=== PATIENT | male | born 1970 | race Caucasian/White ===

== ENCOUNTER 2018-02-25 10:43 | Inpatient (IN) | payer SELFPAY ==
[2018-02-25] MEDS ORDERED: Acetaminophen TAB* 325 MG PO ONE (11:45)
[2018-02-25] MEDS ORDERED: NS 0.9% 1000 ML* 1,000 ML IV ONE ×3 (11:45→16:16)
--- NOTE | 2018-02-25 11:45 | ED ---
HPI Febrile Illness - HPI Summary HPI Summary: Pt is 48 y/o M who presents to ED c/o fever and general illness for 2 days. He states that he has been working in extreme heat, and feels aching pain and both hot and cold. Last night he had a fever of 100 degrees. Pt also notes nonproductive cough and normal urination and bowel movement. In addition, his right great toe was bright purple a few days ago, and now the skin is peeling off. He notes difficulty walking due to the pain in the right foot. Rates his pain intensity 7/10 in severity at triage. Denies congestion, diarrhea, or abdominal pain. - History of Current Complaint Chief Complaint: EDFluSymptoms Time Seen by Provider: 02/25/18 11:17 Hx Obtained From: Patient Onset/Duration: Started Days Ago, Still Present Temperature: 101.6 F Current Severity: Moderate Pain Intensity: 7 Pain Scale Used: 0-10 Numeric Associated Signs and Symptoms: Chills, Cough - Nonproductive, Diarrhea - NEGATIVE, Dysuria - NEGATIVE - Allergy/Home Medications Allergies/Adverse Reactions: Allergies Allergy/AdvReac Type Severity Reaction Status Date / Time No Known Allergies Allergy Verified 02/25/18 10:44 PMH/Surg Hx/FS Hx/Imm Hx Endocrine/Hematology History: Denies: Hx Diabetes, Hx Thyroid Disease Cardiovascular History: Denies: Hx Hypertension Respiratory History: Denies: Hx Asthma, Hx Chronic Obstructive Pulmonary Disease (COPD) GI History: Denies: Hx Ulcer Infectious Disease History: No Infectious Disease History: Denies: Hx Hepatitis, Hx Human Immunodeficiency Virus (HIV), Traveled Outside the [place] in Last 30 Days - Family History Known Family History: Positive: Hypertension, Diabetes - Social History Alcohol Use: Daily Alcohol Amount: 12 pack daily Substance Use Type: Reports: None Smoking Status (MU): Heavy Every Day Tobacco Smoker Review of Systems Positive: Fever, Chills Positive: Cough Negative: Abdominal Pain, Diarrhea Genitourinary: Negative Positive: Other - right great toe was purple and now has skin peeling off All Other Systems Reviewed And Are Negative: Yes Physical Exam - Summary Physical Exam Summary: Appearance: The patient is well-nourished in no acute distress and in no acute pain. Skin: Skin is peeling off of right great toe. The skin is warm and dry and skin color reflects adequate perfusion. HEENT: The head is normocephalic and atraumatic. The pupils are equal and reactive. The conjunctivae are clear and without drainage. Nares are patent and without drainage. Mouth reveals moist mucous membranes and the throat is without erythema and exudate. The external ears are intact. The ear canals are patent and without drainage. The tympanic membranes are intact. Neck: The neck is supple with full range of motion and non-tender. There are no carotid bruits. There is no neck vein distension. Respiratory: Chest is non-tender. Breath sounds decreased on left. Cardiovascular: Tachycardic. There is no murmur or rub auscultated. There is no peripheral edema and pulses are symmetrical and equal. Abdomen: The abdomen is soft and non-tender. There are normal bowel sounds heard in all four quadrants and there is no organomegaly palpated. Musculoskeletal: There is no back tenderness noted. Extremities are non-tender with full range of motion. There is good capillary refill. There is no peripheral edema or calf tenderness elicited. Neurological: Patient is alert and oriented to person, place and time. The patient has symmetrical motor strength in all four extremities. Cranial nerves are grossly intact. Deep tendon reflexes are symmetrical and equal in all four extremities. Psychiatric: The patient has an appropriate affect and does not exhibit any anxiety or depression. Triage Information Reviewed: Yes Vital Signs On Initial Exam: Initial Vitals Temp Pulse Resp BP Pulse Ox 101.6 F 108 24 128/83 97 02/25/18 10:45 02/25/18 10:45 02/25/18 10:45 02/25/18 10:45 02/25/18 10:45 Vital Signs Reviewed: Yes Diagnostics - Vital Signs Vital Signs Temp Pulse Resp BP Pulse Ox 02/25/18 11:29 100.1 F 02/25/18 11:25 110 96 02/25/18 11:24 108 119/76 96 02/25/18 10:45 101.6 F 108 24 128/83 97 - Laboratory Lab Results: Lab Results 02/25/18 Range/Units 11:04 Influenza A (Rapid) Negative (Negative) Influenza B (Rapid) Negative (Negative) Result Diagrams: 02/25/18 12:14 02/25/18 12:14 Lab Statement: Any lab studies that have been ordered have been reviewed, and results considered in the medical decision making process. - Radiology CXR Radiology Interpretation Completed By: Radiologist - IMPRESSION:No active cardiopulmonary disease is noted. ED Physician reviewed this report. Right Great Toe X-Ray Radiology Interpretation Completed By: Radiologist - IMPRESSION: NO FRACTURE OF THE RIGHT GREAT TOE IS NOTED. ED Physician reviewed this report. - CT Chest CT CT Interpretation Completed By: Radiologist - IMPRESSION: 1. There is dense consolidation and possible underlying mass in the right upper lobe, masslike area measuring 4.5 x 3.4 x 5.2 cm. There is immediately surrounding the additional consolidation. Malignancy has not been excluded here. 2. Limited mediastinal lymphadenopathy. Precarinal nodes measure up to 14 mm short axis. These may be reactive or malignant. 3. No other acute disease seen. As above. ED Physician reviewed this report. - EKG 16:26 Cardiac Rate: Tachycardia - 107 bp, EKG Rhythm: Sinus Tachycardia EKG Interpretation: ST elevation and QS complexes septal. 17:35 Cardiac Rate: Tachycardia - 106 bp EKG Rhythm: Sinus Tachycardia EKG Comparison: Other - Improved from first EKG taken earlier today at 16:26. Re-Evaluation - Re-Evaluation First Eval Re-Evaluation Time: 16:31 Comment: Discussed results of EKG with pt and informed him we are consulting with physical therapy resident. Pt is agreeable with this plan. Course/Dx - Course Course Of Treatment: Mr. Lema presented to the emergency department complaining of aching all over, chills and sweats, nonproductive cough and a sore right great toe for about 2 days. He was febrile on arrival with a borderline tachycardia. He did not meet septic criteria. Nevertheless an IV was initiated and labs drawn. He was given Tylenol for his fever and this resolved his tachycardia. His labs revealed a mild leukocytosis of 14.5 but as he was no longer tachycardic he still didn't meet septic criteria. Nevertheless fluids were ordered for him. His chest x-ray initial reading was negative and the only thing pending at that point was urine and Levaquin was ordered for him. He began to get tachycardic again and fluids were continued. His troponin returned at 0.06 in the low indeterminate range and an EKG was obtained at that point. He had ST elevations with QS complexes in the septal leads which were concerning but did not meet STEMI criteria. Dr. Crowe was contacted and came to the emergency department to perform an echocardiogram. Dr. Moon was contacted for admission. While speaking on the phone with Dr. Crowe I looked at the chest x-ray and it looked to me like there was a right upper lobe mass and Dr. Moon ordered a CT scan. Once the patient was both tachycardic and had a leukocytosis he was treated as sepsis however he had already been given fluids and antibiotics at that point. His pressure was always good. He never had chest pain. - Diagnoses Provider Diagnoses: Sepsis, Pneumonia - Provider Notifications Discussed Care Of Patient With: Elin Crowe Time Discussed With Above Provider: 16:25 Instructed by Provider To: Other - Dr. Crowe agreed to come see pt in ED to do an electrocardiogram. At 16:[address] Moon who agreed to admit pt to [facility]. - Critical Care Time Critical Care Time: 30-74 min Discharge - Sign-Out/Discharge Documenting (check all that apply): Patient Departure - Admit - Discharge Plan Condition: Stable Disposition: ADMITTED TO [facility] - Billing Disposition and Condition Condition: STABLE Disposition: Admitted to [facility] - Attestation Statements Document Initiated by Scribe: Yes Documenting Scribe: Kala Shea Provider For Whom Scribe is Documenting (Include Credential): Dr. Kishore Baugh MD Scribe Attestation: IKala, scribed for Dr. Kishore Baugh MD on 02/25/18 at 1841. Scribe Documentation Reviewed: Yes Provider Attestation: The documentation as recorded by the scribe, Kala Shea accurately reflects the service I personally performed and the decisions made by me, Dr. Kishore Baugh MD
[2018-02-25 12:26] LABS: Hematocrit 42 % (42-52); Hemoglobin 14.3 g/dl (14.0-18.0); Mean Corpuscular HGB Conc 34 g/dl (31-36); Mean Corpuscular Hemoglobin 32 pg (27-31); Mean Corpuscular Volume 95 fL (80-94); Mean Platelet Volume 8.1 um3 (7.4-10.4); Platelet Count 287 10^3/ul (150-450); Red Cell Distribution Width 14 % (10.5-15); White Blood Count 14.5 10^3/ul (3.5-10.8)
[2018-02-25 12:30] LABS: ABS Basophils 0.1 10^3/ul (0-0.2); ABS Eosinophils 0 10^3/ul (0-0.6); ABS Lymphocytes 1.5 10^3/ul (1.0-4.8); ABS Monocytes 1.4 10^3/ul (0-0.8); ABS Neutrophils 11.5 10^3/ul (1.5-7.7)
[2018-02-25 12:35] LABS: INR 1.17 (0.77-1.02)
[2018-02-25 12:48] LABS: EGFR Non-African American 61.3 (>60)
[2018-02-25 12:50] LABS: ABS Basophils 0 10^3/ul (0-0.2); Monocytes % 5 % (0-7)
--- NOTE | 2018-02-25 13:14 | RAD ---
Indication: Sepsis. 2 views of the chest including dual energy PA views demonstrate no mediastinal shift. Heart is of normal size and configuration. Lung dougherty demonstrate no definite pleural fluid, pneumonia or pneumothorax. IMPRESSION: No active cardiopulmonary disease is noted.
--- NOTE | 2018-02-25 13:20 | RAD ---
Indication: Right great toe injury. 3 views of the right great toe demonstrates no definite fracture. No other bone or joint abnormality is identified. IMPRESSION: NO FRACTURE OF THE RIGHT GREAT TOE IS NOTED.
[2018-02-25] MEDS ORDERED: Levofloxacin 750 MG IVPREMIX(* 750 MG/150 ML BAG IVPB ONE (14:08)
[2018-02-25 14:20] LABS: Urine Appearance Clear; Urine Blood 1+ (Negative); Urine Color Straw; Urine Ketones Negative (Negative); Urine Protein Negative (Negative); Urine Red Blood Cell Trace(0-2/hpf) (Absent); Urine Specific Gravity 1.006 (1.010-1.030); Urine Urobilinogen Negative (Negative); Urine White Blood Cell Absent (Absent)
[2018-02-25] MEDS ORDERED: Iohexol 300* (CONTRAST) 10 ML SDV IV ONE (17:31)
[2018-02-25] MEDS ORDERED: Vancomycin(*) 1,000 MG in NS 0.9% 250 ML* 250 ML IVPB ONE (17:38)
[2018-02-25] MEDS ORDERED: Temazepam CAP* 15 MG PO PRN (17:41)
[2018-02-25] MEDS ORDERED: Mouth Piece, Nicotine* 1 EACH CARTRIDGE INH PRN (18:01)
--- NOTE | 2018-02-25 18:34 | RAD ---
EXAM: CT Chest With Intravenous Contrast CLINICAL HISTORY: 48 years old, male; Pain; Chest pain; On breathing; Patient HX: Pt reports fever, chills, shortness of breath. Denies cp, n/v/d. Pt C/O headache and aches and pains. Pt states he has been working in the sun past few days. Feels dehydrated. Pt took advil last night 1000mg. ; Additional info: Re: Rul mass seen on cxr TECHNIQUE: Axial computed tomography images of the chest with intravenous contrast. All CT scans at this facility use at least one of these dose optimization techniques: automated exposure control; mA and/or kV adjustment per patient size (includes targeted exams where dose is matched to clinical indication); or iterative reconstruction. Coronal and sagittal reformatted images were created and reviewed. CONTRAST: 80 mL of [id number] administered intravenously. COMPARISON: Chest x-ray 02/25/2018 report. FINDINGS: Lungs: There is dense consolidation and possible underlying mass in the right upper lobe, masslike area measuring 4.5 x 3.4 x 5.2 cm. There is immediately surrounding the additional consolidation. Pleural space: Unremarkable. No pneumothorax. No significant effusion. Heart: Unremarkable. No cardiomegaly. No significant pericardial effusion. Bones/joints: Unremarkable. No acute fracture. No dislocation. Soft tissues: Unremarkable. Vasculature: Unremarkable. No thoracic aortic aneurysm. Lymph nodes: Limited mediastinal lymphadenopathy. Precarinal nodes measure up to 14 mm short axis. These may be reactive or malignant. Liver: Fatty liver. Other findings: No other acute disease seen. As above. IMPRESSION: 1. There is dense consolidation and possible underlying mass in the right upper lobe, masslike area measuring 4.5 x 3.4 x 5.2 cm. There is immediately surrounding the additional consolidation. Malignancy has not been excluded here. 2. Limited mediastinal lymphadenopathy. Precarinal nodes measure up to 14 mm short axis. These may be reactive or malignant. 3. No other acute disease seen. As above.
[2018-02-25] MEDS ORDERED: cefTRIAXone(*) 2 GM in NS 0.9% 50 ML* 50 ML IVPB SCH (19:00)
[2018-02-25] MEDS ORDERED: Vancomycin(*) 1,000 MG BAG/ADDV IVPB ONE (19:33)
[2018-02-25] MEDS: Acetaminophen TAB* 325 MG PO PRN (19:36)
--- NOTE | 2018-02-25 19:44 | CONS ---
CC: Hospitalist Service CARDIOLOGY CONSULT: DATE OF CONSULT: 02/25/18 REASON FOR CONSULT: Abnormal ECG and elevated troponin. HISTORY OF PRESENT ILLNESS: Mr. Lema is a 48-year-old gentleman with no past cardiac history. He presented due to acute onset of fevers that occurred yesterday. He said he was very hot, felt like he was dehydrated and burning up and he has had some coughing. He denies any chest pain, pressure, heaviness, orthopnea, or PND. The patient's labs included a troponin, which came back mildly elevated at 0.06 and followup EKG, which showed precordial Qs and abnormally elevated ST segments that were suggestive of a recent large anterior wall AL. The patient denies infectious symptoms before yesterday. He denies any viral illness recently. Significantly, the patient was on antibiotics 3 weeks ago for a dental infection and subsequently had a filling, plans in place for a root canal. He denies dental pain. Approximately a month ago his right great toe was very painful and blue, he did not seek medical attention. The patient has no primary care physician currently. Additional history was obtained from his girlfriend and sister after my initial exam and is significant for : -February 04, 2018 the patient returned from a green party (no food ingested) and he was very short of breath, he had to sleep in a chair. -6 month history of shortness of breath and coughing. His girlfriend also reported intermittent chest pain, the patient stated this occurred later in the day and had a pleuritic component. He cannot show me where the pain was. PAST MEDICAL HISTORY: Trauma to the left toe in 2004 with secondary debridement. Dental abscess on molar #32 in 2005, which required incision and drainage for Hardik's angina with Dr. Sepulveda. MEDICATIONS: The patient is on no medications. ALLERGIES: Has no known drug allergies. FAMILY HISTORY: Significant for early coronary artery disease. His father has a history of heart disease, hypertension, and diabetes. His mother had a history of hypertension and diabetes. Maternal grandmother has a history of heart problems. 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 He is an active smoker, over 1 PPD. He has used cocaine on and off for many years, most recently used last week (snorts). No CP or symptoms with cocaine use. He denies ever using IV recreational drugs. He drinks over a 12 pack of beer daily. REVIEW OF SYSTEMS: See history of present illness, but positive for acute onset of fevers and coughing, the cough was unproductive. Additionally, positive for chronic low back pain. He says when he walks his left lower extremity will get numb and feels like it is going to give out and it is also painful. His girlfriend added that the pain would be so bad he had to sit down on the ground. He also says this can occur, but to a lesser extent if he is just standing. No change in bowel or bladder habits. No dysuria or hematuria. PHYSICAL EXAM: The patient is 6 feet 1 inch, weighs 225 pounds with a BMI of 28. Vital Signs: On arrival in the emergency room, blood pressure 128/83, sinus tachycardia at a rate of 108 beats per minute, oxygen saturation was 97%, and temperature 101.6. General Appearance: Centripetally obese, stocky, fit- appearing 48-year-old gentleman, lying, appears a little anxious and worried, but in no acute medical distress, able to lie at approximately 25 degrees. HEENT: Pupils are equal and round. Mucous membranes appear moist and oral mucosa was unremarkable. Neck: Without increased JVP. Skin: Whitaker, but also Mediterranean complexion, but I did not appreciate rashes or cyanosis. Respiratory: No wheezing or rales in the bases. He did have some bronchial breath sounds in the right upper lobe, no E to A changes. Coronary: S1, S2, regular, tachycardic with no appreciable murmurs or rubs. + remy. Abdomen: Overweight. Active bowel sounds. Soft. No appreciable hepatomegaly, masses, or bruits. He has palpable 1 to 2+ femoral pulses that are free of bruits bilaterally. The lower extremities are both warm, free of edema. He has a strong 2+ posterior tibial pulse in the right lower extremity, but really difficult to palpate pulses in the left lower extremity. I did not get a strong femoral pulse on the left. Radial pulses are 2+ and symmetrical. DIAGNOSTIC STUDIES/LAB DATA: White count 14.5, hemoglobin 14.3, hematocrit 42, mean cell volume 95, platelets 287 with increase in monos and neutrophils. INR 1.17, PTT 31. Sodium 134, potassium 4.0, chloride 104, bicarb 22, BUN 12, creatinine 1.26, glucose 113. AST of 39, ALT 103. Troponin #1 of 0.06. C- reactive protein 148. Total cholesterol 212, triglycerides 110, LDL cholesterol 152, HDL cholesterol 38. Urinalysis: Specific gravity 1.006, 1+ positive blood, negative esterase, negative nitrites, negative bacteria, glucose negative. Influenza A and B are negative. Chest x-ray had a right upper lobe infiltrate. EKG on arrival showed sinus tachycardia at 107 beats per minute, QRS axis +90, normal AV and IV conduction times. He has got anterior Qs V1 through V4 and ST elevation V2 through V4, and no old EKG is available to compare. Repeat EKG, ECG #2 with leads lower continued to show precordial Qs V1 through V3, but the ST elevation was improved with only seen significantly in lead V2. A [employer] bedside echo was done. He had normal to hyperdynamic right ventricular systolic function. The left ventricular endocardium was harder to see, but no focal wall motion abnormalities noted on parasternal or apical views. Gross estimated ejection fraction moderately decreased. There appeared to be some mitral insufficiency. This is a suboptimal study with the ER machine , but aortic, tricuspid, and mitral leaflets did not show gross evidence of endocarditis. IMPRESSION AND PLAN: In conclusion, Mr. Lema is a 48-year-old gentleman, who presented with fevers and coughing with some elevated temperature, elevated white count, and abnormal chest x-ray all concerning for possible acute pneumonia, but additionally he has a very abnormal EKG concerning for recent anterior septal myocardial infarction. The echo is less suspicious for that and also no significant pericardial effusion was seen. I do not feel the patient is having acute ST-elevation myocardial infarction. His ECG is consistent with a distant silent myocardial infarction. He may be dependent on collateral flow and with his acute infection getting some demand ischemia. The anterior Qs could be contributed to by his extensive smoking history, although on chest x- ray the heart border in relation to the lungs did not appear to be that low. Alcohol also can depress his ejection fraction. I recommended supportive care for the underlying infection. Smoking cessation was discussed with the patient, which he is understanding the importance of. I have asked that he get serial troponins and EKGs and a full echo once our service tech/welder is available tomorrow for better imaging. I do not see an indication to go to the sleep lab technician acutely, but I would treat him as if he has underlying coronary disease with initiation of a statin. As vitals tolerate, consider beta-blockade low dose to start as he meets criteria for SIRS and I do not want his blood pressure to drop precipitously. Additional recommendations will be made pending his clinical course and response to the above measures and a full echo with a better machine in the morning. buttermaker continuous churn, we will need to consider whether we do a stress test with imaging to look for evidence of an old myocardial infarction, occlusion versus cardiac catheterization, not urgently. I think the patient has claudication in the left leg with differential of pseudoclaudication and a work up for this should be started. Improvements in smoking, cocaine and alcohol intake were discussed. [id number]/[facility] #: [id number]
--- NOTE | 2018-02-25 20:50 | HP ---
CC: Dr. Crowe * HISTORY AND PHYSICAL: DATE OF ADMISSION: 02/25/18 PRIMARY CARE PROVIDER: None. CHIEF COMPLAINT: Fever. 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 He noted that in the past 24 hours that he had fevers and he was short of breath. He stated that he had been having troubles with cough, but he did not consider it out of ordinary due to the amount of cigarettes he smokes. The patient is septic upon the evaluation in the emergency department, appears to be related to pneumonia. He is going to be admitted to Medicine. PAST MEDICAL HISTORY: 1. History of traumatic left great toe amputation in a lawn mowing accident. 2. History of Hardik angina due to tooth abscess in 2005. MEDICATIONS: Include naproxen on a p.r.n. basis. ALLERGIES: No known drug allergies. FAMILY HISTORY: Positive for heart disease in father who had an [place] in his 50s. SOCIAL HISTORY: The patient smokes 1 pack per day and he has been doing so ever since 2016. He lives with and takes care of his both of his parents. His surrogate name is his girlfriend, Farrah. Farrah's phone number is [phone]. The patient stated that he drinks 6 to 12 beers every other day or so. He denies any drug use. REVIEW OF SYSTEMS: Positive for chronic lower back pain that has not been worse recently. Positive for left leg going numb whenever he is up and working. He stated that the left leg numbness improves when he lays down and "stretches his back." The patient denies any sore throat. Denies any productive cough, but he has been coughing "due to smoking" for quite sometime. He feels that he had "heatstroke," he feels very hot. He denies any change in bowel habits and denies any problems with nausea, vomiting or diarrhea. He has a recent left mandibulary tooth dental infection that was treated with antibiotics by his dentist approximately 3 weeks ago. The patient also stated that he noted that his right great toe would be getting red and swollen and he had been using Epsom salts to soak it with and then he noted that the skin would be peeling off recently. All the remaining 12 systems were reviewed with the patient and were otherwise negative. PHYSICAL EXAMINATION GENERAL: The patient is a very pleasant 48-year-old male, who is in no acute distress, appears mildly anxious. The patient is alert and awake, oriented x3, rather a poor historian. VITAL SIGNS: Blood pressure of 107/71, heart rate of 110 and regular, respiratory rate 34, oxygen saturation 98% on 2 liters of oxygen via nasal cannula, temperature of 101.6. HEENT: Head atraumatic, normocephalic. Eyes: Pupils are equal, reactive to light and accommodation. Oropharynx is with pharyngeal injection and erythema with no evidence of exudates. Mucosa moist. NECK: Supple. No JVD. No adenopathy bilaterally. RESPIRATORY: Decreased breath sounds in right upper lobe with faint crackles in the same area. ABDOMEN: Protuberant, soft, nontender. Bowel sounds present in all 4 quadrants. EXTREMITIES: There is no edema. The patient has good bilateral posterior tibialis pulses, but poor dorsalis pedis pulses bilaterally. The patient's left foot is status post left great toe amputation. The right toe with mild erythema. It appears to be healing paronychia, on the right side of his toenail. There was some peeling skin, but no open areas. It is mildly tender to palpation on the right side of the toenails. There is no evidence of discharge or abscess. BACK: On evaluation of the patient's back, no tenderness to palpation of the back. NEUROLOGIC: Cranial nerves II through XII are grossly intact. Motor strength is 5/5 bilaterally. PSYCHIATRIC: Oriented x3. Mildly anxious, no evidence of depression. DIAGNOSTIC STUDIES/LAB DATA: Showed white blood cell count of 14.5, hemoglobin of 14.3, hematocrit of 42, MCV of 95, and platelets of 287,000. INR of 1.17. Sodium of 134, potassium 4.0, chloride 104, carbon dioxide 32, BUN 12 , creatinine 1.26. Liver function tests showed AST of 39, ALT of 103, alkaline phosphatase of 89. The patient's troponin was 0.07. C-reactive protein was 137. His LDL was 152. The patient's lactic acid was 1.2 and 2 respectively. The patient's urinalysis was grossly unremarkable apart from trace of blood. Influenza testing was negative. The patient's portable chest x-ray showed "there is a suggestion of right upper lobe density, which may represent pneumonia or underlying mass. CT of the chest suggestive for further evaluation." The patient's EKG initially showed ST elevations in V1 to V4, did after lead positioning adjustment show ST elevation in V1 to V2. The patient continued to be in sinus tachycardia. There was no EKG available for comparison from previous visits. ASSESSMENT AND PLAN: 1. The patient is septic, likely due to right upper lobe pneumonia. As discussed with radiologist, a CT with IV contrast is going to be obtained to rule out mass, evaluate further for possibility of pneumonia and rule out septic emboli. At this time, the patient is going to be treated with broad- spectrum antibiotics including ceftriaxone, vancomycin, as well as azithromycin. Urine antigen Legionella and Strep pneumoniae are going to be obtained. The patient is going to be treated with intravenous hydration. 2. In regards to mild elevation of troponin and EKG changes, at this point the patient complains of no chest pain whatsoever. Dr. Crowe is involved in the patient's care and as per bedside echo performed, there was no evidence of gross wall motion abnormality. The patient is going to have a full echo performed tomorrow. For the time being, the patient is going to be observed from telemetry monitoring bed with followup troponins. The patient's second EKG showed improvement on the patient's ST elevations and some of the ST elevations and other abnormalities were likely related to lead positioning. 3. The patient has poor peripheral pulses and ABIs are going to be obtained to rule out peripheral vascular disease. At this point, though his intermittent left leg numbness is likely related to neurogenic claudication from chronic back problems, which will have to be addressed as outpatient. 4. The patient has a history of recent tooth infection and endocarditis has to be considered. Due to that, he is going to placed on vancomycin and ceftriaxone , and blood cultures were already obtained. 5. The patient has a history of smoking and he is going to placed on nicotine inhaler. He was recommended to stop smoking. 6. The patient has a history of alcohol use rather significant of 6 to 12 beers every other day. We will place him on thiamine and folate. We will watch and monitor for possibility of withdrawal. 7. For DVT prophylaxis, the patient is going to be placed on heparin subcutaneously. 8. The patient's code status is full and his surrogate is his girlfriend, Farrah, as mentioned above. 9. The patient has mild elevation of creatinine. It does not meet criteria of acute kidney injury. It is likely related to sepsis. TIME SPENT: Please note that approximately 72 minutes were spent on admission of this patient, more than half that time was spent [id number] with the patient during the interview and physical exam. [id number]/[facility] #: [id number] MTDD
[2018-02-25] MEDS: Thiamine TAB* 100 MG TAB PO SCH (21:35)
[2018-02-25] MEDS: Heparin VIAL(*) 5000 UNITS/ML VIAL (FIVE THOUSAND) SUBCUT SCH (21:35)
[2018-02-25] MEDS: Atorvastatin* 40 MG TAB PO SCH (21:35)
[2018-02-25] MEDS: NS 0.9% 1000 ML* 1,000 ML IV SCH (21:36)
[2018-02-25] MEDS: Azithromycin IV(*) 500 MG in NS 0.9% 250 ML* 250 ML IVPB SCH (23:32)
[2018-02-26] MEDS: Acetaminophen TAB* 325 MG PO PRN ×4 (02:58→19:27)
[2018-02-26 05:19] LABS: ABS Basophils 0.1 10^3/ul (0-0.2); ABS Eosinophils 0 10^3/ul (0-0.6); ABS Lymphocytes 1.9 10^3/ul (1.0-4.8); ABS Neutrophils 12.5 10^3/ul (1.5-7.7); ABS Nucleated RBC 0 10^3/ul; Eosinophil % 0.1 % (0-6); Hematocrit 39 % (42-52); Hemoglobin 13.4 g/dl (14.0-18.0); Lymphocyte % 12.4 % (25-47); Mean Corpuscular HGB Conc 34 g/dl (31-36); Mean Corpuscular Hemoglobin 32 pg (27-31); Mean Corpuscular Volume 93 fL (80-94); Mean Platelet Volume 8.1 um3 (7.4-10.4); Nucleated Red Blood Cells % 0; Platelet Count 242 10^3/ul (150-450); Red Blood Count 4.22 10^6/ul (4.00-5.40); Red Cell Distribution Width 14 % (10.5-15); White Blood Count 15.6 10^3/ul (3.5-10.8)
[2018-02-26] MEDS: Heparin VIAL(*) 5000 UNITS/ML VIAL (FIVE THOUSAND) SUBCUT SCH ×3 (06:01→21:19)
[2018-02-26] MEDS: NS 0.9% 1000 ML* 1,000 ML IV SCH (07:20)
[2018-02-26] MEDS ORDERED: Potassium Chlor TAB* 20 MEQ TAB.ER PO ONE (07:42)
[2018-02-26] MEDS ORDERED: Vancomycin(*) 1,500 MG in NS 0.9% 250 ML* 250 ML IVPB ONE (08:30)
[2018-02-26] MEDS ORDERED: Perflutren Lipid Microsphere* 3 ML VIAL ONE (08:45)
[2018-02-26] MEDS ORDERED: Vancomycin per Pharmacy* NOTE FOLLOW UP PRN (08:53)
[2018-02-26] MEDS: Cefepime 2 GM in Dextrose(*) 2 GM/50 ML BAG IV SCH ×3 (09:13→23:38)
[2018-02-26] MEDS: Aspirin TAB* 325 MG PO SCH (09:13)
[2018-02-26] MEDS: Folic Acid TAB* 1 MG PO SCH (09:13)
[2018-02-26] MEDS: Thiamine TAB* 100 MG TAB PO SCH (09:13)
--- NOTE | 2018-02-26 09:39 | PN ---
Subjective Date of Service: 02/26/18 Interval History: Although still febrile this AM, feels "much better" Had diarrhea yesterday, no abd pain Objective Active Medications: Acetaminophen (Tylenol Tab*) 650 mg PO Q4H PRN PRN Reason: FEVER/PAIN Last Admin: 02/26/18 07:20 Dose: 650 mg Aspirin (Aspirin Tab*) 325 mg PO DAILY [facility] Last Admin: 02/26/18 09:13 Dose: 325 mg Atorvastatin Calcium (Lipitor*) 40 mg PO 2100 [facility] Last Admin: 02/25/18 21:35 Dose: 40 mg Device (Nicotine Mouth Piece*) 1 each INH .USE WITH NICOTROL PRN PRN Reason: CRAVING Folic Acid (Folvite Tab*) 1 mg PO DAILY [facility] Last Admin: 02/26/18 09:13 Dose: 1 mg Heparin Sodium (Porcine) (Heparin Vial(*)) 5,000 units SUBCUT Q8HR [facility] Last Admin: 02/26/18 06:01 Dose: 5,000 units Azithromycin 500 mg/ Sodium (Chloride) 250 mls @ 250 mls/hr IVPB Q24H [facility] Last Admin: 02/25/18 23:32 Dose: 250 mls/hr Vancomycin HCl 1,500 mg/ (Sodium Chloride) 250 mls @ 166.667 mls/hr IVPB ONCE ONE; Protocol Stop: 02/26/18 09:59 Last Admin: 02/26/18 09:22 Dose: 166.667 mls/hr Potassium Chloride 20 meq/ (Lactated Ringer's) 1,010 mls @ 100 mls/hr IVPB Q10H [facility] Cefepime HCl (Maxipime 2 Gm In Dextrose Duplex (*)) 2 gm in 50 mls @ 100 mls/ hr IV Q8H [facility] Last Admin: 02/26/18 09:13 Dose: 100 mls/hr Vancomycin HCl 1,000 mg/ (Sodium Chloride) 250 mls @ 166.667 mls/hr IVPB Q8H [facility] Nicotine (Nicotine Inhaler*) 10 mg INH Q2H PRN PRN Reason: CRAVING Pharmacy Consult (Vancomycin Per Pharmacy*) 1 note FOLLOW UP . PRN PRN Reason: PER PROTOCOL Pharmacy Profile Note (Vancomycin Trough Check) 1 note FOLLOW UP ONCE ONE Stop: 02/27/18 08:01 Temazepam (Restoril Cap*) 15 mg PO BEDTIME PRN PRN Reason: INSOMNIA Thiamine HCl (Vitamin B-1 Tab*) 100 mg PO DAILY [facility] Last Admin: 02/26/18 09:13 Dose: 100 mg Vital Signs - 8 hr 02/26/18 02/26/18 02/26/18 02:18 04:28 06:24 Temperature 101.0 F 100.3 F 101.3 F Pulse Rate 106 104 104 Respiratory 28 28 26 Rate Blood Pressure 101/66 109/70 120/69 (mmHg) O2 Sat by Pulse 94 94 98 Oximetry 02/26/18 07:59 Temperature 99.3 F Pulse Rate 109 Respiratory 24 Rate Blood Pressure 113/79 (mmHg) O2 Sat by Pulse 98 Oximetry Oxygen Devices in Use Now: None Appearance: 48 yo M in nAD, AAOx3 Eyes: No Scleral Icterus, PERRLA Ears/Nose/Mouth/Throat: NL Teeth, Lips, Gums, Mucous Membranes Moist Neck: NL Appearance and Movements; NL JVP, Trachea Midline Respiratory: Symmetrical Chest Expansion and Respiratory Effort, - - R UL decreased breath sounds and faint rhonchi anteriorly Cardiovascular: NL Sounds; No Murmurs; No JVD, RRR Abdominal: NL Sounds; No Tenderness; No Distention, No Hepatosplenomegaly Lymphatic: No Cervical Adenopathy Extremities: No Edema, No Clubbing, Cyanosis, - - s/p left 1st toe amputation Skin: No Rash or Ulcers, No Nodules or Sclerosis Neurological: Alert and Oriented x 3, NL Muscle Strength and Tone Result Diagrams: 02/26/18 05:10 02/26/18 05:10 Additional Lab and Data: Lab Results 02/25/18 Range/Units 11:04 Influenza A (Rapid) Negative (Negative) Influenza B (Rapid) Negative (Negative) Microbiology and Other Data: Microbiology 02/25/18 20:21 Legionella Urinary Antigen - Final Urine Negative Legionella Antigen Streptococcus pneumoniae Ag Screen - Final Negative S. pneumo Antigen 02/25/18 10:55 Influenza Types A,B Antigen - Final Nasal Specimen received for Influenza A/B Molecular testing Assess/Plan/Problems-Billing Assessment: 48 yo M with h/o smoking, traumatic left toe amputation presents with fever/PNA - Patient Problems (1) Sepsis due to pneumonia Comment: cT shows RUL PNA, shape worrisome for malignancy, but symptoms clearly infectious. Due to continuation of fever will broaden coverage from Ceftriaxone to Cefepime , cont Vanc /Azithro Legionella/Strep pneumo antigen neg Blood cx pending (2) EKG abnormalities Comment: EKD shows ST elevation, but pt never c/o CP and low elev in trop likely related to demand ischemia Echo pending appreciate cardiology consult (3) Decreased pedal pulses Comment: NEMESIO's ordered. symptoms of intermittent left leg numbness in the past likley related to nerve root compression (4) Smoking Comment: counseled x 4 min today nicotine replacement ordered (5) ETOH abuse Comment: cont Thiamine/Folate No signs of withdrawal (6) DVT prophylaxis Comment: HSQ Status and Disposition: inpatient
--- NOTE | 2018-02-26 10:24 | ECHO ---
Patient: KAYLEE RUANO [facility] Rec#: [id number] : 1970 Date: 02/26/2018 Age: 48y Height: 185 cm / 72.8 in Weight: 102 kg / 224.8 lbs Sex: M BSA: 2.26 Room#: 434 Admit Date#: 02/25/2018 Type: Inpatient Referring: Yodit Moon MD Reading: Elin Crowe MD Profiling Machine Set Up Operator Tool: Ngoc Lopez RN RDCS Transthoracic Echocardiogram Indication: Abnormal EKG BP: 109/70 HR: 108 Rhythm: Tachycardia Findings History: Smoker, ETOH use, recent dental infection Technical Comments: The study quality is fair. The study is technically limited due to the patient's smoking history. Left Ventricle: The left ventricular chamber size is moderately dilated. 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 There is severely decreased left ventricular systolic function. The estimated ejection fraction is 25-30%. There is septal flattening of the interventricular septum consistent with right ventricular volume or pressure overload. The left ventricular diastolic filling pattern is restrictive. The left ventricular diastolic filling pattern is consistent with elevated left ventricular end-diastolic pressure. Left Atrium: The left atrium is slightly dilated. Right Ventricle: The right ventricle is slightly dilated. The right ventricular global systolic function is mildly reduced. Right Atrium: The right atrial cavity size is normal. Aortic Valve: The aortic valve is trileaflet. The aortic valve leaflets are mildly thickened. There is aortic annular calcification. There is no evidence of aortic regurgitation. There is no evidence of aortic stenosis. Mitral Valve: The mitral valve leaflets are mildly thickened. There is moderate mitral regurgitation. The mitral regurgitant jet is posteriorly directed. The mitral regurgitant jet is laterally directed. There is no evidence of mitral stenosis. Tricuspid Valve: The tricuspid valve leaflets are normal. There is mild tricuspid regurgitation. Unable to estimate the right ventricular systolic pressure. There is no tricuspid stenosis. Pulmonic Valve: The pulmonic valve appears normal. There is a trace pulmonic regurgitation. There is no pulmonic stenosis. Pericardium: There is no significant pericardial effusion. Aorta: There is no dilatation of the ascending aorta. There is no dilatation of the aortic arch. There is no dilation of the aortic root. Pulmonary Artery: The main pulmonary artery is not well visualized. Venous: The inferior vena cava appears normal in size. There is a greater than 50% respiratory change in the inferior vena cava dimension. Contrast: Definity was used to optimize study. A total of 3 ml of diluted Definity was given IV. Conclusions The study is technically limited due to the patient's smoking history. There is severely decreased left ventricular systolic function. The apex is akinetic with global diffuse hypokinesis, the base of the heart moves best. The estimated ejection fraction is 25-30%. The left ventricular diastolic filling pattern is restrictive with elevated LVEDP. The right ventricular global systolic function is mildly reduced. The aortic valve leaflets are mildly thickened with normal function. There is moderate mitral regurgitation. There is mild tricuspid regurgitation. No prior echo to compare. Measurements Name Value Normal Range RVIDd (AP) 2D 3 cm (0.9 - 2.6) RVDdMajor (2D) 3.2 cm (2.2 - 4.4) RAd ISD 4CH 4.4 cm (3.4 - 4.9) RA (A4C)W 3.4 cm (2.9 - 4.6) IVSd (2D) 0.8 cm (0.6 - 1) LVPWd (2D) 1 cm (0.6 - 1) LVIDd (2D) 6.3 cm (3.6 - 5.4) LVIDs (2D) 5.6 cm - LV FS (2D) 11 % (25 - 45) Aortic Annulus 2 cm (1.4 - 2.6) Ao root diameter (2D) 3.5 cm (2.1 - 3.5) Ascending Ao 3.2 cm (2.1 - 3.4) Aortic arch 2.8 cm (1.8 - 3.4) LA dimension (AP) 2D 3.8 cm (2.3 - 3.8) LAd ISD 4CH 6.1 cm (2.9 - 5.3) LA ISD 4CH W 3.9 cm (2.5 - 4.5) Name Value Normal Range LA ESV BP (A/L) index 28.1 ml/m2 - LV mass (2D) 234.72 g - Name Value Normal Range MV E-wave Vmax 1.2 m/sec - MV deceleration time 120 msec - MV A-wave Vmax 0.57 m/sec - MV E:A ratio 2.11 ratio - LV septal e' Vmax 0.05 m/sec - LV lateral e' Vmax 0.05 m/sec - LV E:e' septal ratio 24 ratio - LV E:e' lateral ratio 24 ratio - Name Value Normal Range AV Vmax 1.5 m/sec - AV VTI 23.5 cm - AV peak gradient 9 mmHg - AV mean gradient 6 mmHg - LVOT Vmax 0.86 m/sec - LVOT VTI 11.4 cm - LVOT peak gradient 3 mmHg - LVOT mean gradient 2 mmHg - [place] Vmax 0.58 m/sec - Name Value Normal Range MR Vmax 4 m/sec - MR VTI 99 cm - MR volume (PISA) 16.8 ml - MR flow (PISA) 69.6 ml/sec - MR ERO 0.17 cm2 - MR PISA radius 0.6 cm - MR alias Vmax 30.8 cm/sec - Name Value Normal Range IVC diameter 1.7 cm - Name Value Normal Range PV Vmax 0.92 m/sec -
[2018-02-26] MEDS: Lactobacillus Acidophilus* 1 TAB PO SCH ×2 (10:42→21:17)
[2018-02-26] MEDS: Metoprolol Succinate XL TAB* 25 MG PO SCH (11:24)
--- NOTE | 2018-02-26 11:45 | PN ---
Subjective Date of Service: 02/26/18 - CC: diarrhea, coughing, fevers Interval History: The patient feels much better today c/w yesterday. Breathing has improved significantly, coughing is a bit better. He slept, denies orthopnea or PND. New diarrhea he attributes to the antibiotics. No chest pain. Medications Active Medications: Acetaminophen (Tylenol Tab*) 650 mg PO Q4H PRN PRN Reason: FEVER/PAIN Last Admin: 02/26/18 07:20 Dose: 650 mg Aspirin (Aspirin Tab*) 325 mg PO DAILY [facility] Last Admin: 02/26/18 09:13 Dose: 325 mg Atorvastatin Calcium (Lipitor*) 40 mg PO 2100 [facility] Last Admin: 02/25/18 21:35 Dose: 40 mg Device (Nicotine Mouth Piece*) 1 each INH .USE WITH NICOTROL PRN PRN Reason: CRAVING Folic Acid (Folvite Tab*) 1 mg PO DAILY [facility] Last Admin: 02/26/18 09:13 Dose: 1 mg Heparin Sodium (Porcine) (Heparin Vial(*)) 5,000 units SUBCUT Q8HR [facility] Last Admin: 02/26/18 06:01 Dose: 5,000 units Azithromycin 500 mg/ Sodium (Chloride) 250 mls @ 250 mls/hr IVPB Q24H [facility] Last Admin: 02/25/18 23:32 Dose: 250 mls/hr Potassium Chloride 20 meq/ (Lactated Ringer's) 1,010 mls @ 100 mls/hr IVPB Q10H [facility] Last Admin: 02/26/18 10:42 Dose: 100 mls/hr Cefepime HCl (Maxipime 2 Gm In Dextrose Duplex (*)) 2 gm in 50 mls @ 100 mls/ hr IV Q8H [facility] Last Admin: 02/26/18 09:13 Dose: 100 mls/hr Vancomycin HCl 1,000 mg/ (Sodium Chloride) 250 mls @ 166.667 mls/hr IVPB Q8H [facility] Lactobacillus Rhamnosus (Lactobacillus Acidophilus*) 1 tab PO BID [facility] Last Admin: 02/26/18 10:42 Dose: 1 tab Metoprolol Succinate (Toprol Xl Tab*) 25 mg PO DAILY [facility] Last Admin: 02/26/18 11:24 Dose: 25 mg Nicotine (Nicotine Inhaler*) 10 mg INH Q2H PRN PRN Reason: CRAVING Pharmacy Consult (Vancomycin Per Pharmacy*) 1 note FOLLOW UP . PRN PRN Reason: PER PROTOCOL Pharmacy Profile Note (Vancomycin Trough Check) 1 note FOLLOW UP ONCE ONE Stop: 02/27/18 08:01 Ramipril (Altace Cap*) 1.25 mg PO ONCE ONE Stop: 02/26/18 21:01 Temazepam (Restoril Cap*) 15 mg PO BEDTIME PRN PRN Reason: INSOMNIA Thiamine HCl (Vitamin B-1 Tab*) 100 mg PO DAILY [facility] Last Admin: 02/26/18 09:13 Dose: 100 mg Objective Vital Signs: Temp Pulse Resp BP Pulse Ox 99.9 F 96 24 122/76 97 02/26/18 10:03 02/26/18 10:03 02/26/18 10:03 02/26/18 10:03 02/26/18 10:03 Oxygen Devices in Use Now: None Appearance: Stocky and overweight muscular middle aged male with a wet wash cloth on forhead, lying at 20 degrees, comfortable. Girlfriend and sister at the bedside. Eyes: No Scleral Icterus, PERRLA Ears/Nose/Mouth/Throat: Clear Oropharnyx, Mucous Membranes Moist Neck: No Thyroid Enlargement, Masses - thick neck, no increased JVP appreciated. Respiratory: Symmetrical Chest Expansion and Respiratory Effort, Clear to Auscultation Cardiovascular: NL Sounds; No Murmurs; No JVD, RRR Abdominal: No Hepatosplenomegaly Extremities: No Edema, No Clubbing, Cyanosis - diminished/can't find L PTP or L DPP, right LE has strong PTP. Skin: No Rash or Ulcers Neurological: Alert and Oriented x 3 Lines/Tubes/Other Access: Clean, Dry and Intact Peripheral IV Laboratory Results: 02/26/18 05:10 02/26/18 05:10 INR (Anticoag Therapy) 1.17 (0.77-1.02) H 02/25/18 12:14 APTT 31.3 seconds (26.0-36.3) 02/25/18 12:14 Total Bilirubin 0.60 mg/dL (0.2-1.0) 02/25/18 12:14 AST 39 U/L (13-39) 02/25/18 12:14 ALT 103 U/L (7-52) H 02/25/18 12:14 Alkaline Phosphatase 89 U/L (34-104) 02/25/18 12:14 Total Protein 7.2 g/dL (6.4-8.9) 02/25/18 12:14 Albumin 4.3 g/dL (3.2-5.2) 02/25/18 12:14 Globulin 2.9 g/dL (2-4) 02/25/18 12:14 Albumin/Globulin Ratio 1.5 (1-3) 02/25/18 12:14 Triglycerides 110 mg/dL 02/25/18 12:14 Cholesterol 212 mg/dL 02/25/18 12:14 LDL Cholesterol 152 mg/dL 02/25/18 12:14 HDL Cholesterol 37.8 mg/dL 02/25/18 12:14 02/25/18 02/25/18 02/26/18 12:14 19:45 02:10 Troponin I 0.06 H* 0.08 H* 0.08 H* 02/26/18 05:10 Troponin I 0.08 H* Diagnostic Imaging: Echo 02/26/18: [place] akinetic, EF 25-30%, moderate MR, restrictive diastolic function, elevated LVEDP. L atrium not significantly enlarged (as would be expected in an old injury with longstanding moderate MR). CT scan 02/25/18: RUL mass, possible malignancy with differential of pneumonia. Nodes noted as well. EKG Data: NSR 106 bpm, anterior Q's, 1-2 mmSTelevation V2-V4, metal slitter: NSR, occasional V. bigeminy, PVC's. Assessment/Plan 48 yo who presented to ED for fevers, SOB and cough. Found to have a RUL mass. ECG c/w old, possibly recent anterior FL with precordial Q's and elevated ST segments. Echo c/w apical FL. Severe CM. ROS and exam suggest PVD LLE. Cardiac: Severe CM, probably ischemic with probable recent AWMI (differential of Takasubo, but echo and ECG more c/w FL). Continue Statin. I added low dose metoprolol and ramapril, can titrate as BP allows. No evidence of CHF now, but may benefit in the future from Aldactone ( once fevers, infectious/inflammatory issues stabilized). At risk for CHF if too aggressively hydrated, follow I/O's carefully, consider daily weights. Low salt diet recommended. I recommended cardiac catheterization to definitively determine ischemic vs non ischemic, pt wants to put off if possible, he is hoping with lifestyle changes EF will improve. Alternative to cath would be severo myoview study (claudication will limit exercise). Defibrillator discussed, external and ICD, timing for each, indications and brief details. Smoking cessation discussed, pt's sister asking for nicotine patch or similar. ` Cocaine impact on CAD discussed and pt advised to avoid in the future. Alcohol impact on EF discussed, advised pt to stop. I recommend dietary education for salt, pt eats a lot of canned soup. PVC's Getting KCl replacement and metoprolol added. Vascular: I suspect PVD LLE, will order NEMESIO, multilevel to start work up. Lung mass: Work up in progress. ID: On antibiotics, negative Influenza, strep and legionella noted. Hospitalists working up.
[2018-02-26] MEDS: Nicotine Inhaler* 10 MG AMP INH PRN (11:52)
--- NOTE | 2018-02-26 16:27 | RAD ---
Indication: Decreased pedal pulses. Ankle-brachial index on the right is 1.13. Ankle-brachial index on the left is 0.60. This is in the moderate claudication range. Triphasic waveforms are noted in the right posterior tibial and dorsalis pedis artery. There appears to be biphasic waveforms in the left posterior tibial and dorsalis pedis artery. Plethysmography in the left lower extremity demonstrates decreased amplitudes. IMPRESSION: Abnormal left ankle-brachial index of 0.60 with biphasic waveforms and decreased amplitudes on pulse volume recording suggestive of moderate claudication.
[2018-02-26] MEDS: Vancomycin(*) 1,000 MG in NS 0.9% 250 ML* 250 ML IVPB SCH (17:32)
[2018-02-26] MEDS: Azithromycin IV(*) 500 MG in NS 0.9% 250 ML* 250 ML IVPB SCH (19:31)
[2018-02-26] MEDS ORDERED: Ramipril CAP* 1.25 MG PO ONE (21:00)
[2018-02-26] MEDS: Atorvastatin* 40 MG TAB PO SCH (21:17)
[2018-02-27] MEDS: Vancomycin(*) 1,000 MG in NS 0.9% 250 ML* 250 ML IVPB SCH ×2 (00:18→09:15)
[2018-02-27] MEDS: Heparin VIAL(*) 5000 UNITS/ML VIAL (FIVE THOUSAND) SUBCUT SCH ×3 (05:11→22:17)
[2018-02-27 05:36] LABS: Hematocrit 38 % (42-52); Hemoglobin 12.8 g/dl (14.0-18.0); Mean Corpuscular HGB Conc 34 g/dl (31-36); Mean Corpuscular Hemoglobin 32 pg (27-31); Mean Corpuscular Volume 93 fL (80-94); Mean Platelet Volume 8.2 um3 (7.4-10.4); Platelet Count 246 10^3/ul (150-450); Red Blood Count 4.04 10^6/ul (4.00-5.40); Red Cell Distribution Width 14 % (10.5-15)
[2018-02-27 05:49] LABS: Vancomycin Trough 12.5 mcg/mL
[2018-02-27 05:51] LABS: EGFR Non-African American 71.8 (>60)
[2018-02-27] MEDS: Nicotine Inhaler* 10 MG AMP INH PRN (07:57)
[2018-02-27] MEDS: Cefepime 2 GM in Dextrose(*) 2 GM/50 ML BAG IV SCH ×2 (07:57→17:08)
[2018-02-27] MEDS ORDERED: Vancomycin Trough Check NOTE FOLLOW UP ONE (08:00)
[2018-02-27] MEDS ORDERED: Diazepam TAB(*) 5 MG PO ONE (08:58)
[2018-02-27] MEDS ORDERED: diPHENhydraMINE PO* 25 MG PO ONE (08:58)
[2018-02-27] MEDS ORDERED: Vancomycin(*) 1,250 MG in NS 0.9% 250 ML* 250 ML IVPB SCH (09:00)
[2018-02-27] MEDS ORDERED: NS 0.9% 1000 ML* 1,000 ML IV SCH ×2 (09:00→15:20)
[2018-02-27] MEDS: Thiamine TAB* 100 MG TAB PO SCH (09:24)
[2018-02-27] MEDS: Metoprolol Succinate XL TAB* 25 MG PO SCH ×2 (09:24→22:15)
[2018-02-27] MEDS: Aspirin TAB* 325 MG PO SCH (09:24)
[2018-02-27] MEDS: Folic Acid TAB* 1 MG PO SCH (09:24)
[2018-02-27] MEDS: Lactobacillus Acidophilus* 1 TAB PO SCH ×2 (09:24→22:22)
[2018-02-27] MEDS: Nicotine PATCH 21 MG/24 HR* PATCH TRANSDERM SCH (11:44)
[2018-02-27] MEDS: metroNIDAZOLE TAB* 250 MG PO SCH ×2 (13:34→22:16)
--- NOTE | 2018-02-27 13:46 | PN ---
Subjective Date of Service: 02/27/18 Interval History: Pt feels much better, but anxious about today's cath C/o diarrhea(up to 12 BM's today), no abd pain Objective Active Medications: Acetaminophen (Tylenol Tab*) 650 mg PO Q4H PRN PRN Reason: FEVER/PAIN Last Admin: 02/26/18 19:27 Dose: 650 mg Aspirin (Aspirin Tab*) 325 mg PO DAILY [facility] Last Admin: 02/27/18 09:24 Dose: 325 mg Atorvastatin Calcium (Lipitor*) 40 mg PO 2100 [facility] Last Admin: 02/26/18 21:17 Dose: 40 mg Device (Nicotine Mouth Piece*) 1 each INH .USE WITH NICOTROL PRN PRN Reason: CRAVING Last Admin: 02/26/18 11:52 Dose: 1 each Folic Acid (Folvite Tab*) 1 mg PO DAILY [facility] Last Admin: 02/27/18 09:24 Dose: 1 mg Heparin Sodium (Porcine) (Heparin Vial(*)) 5,000 units SUBCUT Q8HR [facility] Last Admin: 02/27/18 13:34 Dose: 5,000 units Azithromycin 500 mg/ Sodium (Chloride) 250 mls @ 250 mls/hr IVPB Q24H [facility] Last Admin: 02/26/18 19:31 Dose: 250 mls/hr Cefepime HCl (Maxipime 2 Gm In Dextrose Duplex (*)) 2 gm in 50 mls @ 100 mls/ hr IV Q8H [facility] Last Admin: 02/27/18 07:57 Dose: 100 mls/hr Sodium Chloride (Ns 0.9% 1000 Ml*) 1,000 mls @ 75 mls/hr IV .per rate [facility] Last Admin: 02/27/18 09:24 Dose: 75 mls/hr Lactobacillus Rhamnosus (Lactobacillus Acidophilus*) 1 tab PO BID [facility] Last Admin: 02/27/18 09:24 Dose: 1 tab Metoprolol Succinate (Toprol Xl Tab*) 25 mg PO DAILY [facility] Last Admin: 02/27/18 09:24 Dose: 25 mg Metronidazole (Flagyl Tab*) 500 mg PO TID [facility] Last Admin: 02/27/18 13:34 Dose: 500 mg Nicotine (Nicotine Inhaler*) 10 mg INH Q2H PRN PRN Reason: CRAVING Last Admin: 02/27/18 07:57 Dose: 10 mg Nicotine (Nicotine Patch 21 Mg/24 Hr*) 1 patch TRANSDERM DAILY [facility] Last Admin: 02/27/18 11:44 Dose: 1 patch Pharmacy Profile Note (Nicotine Patch Removal Note*) 1 note PATCH OFF 2100 [facility] Temazepam (Restoril Cap*) 15 mg PO BEDTIME PRN PRN Reason: INSOMNIA Thiamine HCl (Vitamin B-1 Tab*) 100 mg PO DAILY [facility] Last Admin: 02/27/18 09:24 Dose: 100 mg Vital Signs - 8 hr 02/27/18 02/27/18 02/27/18 07:38 08:00 09:03 Temperature 98.8 F 98.7 F Pulse Rate 101 95 Respiratory 20 16 20 Rate Blood Pressure 112/79 114/73 (mmHg) O2 Sat by Pulse 96 98 Oximetry 02/27/18 11:06 Temperature 98.9 F Pulse Rate 94 Respiratory 20 Rate Blood Pressure 100/69 (mmHg) O2 Sat by Pulse 99 Oximetry Oxygen Devices in Use Now: None Appearance: 48 yo M in nAD, aAOx3 Eyes: No Scleral Icterus, PERRLA Ears/Nose/Mouth/Throat: NL Teeth, Lips, Gums, Mucous Membranes Moist Neck: NL Appearance and Movements; NL JVP Respiratory: Symmetrical Chest Expansion and Respiratory Effort, - - rhonchi in RUL anteriorly Cardiovascular: NL Sounds; No Murmurs; No JVD, RRR Abdominal: NL Sounds; No Tenderness; No Distention, No Hepatosplenomegaly Lymphatic: No Cervical Adenopathy Extremities: No Edema, No Clubbing, Cyanosis, - - poor pedal pulses b/l, no cyanosis, good capillary refill, s/p left 1st toe remote amputation Skin: No Nodules or Sclerosis Neurological: Alert and Oriented x 3, NL Muscle Strength and Tone Result Diagrams: 02/27/18 05:22 02/27/18 05:22 Additional Lab and Data: Lab Results 02/25/18 Range/Units 11:04 Influenza A (Rapid) Negative (Negative) Influenza B (Rapid) Negative (Negative) Microbiology and Other Data: Microbiology 02/25/18 20:21 Legionella Urinary Antigen - Final Urine Negative Legionella Antigen Streptococcus pneumoniae Ag Screen - Final Negative S. pneumo Antigen 02/25/18 10:55 Influenza Types A,B Antigen - Final Nasal Specimen received for Influenza A/B Molecular testing Assess/Plan/Problems-Billing Assessment: 48 yo M with h/o smoking, traumatic left toe amputation presents with fever/PNA - Patient Problems (1) Sepsis due to pneumonia Comment: CT shows RUL PNA, shape worrisome for malignancy, but symptoms clearly infectious. Cont Cefepime/Azithro, blood cx neg-will stop Vanc Legionella/Strep pneumo antigen neg Blood cx NTD (2) EKG abnormalities Comment: EKD shows ST elevation, but pt never c/o CP and low elev in trop likely related to demand ischemia. Cont ASA, BB. Echo shows mod MR, EF 25% appreciate cardiology consult, cath today, no intervention planned, since pt may need lung biopsy (3) Decreased pedal pulses Comment: NEMESIO's shows PAD on left. Dr. Cabrera consulted (4) Smoking Comment: counseled nicotine replacement ordered (5) ETOH abuse Comment: cont Thiamine/Folate No signs of withdrawal (6) Diarrhea Comment: C. diff pending. started Flagyl PO for antibiotic associated diarrhea Cont probiotic (7) DVT prophylaxis Comment: HSQ Status and Disposition: inpatient
[2018-02-27] MEDS ORDERED: Heparin(*) 1000 UNIT/ML 10 ML VIAL CATH LAB IV ONE (13:47)
[2018-02-27] MEDS ORDERED: Midazolam* 1 MG/ML 10 ML VIAL (10 MG) ONE (13:47)
[2018-02-27] MEDS ORDERED: fentaNYL* 50 MCG/ML 2 ML VIAL (100 MCG VIAL) ONE (13:47)
[2018-02-27] MEDS ORDERED: nitroGLYCERIN DRIP* 25,000 MCG/250 ML BTL ONE (13:48)
[2018-02-27] MEDS ORDERED: Heparin 2 UNITS/ML IVPREMIX* 2,000 ML IV ONE (13:48)
[2018-02-27] MEDS ORDERED: VERAPAMIL 2.5 MG/ML 2 ML VIAL ** 5 mg/2 ml ONE (13:48)
[2018-02-27] MEDS ORDERED: Iohexol 350 (CONTRAST) 200 ML MDV IV ONE (13:49)
[2018-02-27] MEDS ORDERED: Lidocaine 1% INJ* 10 MG/ML 30 ML SDV ONE (13:49)
[2018-02-27] MEDS: Acetaminophen TAB* 325 MG PO PRN (18:29)
[2018-02-27] MEDS: Azithromycin IV(*) 500 MG in NS 0.9% 250 ML* 250 ML IVPB SCH (20:09)
[2018-02-27] MEDS: Nicotine Patch Removal NOTE PATCH OFF SCH (22:22)
[2018-02-27] MEDS: Atorvastatin* 40 MG TAB PO SCH (22:22)
[2018-02-28] MEDS: Cefepime 2 GM in Dextrose(*) 2 GM/50 ML BAG IV SCH ×3 (00:19→16:55)
[2018-02-28] MEDS: Heparin VIAL(*) 5000 UNITS/ML VIAL (FIVE THOUSAND) SUBCUT SCH ×3 (05:16→22:30)
[2018-02-28 05:57] LABS: ABS Basophils 0 10^3/ul (0-0.2); ABS Eosinophils 0.2 10^3/ul (0-0.6); ABS Lymphocytes 2.4 10^3/ul (1.0-4.8); ABS Monocytes 1.1 10^3/ul (0-0.8); ABS Neutrophils 7.2 10^3/ul (1.5-7.7); ABS Nucleated RBC 0 10^3/ul; Eosinophil % 1.6 % (0-6); Hematocrit 38 % (42-52); Hemoglobin 12.9 g/dl (14.0-18.0); Lymphocyte % 21.7 % (25-47); Mean Corpuscular HGB Conc 34 g/dl (31-36); Mean Corpuscular Hemoglobin 32 pg (27-31); Mean Corpuscular Volume 94 fL (80-94); Mean Platelet Volume 8.4 um3 (7.4-10.4); Nucleated Red Blood Cells % 0.1; Platelet Count 291 10^3/ul (150-450); Red Blood Count 4.02 10^6/ul (4.00-5.40); Red Cell Distribution Width 14 % (10.5-15); White Blood Count 10.9 10^3/ul (3.5-10.8)
[2018-02-28 06:21] LABS: EGFR Non-African American 68.9 (>60)
[2018-02-28] MEDS: Nicotine PATCH 21 MG/24 HR* PATCH TRANSDERM SCH (08:34)
[2018-02-28] MEDS: Lactobacillus Acidophilus* 1 TAB PO SCH ×2 (08:34→22:29)
[2018-02-28] MEDS: metroNIDAZOLE TAB* 250 MG PO SCH ×3 (08:34→22:30)
[2018-02-28] MEDS: Folic Acid TAB* 1 MG PO SCH (08:34)
[2018-02-28] MEDS: Thiamine TAB* 100 MG TAB PO SCH (08:34)
[2018-02-28] MEDS: Aspirin TAB* 325 MG PO SCH (08:34)
[2018-02-28] MEDS ORDERED: Lisinopril TAB* 5 MG PO SCH ×2 (09:00→09:48)
--- NOTE | 2018-02-28 09:46 | PN ---
<Jono Rivas - Last Filed: 02/28/18 10:44> Subjective Date of Service: 02/28/18 Interval History: Pt is sitting upright in bed, stated he feels much better this morning. He stated he slept well without any complications throughout the night. Objective Active Medications: Acetaminophen (Tylenol Tab*) 650 mg PO Q4H PRN PRN Reason: FEVER/PAIN Last Admin: 02/27/18 18:29 Dose: 650 mg Aspirin (Aspirin Tab*) 325 mg PO DAILY [facility] Last Admin: 02/28/18 08:34 Dose: 325 mg Atorvastatin Calcium (Lipitor*) 40 mg PO 2100 [facility] Last Admin: 02/27/18 22:22 Dose: 40 mg Device (Nicotine Mouth Piece*) 1 each INH .USE WITH NICOTROL PRN PRN Reason: CRAVING Last Admin: 02/26/18 11:52 Dose: 1 each Folic Acid (Folvite Tab*) 1 mg PO DAILY [facility] Last Admin: 02/28/18 08:34 Dose: 1 mg Heparin Sodium (Porcine) (Heparin Vial(*)) 5,000 units SUBCUT Q8HR [facility] Last Admin: 02/28/18 05:16 Dose: 5,000 units Azithromycin 500 mg/ Sodium (Chloride) 250 mls @ 250 mls/hr IVPB Q24H [facility] Last Admin: 02/27/18 20:09 Dose: 250 mls/hr Cefepime HCl (Maxipime 2 Gm In Dextrose Duplex (*)) 2 gm in 50 mls @ 100 mls/ hr IV Q8H [facility] Last Admin: 02/28/18 08:34 Dose: 100 mls/hr Lactobacillus Rhamnosus (Lactobacillus Acidophilus*) 1 tab PO BID [facility] Last Admin: 02/28/18 08:34 Dose: 1 tab Lisinopril (Prinivil Tab*) 2.5 mg PO DAILY [facility] Metoprolol Succinate (Toprol Xl Tab*) 50 mg PO BID [facility] Last Admin: 02/27/18 22:15 Dose: 50 mg Metronidazole (Flagyl Tab*) 500 mg PO TID [facility] Last Admin: 02/28/18 08:34 Dose: 500 mg Nicotine (Nicotine Inhaler*) 10 mg INH Q2H PRN PRN Reason: CRAVING Last Admin: 02/27/18 07:57 Dose: 10 mg Nicotine (Nicotine Patch 21 Mg/24 Hr*) 1 patch TRANSDERM DAILY [facility] Last Admin: 02/28/18 08:34 Dose: 1 patch Pharmacy Profile Note (Nicotine Patch Removal Note*) 1 note PATCH OFF 2100 [facility] Last Admin: 02/27/18 22:22 Dose: 1 note Temazepam (Restoril Cap*) 15 mg PO BEDTIME PRN PRN Reason: INSOMNIA Thiamine HCl (Vitamin B-1 Tab*) 100 mg PO DAILY [facility] Last Admin: 02/28/18 08:34 Dose: 100 mg Vital Signs - 8 hr 02/28/18 02/28/18 02/28/18 03:13 05:19 07:22 Temperature 98.1 F 98.7 F 98.7 F Pulse Rate 86 87 86 Respiratory 20 22 24 Rate Blood Pressure 92/66 95/71 97/63 (mmHg) O2 Sat by Pulse 95 99 96 Oximetry Oxygen Devices in Use Now: None Appearance: Well-nourished 48 y/o male sitting upright in bed in no acute distress Eyes: No Scleral Icterus Ears/Nose/Mouth/Throat: NL Teeth, Lips, Gums, Clear Oropharnyx Neck: NL Appearance and Movements; NL JVP Respiratory: Symmetrical Chest Expansion and Respiratory Effort, - - Pt has rhonchi noted on anterior auscultation; LS clear posteriorly Cardiovascular: NL Sounds; No Murmurs; No JVD Abdominal: NL Sounds; No Tenderness; No Distention, No Hepatosplenomegaly Lymphatic: No Cervical Adenopathy Extremities: No Edema, - - Poor dorsalis pedis pulses bilat. Pt has palpable posterior tibialis pulse right side. Pt denied L-leg pain or paresthesia Skin: No Rash or Ulcers Neurological: Alert and Oriented x 3, NL Sensation, NL Muscle Strength and Tone Result Diagrams: 02/28/18 05:24 02/28/18 05:25 Additional Lab and Data: Lab Results 02/25/18 Range/Units 11:04 Influenza A (Rapid) Negative (Negative) Influenza B (Rapid) Negative (Negative) Microbiology and Other Data: Microbiology 02/25/18 20:21 Legionella Urinary Antigen - Final Urine Negative Legionella Antigen Streptococcus pneumoniae Ag Screen - Final Negative S. pneumo Antigen 02/25/18 10:55 Influenza Types A,B Antigen - Final Nasal Specimen received for Influenza A/B Molecular testing Assess/Plan/Problems-Billing Assessment: 48 yo M with h/o smoking, traumatic left toe amputation presents with fever/PNA - Patient Problems (1) Sepsis due to pneumonia Comment: Discussed with Oncology; pt to receive repeat CT in 4-6 weeks to monitor progress Cont Cefepime/Azithro Legionella/Strep pneumo antigen neg Blood cx NTD (2) Decreased pedal pulses Comment: NEMESIO on left side is 0.60; 1.[address] Cabrera contacted & will see him today (3) Diarrhea Comment: - Stool cx neg for C. diff - pt stated his stools feel more formed and he doesn't have to move his bowels as often after receiving Flagyl tx - continue probiotics & Flagyl for antibiotic-associated diarrhea (4) EKG abnormalities Comment: EKD shows ST elevation, pt denied CP & low elev in trop likely related to demand ischemia. Cont ASA & lower Metoprolol dosage to 25mg bid due to continued hypotension. (5) Coronary artery disease Comment: cath performed with significant CAD; pt will benefit from CABG - to follow-up with cardiology as outpatient (6) Cardiomyopathy Comment: Echo shows mod MR, EF 25% pt will require life-vest; pending insurance approval (7) Elevated liver function tests Comment: Likely due to vascular congestion not amenable to diuretics due to hypotension; will continue to monitor (8) Smoking Comment: - counseled - continue nicotine replacement therapy (9) ETOH abuse Comment: - Continue Thiamine/Folate - No signs of withdrawal (10) DVT prophylaxis Comment: HSQ Status and Disposition: inpatient <Yodit Moon - Last Filed: 02/28/18 13:02> Objective Active Medications: Acetaminophen (Tylenol Tab*) 650 mg PO Q4H PRN PRN Reason: FEVER/PAIN Last Admin: 02/27/18 18:29 Dose: 650 mg Aspirin (Aspirin Tab*) 325 mg PO DAILY [facility] Last Admin: 02/28/18 08:34 Dose: 325 mg Atorvastatin Calcium (Lipitor*) 40 mg PO 2100 [facility] Last Admin: 02/27/18 22:22 Dose: 40 mg Device (Nicotine Mouth Piece*) 1 each INH .USE WITH NICOTROL PRN PRN Reason: CRAVING Last Admin: 02/26/18 11:52 Dose: 1 each Folic Acid (Folvite Tab*) 1 mg PO DAILY [facility] Last Admin: 02/28/18 08:34 Dose: 1 mg Heparin Sodium (Porcine) (Heparin Vial(*)) 5,000 units SUBCUT Q8HR [facility] Last Admin: 02/28/18 05:16 Dose: 5,000 units Azithromycin 500 mg/ Sodium (Chloride) 250 mls @ 250 mls/hr IVPB Q24H [facility] Last Admin: 02/27/18 20:09 Dose: 250 mls/hr Cefepime HCl (Maxipime 2 Gm In Dextrose Duplex (*)) 2 gm in 50 mls @ 100 mls/ hr IV Q8H [facility] Last Admin: 02/28/18 08:34 Dose: 100 mls/hr Lactobacillus Rhamnosus (Lactobacillus Acidophilus*) 1 tab PO BID [facility] Last Admin: 02/28/18 08:34 Dose: 1 tab Lisinopril (Prinivil Tab*) 2.5 mg PO DAILY [facility] Metoprolol Succinate (Toprol Xl Tab*) 50 mg PO BID [facility] Metronidazole (Flagyl Tab*) 500 mg PO TID [facility] Last Admin: 02/28/18 08:34 Dose: 500 mg Nicotine (Nicotine Inhaler*) 10 mg INH Q2H PRN PRN Reason: CRAVING Last Admin: 02/27/18 07:57 Dose: 10 mg Nicotine (Nicotine Patch 21 Mg/24 Hr*) 1 patch TRANSDERM DAILY [facility] Last Admin: 02/28/18 08:34 Dose: 1 patch Pharmacy Profile Note (Nicotine Patch Removal Note*) 1 note PATCH OFF 2100 [facility] Last Admin: 02/27/18 22:22 Dose: 1 note Temazepam (Restoril Cap*) 15 mg PO BEDTIME PRN PRN Reason: INSOMNIA Thiamine HCl (Vitamin B-1 Tab*) 100 mg PO DAILY [facility] Last Admin: 02/28/18 08:34 Dose: 100 mg Vital Signs - 8 hr 02/28/18 02/28/18 02/28/18 05:19 07:22 08:59 Temperature 98.7 F 98.7 F Pulse Rate 87 86 Respiratory 22 24 18 Rate Blood Pressure 95/71 97/63 (mmHg) O2 Sat by Pulse 99 96 Oximetry 02/28/18 02/28/18 09:07 11:04 Temperature 98.1 F 98.0 F Pulse Rate 87 78 Respiratory 20 24 Rate Blood Pressure 101/74 100/74 (mmHg) O2 Sat by Pulse 99 100 Oximetry Result Diagrams: 02/28/18 05:24 02/28/18 05:25 Microbiology and Other Data: Microbiology 02/25/18 12:14 Aerobic Blood Culture - Preliminary Blood Venous No Growth Day 3 Anaerobic Blood Culture - Preliminary No Growth Day 3 02/25/18 12:02 Aerobic Blood Culture - Preliminary Blood Venous No Growth Day 3 Anaerobic Blood Culture - Preliminary No Growth Day 3 02/27/18 12:57 Stool Gross Appearance - Final Stool C. difficile DNA Amplification - Final 027 Presumptive NEGATIVE Toxigenic C.diff NEGATIVE 02/25/18 20:21 Legionella Urinary Antigen - Final Urine Negative Legionella Antigen Streptococcus pneumoniae Ag Screen - Final Negative S. pneumo Antigen 02/25/18 10:55 Influenza Types A,B Antigen - Final Nasal Specimen received for Influenza A/B Molecular testing Assess/Plan/Problems-Billing Assessment: - Patient Problems (1) Sepsis due to pneumonia Comment: Discussed with Oncology; pt to receive repeat CT in 4-6 weeks to monitor progress Cont Cefepime/Azithro Legionella/Strep pneumo antigen neg Blood cx NTD (2) EKG abnormalities Comment: EKD shows ST elevation, pt denied CP & low elev in trop likely related to demand ischemia. Cont ASA & lower Metoprolol dosage to 25mg bid due to continued hypotension. (3) Decreased pedal pulses Comment: NEMESIO on left side is 0.60; 1.[address] Cabrera contacted & will see him today (4) Smoking Comment: - counseled - continue nicotine replacement therapy (5) ETOH abuse Comment: - Continue Thiamine/Folate - No signs of withdrawal (6) Diarrhea Comment: - Stool cx neg for C. diff - pt stated his stools feel more formed and he doesn't have to move his bowels as often after receiving Flagyl tx - continue probiotics & Flagyl for antibiotic-associated diarrhea (7) DVT prophylaxis Comment: HSQ Status and Disposition: Pt's seen and examine with PA student Jono Rivas. Agree with exam, A/p as above
[2018-02-28] MEDS ORDERED: Metoprolol Succinate XL TAB* 50 MG PO SCH (09:48)
[2018-02-28] MEDS: Metoprolol Succinate XL TAB* 25 MG PO SCH ×2 (10:12→22:30)
--- NOTE | 2018-02-28 13:08 | PN ---
Subjective Date of Service: 02/28/18 Interval History: pt feels well. Denies cough. Discussed the need of life vest and the ongoing work to set up pt's insurance. Pt wants to to home tomorrow. Objective Active Medications: Acetaminophen (Tylenol Tab*) 650 mg PO Q4H PRN PRN Reason: FEVER/PAIN Last Admin: 02/27/18 18:29 Dose: 650 mg Aspirin (Aspirin Tab*) 325 mg PO DAILY [facility] Last Admin: 02/28/18 08:34 Dose: 325 mg Atorvastatin Calcium (Lipitor*) 40 mg PO 2100 [facility] Last Admin: 02/27/18 22:22 Dose: 40 mg Device (Nicotine Mouth Piece*) 1 each INH .USE WITH NICOTROL PRN PRN Reason: CRAVING Last Admin: 02/26/18 11:52 Dose: 1 each Folic Acid (Folvite Tab*) 1 mg PO DAILY [facility] Last Admin: 02/28/18 08:34 Dose: 1 mg Heparin Sodium (Porcine) (Heparin Vial(*)) 5,000 units SUBCUT Q8HR [facility] Last Admin: 02/28/18 05:16 Dose: 5,000 units Azithromycin 500 mg/ Sodium (Chloride) 250 mls @ 250 mls/hr IVPB Q24H [facility] Last Admin: 02/27/18 20:09 Dose: 250 mls/hr Cefepime HCl (Maxipime 2 Gm In Dextrose Duplex (*)) 2 gm in 50 mls @ 100 mls/ hr IV Q8H [facility] Last Admin: 02/28/18 08:34 Dose: 100 mls/hr Lactobacillus Rhamnosus (Lactobacillus Acidophilus*) 1 tab PO BID [facility] Last Admin: 02/28/18 08:34 Dose: 1 tab Lisinopril (Prinivil Tab*) 2.5 mg PO DAILY [facility] Metoprolol Succinate (Toprol Xl Tab*) 50 mg PO BID [facility] Metronidazole (Flagyl Tab*) 500 mg PO TID [facility] Last Admin: 02/28/18 08:34 Dose: 500 mg Nicotine (Nicotine Inhaler*) 10 mg INH Q2H PRN PRN Reason: CRAVING Last Admin: 02/27/18 07:57 Dose: 10 mg Nicotine (Nicotine Patch 21 Mg/24 Hr*) 1 patch TRANSDERM DAILY [facility] Last Admin: 02/28/18 08:34 Dose: 1 patch Pharmacy Profile Note (Nicotine Patch Removal Note*) 1 note PATCH OFF 2100 [facility] Last Admin: 02/27/18 22:22 Dose: 1 note Temazepam (Restoril Cap*) 15 mg PO BEDTIME PRN PRN Reason: INSOMNIA Thiamine HCl (Vitamin B-1 Tab*) 100 mg PO DAILY [facility] Last Admin: 02/28/18 08:34 Dose: 100 mg Vital Signs - 8 hr 02/28/18 02/28/18 02/28/18 05:19 07:22 08:59 Temperature 98.7 F 98.7 F Pulse Rate 87 86 Respiratory 22 24 18 Rate Blood Pressure 95/71 97/63 (mmHg) O2 Sat by Pulse 99 96 Oximetry 02/28/18 02/28/18 09:07 11:04 Temperature 98.1 F 98.0 F Pulse Rate 87 78 Respiratory 20 24 Rate Blood Pressure 101/74 100/74 (mmHg) O2 Sat by Pulse 99 100 Oximetry Oxygen Devices in Use Now: None Appearance: 75 yo M in nAD, aAOx3 Eyes: No Scleral Icterus, PERRLA Ears/Nose/Mouth/Throat: NL Teeth, Lips, Gums, Mucous Membranes Moist Neck: NL Appearance and Movements; NL JVP, Trachea Midline Respiratory: Symmetrical Chest Expansion and Respiratory Effort, - - mild rhonchi in RUL Cardiovascular: NL Sounds; No Murmurs; No JVD, RRR Abdominal: NL Sounds; No Tenderness; No Distention Lymphatic: No Cervical Adenopathy Extremities: No Edema, No Clubbing, Cyanosis, - - poor pedal pulses, no clubbing , cynaosis. good cap refill b/l feet Skin: No Rash or Ulcers, No Nodules or Sclerosis Neurological: Alert and Oriented x 3, NL Muscle Strength and Tone Result Diagrams: 02/28/18 05:24 02/28/18 05:25 Additional Lab and Data: Lab Results 02/25/18 Range/Units 11:04 Influenza A (Rapid) Negative (Negative) Influenza B (Rapid) Negative (Negative) Microbiology and Other Data: Microbiology 02/25/18 12:14 Aerobic Blood Culture - Preliminary Blood Venous No Growth Day 3 Anaerobic Blood Culture - Preliminary No Growth Day 3 02/25/18 12:02 Aerobic Blood Culture - Preliminary Blood Venous No Growth Day 3 Anaerobic Blood Culture - Preliminary No Growth Day 3 02/27/18 12:57 Stool Gross Appearance - Final Stool C. difficile DNA Amplification - Final 027 Presumptive NEGATIVE Toxigenic C.diff NEGATIVE 02/25/18 20:21 Legionella Urinary Antigen - Final Urine Negative Legionella Antigen Streptococcus pneumoniae Ag Screen - Final Negative S. pneumo Antigen 02/25/18 10:55 Influenza Types A,B Antigen - Final Nasal Specimen received for Influenza A/B Molecular testing Assess/Plan/Problems-Billing Assessment: - Patient Problems (1) Sepsis due to pneumonia Comment: Discussed with Oncology; pt to receive repeat CT in 4-6 weeks to monitor progress. no need for lung bx now. Cont Cefepime/Azithro Legionella/Strep pneumo antigen neg Blood cx NTD (2) EKG abnormalities Comment: EKD showed ST elevation, pt denied CP & low elev in trop likely related to demand ischemia. (3) Decreased pedal pulses Comment: NEMESIO on left side is 0.60; 1.[address] Cabrera contacted & will see him today (4) Smoking Comment: - counseled - continue nicotine replacement therapy (5) ETOH abuse Comment: - Continue Thiamine/Folate - No signs of withdrawal (6) Diarrhea Comment: - Stool cx neg for C. diff - pt stated his stools feel more formed and he doesn't have to move his bowels as often after receiving Flagyl tx - continue probiotics & Flagyl for antibiotic-associated diarrhea (7) Cardiomyopathy Comment: Echo shows mod MR, EF 25% pt will require life-vest; pending insurance approval (8) Coronary artery disease Comment: cath performed with significant CAD; pt will benefit from CABG - to follow-up with cardiology as outpatient (9) Elevated liver function tests Comment: Likely due to vascular congestion not amenable to diuretics due to hypotension; will continue to monitor (10) DVT prophylaxis Comment: HSQ Status and Disposition: inpatient
--- NOTE | 2018-02-28 15:38 | CONSULT ---
Consult Consult: Date of Service: 02/28/18 Admission Date: 02/25/18 Requesting Provider: Yodit Moon MD Reason for Consultation: PVD with abnormal NEMESIO PRIMARY CARE PROVIDER: None. (Focused) HISTORY OF PRESENT ILLNESS: Kaylee Ruano is a 48-year-old male who presented to the hospital complaining of "flu symptoms" on 02/25/18. 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 He noted that in the past 24 hours that he had fevers and he was short of breath. He stated that he had been having troubles with cough, but he did not consider it out of ordinary due to the amount of cigarettes he smokes. CT chest shows likely RLE pneumonia. The patient reports at least a 6 month history of his left leg becoming painful , stiff and "". The symptoms usually start at the posterior left thigh and will affect the entire leg if he does not rest and "stretch his leg out". At times he require 20-30 minutes of stretching (i.e. rest) before he can begin walking again. He denies hip and buttock claudication. He denies night time rest pain. He also reports an episode of his left great toe becoming painful and purple spontaneously. Over the following 1-2 days the skin sloughed off. Now his great toe is white and cool to touch. He soaked it in Epsom salt thinking he had an ingrown toenail. His cardiac enzymes were elevated and multiple blockages/stenoses were identified on coronary angriography. He reports to me that he has been instructed to follow up with CT surgery regarding coronary artery bypass surgery. PAST MEDICAL HISTORY: 1. History of traumatic left great toe amputation in a lawn mowing accident. 2. History of Hardik angina due to tooth abscess in 2005. MEDICATIONS: Include naproxen on a p.r.n. basis. ALLERGIES: No known drug allergies. FAMILY HISTORY: Positive for heart disease in father who had an IL in his 50s. SOCIAL HISTORY: The patient smokes 1 pack per day and he has been doing so ever since age 17. He lives with and takes care of his both of his parents. The patient stated that he drinks 6 to 12 beers every other day or so. He denies any illicit drug use REVIEW OF SYSTEMS: Negative other than listed below and in the HPI Positive for chronic lower back pain that has not been worse recently. Positive for left leg going numb whenever he is up and working. He stated that the left leg numbness improves when he lays down and "stretches his back." He denies any change in bowel habits and denies any problems with nausea, vomiting or diarrhea. He has a recent left tooth dental infection that was treated with antibiotics by his dentist approximately 3 weeks ago. The patient also stated that he noted that his right great toe would be getting red and swollen and he had been using Epsom salts to soak it with and then he noted that the skin would be peeling off recently. All the remaining 12 systems were reviewed with the patient and were otherwise negative. 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14 Est GFR ( Amer) 83.3 Est GFR (Non-Af Amer) 68.9 Vancomycin Trough RELEVANT IMAGING: Patient Name: KAYLEE RUANO Medical Record#: [id number] Ordering Physician: Yodit Moon MD Acct.#: [id number] : 1970 Age: 48 Sex: M Location: [address] [place] [address]/TELEMETRY Exam Date: 09/09/18 1736 ADM Status: ADM IN Order Information: VL ANK/BRACHIAL INDICES Accession Number: [id number] CPT: 28150 Indication: Decreased pedal pulses. Ankle-brachial index on the right is 1.13. Ankle-brachial index on the left is 0.60. This is in the moderate claudication range. Triphasic waveforms are noted in the right posterior tibial and dorsalis pedis artery. There appears to be biphasic waveforms in the left posterior tibial and dorsalis pedis artery. Plethysmography in the left lower extremity demonstrates decreased amplitudes. IMPRESSION: Abnormal left ankle-brachial index of 0.60 with biphasic waveforms and decreased amplitudes on pulse volume recording suggestive of moderate claudication. <Electronically signed by Karie Vences MD in [place]> 02/26/18 1623 Dictated By: Karie Vences MD Dictated Date/Time: 02/26/18 1623 Transcribed Date/Time: 02/26/18 1622 Copy to: SUMMARY & IMPRESSION: 1. 48 YOM with h/o tobacco abuse presents to ER with (likely) RUL pneumonia and NSTEMI as well as more chronic history of RLE arterial insufficiency. 2. Physical examination indicates left iliac arterial occlusion. It is not readily apparent how far down the left leg the arterial occlusion extends. 3. His left great toe symptoms and PE findings are likely due to Buerger's Disease (thromboangiitis obliterans) secondary to smoking. PLAN/RECOMMENDATIONS: 1. I spent several minutes emphasizing the direct relationship between Kaylee's recently diagnosed health problems and cigarrette smoking. I made it clear to him that he will likely if he continues smoking. 2. He has at least high grade stenosis if not outright occlusion of his left iliac arteries extending into his LLE. LLE arterial duplex will help elucidate the length of occlusion and feasibility of endovascular repair. LLE art duplex will ordered for 03/01/18 a.m. so he can be NPO to better image the iliac arteries. 3. As I discussed with the patient, peripheral angiography will done as an outpatient and will appropriately be prioritized second to his cardiac issue. 4. Likely RUL pneumonia will resolve with appropriate antibiotic therapy. Recommend follow up imaging to confirm resolution.
--- NOTE | 2018-02-28 20:53 | PN ---
Progress Note - Progress Note Date of Service: 02/28/18 Note: Called for concern for drop in BP to the 80's last evening after 50 mg of metoprolol. Will decrease it to 25 mg PO BID.
[2018-02-28] MEDS: Azithromycin IV(*) 500 MG in NS 0.9% 250 ML* 250 ML IVPB SCH (21:04)
--- NOTE | 2018-02-28 22:18 | CATH ---
CC: Elin Crowe MD * CARDIAC CATHETERIZATION REPORT: DATE OF PROCEDURE: 02/27/2018 INDICATION FOR PROCEDURE: Asked by Dr. Carter to perform diagnostic coronary arteriography in a patient with severe left ventricular systolic dysfunction on echocardiogram and an EKG raising question of prior anterior wall myocardial infarction. PROCEDURE: Left heart catheterization, coronary arteriography. The patient was interviewed and examined on the floor of the hospital where the risks and benefits were explained. His right radial artery was assessed by ultrasound on the floor and found to be acceptable for an approach and as such that was the approach for the procedure. PRE-CARDIAC CATHETERIZATION LABORATORY RESULTS: Hemoglobin and hematocrit of 12.8 and 38 with a platelet count of 246,000. BUN and creatinine of 12 and 1.1. Sodium 130, potassium 3.6, chloride 105, bicarb 16. MEDICATIONS: Given during the cardiac catheterization included Versed 0.5 mg IV , a radial artery cocktail including 3000 units of heparin, 300 mcg of nitroglycerin, and 3 mg of verapamil. EQUIPMENT UTILIZED: 1. Right radial artery sheath: A 6-Chadian Glidesheath. 2. Diagnostic coronary catheter: A 5-Chadian TIG4 curved diagnostic catheter. 3. Diagnostic guidewire: Exchange length Crews-curved guidewire. DESCRIPTION OF PROCEDURE: The patient was brought to the cardiovascular laboratory where a formal time-out was performed. He was prepped and draped in a sterile fashion and under ultrasound guidance the right radial artery was cannulated and sheath was placed. Coronary arteriography was performed utilizing the 5-Chadian TIG4 curved catheter. Of note, the catheter initially was found to be in the left ventricle, left ventricular pressure was performed. Following this, the sheath was removed and hemostasis was obtained with a Vasc Band. The total contrast utilized was 90 cc of Omnipaque dye. The radiation exposure included 6.2 minutes of fluoro time. The air kerma radiation was 2009 mGy. The DAP radiation was 11,541 microgray per meter squared. RESULTS: HEMODYNAMIC DATA: Central aortic pressure recorded at 93/67 with a mean of 78, left ventricular pressure 96/left ventricular end-diastolic pressure of 33 to 39 mmHg. CORONARY ARTERIOGRAPHY: A. Right coronary artery - a dominant vessel supplying the PDA and 3 posterior left ventricular branches. There was diffuse disease seen throughout this vessel with a proximal narrowing of 50% to 55%. Past this point was a long segment of 65% to 70% stenosis followed by another area of caliber change of approximately 45% to 50% leading to the posterior descending artery. Past the posterior descending artery was an area of 75% to 80% narrowing noted. The proximal portion of the last posterior left ventricular branch was noted to have a narrowing of as much as 70% to 75%. B. Left coronary artery: 1. Left main - distal tapering of the left main of approximately 45% to 50% was noted in an eccentric lesion. 2. Left anterior descending artery - the left anterior descending artery had a haze noted in his proximal portion just prior to the first septal home health rn. The degree of narrowing appeared to be as much as 55%. The mid portion of the LAD became small in caliber and had an 80% to 85% narrowing followed by another 80% narrowing. The vessel continued toward the apical region becoming thinner and thinner in nature. 3. Circumflex artery - a nondominant vessel supplying a moderate size bifurcating mid obtuse marginal branch. There was a thin first obtuse marginal branch and a somewhat small caliber trifurcation marginal branch. The continuation of circumflex supplied a very small posterior left ventricular branch. The trifurcation marginal branch appeared to have a 75% proximal followed by 70% mid lesion. After this, there was a long segment of the circumflex in its proximal to mid portion with a maximal area of stenosis appearing to be 65% to 70% leading to the moderate size bifurcating obtuse marginal branch. OVERALL ASSESSMENT: Significant multivessel coronary artery disease involving all of the coronary arteries as described above. Given his less significant left ventricular systolic dysfunction and the diffuse nature of the disease and what appears to be reasonable targets with the mid obtuse marginal branch, the last posterior left ventricular branch of the right coronary artery, the posterior descending artery of the right coronary artery and the distal LAD and possibly the trifurcation marginal branch, bypass surgery is probably in his best interest. This information was shared with Dr. Miles Carter who is the primary hand spring repairer managing him with the hospitalist. [id number]/[facility] #: [id number] MTDGale
[2018-02-28] MEDS: Atorvastatin* 40 MG TAB PO SCH (22:29)
[2018-02-28] MEDS: Nicotine Patch Removal NOTE PATCH OFF SCH (22:38)
[2018-03-01] MEDS: Cefepime 2 GM in Dextrose(*) 2 GM/50 ML BAG IV SCH ×2 (00:17→08:07)
[2018-03-01] MEDS: Heparin VIAL(*) 5000 UNITS/ML VIAL (FIVE THOUSAND) SUBCUT SCH ×2 (05:09→14:48)
[2018-03-01 06:51] LABS: ABS Basophils 0 10^3/ul (0-0.2); ABS Eosinophils 0.3 10^3/ul (0-0.6); ABS Lymphocytes 2.4 10^3/ul (1.0-4.8); ABS Monocytes 1.1 10^3/ul (0-0.8); ABS Neutrophils 7.1 10^3/ul (1.5-7.7); ABS Nucleated RBC 0 10^3/ul; Eosinophil % 2.8 % (0-6); Hematocrit 36 % (42-52); Hemoglobin 12.5 g/dl (14.0-18.0); Lymphocyte % 21.6 % (25-47); Mean Corpuscular HGB Conc 35 g/dl (31-36); Mean Corpuscular Hemoglobin 32 pg (27-31); Mean Corpuscular Volume 93 fL (80-94); Mean Platelet Volume 8.7 um3 (7.4-10.4); Nucleated Red Blood Cells % 0; Platelet Count 297 10^3/ul (150-450); Red Cell Distribution Width 14 % (10.5-15)
[2018-03-01 07:08] LABS: EGFR Non-African American 76.5 (>60)
[2018-03-01] MEDS: Metoprolol Succinate XL TAB* 25 MG PO SCH (08:06)
[2018-03-01] MEDS: Aspirin TAB* 325 MG PO SCH (08:07)
[2018-03-01] MEDS: Nicotine PATCH 21 MG/24 HR* PATCH TRANSDERM SCH (08:19)
[2018-03-01] MEDS: Lactobacillus Acidophilus* 1 TAB PO SCH (10:44)
[2018-03-01] MEDS: metroNIDAZOLE TAB* 250 MG PO SCH ×2 (10:44→14:45)
[2018-03-01] MEDS: Folic Acid TAB* 1 MG PO SCH (10:44)
[2018-03-01] MEDS: Thiamine TAB* 100 MG TAB PO SCH (10:44)
--- NOTE | 2018-03-01 10:49 | RAD ---
INDICATION: Left lower extremity claudication. COMPARISON: NEMESIO dated February 26, 2018 depicting rest pain values in the left lower extremity TECHNIQUE: Fields scale, color Doppler, and spectral analysis utilized to image the left lower extremity arteries. Flow velocities were determined at each visualized artery. REPORT: There is adequate flow in the infrarenal abdominal aorta above the iliac bifurcation with flow recorded in the superiormost portion of the left common iliac artery. At approximately the mid-level left common iliac artery the artery becomes occluded with absence of flow. At the more distal common iliac artery there is a small amount of flow recorded immediately above the iliac bifurcation on the left. Slow flow velocity measuring only as high as 43 cm/s is recorded in the left external iliac artery. More inferiorly the left common femoral artery exhibit patency but slow flow velocity at 11 cm/s. There is flow documented in the femoral profundus and essentially throughout the length of the left superficial femoral artery and into the popliteal and infrapopliteal arteries. At all levels there is markedly reduced flow velocity not exceeding 40 cm/s at the mid left superficial femoral artery. Waveforms in the left lower extremity arteries exhibit "parvus and tardus" morphology. IMPRESSION: Arterial duplex sonography reveals occlusion at approximately the mid-level left common iliac artery extending to just above the left iliac bifurcation. Patency is documented distal to this occlusion throughout the left lower extremity but markedly reduced flow velocities are recorded.
[2018-03-01 15:50] VITALS: BP 99/69
--- NOTE | 2018-03-01 17:09 | PN ---
Subjective Date of Service: 03/01/18 - CC: wants to go home, resolution of fevers Interval History: The patient is feeling well, no fevers, no SOB, no chest pain. Ambulating well, denies claudication. No orthopnea. Medications Active Medications: Acetaminophen (Tylenol Tab*) 650 mg PO Q4H PRN PRN Reason: FEVER/PAIN Last Admin: 02/27/18 18:29 Dose: 650 mg Aspirin (Aspirin Tab*) 325 mg PO DAILY [facility] Last Admin: 03/01/18 08:07 Dose: 325 mg Atorvastatin Calcium (Lipitor*) 40 mg PO 2100 [facility] Last Admin: 02/28/18 22:29 Dose: 40 mg Device (Nicotine Mouth Piece*) 1 each INH .USE WITH NICOTROL PRN PRN Reason: CRAVING Last Admin: 02/26/18 11:52 Dose: 1 each Folic Acid (Folvite Tab*) 1 mg PO DAILY [facility] Last Admin: 03/01/18 10:44 Dose: 1 mg Heparin Sodium (Porcine) (Heparin Vial(*)) 5,000 units SUBCUT Q8HR [facility] Last Admin: 03/01/18 14:48 Dose: Not Given Azithromycin 500 mg/ Sodium (Chloride) 250 mls @ 250 mls/hr IVPB Q24H [facility] Last Admin: 02/28/18 21:04 Dose: 250 mls/hr Cefepime HCl (Maxipime 2 Gm In Dextrose Duplex (*)) 2 gm in 50 mls @ 100 mls/ hr IV Q8H [facility] Last Admin: 03/01/18 08:07 Dose: 100 mls/hr Lactobacillus Rhamnosus (Lactobacillus Acidophilus*) 1 tab PO BID [facility] Last Admin: 03/01/18 10:44 Dose: 1 tab Lisinopril (Prinivil Tab*) 2.5 mg PO DAILY [facility] Last Admin: 03/01/18 10:44 Dose: 2.5 mg Metoprolol Succinate (Toprol Xl Tab*) 25 mg PO BID [facility] Last Admin: 03/01/18 08:06 Dose: 25 mg Metronidazole (Flagyl Tab*) 500 mg PO TID [facility] Last Admin: 03/01/18 14:45 Dose: 500 mg Nicotine (Nicotine Inhaler*) 10 mg INH Q2H PRN PRN Reason: CRAVING Last Admin: 02/27/18 07:57 Dose: 10 mg Nicotine (Nicotine Patch 21 Mg/24 Hr*) 1 patch TRANSDERM DAILY [facility] Last Admin: 03/01/18 08:19 Dose: 1 patch Pharmacy Profile Note (Nicotine Patch Removal Note*) 1 note PATCH OFF 2100 [facility] Last Admin: 02/28/18 22:38 Dose: 1 note Temazepam (Restoril Cap*) 15 mg PO BEDTIME PRN PRN Reason: INSOMNIA Thiamine HCl (Vitamin B-1 Tab*) 100 mg PO DAILY [facility] Last Admin: 03/01/18 10:44 Dose: 100 mg Objective Vital Signs: Temp Pulse Resp BP Pulse Ox 97.9 F 75 16 99/69 99 03/01/18 15:25 03/01/18 15:25 03/01/18 15:25 03/01/18 15:25 03/01/18 15:25 Oxygen Devices in Use Now: None Appearance: Stocky and overweight muscular middle aged male lying on one pillow , smiling. Eyes: No Scleral Icterus, PERRLA Ears/Nose/Mouth/Throat: Clear Oropharnyx, Mucous Membranes Moist Neck: No Thyroid Enlargement, Masses - thick neck, no increased JVP appreciated. Respiratory: Symmetrical Chest Expansion and Respiratory Effort, Clear to Auscultation Cardiovascular: NL Sounds; No Murmurs; No JVD, RRR Abdominal: No Hepatosplenomegaly Extremities: No Edema, No Clubbing, Cyanosis - diminished/can't find L PTP or L DPP, right LE has strong PTP. Skin: No Rash or Ulcers Neurological: Alert and Oriented x 3 Lines/Tubes/Other Access: Clean, Dry and Intact Peripheral IV Laboratory Results: 03/01/18 06:13 03/01/18 06:13 INR (Anticoag Therapy) 1.17 (0.77-1.02) H 02/25/18 12:14 APTT 31.3 seconds (26.0-36.3) 02/25/18 12:14 Total Bilirubin 0.50 mg/dL (0.2-1.0) 03/01/18 06:13 Direct Bilirubin 0.20 mg/dL (0.03-0.18) H 02/28/18 05:25 Indirect Bilirubin 0.4 mg/dL (0.3-1.0) 02/28/18 05:25 AST 56 U/L (13-39) H 03/01/18 06:13 ALT 122 U/L (7-52) H 03/01/18 06:13 Alkaline Phosphatase 117 U/L (34-104) H 03/01/18 06:13 Total Protein 6.3 g/dL (6.4-8.9) L 03/01/18 06:13 Albumin 3.2 g/dL (3.2-5.2) 03/01/18 06:13 Globulin 3.1 g/dL (2-4) 03/01/18 06:13 Albumin/Globulin Ratio 1.0 (1-3) 03/01/18 06:13 Triglycerides 110 mg/dL 02/25/18 12:14 Cholesterol 212 mg/dL 02/25/18 12:14 LDL Cholesterol 152 mg/dL 02/25/18 12:14 HDL Cholesterol 37.8 mg/dL 02/25/18 12:14 02/25/18 02/25/18 02/26/18 12:14 19:45 02:10 Troponin I 0.06 H* 0.08 H* 0.08 H* 02/26/18 05:10 Troponin I 0.08 H* Diagnostic Imaging: Echo 02/26/18: [place] akinetic, EF 25-30%, moderate MR, restrictive diastolic function, elevated LVEDP. L atrium not significantly enlarged (as would be expected in an old injury with longstanding moderate MR). CT scan 02/25/18: RUL mass, possible malignancy with differential of pneumonia. Nodes noted as well. Cardiac catheterization 02/27/18 ([facility] [place]) showed 3 V CAD. EKG Data: NSR 106 bpm, anterior Q's, 1-2 mmSTelevation V2-V4, shank breaker:NSR Assessment/Plan 48 yo who presented to ED for fevers, SOB and cough. Found to have a RUL mass. ECG c/w old, possibly recent anterior WI with precordial Q's and elevated ST segments. Echo c/w apical WI. Severe CM. ROS and exam suggest PVD LLE. Cardiac: Severe CM, ischemic No CHF currently on beta blockers and ACEI. Continue Statin. PVC's decreased. Needs CABG, [place] is location of choice, but medical management during recovery from pneumonia. Zoll life vest to bridge, DC planners assisting with financial issues related to this. Vascular: PVD confirmed, Dr Cabrera to follow. Lung mass: Work up in progress. Needs follow up with cardiology 1-2 weeks.
--- NOTE | 2018-03-02 10:06 | DS ---
CC: Bridgette Adkins DO from [facility]; Dr. Crowe from Cardiology; Dr. Cabrera from Interventional Radiology; Dr. Portillo, infectious Disease specialist; Dr. Carter; Dr. Olea * DISCHARGE SUMMARY: DATE OF ADMISSION: 02/25/18 DATE OF DISCHARGE: 03/01/18 PRIMARY CARE PROVIDER: None. DISCHARGE DIAGNOSES: 1. Sepsis due to right upper lobe pneumonia. 2. Cardiomyopathy with EF of 25%, likely ischemic with diffuse coronary artery disease. 3. Peripheral arterial disease with occluded left iliac artery. 4. Diffuse coronary artery disease as mentioned above. CONSULTATIONS DURING THE HOSPITAL STAY: Included Dr. Crowe and Dr. Olea from Cardiology; Dr. Cabrera, Interventional Radiology. MEDICATIONS AT DISCHARGE: Include: 1. Augmentin 500 mg p.o. b.i.d. for a total of 1 month. The patient was prescribed urgent Rx. 2. Aspirin 81 mg daily. 3. Benazepril 5 mg daily. 4. Metoprolol tartrate 25 mg b.i.d. 5. The patient also should be on atorvastatin 40 mg daily, which was not prescribed yet due to the patient's inability to have it covered by insurance yet. Please note that the patient's Medicaid insurance application is in process of being approved. LABORATORY DATA AND STUDIES PERFORMED DURING THE HOSPITAL STAY: Included: On 03/01/18, sodium of 137, potassium of 3.7, chloride of 108, carbon dioxide 23 , BUN 13, creatinine 1.04. Liver function tests showed AST of 56, ALT of 122, alkaline phosphatase of 117. The patient's troponins have been ranging from 0.06 to 0.08. On 03/01/18, white blood cell count was 11, hemoglobin of 12.5, hematocrit 36, and platelets of 297. The patient's influenza testing was negative. Toe x-ray obtained on 02/25/18, impression: "No fracture of the right great toe was noted." Chest CT noted on 02/25/18, impression: "There was a dense consolidation and possible underlying mass in the right upper lobe. Mass-like area measuring 4.5 x 3.4 x 5.2 cm. There was immediately surrounding additional consolidation. Malignancy has not been excluded here. Limited mediastinal lymphadenopathy. Precarinal node measure up to 14 mm with short axis. These may be reactive or malignant. No other acute disease was seen." Transthoracic echocardiogram reported on 02/26/18, showed severely decreased left ventricular systolic function, apex is akinetic with global diffuse hypokinesis. The base of the heart moves best. The estimated ejection fraction is 25% to 30%. The left ventricular diastolic filling pattern is restricted with elevated LVEDP. The right ventricular global systolic function is mildly reduced. The aortic valve leaflets are mildly thickened with normal function. There was moderate mitral regurgitation and mild tricuspid regurgitation and no prior echo to compare." The patient's ankle-brachial indexes obtained on 02/26/18, impression: "Abnormal left ankle-brachial index of 0.6 with biphasic waveforms and decreased amplitudes on pulse volume recording suggestive of moderate claudication." On 03/01/18, the patient had a repeat Doppler of the left lower extremity, impression: "Arterial Doppler sonography reveals occlusion of approximately the mid level of left common iliac artery extended to just above the iliac bifurcation. Patency is documented distal to this occlusion throughout the left lower extremity, but markedly reduced flow velocities are noted." Cardiac catheterization obtained on 02/27/[address] Olea, impression: "Significant multivessel coronary artery disease involving all of the coronary arteries as described above. Given his significant left ventricular systolic dysfunction and diffuse nature of the disease and what appears to be reasonable targets with the mid obtuse marginal branch, the last posterior left ventricular branch of the right coronary artery and the posterior descending artery of the right coronary artery and the distal LAD and possibly the trifurcation marginal branch, bypass surgery is probably in his best interest." Furthermore in the body of the report, it was noted that right coronary artery is dominant vessel with diffuse disease seen throughout the vessel with a proximal narrowing of 50% to 55%, then there was a long segment of 65% to 70% stenosis and then following by another area of caliber change of approximately 45% to 50%. Past the posterior descending artery, there was area of 75% to 80% narrowing noted. The left main had distal tapering of the left main approximately 45% to 50%. The left anterior descending artery showed the degree of narrowing appeared to be as much as 55%. In the mid portion, the LAD became small in caliber and had another 80% to 85% narrowing followed by another 80% narrowing. The circumflex artery, the trifurcation marginal branch appeared to have 75% proximal followed by 70% mid lesion. 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 He was noted to have leukocytosis and right upper lung mass-like pneumonia was identified. The patient was treated with broad- spectrum antibiotics, which originally included ceftriaxone , azithromycin, and vancomycin. Later on, he was switched to cefepime, and azithromycin and vancomycin was discontinued. The patient's cultures were unremarkable with blood cultures negative. Negative Legionella antigen and Strep pneumo antigens. Influenza was also negative. Later on, while on antibiotics, the patient developed profuse diarrhea, which was C. diff negative. Nevertheless, the patient was treated briefly with p.o. metronidazole for antibiotic-associated diarrhea. The patient had EKG changes that appeared to have ST elevation DC in the anteroseptal leads. He was seen by Cardiology, especially due to his troponin being 0.08. Nevertheless, he never complained of chest pain during the hospital stay. His EF was also noted to be 25% to 30% with moderate mitral regurgitation. He was seen initially by Dr. Crowe and followed up by Dr. Carter and Dr. Olea. Dr. Olea performed cardiac catheterization on 02/27/18 and as above mentioned, it showed diffuse coronary artery disease and evaluation for bypass was recommended. Dr. Crowe also recommended for the patient to be prescribed LifeVest at discharge due to his low EF. Please note that over the patient's hospital stay, the patient had no evidence of arrhythmias on telemetry monitored bed. His mild troponin elevation was thought to be due to demand ischemia, although the patient's EKG changes and his echocardiogram showed that he likely had an acute cardiac event in the recent past. Having said that, the patient did not remember having any recent problems with chest pain or shortness of breath until he got sick and febrile. At discharge, the patient had no insurance and application for Medicaid is pending. The patient was advised to stay and to await full discharge while insurance is in place with LifeVest in place, but he refused and despite knowing the risk of possibility of sudden cardiac , signed out of the hospital against medical advice. Please note that in regards to the mass-like pneumonia in the right upper lobe, I briefly just curbsided the oncology service. At this point, the highest likelihood is that the patient does have a pneumonia and may be organizing abscess. Due to that, he was recommended when I curbsided the infectious disease specialist to place the patient on a longer course of antibiotics of Augmentin for a total of [address] Portillo will see the patient in followup. Please also note that from infectious standpoint, the patient had improved greatly over the course of his hospital stay. His leukocytosis nearly resolved. He was feeling back to his baseline with his breathing and he had no problems with shortness of breath, whatsoever. Due to possibility of a mass-like lesion underneath the pneumonia, he is recommended to have a followup CT of the chest in approximately 4 to 6 weeks. At discharge, due to the patient is leaving without his health insurance finalized, he was given urgent Rx for Augmentin, which we will give him prescription for 14 days and he was also given the prescription for remaining 16 days to complete a 30- day supply. He was also prescribed metoprolol, benazepril, and aspirin through [facility] in hopes to utilize the 4- dollar prescription plan. His atorvastatin was not prescribed yet due to that he did not have insurance and neither urgent Rx under 4-dollar prescription plan cover that. He is recommended to follow up with Dr. dAkins on 03/06/18 at [facility]. Our onsite case manager will follow up with the [employer] for the LifeVest set up once the patient gets his Medicaid approved. The patient is also recommended to follow up with Dr. Cabrera for possibility of intervention to his occluded left iliac artery. The patient is also recommended to follow up with Dr. Crowe from cardiology standpoint. In regards to the patient's peripheral arterial disease, the patient was noted to have poor peripheral pulses and history of bilateral leg numbness. Due to that, ABIs were obtained, which were in range of claudication on the left. Dr. Cabrera saw the patient in evaluation and noted that the patient is a candidate for further intervention. Dr. Cabrera ordered arterial Dopplers of the left lower extremity, which showed iliac artery occlusion. The patient is to follow up with Dr. Cabrera as an outpatient in approximately 1 to 2 weeks. PHYSICAL EXAMINATION AT THE TIME OF DISCHARGE: Blood pressure of 106/76, heart rate of 74 and irregular, respiratory rate 20, oxygen saturation 100% on room air, temperature 97.9. General: The patient is a pleasant 48-year-old male, who is in no acute distress. Alert, awake, and oriented x3. HEENT: Head: Atraumatic, normocephalic. Eyes: Pupils are equal, reactive to light and accommodation. Oropharynx is clear. Mucosa moist. Neck: Supple. No JVD. No bruits bilaterally. Cardiovascular: Regular rate and rhythm. No murmur. Respiratory: Clear to auscultation bilaterally. Abdomen: Soft, nontender. Bowel sounds are present in all 4 quadrants. Extremities: There are basically absent left-sided pedal pulses. On the right lower extremity, the patient has palpable posterior tibialis pulse. Nevertheless, there is no clubbing, no cyanosis, and there is a good capillary refill and both lower extremities are warm to touch. The patient is status post traumatic amputation of the left great toe with stump well healed and no evidence of wounds. Neuro Evaluation: Speech is clear. Cranial nerves II through XII are grossly intact. Motor strength is 5/5 bilaterally. At discharge, the patient was recommended multiple times not to smoke. Please note that this is a short summary of the patient's hospitalization. Please refer to further medical records for details. TIME SPENT: Approximately 50 minutes was spent on the patient's discharge. [id number]/CPS #: [id number] MTDD
--- NOTE | 2018-03-02 11:23 | PN ---
Progress Note - Progress Note Date of Service: 03/02/18 Note: Review of LLE arterial duplex sonogram indicates the patient's LLE claudication can be relieved by stenting the LCIA occlusion. RP,
== END 2018-03-01 15:50 | disposition left against medical advice (07) | DRG 871 ==
LOC: ED 10:43 → MEDTELE 17:57
PROVIDERS: ADMIT Internal Medicine; ATTEND Internal Medicine
PROC: B211YZZ Fluoroscopy of Multiple Coronary Arteries using Other Contrast (ICD-10-PCS; 2018-02-27)
PROC: 4A023N7 Measurement of Cardiac Sampling and Pressure, Left Heart, Percutaneous Approach (ICD-10-PCS; principal; 2018-02-27 14:00)
DX: A41.9 Sepsis, unspecified organism (principal); J18.9 Pneumonia, unspecified organism; K52.1 Toxic gastroenteritis and colitis; I24.8 Other forms of acute ischemic heart disease; I25.5 Ischemic cardiomyopathy; I25.10 Atherosclerotic heart disease of native coronary artery without angina pectoris; I11.9 Hypertensive heart disease without heart failure; I08.1 Rheumatic disorders of both mitral and tricuspid valves; F17.210 Nicotine dependence, cigarettes, uncomplicated; T36.95XA Adverse effect of unspecified systemic antibiotic, initial encounter; Y92.230 Patient room in hospital as the place of occurrence of the external cause; R74.8 Abnormal levels of other serum enzymes; F10.10 Alcohol abuse, uncomplicated; Y90.0 Blood alcohol level of less than 20 mg/100 ml; R94.5 Abnormal results of liver function studies; I70.212 Atherosclerosis of native arteries of extremities with intermittent claudication, left leg; M54.5 Low back pain; Z79.899 Other long term (current) drug therapy; Z82.49 Family history of ischemic heart disease and other diseases of the circulatory system; I25.2 Old myocardial infarction
CPT/HCPCS: 36415; 71046; 71260; 76937; 80048; 80053; 80061; 80076; 80202; 81003; 81015; 82803; 83605; 84484; 85025; 85027; 85060; 85610; 85652; 85730; 86140; 87040; 87493; 87899; 93005; 93306; 93458; 93922; 99285; A9270-GY; C8929; J0456; J0692; J0696; J1644; J2250; J3010; J3370; J3480; Q9967

== ENCOUNTER 2019-07-23 08:09 | Inpatient (IN) | payer MEDICAID, OTHER ==
--- NOTE | 2019-07-23 08:39 | ED ---
Shortness of Breath - HPI Summary HPI Summary: 49-year-old male with a significant past medical history of cardiomyopathy and CAD presents to the emergency department today complaining of shortness of breath, sore throat, headache, fever, productive cough for approximately 4 days. Patient states he has had decreased by mouth intake due to his symptoms. Patient states he has been taking [id number] cold medicine with minimal relief. he otherwise feels well and denies chest pain, abdominal pain, pain with urination, rash. - History of Current Complaint Chief Complaint: EDShortnessOfBreath Time Seen by Provider: 07/23/19 08:21 Hx Obtained From: Patient Onset/Duration: Gradual Onset Current Severity: Moderate Dyspnea At: Rest Alleviating Factors: OTC Meds Associated Signs & Symptoms: Cough (Productive), Cough (Bloody Sputum), Chest Pain w/Cough - Allergy/Home Medications Allergies/Adverse Reactions: Allergies Allergy/AdvReac Type Severity Reaction Status Date / Time No Known Allergies Allergy Verified 02/25/18 10:44 Home Medications: Home Medications Ezetimibe TAB* [Zetia TAB*] 10 mg PO DAILY 07/23/19 [History Confirmed 07/23/19] Icosapent Ethyl [Vascepa] 2 gm PO BID 07/23/19 [History Confirmed 07/23/19] Metoprolol Tartrate TAB* [Lopressor TAB*] 50 mg PO DAILY 07/23/19 [History Confirmed 07/23/19] Rosuvastatin (NF) [Crestor] 40 mg PO DAILY 07/23/19 [History Confirmed 07/23/19] PMH/Surg Hx/FS Hx/Imm Hx Endocrine/Hematology History: Denies: Hx Diabetes, Hx Thyroid Disease Cardiovascular History: Denies: Hx Hypertension Respiratory History: Denies: Hx Asthma, Hx Chronic Obstructive Pulmonary Disease (COPD) GI History: Denies: Hx Ulcer History: Denies: Hx Renal Disease Sensory History: Denies: Hx Contacts or Glasses, Hx Hearing Aid Opthamlomology History: Denies: Hx Contacts or Glasses - Surgical History Surgery Procedure, Year, and Place: Left 1st toe Infectious Disease History: No Infectious Disease History: Denies: Hx Hepatitis, Hx Human Immunodeficiency Virus (HIV), Traveled Outside the [place] in Last 30 Days - Family History Known Family History: Positive: Hypertension, Diabetes - Social History Alcohol Use: Daily Alcohol Amount: 12 beers Substance Use Type: Reports: Cocaine Substance Use Comment - Amount & Last Used: monthly Smoking Status (MU): Heavy Every Day Tobacco Smoker Type: Cigarettes Have You Smoked in the Last Year: Yes Review of Systems Positive: Fever, Fatigue. Negative: Chills, Skin Diaphoresis Eyes: Negative Positive: Sore Throat. Negative: Epistaxis, Dental Pain Cardiovascular: Negative Positive: Shortness Of Breath, Cough Gastrointestinal: Negative Genitourinary: Negative Musculoskeletal: Negative Skin: Negative Neurological: Negative Psychological: Normal All Other Systems Reviewed And Are Negative: Yes Physical Exam - Summary Physical Exam Summary: Patient is in no acute distress. Patient is able to speak in full and broken sentences. No evidence of accessory muscle use. Triage Information Reviewed: Yes Vital Signs On Initial Exam: Initial Vitals Temp Pulse Resp BP Pulse Ox 96.9 F 80 97 07/23/19 08:12 07/23/19 08:12 07/23/19 08:12 07/23/19 08:12 07/23/19 08:12 Vital Signs Reviewed: Yes Appearance: Positive: Well-Appearing, No Pain Distress, Well-Nourished Skin: Positive: Warm, Skin Color Reflects Adequate Perfusion Eyes: Positive: EOMI, LISA ENT: Positive: Hearing grossly normal Respiratory/Lung Sounds: Positive: Clear to Auscultation, Breath Sounds Present Cardiovascular: Positive: RRR, S1, S2 Abdomen Description: Positive: Nontender, Soft Musculoskeletal: Positive: Strength/ROM Intact Neurological: Positive: Sensory/Motor Intact, Alert, Oriented to Person Place, Time, Normal Gait, Facial Symmetry, Speech Normal Psychiatric: Positive: Normal, Affect/Mood Appropriate AVPU Assessment: Alert Procedures - Sedation Patient Received Moderate/Deep Sedation with Procedure: No Diagnostics - Vital Signs Vital Signs Temp Pulse Resp BP Pulse Ox 07/23/19 08:25 110/85 07/23/19 08:12 96.9 F 80 97 - Laboratory Result Diagrams: 07/23/19 16:30 07/23/19 08:45 Lab Statement: Any lab studies that have been ordered have been reviewed, and results considered in the medical decision making process. Course/Dx - Course Course Of Treatment: Patient was evaluated in the emergency department today for shortness of breath. Patient seen and examined his vitals are stable and he was afebrile. EKG was done promptly which showed normal sinus rhythm at a rate of 77 bpm. No evidence of STEMI. Chest x-ray was done which shows right middle lobe pneumonia. Blood cell count 15.0 with positive left shift. There are no significant electrolyte abnormalities. Mild renal dysfunction with BUN 40 and creatinine 1.33. mild elevation and liver function with AST 161/ALT 224. Lactic acid 2.4. Troponin 0.75. Influenza negative. Patient is septic secondary to right middle lobe pneumonia. Elevation in troponin is likely due to demand mediated ischemia. Patient given antibiotics for pneumonia and 30 mg/ kg of IV fluid. Hospitalist, Dr. Singh was consulted at 1033 and agreed to admit the patient for sepsis pneumonia. At approximately 12:00 patient went to use the bedside commode and became diaphoretic and short of breath. Shortly after this happened he began agonal breathing and went into cardiac arrest. CPR was initiated and ACLS protocol was begun. Patient was resuscitated at 1220 AND intubated. Repeat troponin and CT of the chest was obtained.tissue technician , Dr. Chew was consulted at 1220 and agreed to admit the Pt to the intensive care unit. - Diagnoses Differential Diagnosis/HQI/PQRI: Positive: Bronchitis, NC - Heart, Pneumonia, Pulmonary Embolism Provider Diagnoses: Unresponsive, Pneumonia, Liver function abnormality, Acute renal failure, Dehydration, NSTEMI (non-ST elevated myocardial infarction), Demand ischemia - Physician Notifications Discussed Care of Patient With: Tres Chew Time Discussed With Above Provider: 01:00 Instructed by Provider To: Admit As Inpatient Discharge ED - Sign-Out/Discharge Documenting (check all that apply): Patient Departure - Discharge Plan Condition: Fair Disposition: ADMITTED TO [facility] - Billing Disposition and Condition Condition: FAIR Disposition: Admitted to [facility] - Attestation Statements Provider Attestation: I have seen the patient with the NOLBERTO and agree with the plan and documentation below except as noted: This is a 41-year-old male history of coronary artery disease and CHF and EF approximately 20% who presents with shortness of breath found to have pneumonia. Around 12:00, patient decompensated noted to be diaphoretic and then went to asystole. Please see code sheet for further details of briefly patient was coded, intubated, given multiple doses of epinephrine, bicarbonate and calcium. ROSC obtained. EKG was performed at 12: [address] elevations in lead II, V3, V4, and V5. No reciprocal changes. Patient w known CAD. Dr. Chew of ICU at bedside, d/w cardiology and agree likely demand ischemia, and they recommended no catheterization at this time. Upon my evaluation, this patient had a high probability of imminent or life- threatening deterioration due to sepsis, cardiac arrest which required my direct attention, intervention, and personal management. I have personally provided 35 minutes of critical care time exclusive of time spent on separately billable procedures. Time includes review of laboratory data , radiology results, discussion with consultants, and monitoring for potential decompensation. Interventions were performed as documented above. Roverto Sethi MD
[2019-07-23 08:58] LABS: ABS Basophils 0.1 10^3/ul (0-0.2); ABS Eosinophils 0.1 10^3/ul (0-0.6); ABS Lymphocytes 2.8 10^3/ul (1.0-4.8); ABS Monocytes 0.6 10^3/ul (0-0.8); ABS Neutrophils 11.4 10^3/ul (1.5-7.7); Eosinophil % 0.4 %; Hematocrit 43 % (42-52); Hemoglobin 14.3 g/dL (14.0-18.0); Lymphocyte % 18.9 %; Mean Corpuscular HGB Conc 33 g/dL (31-36); Mean Corpuscular Hemoglobin 31 pg (27-31); Mean Corpuscular Volume 93 fL (80-94); Mean Platelet Volume 8.9 fL (7.4-10.4); Nucleated Red Blood Cells % 0.2; Platelet Count 426 10^3/uL (150-450); Red Blood Count 4.67 10^6 /uL (4.18-5.48); Red Cell Distribution Width 16 % (10-15)
[2019-07-23 09:16] LABS: ALT 224 U/L (7-52); AST 161 U/L (13-39); Albumin 3.2 g/dL (3.2-5.2); Alkaline Phosphatase 240 U/L (34-104); Anion Gap 10 mmol/L (2-11); BUN/Creatinine Ratio 30.1 (8-20); Blood Urea Nitrogen 40 mg/dL (6-24); CO2 Carbon Dioxide 22 mmol/L (22-32); Calcium 8.8 mg/dL (8.6-10.3); Chloride 98 mmol/L (101-111); EGFR African American 69.4 (>60); EGFR Non-African American 57.4 (>60); Globulin 3.3 g/dL (2-4); Glucose 105 mg/dL (70-100); Potassium 4.7 mmol/L (3.5-5.0); Sodium 130 mmol/L (135-145); Total Protein 6.5 g/dL (6.4-8.9)
[2019-07-23 09:19] LABS: Troponin I 0.75 ng/mL (<0.03)
[2019-07-23] MEDS ORDERED: NS 0.9% 1000 ML** 1,000 ML IV ONE ×4 (09:22→22:51)
[2019-07-23] MEDS ORDERED: cefTRIAXone(*) 1 GM in NS 0.9% 50 ML* 50 ML IVPB ONE (09:50)
[2019-07-23] MEDS ORDERED: Azithromycin 500 mg/250 ml NS 500 MG/250 ML BAG IVPB ONE (09:51)
[2019-07-23] MEDS ORDERED: Aspirin 81 mg CHEW TAB* 81 MG TAB.CHEW PO ONE (09:52)
[2019-07-23 10:00] LABS: Influenza A Molecular Negative (Negative); Influenza B Molecular Negative (Negative)
--- NOTE | 2019-07-23 11:46 | PN ---
Sepsis Event Evaluation Date of Evaluation: 07/23/19 Time of Evaluation: 11:15 Current Stage of Sepsis: Severe Sepsis Vital Signs - Last 12 Hours: Vital Signs - 12 hr Temp Pulse Resp BP Pulse Ox 07/23/19 11:04 76 26 100 07/23/19 10:25 75 19 106/75 98 07/23/19 10:17 77 21 93/72 100 07/23/19 10:00 76 17 100 07/23/19 09:25 82 30 104/85 100 07/23/19 09:05 78 29 98 07/23/19 08:55 84 33 108/77 97 07/23/19 08:28 19 07/23/19 08:25 110/85 07/23/19 08:12 96.9 F 80 26 00/ 97 Lactic Acid: 07/23/19 08:45 Lactic Acid 2.4 H* - Cardiopulmonary Exam Capillary Refill: Immediate Respiratory: Symmetrical Chest Expansion and Respiratory Effort, - - BS+ bilaterally with bibasilar crackles Cardiovascular: RRR - Normal S1 and S2 - Peripheral Pulse Exam Radial Pulses: Bilateral Normal - Skin Exam Skin Exam: Normal Turgor - Paco Coma Scale Best Eye Response: 4 - Spontaneous Best Motor Response: 6 - Obeys Commands Best Verbal Response: 5 - Oriented Coma Scale Total: 15 Assess/Plan/Problems-Billing Assessment: Mr Lema is a 49yo M with PMH of known triple vessel CAD (declined CABG multiple times), severe ischemic CMP, ETOH and tobacco abuse presented with severe sepsis and CAP.
[2019-07-23] MEDS ORDERED: Sodium Bicarbonate 8.4%* 50 ML SYRINGE ONE (11:53)
[2019-07-23] MEDS ORDERED: Calcium CHLORIDE 10% SYRINGE* 1 GM/10 ML ONE (11:53)
[2019-07-23] MEDS ORDERED: EPINEPHrine SYR 0.1MG/ML* SYRINGE ONE (11:53)
[2019-07-23] MEDS ORDERED: Iodixanol* (CONTRAST) 320 MG/ML 100 ML SDV IV ONE (12:23)
--- NOTE | 2019-07-23 12:32 | ED ---
Progress - Progress Note Progress Note: I was called by SENDY Crowley, who stated that patient had altered mental status and lost pulses. CPR was started following ACLS protocols. Patient was given multiple epinephrines and bicarbonate. Subsequently, the patient was intubated. At first attempt, patient was intubated without complications. Afterwards, we obtained a pulse and the patient continued to be given fluids. I discussed case with Dr. Tres Chew from the ICU and he accepted the patient for admission. At this time, the patient is stable, but critical and will be transferred to the ICU. EKG was performed at 12:[address] elevations in lead II, V3, V4, and V5. Dr. Chew consulted Dr. Carter and they recommended no catheterization at this time. Patient will be going to the ICU. Patient will be admitted to [facility] with a diagnosis of unresponsiveness, pneumonia , and demand ischemia. - Results/Orders Results/Orders: EKG was performed at 12:[address] elevations in lead II, V3, V4, and V5. Reviewed and interpreted by Dr. Batista. Course/Dx - Course Course Of Treatment: Procedure - Endotracheal Intubation. Permit was implied secondary to an emergent situation. An LMA and bougie were placed within arm's reach. A Glidescope blade was inserted into the oropharynx at which time the vocal cords were visualized. A 7.5 Martiniquais endotracheal tube was inserted and visualized going through the vocal cords. The stylet was removed. The colorimetric change was visualized on the CO2 meter. Breath sounds were heard in both lung dougherty equally. The endotracheal tube was placed at 23 cm, measured at the teeth. Portable chest x-ray ordered for confirmation of tube level. Post intubation sedation ordered. Intubation was made at the first attempt. No complications were encountered. Patient is in the care of Dr. Jeevan ferguson this time. - Diagnoses Provider Diagnoses: Unresponsive, Pneumonia, Liver function abnormality, Acute renal failure, Dehydration, NSTEMI (non-ST elevated myocardial infarction), Demand ischemia - Provider Notifications Discussed Care Of Patient With: Tres Chew - I discussed case with Dr. Tres Chew from the ICU and he accepted the patient for admission. Dr. Chew consulted Dr. Carter and they recommended no catheterization at this time. Time Discussed With Above Provider: 12:20 Instructed by Provider To: Admit As Inpatient - Critical Care Time Critical Care Time: 30-74 min Discharge ED - Sign-Out/Discharge Documenting (check all that apply): Patient Departure - Admit - Discharge Plan Condition: Fair Disposition: ADMITTED TO [facility] - Billing Disposition and Condition Condition: FAIR Disposition: Admitted to [facility] - Attestation Statements Document Initiated by Scribe: Yes Documenting Scribe: Arin Victoria Provider For Whom Maximeibe is Documenting (Include Credential): Loi Batista MD Scribe Attestation: Arin hCo, scribed for Loi Batsita MD on 07/23/19 at 1342. Scribe Documentation Reviewed: Yes Provider Attestation: The documentation as recorded by the maximeibArin wadsworth accurately reflects the service I personally performed and the decisions made by Loi manuel MD Status of Scribe Document: Viewed Procedures - Procedure Summary Procedure Summary: Procedure - Endotracheal Intubation Permit was implied secondary to an emergent situation. An LMA and bougie were placed within arm's reach. A Glidescope blade was inserted into the oropharynx at which time the vocal cords were visualized. A 7.5 Martiniquais endotracheal tube was inserted and visualized going through the vocal cords. The stylet was removed. The colorimetric change was visualized on the CO2 meter. Breath sounds were heard in both lung dougherty equally. The endotracheal tube was placed at 23 cm, measured at the teeth. Portable chest x-ray ordered for confirmation of tube level. Post intubation sedation ordered. Intubation was made at the first attempt. No complications were encountered. - Sedation Patient Received Moderate/Deep Sedation with Procedure: No - Intubation Intubation Method: nasotracheal Tube Size (cm): 7.5 Intubation Complications: no complications Post Intubation Xray: Yes
[2019-07-23] MEDS ORDERED: Norepinephrine 16MCG/ML IVPRE* 4,000 MCG/250 ML BAG IV ONE (13:17)
[2019-07-23] MEDS ORDERED: Propofol* 100 ML ONE (13:29)
[2019-07-23] MEDS: Norepinephrine 16MCG/ML IVPRE* 4,000 MCG/250 ML BAG IV SCH ×4 (14:40→22:10)
[2019-07-23] MEDS: Propofol* 100 ML IV SCH ×2 (14:41→19:00)
[2019-07-23] MEDS: Heparin VIAL(*) 5000 UNITS/ML VIAL (FIVE THOUSAND) SUBCUT SCH ×2 (14:48→23:22)
--- NOTE | 2019-07-23 15:06 | HP ---
HISTORY AND PHYSICAL: DATE OF ADMISSION: 07/23/19 TIME OF EVALUATION: 11 a.m. CHIEF COMPLAINT: "I feel like crap." HISTORY OF PRESENT ILLNESS: Mr. Lema is a 49-year-old male with a past medical history of coronary artery disease, ischemic cardiomyopathy, tobacco abuse, alcohol abuse, peripheral vascular disease, hyperlipidemia, who presents to the emergency room with complaint of shortness of breath. The history is obtained from the patient and his sister at the bedside. The patient states that about 3 weeks ago he started to have what he thought was the flu. He describ es shaking chills, fever, body aches, cough, shortness of breath. He describes trying multiple over- the-counter medications with no significant improvement and his symptoms continued to get worse. He was scheduled to see Cardiology and have an echocardiogram last week, but states that he did not g o to the appointment because he was not feeling well. He states that the shortness of breath has become worse and over the weekend he developed lower extre mity edema. He states that today he was feeling so poorly that he decided to come to the emergency r oom for further evaluation. PAST MEDICAL HISTORY: 1. Coronary artery disease. The patient has no triple-vessel disease demonstrated on a cardiac cath in February 2018. RCA had diffuse disease with 50% to 55% proximal stenosis, 65% to 70% more dista lly as well as 75% to 80% in the PDA. Left main had 45% to 50% disease, LAD 55% disease, mid LAD 80% to 85%, circumflex was unknown, dominant vessel, trifurcation marginal branch proximally had 75% ashley nosis and mid 70% lesion. At that time, the patient was advised to have CABG and he declined. He co ntinues to follow with Dr. Crowe as outpatient and she continues to recommend bypass surgery, but t he patient states that he is fearful and is not ready to have open heart surgery. 2. Peripheral vascular disease. The patient had an abnormal NEMESIO in February 2018 and he was seen b zuhair Cabrera, diagnosed with high-grade stenosis at least of his left iliac arteries and he also susp ected the patient had Buerger's disease secondary to smoking, but as far as I can see the patient did not follow up with him. 3. Ischemic cardiomyopathy. This was also diagnosed in 2018. The patient had an echocardiogram at that time with ejection fraction of 25% to 30% with akinetic apex and global diffuse hypokinesis. Th ere was suspicion for a component of alcohol- induced cardiomyopathy as well. 4. Xeqrfpno-mx-zpffeg mitral regurgitation. 5. Hyperlipidemia. 6. Tobacco abuse. 7. Alcohol abuse. 8. Status post left hallux amputation secondary to trauma associated with a lawn mowing accident. 8. History of tooth abscess complicated by Hardik's angina in 2005. MEDICATION LIST: 1. Aspirin 81 mg p.o. daily. 2. Benazepril 5 mg p.o. daily 3. Ezetimibe 10 mg p.o. daily. 4. Vascepa 2 g p.o. b.i.d. 5. Metoprolol tartrate 50 mg p.o. daily. 6. Rosuvastatin 40 mg p.o. daily. The patient states that he has not been taking all of his medications because he ran out of some of [employer], but he does not know exactly which ones. ALLERGIES: No known drug allergies. FAMILY HISTORY: The patient has a family history of diabetes in both his father and mother and his f ather had a history of coronary artery disease with MT in his 50s. SOCIAL HISTORY: The patient is longtime smoker, a pack per day. He states that he drinks 6 to 8 bee rs a day and even through his sickness he was still smoking and drinking. He denies any drug use. S urrogate decision maker is his mother, Connie Lema, phone number is [phone]. REVIEW OF SYSTEMS: A 14 point review of system was performed and all the pertinent negative and posi tive are in the HPI. PHYSICAL EXAMINATION GENERAL: The patient is middle-aged gentleman that appears older than stated age, sitting up in the ED stretcher, in known acute distress. VITAL SIGNS: Temperature 96.9, heart rate is 75, respiratory rate is 19, oxygen saturation was 98% o n room air, blood pressure is 106/75. HEENT: Pupils are equal. Moist mucous membranes. CHEST: Breath sounds bilaterally with bibasilar crackles greater on the right than the left. CVS: Normal S1, S2. Regular rate and rhythm. ABDOMEN: Obese, soft, nontender, nondistended. Bowel sounds are present. EXTREMITIES: There is bilateral moderate lower extremity edema. NEUROLOGIC: He is alert and oriented x3. Able to move all 4 extremities. DIAGNOSTIC STUDIES/LAB DATA: The patient had a CBC that showed a WBC of 15, hemoglobin of 14.3, hem atocrit of 43, platelets of 426 with 75% neutrophils. Chemistry showed a sodium 130, potassium 4.7, c hloride 98, bicarb of 22, BUN of 40, creatinine of 1.3, glucose of 105, lactic acid 2.4, calcium is 8 .8. LFTs showed a total bilirubin of 1.6, AST of 161, ALT of 224, alk phos of 240, troponin was 0.75 . Influenza A and B were negative Chest x-ray shows right middle lobe consolidation. EKG done 07/23/19 at 8:11 a.m. shows sinus rhythm at 77 beats per minute with nonspecific intraventricular conduction delay. No acute ischemic change s. This EKG looks improved when compared to his prior EKG from February 2018. ASSESSMENT AND PLAN: Mr. Lema is a 49-year-old male with a past medical history of coronary artery disease, ischemic and nonischemic cardiomyopathy with ejection fraction of 25%, alcohol and tobacco abuse, who presented to the emergency room with complaints of shortness of breath, found to have comm unity-acquired pneumonia. 1. Severe sepsis. The patient met sepsis criteria with leukocytosis and tachypnea and source is comm unity-acquired pneumonia. His initial lactic acid is 2.4. The patient received IV fluids in the em ergency room and we will continue to manage his pneumonia. 2. Community-acquired pneumonia. Blood cultures were sent in the emergency room. We are going to re quest his sputum cultures as well as legionella and pneumococcal antigen. We will continue ceftriaxo ne and Zithromax already started in the emergency room. 3. Troponin elevation. The patient has no complaints of chest pain and no new ischemic changes on h is EKG, but he has known triple-vessel disease and has declined CABG in the past. I suspect his trop onin elevation is secondary to demand ischemia. Unfortunately while in the emergency room after my e valuation, the patient had a cardiac arrest and he was able to be resuscitated. I strongly encourage d him to consider CABG once again after this episode of pneumonia is resolved and I believe his arres t is secondary to his severe ischemic cardiomyopathy and coronary artery disease. His care will be t ransferred to the intensive care physician, Dr. Chew, who was present at the bedside during his code. 4. DVT prophylaxis. The patient has a score of 3 on the DVT prophylaxis assessment guide. He is on subcutaneous heparin. 5. Code status is full. TIME SPENT: Approximately 60 minutes was spent with patient and sister interview, medical records re view, physical examination to complete this admission, more than half of this time was spent face-to- face with the patient in coordination of care. [id number]/[facility] #: [id number]
[2019-07-23] MEDS ORDERED: Perflutren Lipid Microsphere* 3 ML VIAL ONE (16:01)
--- NOTE | 2019-07-23 16:28 | PN ---
Progress Note - Progress Note Date of Service: 07/23/19 Note: Patient arrived from ED post cardiac arrest. Initially admitted for CAP/PNA with severe sepsis with elevated troponins but went unresponsive and pulseless in the ED before being transferred to the floor. He is currently intubated. Please see admission H&P from today: Current plan and recommendations: 1. NSTEMI/Post Cardiac Arrest with combined Cardiogenic and Septic Shock - Known 3 vessel CAD with ischemic cardiomyopathy per 2018 cath report with no surgical follow up, plan for ECHO to evaluate LV function which is noted to be poor from 2018 - Does appear to need additional fluid resuscitation, lactic rising, most recent is 7.4 which is likely freight representative of combination of sepsis and arrest , continue norepinephrine, titrate to MAP 65 - Continue propofol to RASS -1 - VAP bundle while intubated - CT head with no acute pathology - CTA chest with no PE 2. Transaminitis - Unclear if ETOH induced vs gallbladder etiology - Follow up US report - Follow daily labs 3. ETOH abuse - Per sisters, heavy drinker for many years with low motivation to quit - Acute detox will likely negatively impact his current acute illness, will monitor for withdrawal s/s - SW consult when stable 4. CAP/PNA with Septic Shock - Continue azithromycin/ceftriaxone to coverage community acquired pathogens - Follow blood cultures - Follow lactic until cleared - Contiue pressors and IVF
--- NOTE | 2019-07-23 16:51 | ECHO ---
*[facility]* [place] [address] Fax #: [phone] Transthoracic Echocardiogram Patient: Tres Lema : 1970 Study Date: 07/23/2019 Age: 49 Gender: M HR: 63 bpm Height: 72 in /182.9 cm BSA: 2.21 m^2 Weight: 217.5 lb /98.9 kg BMI: 29.6 kg/m^2 *Collarette Separator: * Arin Azul [facility] *Referring Physician: * Indira Sanchez *Reading Physician: * Miles Carter MD Indications: Myocardial Infarction (new). History: ETOH, PVD. Coronary artery disease. Mitral regurgitation. PMH: Cardiomyopathy. Risk factors: Current tobacco use. Dyslipidemia. Conclusions Summary: - Left ventricle: Systolic function is severely reduced. The estimated ejection fraction is 10-15%. Diffuse hypokinesis with regional variations. - Right ventricle: Systolic function is moderately to severely reduced. - Mitral valve: There is moderate regurgitation, directed posteriorly. - Aortic valve: There is no evidence of stenosis. - Tricuspid valve: There is mild-moderate regurgitation. - Pericardium, extracardiac: There is no significant pericardial effusion. - Pulmonary arteries: Systolic pressure is within the normal range. - Compared to study of 02/26/18, the left ventricle function is much worse. Valve functions are the same. Study data: Transthoracic echocardiogram. Procedure: Transthoracic echocardiography was performed. Image quality was fair. Intravenous Definity , 2 mlswas administered. Image enhancement administered by Tuan intensive care unit RN. Complete 2D, spectral Doppler, and color flow Doppler. Location: ICU Patient status: Inpatient. Patient room number: 6. Rhythm: Normal sinus rhythm. Findings Left ventricle: The cavity size is moderately to severely dilated. Wall thickness is mildly increased. Systolic function is severely reduced. The estimated ejection fraction is 10-15%. Diffuse hypokinesis with regional variations. There is no evidence of a thrombus revealed by acoustic contrast opacification. Doppler parameters are consistent with a restrictive pattern, indicative of decreased left ventricular diastolic compliance and/or increased left atrial pressure. Right ventricle: The cavity size is dilated. Systolic function is moderately to severely reduced. Left atrium: The atrium is normal in size. Right atrium: The atrium is mildly to moderately dilated. Mitral valve: The leaflets are mildly thickened. There is no evidence of stenosis. There is moderate regurgitation, directed posteriorly. Aortic valve: The valve is trileaflet. The leaflets are normal thickness. There is no evidence of stenosis. There is no significant regurgitation. Tricuspid valve: The leaflets are normal thickness. There is no evidence of stenosis. There is mild-moderate regurgitation. Pulmonic valve: The leaflets are normal thickness. There is no evidence of stenosis. There is mild regurgitation. Aorta: The aortic root appears normal. Pericardium: There is no significant pericardial effusion. Pulmonary arteries: Systolic pressure is within the normal range. Systemic veins: Inferior vena cava: The vessel is dilated. Respirophasic changes in dimension are absent. Measurements Left ventricle Value Ref Aortic valve Value Ref ANDI, LAX (H) 7.1 cm 4.2 - 5.8 Francia diam, ED 2.0 cm ----- ESD, LAX (H) 6.4 cm 2.5 - 4.0 Peak v, S 0.82 m/sec ----- FS, LAX (L) 10 % 25 - 43 VTI, S 16.0 cm ----- PW, ED, LAX 1.0 cm 0.6 - 1.0 Mean grad, S 2.0 mm Hg ----- E', lat francia, TDI (L) 7.7 cm/sec >=10.0 Peak grad, S 3.0 mm Hg - ---- E/e', lat francia, 12 LVOT/AV, VTI ratio 0.47 ---- - TDI E', med francia, TDI (L) 3.2 cm/sec >=7.0 Mitral valve Value R ef E/e', med francia, 28 Peak E 0.91 m/sec ---- - TDI Peak A 0.28 m/sec ----- E', avg, TDI 5.5 cm/sec Decel time 161 ms ---- - E/e', avg, TDI (H) 17 <=14 Mean grad, D 1.0 mm Hg - ---- Peak grad, D 4.0 mm Hg ----- LVOT Value Ref Peak E/A ratio 3.2 ----- Peak sky, S 0.5 m/sec ERO, PISA 0.19 cm^2 ----- VTI, S 7.5 cm MR vol, PISA 17 ml ----- Peak grad, S 1 mm Hg Mean grad, S 0 mm Hg Pulmonic valve Value Ref Peak v, S 0.47 m/sec ----- Ventricular septum Value Ref Peak grad, S 1.0 mm Hg ----- IVS, ED (H) 1.2 cm 0.6 - 1.0 Tricuspid valve Value Ref Right ventricle Value Ref TR peak v 2 m/sec <=2.8 ANDI, LAX 3.4 cm Peak RV-RA grad, S 16 mm Hg ----- ANDI minor ax, A4C (H) 4.1 cm 1.9 - 3.5 mid Aortic root Value Ref Root diam 3.1 cm <4.3 Left atrium Value Ref Root max diam, ED 3.1 cm <4.3 AP dim, ES (H) 4.50 cm 3.00 - 4.00 Ascending aorta Value Ref ML dim, A4C 4.1 cm AAo AP diam, S 2.5 cm ----- SI dim, A4C 6.9 cm AAo AP diam/bsa, S 1.1 cm/m^2 ----- Vol/bsa, ES, A/L 32 ml/m^2 16 - 34 Inferior vena cava Value Ref Right atrium Value Ref Diam 2.7 cm ----- SI dim, ES 5.0 cm 3.4 - 5.3 ML dim, ES, A4C (H) 5.5 cm 2.6 - 4.4 Estimated RAP 8 mm Hg Legend: (L) and (H) sadie values outside specified reference range. Prepared and electronically signed by Miles Carter MD 07/23/2019 16:50
[2019-07-23 17:04] LABS: Troponin I 1.15 ng/mL (<0.03)
[2019-07-23 17:19] LABS: ABS Basophils 0.2 10^3/ul (0-0.2); ABS Eosinophils 0.1 10^3/ul (0-0.6); ABS Monocytes 0.7 10^3/ul (0-0.8); ABS Neutrophils 14.1 10^3/ul (1.5-7.7); ABS Nucleated RBC 0.1 10^3/ul; Eosinophil % 0.4 %; Hematocrit 41 % (42-52); Hemoglobin 12.8 g/dL (14.0-18.0); Lymphocyte % 11.9 %; Mean Corpuscular HGB Conc 32 g/dL (31-36); Mean Corpuscular Hemoglobin 31 pg (27-31); Mean Corpuscular Volume 97 fL (80-94); Mean Platelet Volume 9.2 fL (7.4-10.4); Nucleated Red Blood Cells % 0.4; Platelet Count 209 10^3/uL (150-450); Red Cell Distribution Width 16 % (10-15); White Blood Count 17.1 10^3/uL (3.5-10.8)
[2019-07-23 17:30] LABS: ALT 256 U/L (7-52); AST 244 U/L (13-39); Albumin 3.1 g/dL (3.2-5.2); Alkaline Phosphatase 269 U/L (34-104); BUN/Creatinine Ratio 25.1 (8-20); Blood Urea Nitrogen 43 mg/dL (6-24); CO2 Carbon Dioxide 15 mmol/L (22-32); Calcium 8.8 mg/dL (8.6-10.3); Chloride 100 mmol/L (101-111); EGFR Non-African American 42.9 (>60); Sodium 133 mmol/L (135-145); Total Protein 6.1 g/dL (6.4-8.9)
[2019-07-23 17:32] LABS: Anion Gap 18 mmol/L (2-11); Glucose 47 mg/dL (70-100); Potassium 5.8 mmol/L (3.5-5.0)
[2019-07-23] MEDS ORDERED: Dextrose 50% Syringe 50 ML* 25 GM/50 ML SYRINGE ONE ×2 (17:34→22:55)
--- NOTE | 2019-07-23 17:36 | PN ---
Date of Service: 07/23/19 Critical Care Services: Critical Care Consult. Patient is post cardiac arrest, family at bedside, updated on condition. Vital Signs: Temp Pulse Resp BP SpO2 FiO2 98.2 F 63 21 77/51 100 100 07/23/19 16:45 07/23/19 16:45 07/23/19 16:00 07/23/19 16:45 07/23/19 16:45 07/23 15:24 Physical Exam: Gen: Intubated, sedated HEENT: Atraumatic, normocephalic Lungs: Rhonchi bilaterally, equal breath sounds Cardiac: +s1s2, tachycardiac, infrequent PVCs Abdomen: obese, soft, benign Extremities: Mottled, cool, delayed cap refill, poor radial pulses Neuro: sedated on propofol, does not follow commands Fluid Balance (Past 24 Hours): I= O= Net Intake & Output 07/21/19 07/22/19 07/23/19 07/24/19 06:59 06:59 06:59 06:59 Intake Total 1050 Output Total 63 Balance 987 Weight 218 lb Intake: IV Fluids 1050 Output: Chávez 63 Labs: Laboratory Results - last 24 hr 07/23/19 07/23/19 07/23/19 08:45 08:45 08:45 WBC 15.0 H RBC 4.67 Hgb 14.3 Hct 43 MCV 93 MCH 31 MCHC 33 RDW 16 H Plt Count 426 MPV 8.9 Neut % (Auto) 75.9 Lymph % (Auto) 18.9 [place] % (Auto) 4.1 Eos % (Auto) 0.4 Baso % (Auto) 0.7 Absolute Neuts (auto) 11.4 H Absolute Lymphs (auto) 2.8 Absolute Monos (auto) 0.6 Absolute Eos (auto) 0.1 Absolute Basos (auto) 0.1 Absolute Nucleated RBC 0.0 Nucleated RBC % 0.2 Sodium 130 L Potassium 4.7 Chloride 98 L Carbon Dioxide 22 Anion Gap 10 BUN 40 H Creatinine 1.33 H Est GFR ( Amer) 69.4 Est GFR (Non-Af Amer) 57.4 BUN/Creatinine Ratio 30.1 H Glucose 105 H Lactic Acid 2.4 H* Calcium 8.8 Total Bilirubin 1.60 H AST 161 H ALT 224 H Alkaline Phosphatase 240 H Troponin I 0.75 H* Total Protein 6.5 Albumin 3.2 Globulin 3.3 Albumin/Globulin Ratio 1.0 Influenza A (Rapid) Influenza B (Rapid) 07/23/19 07/23/19 07/23/19 09:34 16:30 16:30 WBC RBC Hgb Hct MCV MCH MCHC RDW Plt Count MPV Neut % (Auto) Lymph % (Auto) [place] % (Auto) Eos % (Auto) Baso % (Auto) Absolute Neuts (auto) Absolute Lymphs (auto) Absolute Monos (auto) Absolute Eos (auto) Absolute Basos (auto) Absolute Nucleated RBC Nucleated RBC % Sodium 133 L Potassium Chloride 100 L Carbon Dioxide 15 L Anion Gap BUN 43 H Creatinine 1.71 H Est GFR ( Amer) 52.0 Est GFR (Non-Af Amer) 42.9 BUN/Creatinine Ratio 25.1 H Glucose Lactic Acid 7.4 H* Calcium 8.8 Total Bilirubin 1.50 H AST 244 H ALT 256 H Alkaline Phosphatase 269 H Troponin I 1.15 H* Total Protein 6.1 L Albumin 3.1 L Globulin 3.0 Albumin/Globulin Ratio 1.0 Influenza A (Rapid) Negative Influenza B (Rapid) Negative 07/23/19 16:30 WBC 17.1 H RBC 4.20 Hgb 12.8 L Hct 41 L MCV 97 H MCH 31 MCHC 32 RDW 16 H Plt Count 209 MPV 9.2 Neut % (Auto) 82.5 Lymph % (Auto) 11.9 [place] % (Auto) 4.3 Eos % (Auto) 0.4 Baso % (Auto) 0.9 Absolute Neuts (auto) 14.1 H Absolute Lymphs (auto) 2.0 Absolute Monos (auto) 0.7 Absolute Eos (auto) 0.1 Absolute Basos (auto) 0.2 Absolute Nucleated RBC 0.1 Nucleated RBC % 0.4 Sodium Potassium Chloride Carbon Dioxide Anion Gap BUN Creatinine Est GFR ( Amer) Est GFR (Non-Af Amer) BUN/Creatinine Ratio Glucose Lactic Acid Calcium Total Bilirubin AST ALT Alkaline Phosphatase Troponin I Total Protein Albumin Globulin Albumin/Globulin Ratio Influenza A (Rapid) Influenza B (Rapid) Studies: Patient Name: KAYLEE RUANO Medical Record#: [id number] Ordering Physician: Kaylee Chew MD Acct.#: [id number] : 1970 Age: 49 Sex: M Location: [facility] Exam Date: 07/23/19 1356 ADM Status: ADM IN Order Information: US GALL BLADDER Accession Number: [id number] CPT: 38813 HISTORY: abnormal lfts, sepsis COMPARISONS: None relevant available at the time of dictation. TECHNIQUE: Multiple transverse and longitudinal ultrasound images were obtained of the right upper quadrant of the abdomen using grayscale and color Doppler imaging. FINDINGS: LIVER: The liver is diffusely echogenic and coarse in echotexture, with decreased acoustic transmission. The liver is otherwise normal in shape and contour. There is normal hepatopedal flow of the portal vein on Doppler imaging. The liver measures 20.2 cm in length. BILIARY TREE: There is no intrahepatic or extrahepatic biliary dilatation. The common hepatic duct measures 0.2 cm. The common bile duct measures 0.4 cm. GALLBLADDER: There is gallbladder wall thickening. The gallbladder is incompletely distended. There is minimal pericholecystic fluid.. PANCREAS: The head of the pancreas is unremarkable. The tail of the pancreas is not well visualized secondary to overlying bowel gas. RIGHT KIDNEY: The right kidney is normal in shape, size, contour, and echogenicity. There is no hydronephrosis or nephrolithiasis. The right kidney measures 11.1 cm x 5.6 cm x 5.1 cm. AORTA AND IVC: The aorta and IVC are unremarkable. FLUID: There is a small amount of ascites. OTHER FINDINGS: None. IMPRESSION: 1. HEPATOMEGALY WITH FATTY INFILTRATION OF THE LIVER. 2. GALLBLADDER WALL THICKENING WITH PERICHOLECYSTIC FLUID, CONCERNING FOR ACUTE CHOLECYSTITIS IN THE CORRECT CLINICAL SETTING. 3. ASCITES. Patient Name: KAYLEE RUANO Medical Record#: [id number] Ordering Physician: Loi Batista MD Acct.#: [id number] : 1970 Age: 49 Sex: M Location: [facility] Exam Date: 07/23/19 1229 ADM Status: ADM IN Order Information: CT BRAIN WO Accession Number: [id number] CPT: 54200 INDICATION: Unresponsive. Status post cardiac arrest. COMPARISON: There are no relevant prior studies available for comparison. TECHNIQUE: Contiguous axial sections of the brain were obtained from the skull base to the vertex without contrast. FINDINGS: Imaging of the brain stem is degraded by streak artifact. There is no hemorrhagic focus, mass effect or midline shift. The aden-white matter differentiation is grossly maintained without abnormal cerebral edema. The ventricles are of conventional size and configuration. The basal cisterns are patent. There is no abnormal extra axial collection. The globes and orbits are symmetric. There are air-fluid levels in the paranasal sinuses. IMPRESSION: Within the limitations above, no acute intracranial abnormality by CT. (MRI is more sensitive for acute infarct) Patient Name: KAYLEE RUANO Medical Record#: [id number] Ordering Physician: Roverto Sethi MD Acct.#: [id number] : 1970 Age: 49 Sex: M Location: [facility] Exam Date: 07/23/19 1212 ADM Status: ADM IN Order Information: CTA CHEST Accession Number: [id number] CPT: 93536 HISTORY: pe COMPARISONS: February 25, 2018 TECHNIQUE: Multiple contiguous axial CT scans of the chest were obtained after the administration of nonionic intravenous contrast, timed to the pulmonary arterial phase of contrast enhancement.. Coronal and sagittal multiplanar reformations are also submitted for review. FINDINGS: Evaluation is limited secondary to patient motion artifact. NECK AND THYROID: The lower neck and thyroid are unremarkable. CHEST WALL: There is no lower cervical, axillary, or supraclavicular lymphadenopathy by size criteria. HEART AND PERICARDIUM: There is biatrial and biventricular enlargement. Coronary calcifications are noted. AORTA AND PULMONARY VASCULATURE: There is no pulmonary arterial filling defect to suggest pulmonary embolism. Evaluation of the aorta is limited due to the phase of contrast administration.. MEDIASTINUM: There is no mediastinal lymphadenopathy by size criteria. MECHELLE: There is no hilar lymphadenopathy by size criteria. AIRWAY AND ESOPHAGUS: The airway is unremarkable, without endobronchial filling defect. The esophagus is grossly normal. LUNG PARENCHYMA: There is patchy atelectasis of the lung bases bilaterally. PLEURA: No pleural abnormalities are noted. UPPER ABDOMEN: There is hepatomegaly. There is small ascites. BONES AND SOFT TISSUES: Mild degenerative changes are noted. OTHER: An endotracheal tube is noted with the tip in the trachea above the ariane. A gastric tube is noted with the tip in the stomach just distal to the GE junction. IMPRESSION: NO PULMONARY ARTERIAL FILLING DEFECT TO SUGGEST PULMONARY EMBOLISM. CARDIOMEGALY. HEPATOBILIARY. ASCITES. Nutrition: NPO Impression: Patient arrived from ED post cardiac arrest. Initially admitted for CAP/PNA with severe sepsis with elevated troponins but went unresponsive and pulseless in the ED before being transferred to the floor. He is currently intubated. Please see admission H&P from today: Plan: 1. NSTEMI/Post Cardiac Arrest with combined Cardiogenic and Septic Shock - Known 3 vessel CAD with ischemic cardiomyopathy per 2018 cath report with no surgical follow up, plan for ECHO to evaluate LV function which is noted to be poor from 2018 - Does appear to need additional fluid resuscitation, lactic rising, most recent is 7.4 which is likely union representative of combination of sepsis and arrest , continue norepinephrine, titrate to MAP 65 - Continue propofol to RASS -1 - VAP bundle while intubated - CT head with no acute pathology - CTA chest with no PE 2. Transaminitis - Unclear if ETOH induced vs gallbladder etiology, or combination - Does have pericholecystic fluid on US as above raising concern for acute cholecystitis, will broaden coverage with zosyn - Follow daily labs 3. ETOH abuse - Per sisters, heavy drinker for many years with low motivation to quit - Acute detox will likely negatively impact his current acute illness, will monitor for withdrawal s/s - SW consult when stable 4. CAP/PNA with Septic Shock - Change from azithromycin/ceftriaxone to zosyn given gallbladder findings. Sepsis initially thought to be 2/2 to PNA, however may be gallbladder pathology , zosyn will cover in either case - Follow blood cultures - Follow lactic until cleared - Contiue pressors and IVF DVT prophy HSQ FULL CODE STATUS: Critical/guarded Critical Care Time: 65 minutes
[2019-07-23] MEDS: Dextrose 50% Syringe 50 ML* 25 GM/50 ML SYRINGE IV PUSH PRN ×2 (17:38→22:56)
[2019-07-23] MEDS ORDERED: Piperacillin/Tazobac ADVAN(*) 3.375 GM in NS 0.9% 100 ML* 100 ML IVPB ONE (17:53)
[2019-07-23] MEDS ORDERED: Zosyn per Pharmacy* NOTE FOLLOW UP SCH (18:00)
[2019-07-23] MEDS ORDERED: NS 0.9% 1000 ML** 2,000 ML IV ONE (18:13)
[2019-07-23] MEDS ORDERED: Lactated Ringers 1000 ML Bag* 1,000 ML IV ONE (20:00)
[2019-07-23] MEDS: ZOSYN 3.375 GM Q8H per EXTENDED INFUSION IVPB SCH ×2 (21:43)
[2019-07-23] MEDS ORDERED: VASOPRESSIN 20 UNITS/ML 1 ML VIAL ONE (21:51)
[2019-07-23 21:52] LABS: Hematocrit 50 % (42-52); Hemoglobin 15.1 g/dL (14.0-18.0); Mean Corpuscular HGB Conc 30 g/dL (31-36); Mean Corpuscular Hemoglobin 30 pg (27-31); Mean Corpuscular Volume 99 fL (80-94); Mean Platelet Volume 8.8 fL (7.4-10.4); Platelet Count 353 10^3/uL (150-450); Red Blood Count 4.98 10^6 /uL (4.18-5.48); Red Cell Distribution Width 18 % (10-15); White Blood Count 25.5 10^3/uL (3.5-10.8)
[2019-07-23 22:14] LABS: Albumin 3.1 g/dL (3.2-5.2); Calcium 7.7 mg/dL (8.6-10.3); Chloride 110 mmol/L (101-111); Sodium 138 mmol/L (135-145)
[2019-07-23 22:18] LABS: CO2 Carbon Dioxide 12 mmol/L (22-32)
[2019-07-23 22:20] LABS: ALT 358 U/L (7-52); Albumin/Globulin Ratio 1.1 (1-3); Alkaline Phosphatase 262 U/L (34-104); BUN/Creatinine Ratio 23.3 (8-20); Blood Urea Nitrogen 42 mg/dL (6-24); EGFR Non-African American 40.5 (>60); Globulin 2.9 g/dL (2-4); Glucose 51 mg/dL (70-100)
[2019-07-23 22:21] LABS: Troponin I 3.11 ng/mL (<0.03)
[2019-07-23 22:35] LABS: Albumin 2.9 g/dL (3.2-5.2); BUN/Creatinine Ratio 24.2 (8-20); Calcium 7.8 mg/dL (8.6-10.3); EGFR African American 43.9 (>60); EGFR Non-African American 36.3 (>60); Globulin 2.9 g/dL (2-4); Hematocrit 46 % (42-52); Hemoglobin 14.3 g/dL (14.0-18.0); Mean Corpuscular HGB Conc 31 g/dL (31-36); Mean Corpuscular Hemoglobin 30 pg (27-31); Mean Corpuscular Volume 95 fL (80-94); Platelet Count 343 10^3/uL (150-450); Red Blood Count 4.82 10^6 /uL (4.18-5.48); Red Cell Distribution Width 17 % (10-15); Total Bilirubin 1.8 mg/dL (0.2-1.0); Total Protein 5.8 g/dL (6.4-8.9); White Blood Count 21.9 10^3/uL (3.5-10.8)
[2019-07-23 22:35] LABS: Anion Gap 16 mmol/L (2-11)
[2019-07-23 22:37] LABS: Potassium 6.3 mmol/L (3.5-5.0)
[2019-07-23 22:40] LABS: Polychromasia 1+
[2019-07-23 22:43] LABS: ABS Lymphocytes 2.6 10^3/ul (1.0-4.8); ABS Monocytes 1.5 10^3/ul (0-0.8); ABS Neutrophils 21.4 10^3/ul (1.5-7.7); ABS Nucleated RBC 0.2 10^3/ul; Eosinophil % 0.1 %; Lymphocyte % 10.1 %; Nucleated Red Blood Cells % 0.6
[2019-07-23] MEDS ORDERED: Sodium Polystyrene ORAL.SOL* 15 GM/60 ML BTL PO ONE (22:45)
[2019-07-23] MEDS ORDERED: Sodium Bicarbonate 8.4% IV* 50 ML VIAL IV ONE (22:45)
[2019-07-23 22:48] LABS: INR 2.26 (0.82-1.09); Platelet Count 343 10^3/ul (150-450); Schistocytes ABSENT
[2019-07-23 22:49] LABS: Activated Partial Thrombo Time 29.3 seconds (26.0-38.0)
[2019-07-23 22:51] LABS: ABS Basophils 0.1 10^3/ul (0-0.2); ABS Lymphocytes 2.2 10^3/ul (1.0-4.8); ABS Monocytes 1.1 10^3/ul (0-0.8); ABS Neutrophils 18.6 10^3/ul (1.5-7.7); ABS Nucleated RBC 0.2 10^3/ul; Eosinophil % 0.1 %; Lymphocyte % 10.1 %; Nucleated Red Blood Cells % 0.7
[2019-07-23] MEDS ORDERED: Calcium Gluconate INJ* 1 GM in NS 0.9% 50 ML* 50 ML IVPB ONE (23:00)
[2019-07-23 23:01] LABS: Fibrinogen 216.3 mg/dL (110.8-404.3)
--- NOTE | 2019-07-23 23:22 | PN ---
<Milan Webster - Last Filed: 07/23/19 23:17> Progress Note - Progress Note Date of Service: 07/23/19 Note: Pt received a central line procedure that began at 2211. The central line was placed in the L subclavian and was completed without complications. The procedure was completed at 2220. See procedure note for further information. Procedures - Sedation Patient Received Moderate/Deep Sedation with Procedure: No - Central Line Left Subclavian Central Line Lumen: single Central Line Procedure: betadine prep Central Line Position: subclavian (L) Anesthesia: local Complications: none Central Line Post Position: sutured, good blood return, position confirmed w/ CXR - Attestation Statements Document Initiated by Scribe: Yes Documenting Scribe: Milan Webster Provider For Whom Scribe is Documenting (Include Credential): Kishore Hernandez MD Scribe Attestation: Milan Cho, scribed for Kishore Hernandez MD on 07/23/19 at 2322. Status of Scribe Document: Ready <Kishore Hernandez - Last Filed: 07/25/19 05:09> Procedures - Sedation Patient Received Moderate/Deep Sedation with Procedure: No - Central Line Left Subclavian Central Line Lumen: triple Central Line Procedure: sterile drapes applied, sterile dressing applied Anesthesia: none, pt is heavily sedated Complications: none Central Line Post Position: sutured, good blood return, position confirmed w/ CXR Attestations User Type: Provider with Scribe Provider Attestation: The documentation recorded by the scribe accurately reflects the service I personally performed and the decisions made by me. - Attestation Statements Scribe Documentation Reviewed: Yes
[2019-07-23] MEDS ORDERED: Vasopressin* 100 UNITS in D5W 250 ML BAG IV SCH (23:30)
[2019-07-23] MEDS: Sodium Bicarbonate 8.4% IV* 50 MEQ in D5W 1000 ML BAG* 1,000 ML IV SCH (23:51)
[2019-07-24] MEDS: Vasopressin* 100 UNITS in D5W 250 ML BAG IV SCH (01:19)
[2019-07-24] MEDS: Norepinephrine 16MCG/ML IVPRE* 4,000 MCG/250 ML BAG IV SCH (01:20)
[2019-07-24 02:48] LABS: BUN/Creatinine Ratio 24.8 (8-20); Blood Urea Nitrogen 51 mg/dL (6-24); CO2 Carbon Dioxide 16 mmol/L (22-32); Calcium 7.5 mg/dL (8.6-10.3); Chloride 103 mmol/L (101-111); EGFR African American 41.9 (>60); EGFR Non-African American 34.6 (>60); Glucose 86 mg/dL (70-100); Sodium 137 mmol/L (135-145)
[2019-07-24 02:59] LABS: Anion Gap 18 mmol/L (2-11)
[2019-07-24] MEDS: Propofol* 100 ML IV SCH ×6 (03:14→22:23)
[2019-07-24] MEDS: Norepinephrine 8 mg in 500 mL NS (Pharmacy Admixed Drip) IV SCH ×7 (03:14→21:11)
[2019-07-24] MEDS: Heparin VIAL(*) 5000 UNITS/ML VIAL (FIVE THOUSAND) SUBCUT SCH ×3 (04:50→22:19)
[2019-07-24] MEDS: Pantoprazole IV* 40 MG IV SCH (05:17)
[2019-07-24] MEDS ORDERED: fentaNYL* 50 MCG/ML 2 ML VIAL (100 MCG VIAL) IV SLOW PU PRN (05:46)
[2019-07-24] MEDS: ZOSYN 3.375 GM Q8H per EXTENDED INFUSION IVPB SCH ×6 (05:48→22:36)
[2019-07-24 05:54] LABS: Hematocrit 40 % (42-52); Hemoglobin 12.3 g/dL (14.0-18.0); Mean Corpuscular HGB Conc 31 g/dL (31-36); Mean Corpuscular Hemoglobin 29 pg (27-31); Mean Corpuscular Volume 95 fL (80-94); Mean Platelet Volume 8.7 fL (7.4-10.4); Platelet Count 273 10^3/uL (150-450); Red Cell Distribution Width 17 % (10-15); White Blood Count 20.8 10^3/uL (3.5-10.8)
[2019-07-24 06:11] LABS: Albumin 2.6 g/dL (3.2-5.2); Alkaline Phosphatase 233 U/L (34-104); BUN/Creatinine Ratio 25.7 (8-20); Blood Urea Nitrogen 55 mg/dL (6-24); CO2 Carbon Dioxide 17 mmol/L (22-32); Calcium 7.4 mg/dL (8.6-10.3); Chloride 104 mmol/L (101-111); EGFR African American 40.1 (>60); EGFR Non-African American 33.1 (>60); Globulin 2.7 g/dL (2-4); Glucose 113 mg/dL (70-100); Sodium 137 mmol/L (135-145); Total Protein 5.3 g/dL (6.4-8.9)
[2019-07-24 06:13] LABS: Anion Gap 16 mmol/L (2-11); Potassium 5.6 mmol/L (3.5-5.0)
[2019-07-24 07:03] LABS: Polychromasia 1+
[2019-07-24 07:04] LABS: ABS Basophils 0.2 10^3/ul (0-0.2); ABS Lymphocytes 2.2 10^3/ul (1.0-4.8); ABS Monocytes 1.1 10^3/ul (0-0.8); ABS Neutrophils 17.3 10^3/ul (1.5-7.7); ABS Nucleated RBC 0.2 10^3/ul; Lymphocyte % 10.5 %
[2019-07-24 07:33] LABS: ALT 1129 U/L (7-52); AST 2145 U/L (13-39)
[2019-07-24] MEDS: CHLORHEXADINE (PERIDEX) VENT ORAL CARE TOPICAL SCH ×4 (08:54→20:47)
[2019-07-24] MEDS: Atorvastatin* 80 MG TAB PO SCH (08:54)
[2019-07-24] MEDS: Aspirin 81 mg CHEW TAB* 81 MG TAB.CHEW PO SCH (08:54)
[2019-07-24] MEDS: Ezetimibe TAB* 10 MG PO SCH (08:54)
[2019-07-24] MEDS ORDERED: Lorazepam PYXIS KEY ONE ×2 (10:11→12:01)
[2019-07-24] MEDS ORDERED: LORazepam INJ* 2 MG/ML 1 ML VIAL ONE ×2 (10:11→10:23)
[2019-07-24] MEDS ORDERED: cefTRIAXone(*) 1 GM in NS 0.9% 50 ML* 50 ML IVPB SCH (10:30)
[2019-07-24] MEDS ORDERED: Azithromycin 500 mg/250 ml NS 500 MG/250 ML BAG IVPB SCH (11:00)
[2019-07-24] MEDS: Albumin Human 5%* 12.5 GM/250 ML BTL IV SCH ×2 (11:30→12:31)
--- NOTE | 2019-07-24 12:07 | PN ---
Date of Service: 07/24/19 Critical Care Services: Tenuous through the night but overall much better perfused Vital Signs: Temp Pulse Resp BP SpO2 FiO2 38.3 C 72 27 87/67 100 45 07/24/19 11:00 07/24/19 11:00 07/24/19 11:33 07/23/19 22:40 07/24/19 11:00 07/24 08:35 Physical Exam: Gen: sedated but rouses appropriately HEENT: NCAT, PERRL Lungs: coarse entry Cardiac: S1S2 regular Abdomen: soft, ND, +BS, NT, no rebound, no obne's Extremities: acrocyanosis but improved from yesterday Neuro: requires sedation to stay in the bed, sat right up this AM during line placement Fluid Balance (Past 24 Hours): I= O= Net Intake & Output 07/22/19 07/23/19 07/24/19 07/25/19 06:59 06:59 06:59 06:59 Intake Total 6688.3 Output Total 1370 266 Balance 5318.3 -266 Weight 100.834 kg Intake: IV Fluids 4275 NS (0.9%) 3225 IVPB 160 NS (0.9%) 160 Medicated IV 2253.3 CC - Norepinephrine/ 1587 Levophed CC - Propofol/Diprivan 198 CC - Vasopressin/ 46.3 Pitressin sodium bicarbonate 422 Output: NG Tube Drainage Amount 1000 Chávez 370 266 Labs: Laboratory Results - last 24 hr 07/23/19 07/23/19 07/23/19 16:30 16:30 16:30 WBC 17.1 H RBC 4.20 Hgb 12.8 L Hct 41 L MCV 97 H MCH 31 MCHC 32 RDW 16 H Plt Count 209 MPV 9.2 Neut % (Auto) 82.5 Lymph % (Auto) 11.9 [place] % (Auto) 4.3 Eos % (Auto) 0.4 Baso % (Auto) 0.9 Absolute Neuts (auto) 14.1 H Absolute Lymphs (auto) 2.0 Absolute Monos (auto) 0.7 Absolute Eos (auto) 0.1 Absolute Basos (auto) 0.2 Absolute Nucleated RBC 0.1 Immature Gran % Neutrophils % Band Neutrophils % Lymphocytes % Monocytes % Metamyelocytes % Myelocytes % Nucleated RBC % 0.4 Nucleated RBCs/100 WBC Normal RBC Morphology Polychromasia Hypochromasia Anisocytosis Macrocytosis Schistocytes INR (Anticoag Therapy) APTT Fibrinogen D-Dimer, Quantitative ABG pH ABG pCO2 ABG pO2 ABG HCO3 ABG O2 Saturation ABG Base Excess VBG pH VBG pCO2 VBG pO2 VBG HCO3 VBG O2 Saturation VBG Base Excess Sodium 133 L Potassium 5.8 H Chloride 100 L Carbon Dioxide 15 L Anion Gap 18 H BUN 43 H Creatinine 1.71 H Est GFR ( Amer) 52.0 Est GFR (Non-Af Amer) 42.9 BUN/Creatinine Ratio 25.1 H Glucose 47 L* POC Glucose (mg/dL) Lactic Acid 7.4 H* Calcium 8.8 Total Bilirubin 1.50 H AST 244 H ALT 256 H Alkaline Phosphatase 269 H Troponin I 1.15 H* Total Protein 6.1 L Albumin 3.1 L Globulin 3.0 Albumin/Globulin Ratio 1.0 07/23/19 07/23/19 07/23/19 21:25 21:40 21:40 WBC 25.5 H RBC 4.98 Hgb 15.1 Hct 50 MCV 99 H MCH 30 MCHC 30 L RDW 18 H Plt Count 353 MPV 8.8 Neut % (Auto) 83.8 Lymph % (Auto) 10.1 [place] % (Auto) 5.8 Eos % (Auto) 0.1 Baso % (Auto) 0.2 Absolute Neuts (auto) 21.4 H Absolute Lymphs (auto) 2.6 Absolute Monos (auto) 1.5 H Absolute Eos (auto) 0.0 Absolute Basos (auto) 0.0 Absolute Nucleated RBC 0.2 Immature Gran % 2.0 Neutrophils % 82.0 Band Neutrophils % Lymphocytes % 10.0 Monocytes % 6.0 Metamyelocytes % 1.0 Myelocytes % 1.0 Nucleated RBC % 0.6 Nucleated RBCs/100 WBC Normal RBC Morphology Not Reportable Polychromasia 1+ Hypochromasia Anisocytosis 1+ Macrocytosis 1+ Schistocytes INR (Anticoag Therapy) APTT Fibrinogen D-Dimer, Quantitative ABG pH ABG pCO2 ABG pO2 ABG HCO3 ABG O2 Saturation ABG Base Excess VBG pH VBG pCO2 VBG pO2 VBG HCO3 VBG O2 Saturation VBG Base Excess Sodium Potassium Chloride Carbon Dioxide Anion Gap BUN Creatinine Est GFR ( Amer) Est GFR (Non-Af Amer) BUN/Creatinine Ratio Glucose POC Glucose (mg/dL) 64 L Lactic Acid 7.2 H* Calcium Total Bilirubin AST ALT Alkaline Phosphatase Troponin I Total Protein Albumin Globulin Albumin/Globulin Ratio 07/23/19 07/23/19 07/23/19 21:40 22:01 22:01 WBC RBC Hgb Hct MCV MCH MCHC RDW Plt Count MPV Neut % (Auto) Lymph % (Auto) [place] % (Auto) Eos % (Auto) Baso % (Auto) Absolute Neuts (auto) Absolute Lymphs (auto) Absolute Monos (auto) Absolute Eos (auto) Absolute Basos (auto) Absolute Nucleated RBC Immature Gran % Neutrophils % Band Neutrophils % Lymphocytes % Monocytes % Metamyelocytes % Myelocytes % Nucleated RBC % Nucleated RBCs/100 WBC Normal RBC Morphology Polychromasia Hypochromasia Anisocytosis Macrocytosis Schistocytes INR (Anticoag Therapy) APTT Fibrinogen D-Dimer, Quantitative ABG pH ABG pCO2 ABG pO2 ABG HCO3 ABG O2 Saturation ABG Base Excess VBG pH 7.18 L VBG pCO2 37 L VBG pO2 49.0 H VBG HCO3 13.4 L VBG O2 Saturation 69.6 L VBG Base Excess -13.7 L Sodium 138 Potassium TNP Chloride 110 Carbon Dioxide 12 L* Anion Gap 16 H BUN 42 H Creatinine 1.80 H Est GFR ( Amer) 49.0 Est GFR (Non-Af Amer) 40.5 BUN/Creatinine Ratio 23.3 H Glucose 51 L POC Glucose (mg/dL) Lactic Acid 6.1 H* Calcium 7.7 L Total Bilirubin 1.70 H AST TNP ALT 358 H Alkaline Phosphatase 262 H Troponin I 3.11 H* Total Protein 6.0 L Albumin 3.1 L Globulin 2.9 Albumin/Globulin Ratio 1.1 07/23/19 07/23/19 07/23/19 22:01 22:01 22:01 WBC 21.9 H RBC 4.82 Hgb 14.3 Hct 46 MCV 95 H MCH 30 MCHC 31 RDW 17 H Plt Count 343 343 MPV 9.0 Neut % (Auto) 84.6 Lymph % (Auto) 10.1 [place] % (Auto) 4.9 Eos % (Auto) 0.1 Baso % (Auto) 0.3 Absolute Neuts (auto) 18.6 H Absolute Lymphs (auto) 2.2 Absolute Monos (auto) 1.1 H Absolute Eos (auto) 0.0 Absolute Basos (auto) 0.1 Absolute Nucleated RBC 0.2 Immature Gran % Neutrophils % Band Neutrophils % Lymphocytes % Monocytes % Metamyelocytes % Myelocytes % Nucleated RBC % 0.7 Nucleated RBCs/100 WBC Normal RBC Morphology Polychromasia Hypochromasia Anisocytosis Macrocytosis Schistocytes Absent INR (Anticoag Therapy) 2.26 H APTT 29.3 Fibrinogen 216.3 D-Dimer, Quantitative > 1050 H ABG pH ABG pCO2 ABG pO2 ABG HCO3 ABG O2 Saturation ABG Base Excess VBG pH VBG pCO2 VBG pO2 VBG HCO3 VBG O2 Saturation VBG Base Excess Sodium 134 L Potassium 6.3 H* Chloride 104 Carbon Dioxide 14 L* Anion Gap 16 H BUN 48 H Creatinine 1.98 H Est GFR ( Amer) 43.9 Est GFR (Non-Af Amer) 36.3 BUN/Creatinine Ratio 24.2 H Glucose 58 L POC Glucose (mg/dL) Lactic Acid Calcium 7.8 L Total Bilirubin 1.80 H AST 521 H ALT 387 H Alkaline Phosphatase 260 H Troponin I Total Protein 5.8 L Albumin 2.9 L Globulin 2.9 Albumin/Globulin Ratio 1.0 07/23/19 07/24/19 07/24/19 23:00 02:13 03:27 WBC RBC Hgb Hct MCV MCH MCHC RDW Plt Count MPV Neut % (Auto) Lymph % (Auto) [place] % (Auto) Eos % (Auto) Baso % (Auto) Absolute Neuts (auto) Absolute Lymphs (auto) Absolute Monos (auto) Absolute Eos (auto) Absolute Basos (auto) Absolute Nucleated RBC Immature Gran % Neutrophils % Band Neutrophils % Lymphocytes % Monocytes % Metamyelocytes % Myelocytes % Nucleated RBC % Nucleated RBCs/100 WBC Normal RBC Morphology Polychromasia Hypochromasia Anisocytosis Macrocytosis Schistocytes INR (Anticoag Therapy) APTT Fibrinogen D-Dimer, Quantitative ABG pH 7.20 L ABG pCO2 27 L ABG pO2 216 H ABG HCO3 12.5 L ABG O2 Saturation 100.0 H ABG Base Excess -15.9 L VBG pH VBG pCO2 VBG pO2 VBG HCO3 VBG O2 Saturation VBG Base Excess Sodium 137 Potassium TNP 6.0 H Chloride 103 Carbon Dioxide 16 L Anion Gap 18 H BUN 51 H Creatinine 2.06 H Est GFR ( Amer) 41.9 Est GFR (Non-Af Amer) 34.6 BUN/Creatinine Ratio 24.8 H Glucose 86 POC Glucose (mg/dL) Lactic Acid Calcium 7.5 L Total Bilirubin AST ALT Alkaline Phosphatase Troponin I Total Protein Albumin Globulin Albumin/Globulin Ratio 07/24/19 07/24/19 07/24/19 05:41 05:41 11:05 WBC 20.8 H RBC 4.20 Hgb 12.3 L Hct 40 L MCV 95 H MCH 29 MCHC 31 RDW 17 H Plt Count 273 MPV 8.7 Neut % (Auto) 83.2 Lymph % (Auto) 10.5 [place] % (Auto) 5.5 Eos % (Auto) 0.0 Baso % (Auto) 0.8 Absolute Neuts (auto) 17.3 H Absolute Lymphs (auto) 2.2 Absolute Monos (auto) 1.1 H Absolute Eos (auto) 0.0 Absolute Basos (auto) 0.2 Absolute Nucleated RBC 0.2 Immature Gran % 2.0 Neutrophils % 86.0 Band Neutrophils % 1.0 Lymphocytes % 9.0 Monocytes % 3.0 Metamyelocytes % 1.0 Myelocytes % Nucleated RBC % 1.0 Nucleated RBCs/100 WBC 2.0 H Normal RBC Morphology Not Reportable Polychromasia 1+ Hypochromasia 1+ Anisocytosis 1+ Macrocytosis Schistocytes INR (Anticoag Therapy) APTT Fibrinogen D-Dimer, Quantitative ABG pH 7.29 L ABG pCO2 34 L ABG pO2 241 H ABG HCO3 17.7 L ABG O2 Saturation 100.0 H ABG Base Excess -9.3 L VBG pH VBG pCO2 VBG pO2 VBG HCO3 VBG O2 Saturation VBG Base Excess Sodium 137 Potassium 5.6 H Chloride 104 Carbon Dioxide 17 L Anion Gap 16 H BUN 55 H Creatinine 2.14 H Est GFR ( Amer) 40.1 Est GFR (Non-Af Amer) 33.1 BUN/Creatinine Ratio 25.7 H Glucose 113 H POC Glucose (mg/dL) Lactic Acid Calcium 7.4 L Total Bilirubin 1.90 H AST 2145 H ALT 1129 H Alkaline Phosphatase 233 H Troponin I 9.70 H* Total Protein 5.3 L Albumin 2.6 L Globulin 2.7 Albumin/Globulin Ratio 1.0 07/24/19 11:05 WBC RBC Hgb Hct MCV MCH MCHC RDW Plt Count MPV Neut % (Auto) Lymph % (Auto) [place] % (Auto) Eos % (Auto) Baso % (Auto) Absolute Neuts (auto) Absolute Lymphs (auto) Absolute Monos (auto) Absolute Eos (auto) Absolute Basos (auto) Absolute Nucleated RBC Immature Gran % Neutrophils % Band Neutrophils % Lymphocytes % Monocytes % Metamyelocytes % Myelocytes % Nucleated RBC % Nucleated RBCs/100 WBC Normal RBC Morphology Polychromasia Hypochromasia Anisocytosis Macrocytosis Schistocytes INR (Anticoag Therapy) APTT Fibrinogen D-Dimer, Quantitative ABG pH ABG pCO2 ABG pO2 ABG HCO3 ABG O2 Saturation ABG Base Excess VBG pH VBG pCO2 VBG pO2 VBG HCO3 VBG O2 Saturation VBG Base Excess Sodium Potassium Chloride Carbon Dioxide Anion Gap BUN Creatinine Est GFR ( Amer) Est GFR (Non-Af Amer) BUN/Creatinine Ratio Glucose POC Glucose (mg/dL) Lactic Acid 3.9 H* Calcium Total Bilirubin AST ALT Alkaline Phosphatase Troponin I Total Protein Albumin Globulin Albumin/Globulin Ratio Studies: CXR with cardiomegaly and pulmonary edema Nutrition: Will start nepro today Impression: Combined septic shock and secondary demand ischemia in the setting of known 3V CAD resulting in cardiac arrest and cardiogenic shock now with MSOF. Plan: Septic Shock - broad Abx to treat pneumonia and biliary tract with ultrasound showing mild pericholecystic fluid and GB wall thickening, however, without ductal dilatation so not clear that risks of decompression here with severe coagulopathy and spontaneous bleeding in the last 24H are exceeded by the benefits. His WBC has fallen from 25 to 20, he has no bands and he has only very mild fever at 38.2 in the setting of a falling lactate despite his cardiogenic shock which certainly implies adequate source control for now. Continue Abx and time. Cardiogenic Shock - s/p very brief cardiac arrest with ROSC and immediate sedation requirement to control his agitation. ECHO with profound dilated CMP so we clearly have an acute on chronic process. Troponins high but not so high as to be responsible acutely for the entire ECHO we see. EF at 10-15% Lactate is serially clearing, currently down to 3.9 from 7 overnight. EKG reviewed with cardiology immediately post-arrest and indication for acute cath at that time and excessive risk with concomitant sepsis. Acute Renal Failure - renal indices reflecting a mild ATN from profound shock as well as contrast nephropathy from CTA. Making much better urine than we would normally expect in this scenario which is great news. Continue current support of perfusion and crystalloid resuscitation. Ischemic Hepatitis - LFTs up from possible primary biliary disease, his ETOH itself and now from shock liver. Will continue to trend. Supporting perfusion is the treatment. Alcoholism - expect to have to manage withdrawal in the coming days as well but not yet an issue for his management. GI/DVT prophylaxis is place. Long D/W family last PM as well as this AM who voiced understanding and appreciation for the care. Critical Care Time: 60 minutes exclusive of procedures
[2019-07-24] MEDS ORDERED: Albumin Human 5%* 12.5 GM/250 ML BTL IV ONE (12:30)
[2019-07-24] MEDS: Sodium Bicarbonate 8.4% IV* 50 MEQ in D5W 1000 ML BAG* 1,000 ML IV SCH (14:53)
--- NOTE | 2019-07-24 16:00 | OP ---
Operative Report - Blank - Operative Report Date of Operation: 07/24/19 Note: Right Femoral Line Procedure Note Indication: Central Venous Access, need for infusion of pressors Diagnosis: Post cardiac arrest, cardiogenic shock, septic shock Performed by: CATRACHITO Barnett, Supervised by Tres Chew MD Consent: Emergent; placed in bedside chart It should be noted that left subclavian line that was placed overnight became dislodged when patient was being moved to insert rectal tube which caused disruption of his vasopressin infusion. His blood pressure dropped immediately to systolics in the 50s-60s necessitating emergent placement of new access. Patient's family was not present for consent, however, his sister did arrive shortly after new line was inserted and she was agreeable to emergent procedure/ intervention. Time Out: Performed at 10:15am, the correct patient and site were verified with two RNs present - Labs and history were reviewed prior to the procedure - Full sterile precautions with chlorhexidine/full drapes/gowns/gloves/surgical masks utilized, the access site was draped in the sterile fashion - The right femoral vein was visualized under ultrasound guidance - The the right femoral vein was accessed under ultrasound guidance with return of nonpulsatile blood utilizing a #7fr kit. The guidewire was passed into the vessel with no resistance and confirmed in vessel with ultrasound. 1 attempt was made to access vessel. Vessel was dilated and a 20cm catheter was passed over wire into vessel. All ports demonstrated good blood return and flushed with sterile saline. Catheter was sutured to site and dressing applied. Adequate hemostasis was achieved throughout the procedure. EBL <2cc No immediate complications noted, patient tolerated procedure well.
[2019-07-24 19:13] LABS: Albumin 2.6 g/dL (3.2-5.2); Albumin/Globulin Ratio 1.1 (1-3); Alkaline Phosphatase 198 U/L (34-104); BUN/Creatinine Ratio 27.7 (8-20); Blood Urea Nitrogen 57 mg/dL (6-24); CO2 Carbon Dioxide 20 mmol/L (22-32); Chloride 106 mmol/L (101-111); EGFR African American 41.9 (>60); EGFR Non-African American 34.6 (>60); Globulin 2.4 g/dL (2-4); Glucose 153 mg/dL (70-100); Magnesium 2.1 mg/dL (1.9-2.7); Phosphorus 5.1 mg/dL (2.5-5.0); Sodium 137 mmol/L (135-145)
[2019-07-24 19:40] LABS: Anion Gap 11 mmol/L (2-11); Potassium 4.7 mmol/L (3.5-5.0)
[2019-07-24 19:53] LABS: ALT 1420 U/L (7-52)
[2019-07-24 19:58] LABS: AST 2819 U/L (13-39)
[2019-07-24] MEDS ORDERED: NS 0.9% 1000 ML** 1,000 ML IV ONE (22:25)
[2019-07-25] MEDS: CHLORHEXADINE (PERIDEX) VENT ORAL CARE TOPICAL SCH ×6 (00:53→19:49)
[2019-07-25] MEDS: Norepinephrine 8 mg in 500 mL NS (Pharmacy Admixed Drip) IV SCH (00:54)
[2019-07-25 01:46] LABS: Troponin I 14.61 ng/mL (<0.03)
[2019-07-25] MEDS: Propofol* 100 ML IV SCH ×4 (02:16→18:52)
[2019-07-25] MEDS ORDERED: Norepinephrine VIAL* 8 MG in NS 0.9% 500 ML* 492 ML IV SCH (03:03)
[2019-07-25] MEDS: Sodium Bicarbonate 8.4% IV* 50 MEQ in D5W 1000 ML BAG* 1,000 ML IV SCH ×3 (03:57→17:23)
[2019-07-25] MEDS: Pantoprazole IV* 40 MG IV SCH (04:14)
[2019-07-25 04:23] LABS: Hematocrit 37 % (42-52); Hemoglobin 12.2 g/dL (14.0-18.0); Mean Corpuscular HGB Conc 33 g/dL (31-36); Mean Corpuscular Hemoglobin 31 pg (27-31); Mean Corpuscular Volume 93 fL (80-94); Mean Platelet Volume 8.9 fL (7.4-10.4); Platelet Count 266 10^3/uL (150-450); Red Blood Count 3.97 10^6 /uL (4.18-5.48); Red Cell Distribution Width 16 % (10-15); White Blood Count 17.8 10^3/uL (3.5-10.8)
[2019-07-25] MEDS: Norepinephrine 16MCG/ML IVPRE* 4,000 MCG/250 ML BAG IV SCH ×3 (04:39→17:34)
[2019-07-25 04:41] LABS: Albumin 2.4 g/dL (3.2-5.2); Alkaline Phosphatase 176 U/L (34-104); BUN/Creatinine Ratio 28.5 (8-20); Blood Urea Nitrogen 53 mg/dL (6-24); CO2 Carbon Dioxide 22 mmol/L (22-32); Chloride 106 mmol/L (101-111); EGFR African American 47.2 (>60); Globulin 2.3 g/dL (2-4); Glucose 152 mg/dL (70-100); Phosphorus 3.6 mg/dL (2.5-5.0); Sodium 135 mmol/L (135-145); Total Protein 4.7 g/dL (6.4-8.9)
[2019-07-25 04:51] LABS: Troponin I 13.64 ng/mL (<0.03)
[2019-07-25 04:53] LABS: ABS Basophils 0.2 10^3/ul (0-0.2); ABS Lymphocytes 1.4 10^3/ul (1.0-4.8); ABS Neutrophils 15.2 10^3/ul (1.5-7.7); ABS Nucleated RBC 0.3 10^3/ul; Eosinophil % 0.1 %; Nucleated Red Blood Cells % 1.9
[2019-07-25 04:58] LABS: Anion Gap 7 mmol/L (2-11)
[2019-07-25] MEDS: Heparin VIAL(*) 5000 UNITS/ML VIAL (FIVE THOUSAND) SUBCUT SCH ×3 (05:11→21:40)
[2019-07-25] MEDS: ZOSYN 3.375 GM Q8H per EXTENDED INFUSION IVPB SCH ×6 (05:58→22:05)
[2019-07-25 06:49] LABS: Potassium Redraw 4.1 mmol/L (3.5-5.0)
[2019-07-25] MEDS: Atorvastatin* 80 MG TAB PO SCH (08:21)
[2019-07-25] MEDS: Aspirin 81 mg CHEW TAB* 81 MG TAB.CHEW PO SCH (08:21)
[2019-07-25] MEDS: Ezetimibe TAB* 10 MG PO SCH (08:21)
[2019-07-25 09:03] LABS: INR 2.99 (0.82-1.09)
[2019-07-25 09:14] LABS: Albumin 2.3 g/dL (3.2-5.2); Alkaline Phosphatase 179 U/L (34-104); Globulin 2.3 g/dL (2-4); Total Protein 4.6 g/dL (6.4-8.9)
[2019-07-25 09:30] LABS: ALT 1047 U/L (7-52)
--- NOTE | 2019-07-25 09:54 | PN ---
Date of Service: 07/25/19 Critical Care Services: No new events overnight Vital Signs: Temp Pulse Resp BP SpO2 FiO2 37.1 C 70 20 87/65 95 25 07/25/19 09:00 07/25/19 09:00 07/25/19 07:00 07/25/19 08:30 07/25/19 09:00 07/25 04:00 Physical Exam: Gen: sedated on vent, NAD HEENT: intubated, NCAT, PERRL Lungs: coarse entry bilat Cardiac: S1S2 regular Abdomen: soft, NT, ND, +BS Extremities: trace edema Neuro: moves all 4s spont, requires sedation to control agitation Fluid Balance (Past 24 Hours): I= O= Net Intake & Output 07/23/19 07/24/19 07/25/19 07/26/19 06:59 06:59 06:59 06:59 Intake Total 6688.3 5746.5 Output Total 1370 2146 140 Balance 5318.3 3600.5 -140 Weight 100.834 kg 102.413 kg Intake: IV Fluids 4275 1156 NS (0.9%) 3225 1095 Zosyn 61 IVPB 160 318 NS (0.9%) 160 Zosyn 318 Medicated IV 2253.3 4212.5 CC - Norepinephrine/ 1587 1777 Levophed CC - Propofol/Diprivan 198 590 CC - Vasopressin/ 46.3 144.5 Pitressin sodium bicarbonate 422 1701 Oral 0 NG Tube Irrigate Amount 60 Output: NG Tube Drainage Amount 1000 G Tube 600 Chávez 370 1546 140 Labs: Laboratory Results - last 24 hr 07/23/19 07/24/19 07/24/19 22:01 00:25 11:05 WBC RBC Hgb Hct MCV MCH MCHC RDW Plt Count MPV Neut % (Auto) Lymph % (Auto) [place] % (Auto) Eos % (Auto) Baso % (Auto) Absolute Neuts (auto) Absolute Lymphs (auto) Absolute Monos (auto) Absolute Eos (auto) Absolute Basos (auto) Absolute Nucleated RBC Nucleated RBC % INR (Anticoag Therapy) Coag Pathologist Com ABG pH 7.29 L ABG pCO2 34 L ABG pO2 241 H ABG HCO3 17.7 L ABG O2 Saturation 100.0 H ABG Base Excess -9.3 L Sodium Potassium Chloride Carbon Dioxide Anion Gap BUN Creatinine Est GFR ( Amer) Est GFR (Non-Af Amer) BUN/Creatinine Ratio Glucose POC Glucose (mg/dL) 103 H Lactic Acid Calcium Ionized Calcium Phosphorus Magnesium Total Bilirubin AST ALT Alkaline Phosphatase Troponin I Total Protein Albumin Globulin Albumin/Globulin Ratio 07/24/19 07/24/19 07/24/19 11:05 17:50 17:50 WBC RBC Hgb Hct MCV MCH MCHC RDW Plt Count MPV Neut % (Auto) Lymph % (Auto) [place] % (Auto) Eos % (Auto) Baso % (Auto) Absolute Neuts (auto) Absolute Lymphs (auto) Absolute Monos (auto) Absolute Eos (auto) Absolute Basos (auto) Absolute Nucleated RBC Nucleated RBC % INR (Anticoag Therapy) Coag Pathologist Com ABG pH ABG pCO2 ABG pO2 ABG HCO3 ABG O2 Saturation ABG Base Excess Sodium 137 Potassium 4.7 Chloride 106 Carbon Dioxide 20 L Anion Gap 11 BUN 57 H Creatinine 2.06 H Est GFR ( Amer) 41.9 Est GFR (Non-Af Amer) 34.6 BUN/Creatinine Ratio 27.7 H Glucose 153 H POC Glucose (mg/dL) Lactic Acid 3.9 H* Calcium 7.0 L Ionized Calcium 0.92 L Phosphorus 5.1 H Magnesium 2.1 Total Bilirubin 1.70 H AST 2819 H ALT 1420 H Alkaline Phosphatase 198 H Troponin I 18.70 H* Total Protein 5.0 L Albumin 2.6 L Globulin 2.4 Albumin/Globulin Ratio 1.1 07/24/19 07/25/19 07/25/19 17:50 01:14 04:07 WBC 17.8 H RBC 3.97 L Hgb 12.2 L Hct 37 L MCV 93 MCH 31 MCHC 33 RDW 16 H Plt Count 266 MPV 8.9 Neut % (Auto) 85.5 Lymph % (Auto) 8.0 [place] % (Auto) 5.5 Eos % (Auto) 0.1 Baso % (Auto) 0.9 Absolute Neuts (auto) 15.2 H Absolute Lymphs (auto) 1.4 Absolute Monos (auto) 1.0 H Absolute Eos (auto) 0.0 Absolute Basos (auto) 0.2 Absolute Nucleated RBC 0.3 Nucleated RBC % 1.9 INR (Anticoag Therapy) Coag Pathologist Com ABG pH ABG pCO2 ABG pO2 ABG HCO3 ABG O2 Saturation ABG Base Excess Sodium Potassium Chloride Carbon Dioxide Anion Gap BUN Creatinine Est GFR ( Amer) Est GFR (Non-Af Amer) BUN/Creatinine Ratio Glucose POC Glucose (mg/dL) Lactic Acid 2.7 H* Calcium Ionized Calcium Phosphorus Magnesium Total Bilirubin AST ALT Alkaline Phosphatase Troponin I 14.61 H* Total Protein Albumin Globulin Albumin/Globulin Ratio 07/25/19 07/25/19 07/25/19 04:07 04:07 04:07 WBC RBC Hgb Hct MCV MCH MCHC RDW Plt Count MPV Neut % (Auto) Lymph % (Auto) [place] % (Auto) Eos % (Auto) Baso % (Auto) Absolute Neuts (auto) Absolute Lymphs (auto) Absolute Monos (auto) Absolute Eos (auto) Absolute Basos (auto) Absolute Nucleated RBC Nucleated RBC % INR (Anticoag Therapy) Coag Pathologist Com ABG pH ABG pCO2 ABG pO2 ABG HCO3 ABG O2 Saturation ABG Base Excess Sodium 135 Potassium TNP Chloride 106 Carbon Dioxide 22 Anion Gap 7 BUN 53 H Creatinine 1.86 H Est GFR ( Amer) 47.2 Est GFR (Non-Af Amer) 39.0 BUN/Creatinine Ratio 28.5 H Glucose 152 H POC Glucose (mg/dL) Lactic Acid 2.2 H* Calcium 7.0 L Ionized Calcium 0.93 L Phosphorus 3.6 Magnesium 2.0 Total Bilirubin 1.50 H AST TNP ALT TNP Alkaline Phosphatase 176 H Troponin I 13.64 H* Total Protein 4.7 L Albumin 2.4 L Globulin 2.3 Albumin/Globulin Ratio 1.0 07/25/19 07/25/19 07/25/19 06:17 08:47 08:47 WBC RBC Hgb Hct MCV MCH MCHC RDW Plt Count MPV Neut % (Auto) Lymph % (Auto) [place] % (Auto) Eos % (Auto) Baso % (Auto) Absolute Neuts (auto) Absolute Lymphs (auto) Absolute Monos (auto) Absolute Eos (auto) Absolute Basos (auto) Absolute Nucleated RBC Nucleated RBC % INR (Anticoag Therapy) 2.99 H Coag Pathologist Com ABG pH ABG pCO2 ABG pO2 ABG HCO3 ABG O2 Saturation ABG Base Excess Sodium Potassium 4.1 D Chloride Carbon Dioxide Anion Gap BUN Creatinine Est GFR ( Amer) Est GFR (Non-Af Amer) BUN/Creatinine Ratio Glucose POC Glucose (mg/dL) Lactic Acid Calcium Ionized Calcium Phosphorus Magnesium Total Bilirubin 1.40 H AST 1460 H ALT 1139 H 1047 H Alkaline Phosphatase 179 H Troponin I Total Protein 4.6 L Albumin 2.3 L Globulin 2.3 Albumin/Globulin Ratio 1.0 Studies: ECHO EF 10-15 Nutrition: Will start TF Impression: Primary septic shock complicated by cardiac arrest and acute on chronic systolic heart failure with cardiogenic shock. Plan: Septic Shock - broad Abx to treat pneumonia and biliary tract with ultrasound showing mild pericholecystic fluid and GB wall thickening, however, without ductal dilatation so not clear that risks of decompression here with severe coagulopathy and spontaneous bleeding in the last 24H are exceeded by the benefits. Now 48 hrs in his WBC continues to fall, to 17 today and LFTs are serially improving including bilirubin supporting adequate source control and no evidence of obstruction. Continue Abx and time. Levophed down to 7.5mcg/min from 40. Cardiogenic Shock - s/p very brief cardiac arrest with ROSC and immediate sedation requirement to control his agitation. ECHO with profound dilated CMP so we clearly have an acute on chronic process. Troponins high but not so high as to be responsible acutely for the entire ECHO we see. Troponins peaked at 18 and falling now. EF at 10-15% Lactate is serially clearing, currently down to 2.2 from peak at 7. EKG reviewed with cardiology immediately post-arrest and no indication for acute cath at that time and excessive risk with concomitant sepsis. Levophed as above. Acute Renal Failure - renal indices reflecting a mild ATN from profound shock as well as contrast nephropathy from CTA. Making much better urine than we would normally expect in this scenario which is great news. Continue current support of perfusion and crystalloid resuscitation. Total 9 liters positive balance and Cr now down to 1.8 from peak at 2.1. Not yet ready for diuresis. Ischemic Hepatitis - LFTs up from possible primary biliary disease, his ETOH itself and now from shock liver. Will continue to trend. Supporting perfusion is the treatment. His transaminases have peaked at 2800 and have fallen by greater than 50% in a day with falling bili as well. AST at 1100 this AM. INR a little elevated, will give some vitamin K. Alcoholism - expect to have to manage withdrawal in the coming days as well but not yet an issue for his management. GI/DVT prophylaxis is place. D/W family daily. Critical Care Time: 35 minutes
[2019-07-25] MEDS ORDERED: Phytonadione Oral Solution* 5 MG/25 ML UDC PO ONE (10:37)
[2019-07-25] MEDS: Vasopressin* 100 UNITS in D5W 250 ML BAG IV SCH (13:59)
[2019-07-25 14:34] LABS: Indirect Bilirubin 0.8 mg/dL (0.3-1.0); Total Bilirubin 1.5 mg/dL (0.2-1.0)
[2019-07-25] MEDS: Dexmedetomidine* 1,000 MCG in NS 0.9% 250 ML* 240 ML IV SCH (17:34)
[2019-07-26] MEDS: CHLORHEXADINE (PERIDEX) VENT ORAL CARE TOPICAL SCH ×3 (00:07→08:22)
[2019-07-26] MEDS: Norepinephrine 16MCG/ML IVPRE* 4,000 MCG/250 ML BAG IV SCH (03:33)
[2019-07-26] MEDS: Heparin VIAL(*) 5000 UNITS/ML VIAL (FIVE THOUSAND) SUBCUT SCH ×2 (05:18→14:30)
[2019-07-26] MEDS: Pantoprazole IV* 40 MG IV SCH (05:23)
[2019-07-26 05:40] LABS: Hematocrit 36 % (42-52); Hemoglobin 11.8 g/dL (14.0-18.0); Mean Corpuscular HGB Conc 33 g/dL (31-36); Mean Corpuscular Hemoglobin 30 pg (27-31); Mean Corpuscular Volume 93 fL (80-94); Mean Platelet Volume 8.7 fL (7.4-10.4); Platelet Count 212 10^3/uL (150-450); Red Blood Count 3.91 10^6 /uL (4.18-5.48); Red Cell Distribution Width 16 % (10-15); White Blood Count 18.6 10^3/uL (3.5-10.8)
[2019-07-26 06:02] LABS: Albumin 2.3 g/dL (3.2-5.2); BUN/Creatinine Ratio 26.1 (8-20); EGFR African American 68.8 (>60); EGFR Non-African American 56.9 (>60); Globulin 2.3 g/dL (2-4); Magnesium 1.8 mg/dL (1.9-2.7); Phosphorus 2.3 mg/dL (2.5-5.0); Potassium 3.8 mmol/L (3.5-5.0); Total Bilirubin 1.9 mg/dL (0.2-1.0); Total Protein 4.6 g/dL (6.4-8.9)
--- NOTE | 2019-07-26 06:18 | PN ---
Hospitalist Progress Note Date of Service: 07/26/19 i note ABG finding bicarb dripped stopped and resp rate lowered from 16-12 tv from 500 to 450
[2019-07-26] MEDS: ZOSYN 3.375 GM Q8H per EXTENDED INFUSION IVPB SCH ×6 (06:38→22:55)
[2019-07-26] MEDS ORDERED: Magnesium Sulfate 2 GM IV* 2 GM/50 ML BAG IVPB ONE ×2 (08:06→12:53)
[2019-07-26] MEDS: Propofol* 100 ML IV SCH (08:09)
[2019-07-26 09:17] LABS: INR 2.17 (0.82-1.09)
[2019-07-26] MEDS: Atorvastatin* 80 MG TAB PO SCH (10:01)
[2019-07-26] MEDS: Aspirin 81 mg CHEW TAB* 81 MG TAB.CHEW PO SCH (10:01)
[2019-07-26] MEDS: Ezetimibe TAB* 10 MG PO SCH (10:01)
[2019-07-26] MEDS ORDERED: Calcium Gluconate INJ* 2 GM in NS 0.9% 100 ML* 100 ML IV ONE (12:52)
[2019-07-26] MEDS ORDERED: Potassium Phosphate IV* 15 MMOLE in NS 0.9% 250 ML* 250 ML IVPB ONE (12:53)
[2019-07-26] MEDS ORDERED: Furosemide IV* 10 MG/ML 10 ML VIAL (100 MG) IV ONE (12:55)
[2019-07-26] MEDS ORDERED: Phytonadione Oral Solution* 5 MG/25 ML UDC PO ONE (12:55)
--- NOTE | 2019-07-26 13:04 | PN ---
Date of Service: 07/26/19 Critical Care Services: Sedated comfortably overnight Vital Signs: Temp Pulse Resp BP SpO2 FiO2 38.1 C 90 38 113/75 100 30 07/26/19 12:15 07/26/19 12:00 07/26/19 12:15 07/26/19 12:15 07/26/19 12:00 07/26 08:00 Physical Exam: Gen: sedated on vent when first seen, now awake and extubated, appropriate and tearful HEENT: NCAT, PERRL Lungs: rhonchi Cardiac: S1S2 regular Abdomen: soft, NT, ND, +BS Extremities: mild edema Neuro: grossly intact Fluid Balance (Past 24 Hours): I= O= Net Intake & Output 07/24/19 07/25/19 07/26/19 07/27/19 06:59 06:59 06:59 06:59 Intake Total 6688.3 5746.5 4182 215 Output Total 1370 2146 2505 350 Balance 5318.3 3600.5 1677 -135 Weight 100.834 kg 102.413 kg 100.584 kg Intake: IV Fluids 4275 1156 200 NS (0.9%) 3225 1095 129 Zosyn 61 71 IVPB 160 318 340 NS (0.9%) 160 Zosyn 318 340 Medicated IV 2253.3 4212.5 3074 58 CC - Dexmedetomidine/ 100 Precedex CC - Norepinephrine/ 1587 1777 663 Levophed CC - Propofol/Diprivan 198 590 463 58 CC - Vasopressin/ 46.3 144.5 47 Pitressin sodium bicarbonate 422 1701 1801 Oral 0 0 Tube Feeding 428 97 Tube Feeding Flush Amount 140 60 NG Tube Irrigate Amount 60 Output: NG Tube Drainage Amount 1000 G Tube 600 Chávez 370 1546 2505 350 Labs: Laboratory Results - last 24 hr 07/25/19 07/25/19 07/26/19 04:07 06:17 05:30 WBC 18.6 H RBC 3.91 L Hgb 11.8 L Hct 36 L MCV 93 MCH 30 MCHC 33 RDW 16 H Plt Count 212 MPV 8.7 INR (Anticoag Therapy) Patient Temperature ABG pH ABG pH (Temp Correct) ABG pCO2 ABG pCO2 (Temp Corrct ABG pO2 ABG pO2 (Temp Correct ABG HCO3 ABG O2 Saturation ABG Base Excess Respiration Rate Ventilator Type Vent Mode FiO2 Inspiratory Time PEEP Pressure Support Pressure Control EPAP IPAP BiPAP Sodium 135 Potassium TNP 4.1 D Chloride 106 Carbon Dioxide 22 Anion Gap 7 BUN 53 H Creatinine 1.86 H Est GFR ( Amer) 47.2 Est GFR (Non-Af Amer) 39.0 BUN/Creatinine Ratio 28.5 H Glucose 152 H Calcium 7.0 L Ionized Calcium Phosphorus 3.6 Magnesium 2.0 Total Bilirubin 1.50 H 1.50 H Direct Bilirubin TNP 0.70 H Indirect Bilirubin TNP 0.8 AST TNP 1460 H ALT TNP 1139 H Alkaline Phosphatase 176 H Troponin I 13.64 H* Total Protein 4.7 L Albumin 2.4 L Globulin 2.3 Albumin/Globulin Ratio 1.0 07/26/19 07/26/19 07/26/19 05:30 05:30 05:34 WBC RBC Hgb Hct MCV MCH MCHC RDW Plt Count MPV INR (Anticoag Therapy) Patient Temperature ABG pH 7.50 H ABG pH (Temp Correct) ABG pCO2 < 20 L ABG pCO2 (Temp Corrct ABG pO2 139 H ABG pO2 (Temp Correct ABG HCO3 18.9 L ABG O2 Saturation 99.4 H ABG Base Excess -7.8 L Respiration Rate Ventilator Type Vent Mode FiO2 Inspiratory Time PEEP Pressure Support Pressure Control EPAP IPAP BiPAP Sodium 136 Potassium 3.8 Chloride 106 Carbon Dioxide 24 Anion Gap 6 BUN 35 H Creatinine 1.34 H Est GFR ( Amer) 68.8 Est GFR (Non-Af Amer) 56.9 BUN/Creatinine Ratio 26.1 H Glucose 114 H Calcium 7.0 L Ionized Calcium 0.97 L Phosphorus 2.3 L Magnesium 1.8 L Total Bilirubin 1.90 H Direct Bilirubin Indirect Bilirubin AST 625 H ALT 770 H Alkaline Phosphatase 185 H Troponin I Total Protein 4.6 L Albumin 2.3 L Globulin 2.3 Albumin/Globulin Ratio 1.0 07/26/19 07/26/19 07:55 08:31 WBC RBC Hgb Hct MCV MCH MCHC RDW Plt Count MPV INR (Anticoag Therapy) 2.17 H Patient Temperature Not Reportable ABG pH 7.45 ABG pH (Temp Correct) Not Reportable ABG pCO2 33 L ABG pCO2 (Temp Corrct Not Reportable ABG pO2 91 ABG pO2 (Temp Correct Not Reportable ABG HCO3 24.6 ABG O2 Saturation 98.4 H ABG Base Excess -0.4 Respiration Rate 12 Ventilator Type 450 Vent Mode Apvcmv FiO2 30 Inspiratory Time .8 PEEP 5 Pressure Support Not Reportable Pressure Control Not Reportable EPAP Not Reportable IPAP Not Reportable BiPAP Not Reportable Sodium Potassium Chloride Carbon Dioxide Anion Gap BUN Creatinine Est GFR ( Amer) Est GFR (Non-Af Amer) BUN/Creatinine Ratio Glucose Calcium Ionized Calcium Phosphorus Magnesium Total Bilirubin Direct Bilirubin Indirect Bilirubin AST ALT Alkaline Phosphatase Troponin I Total Protein Albumin Globulin Albumin/Globulin Ratio Studies: CXR with pulmonary edema, no consolidation Nutrition: TF held for extubation, safe swallow and then PO Impression: Septic and cardiogenic shock resolving. Plan: Septic Shock - Some mild intermittent fever to which he is entitled from multiple sources. WBC stable at 18. LFTs contineus to improve, small bump in bili consistent with normal injury pattern of ischemic hepatitis and does not define obstruction here. Denies abdominal pain, will plan on PO today, was tolerating TF with improving transaminases. Remains on Zosyn, will look at HIDA in coming days if all else stable. Micro negative. Cardiogenic Shock - s/p very brief cardiac arrest with ROSC and immediate sedation requirement to control his agitation. ECHO with profound dilated CMP so we clearly have an acute on chronic process. Troponins high but not so high as to be responsible acutely for the entire ECHO we see. Troponins peaked at 18 and falling now. EF at 10-15% Lactate cleared from peak at 7. EKG reviewed with cardiology immediately post-arrest and no indication for acute cath at that time and excessive risk with concomitant sepsis. Levophed all but off. CXR with pulmonary edema. Lasix today. Acute Renal Failure - renal indices reflecting a mild ATN from profound shock as well as contrast nephropathy from CTA. Making much better urine than we would normally expect in this scenario which is great news. Continue current support of perfusion and crystalloid resuscitation. 10 liters postive balnce and making good urine with Cr now at 1.3 He's ready for diuretic, lasix today. Ischemic Hepatitis - LFTs up from possible primary biliary disease, his ETOH itself and now from shock liver. Will continue to trend. Supporting perfusion is the treatment. His transaminases peaked at 2800 and have fallen by greater than 75%, now in the 6-700 range. INR remains a little elevated after some vitamin K yesterday. Will repeat, still some bloody secretions consistent with carinal erosion from smith. If bleeding continues may consider CT chest to look for any evidence of malignancy. Alcoholism - awake and appropriate, extubated on precedex, by definition he is hyperadrenergic to be tolerating the precedex so will continue. There likely is some withdrawal under this continuous sedative. GI/DVT prophylaxis is place. Repleting electrolytes. D/W pt and his sister at bedside who voiced understanding and deep appreciation for the care. Critical Care Time: 35 minutes
[2019-07-26] MEDS: Dexmedetomidine* 1,000 MCG in NS 0.9% 250 ML* 240 ML IV SCH (19:48)
[2019-07-26] MEDS: guaiFENesin/CODIENE 100mg/10mg 5 ML UDC PO PRN (22:44)
[2019-07-27] MEDS ORDERED: Midazolam IV for DRIP* 100 MG in NS 0.9% 100 ML* 80 ML IV SCH (02:30)
[2019-07-27] MEDS: Pantoprazole IV* 40 MG IV SCH (04:38)
[2019-07-27] MEDS: ZOSYN 3.375 GM Q8H per EXTENDED INFUSION IVPB SCH ×6 (04:57→21:04)
[2019-07-27 05:04] LABS: ABS Basophils 0.1 10^3/ul (0-0.2); ABS Eosinophils 0.1 10^3/ul (0-0.6); ABS Lymphocytes 1.2 10^3/ul (1.0-4.8); ABS Monocytes 0.9 10^3/ul (0-0.8); ABS Neutrophils 15.2 10^3/ul (1.5-7.7); Eosinophil % 0.4 %; Hematocrit 38 % (42-52); Lymphocyte % 6.8 %; Mean Corpuscular HGB Conc 32 g/dL (31-36); Mean Corpuscular Hemoglobin 30 pg (27-31); Mean Corpuscular Volume 93 fL (80-94); Mean Platelet Volume 8.9 fL (7.4-10.4); Nucleated Red Blood Cells % 0.2; Platelet Count 190 10^3/uL (150-450); Red Blood Count 4.01 10^6 /uL (4.18-5.48); Red Cell Distribution Width 17 % (10-15); White Blood Count 17.5 10^3/uL (3.5-10.8)
[2019-07-27 05:11] LABS: INR 1.91 (0.82-1.09)
[2019-07-27 05:24] LABS: Albumin 2.6 g/dL (3.2-5.2); BUN/Creatinine Ratio 25.2 (8-20); Calcium 7.5 mg/dL (8.6-10.3); EGFR African American 61.9 (>60); EGFR Non-African American 51.1 (>60); Globulin 2.7 g/dL (2-4); Phosphorus 4.1 mg/dL (2.5-5.0); Potassium 4.2 mmol/L (3.5-5.0); Total Bilirubin 2.2 mg/dL (0.2-1.0); Total Protein 5.3 g/dL (6.4-8.9)
[2019-07-27] MEDS ORDERED: Furosemide IV* 10 MG/ML 10 ML VIAL (100 MG) IV ONE (06:30)
[2019-07-27] MEDS: Atorvastatin* 80 MG TAB PO SCH ×2 (11:19→15:32)
[2019-07-27] MEDS: Aspirin 81 mg CHEW TAB* 81 MG TAB.CHEW PO SCH (11:19)
[2019-07-27] MEDS: Ezetimibe TAB* 10 MG PO SCH ×2 (11:19→15:32)
--- NOTE | 2019-07-27 12:54 | PN ---
Date of Service: 07/27/19 Critical Care Services: No events overnight apart from agitation, started on versed gtt. Vital Signs: Temp Pulse Resp BP SpO2 FiO2 36.6 C 67 36 90/67 95 30 07/27/19 11:00 07/27/19 11:00 07/27/19 11:00 07/27/19 11:00 07/27/19 11:00 07/26 08:00 Physical Exam: Gen: sleepy but rousable HEENT: NCAT, PERRL Lungs: scant rhonchi Cardiac: S1S2 regular Abdomen: soft, NT, ND, +BS Extremities: mild edema, acrocyanoisis entirely resolved Neuro: rouses, grossly intact Fluid Balance (Past 24 Hours): I= O= Net Intake & Output 07/25/19 07/26/19 07/27/19 07/28/19 06:59 06:59 06:59 06:59 Intake Total 5746.5 4182 2038 0 Output Total 2146 2505 4145 2710 Balance 3600.5 1677 -2107 -2710 Weight 102.413 kg 100.584 kg 123.7 kg Intake: IV Fluids 1156 200 344 NS (0.9%) 1095 129 344 Zosyn 61 71 IVPB 318 340 111 Zosyn 318 340 111 Medicated IV 4212.5 3074 536 CC - Dexmedetomidine/ 100 243 Precedex CC - Norepinephrine/ 1777 663 235 Levophed CC - Propofol/Diprivan 590 463 58 CC - Vasopressin/ 144.5 47 Pitressin sodium bicarbonate 1701 1801 IV Narcotic Infusion 0 0 Versed 0 0 Oral 0 0 890 Tube Feeding 428 97 Tube Feeding Flush Amount 140 60 NG Tube Irrigate Amount 60 Output: G Tube 600 Chávez 1546 2505 3695 2710 Suctioning 450 Labs: Laboratory Results - last 24 hr 07/27/19 07/27/19 07/27/19 04:44 04:46 04:46 WBC 17.5 H RBC 4.01 L Hgb 12.0 L Hct 38 L MCV 93 MCH 30 MCHC 32 RDW 17 H Plt Count 190 MPV 8.9 Neut % (Auto) 86.8 Lymph % (Auto) 6.8 [place] % (Auto) 5.4 Eos % (Auto) 0.4 Baso % (Auto) 0.6 Absolute Neuts (auto) 15.2 H Absolute Lymphs (auto) 1.2 Absolute Monos (auto) 0.9 H Absolute Eos (auto) 0.1 Absolute Basos (auto) 0.1 Absolute Nucleated RBC 0.0 Nucleated RBC % 0.2 INR (Anticoag Therapy) 1.91 H Sodium 136 Potassium 4.2 Chloride 103 Carbon Dioxide 27 Anion Gap 6 BUN 37 H Creatinine 1.47 H Est GFR ( Amer) 61.9 Est GFR (Non-Af Amer) 51.1 BUN/Creatinine Ratio 25.2 H Glucose 88 Lactic Acid Calcium 7.5 L Phosphorus 4.1 Magnesium 2.0 Total Bilirubin 2.20 H AST 537 H ALT 687 H Alkaline Phosphatase 223 H Total Protein 5.3 L Albumin 2.6 L Globulin 2.7 Albumin/Globulin Ratio 1.0 07/27/19 04:46 WBC RBC Hgb Hct MCV MCH MCHC RDW Plt Count MPV Neut % (Auto) Lymph % (Auto) [place] % (Auto) Eos % (Auto) Baso % (Auto) Absolute Neuts (auto) Absolute Lymphs (auto) Absolute Monos (auto) Absolute Eos (auto) Absolute Basos (auto) Absolute Nucleated RBC Nucleated RBC % INR (Anticoag Therapy) Sodium Potassium Chloride Carbon Dioxide Anion Gap BUN Creatinine Est GFR ( Amer) Est GFR (Non-Af Amer) BUN/Creatinine Ratio Glucose Lactic Acid 1.9 Calcium Phosphorus Magnesium Total Bilirubin AST ALT Alkaline Phosphatase Total Protein Albumin Globulin Albumin/Globulin Ratio Nutrition: Taking PO Impression: S/P cardiac arrest in setting of septic and cardiogenic shock extubated yesterday and doing well Plan: Septic shock - resolved. WBC remains at 17, on broad Abx, LFTs consistent with resolving ischemic hepatitis including the rising bili but the alkpo4 rising is not expected and the ongoing leukocytosis with abnormal LFTs and an US at the outset that showed some cholecystitis without obstruction suggests further testing at this time. Clinically hew is doing very well and abdomen NT for me but HIDA is now appropriate. If non-emptying will involve surgery. SIRS has run its course, he's negative balance 5 liters in the last 48 hrs and HD stable off pressors. Cardiogenic shock - resolved. statin, ASA on board. Off pressors. Ischemic hepatitis over likely alcoholic cirrhosis - LFTs vastly improved but now stabilizing around 600 transaminases and alkPo4 up to 200 with bili now 2.2 , HIDA will be helpful. INR 1.9 today after a second dose of Vit K yesterday. Bloody secretions vastly improved as well. Hgb stable. ATN - Cr holding around 1.4 which is very impressive in setting of 5 liter negative balance. Great recovery, some DTs showing themselves as expected but overall controlled. Critical Care Time: 35 minutes
[2019-07-27] MEDS: Melatonin 3 MG TAB PO SCH (22:22)
[2019-07-28] MEDS: Pantoprazole IV* 40 MG IV SCH (04:01)
[2019-07-28] MEDS: guaiFENesin/CODIENE 100mg/10mg 5 ML UDC PO PRN ×2 (04:15→15:00)
[2019-07-28] MEDS: ZOSYN 3.375 GM Q8H per EXTENDED INFUSION IVPB SCH ×6 (05:52→23:16)
[2019-07-28 06:34] LABS: ABS Eosinophils 0.2 10^3/ul (0-0.6); ABS Lymphocytes 1.3 10^3/ul (1.0-4.8); ABS Neutrophils 13.4 10^3/ul (1.5-7.7); Eosinophil % 1.4 %; Hematocrit 34 % (42-52); Hemoglobin 11.1 g/dL (14.0-18.0); Lymphocyte % 8.1 %; Mean Corpuscular HGB Conc 33 g/dL (31-36); Mean Corpuscular Hemoglobin 30 pg (27-31); Mean Corpuscular Volume 91 fL (80-94); Mean Platelet Volume 9.5 fL (7.4-10.4); Nucleated Red Blood Cells % 0.2; Platelet Count 203 10^3/uL (150-450); Red Blood Count 3.69 10^6 /uL (4.18-5.48); Red Cell Distribution Width 16 % (10-15)
[2019-07-28 06:50] LABS: Albumin 2.7 g/dL (3.2-5.2); BUN/Creatinine Ratio 26.1 (8-20); Calcium 7.5 mg/dL (8.6-10.3); EGFR African American 78.9 (>60); EGFR Non-African American 65.2 (>60); Globulin 2.7 g/dL (2-4); Magnesium 1.9 mg/dL (1.9-2.7); Phosphorus 2.5 mg/dL (2.5-5.0); Potassium 3.7 mmol/L (3.5-5.0); Total Bilirubin 2.7 mg/dL (0.2-1.0); Total Protein 5.4 g/dL (6.4-8.9)
[2019-07-28] MEDS: Ezetimibe TAB* 10 MG PO SCH (10:39)
[2019-07-28] MEDS: Atorvastatin* 80 MG TAB PO SCH (10:39)
[2019-07-28] MEDS: Aspirin 81 mg CHEW TAB* 81 MG TAB.CHEW PO SCH (10:39)
--- NOTE | 2019-07-28 12:37 | PN ---
Date of Service: 07/28/19 Critical Care Services: No events overnight. Off precedex since yesterday. Vital Signs: Temp Pulse Resp BP SpO2 FiO2 37.7 C 100 21 122/84 93 30 07/28/19 09:46 07/28/19 11:15 07/28/19 11:15 07/28/19 09:46 07/28/19 11:15 07/28 04:00 Physical Exam: Gen: OOB. Appropriate. NAD HEENT: NCAT, PERRL Lungs: scant rhonchi Cardiac: S1S2 regular Abdomen: soft, NT, ND, +BS Extremities: no edema Neuro: grossly non-focal Fluid Balance (Past 24 Hours): I= O= Net Intake & Output 07/26/19 07/27/19 07/28/19 07/29/19 06:59 06:59 06:59 06:59 Intake Total 4182 2038 1305 475 Output Total 2505 4145 4785 440 Balance 0631 -5020 -5708 35 Weight 100.584 kg 123.7 kg 121.4 kg Intake: IV Fluids 200 344 130 NS (0.9%) 129 344 130 Zosyn 71 IVPB 340 111 155 Zosyn 340 111 155 Medicated IV 3074 536 CC - Dexmedetomidine/ 100 243 Precedex CC - Norepinephrine/ 663 235 Levophed CC - Propofol/Diprivan 463 58 CC - Vasopressin/ 47 Pitressin sodium bicarbonate 1801 IV Narcotic Infusion 0 0 Versed 0 0 Oral 0 890 1020 475 Tube Feeding 428 97 Tube Feeding Flush Amount 140 60 Output: Chávez 2505 3695 4695 440 Estimated Blood Loss 90 Suctioning 450 Other: Date of Last Bowel 07/26/19 Movement Labs: Laboratory Results - last 24 hr 07/28/19 07/28/19 06:10 06:10 WBC 16.0 H RBC 3.69 L Hgb 11.1 L Hct 34 L MCV 91 MCH 30 MCHC 33 RDW 16 H Plt Count 203 MPV 9.5 Neut % (Auto) 84.0 Lymph % (Auto) 8.1 [place] % (Auto) 6.2 Eos % (Auto) 1.4 Baso % (Auto) 0.3 Absolute Neuts (auto) 13.4 H Absolute Lymphs (auto) 1.3 Absolute Monos (auto) 1.0 H Absolute Eos (auto) 0.2 Absolute Basos (auto) 0.0 Absolute Nucleated RBC 0.0 Nucleated RBC % 0.2 Sodium 137 Potassium 3.7 Chloride 102 Carbon Dioxide 30 Anion Gap 5 BUN 31 H Creatinine 1.19 H Est GFR ( Amer) 78.9 Est GFR (Non-Af Amer) 65.2 BUN/Creatinine Ratio 26.1 H Glucose 89 Calcium 7.5 L Phosphorus 2.5 Magnesium 1.9 Total Bilirubin 2.70 H AST 370 H ALT 514 H Alkaline Phosphatase 224 H Total Protein 5.4 L Albumin 2.7 L Globulin 2.7 Albumin/Globulin Ratio 1.0 Nutrition: Eating Impression: 49 y/o male with known 3V CAD presents with septic shock complicated by demand ischemia and cardiogenic shock now stable for transfer to the floor. Plan: Septic shock - resolved. WBC slowly falling, down to 16 today. on broad Abx, LFTs consistent with resolving ischemic hepatitis including the rising bili. alkpo4 stable at 225. The ongoing leukocytosis with abnormal LFTs and an US at the outset that showed some cholecystitis without obstruction suggested further testing and we did HIDA yesterday. GB is contracted and slow to fill but it does fill and he continues to clinically improve with a benign abdomen. SIRS has run its course, he's negative balance 5.5 liters in the last 48 hrs and HD stable off pressors. Cardiogenic shock - resolved. statin, ASA on board. Off pressors. Will need subacute CV evaluation, not a good cath candidate while still working off infection but if he is willing to engagae and f/u this time eventual cardiology consultation will be helpful. Ischemic hepatitis over likely alcoholic cirrhosis - LFTs vastly improved and transaminases continue to fall. bili now 2.7 which is consistent with hepatic injury pattern of rising bili after falling transaminases as long as it stops rising in next 24-48. HIDA without overt obstruction and small GB not a clear indication for perc in a patient who is clinically improving especially when f/ u may be an issue. INR corrected to 1.9 after 2 doses of Vit K. Bloody secretions vastly improved as well and largely abated. Hgb stable. ATN - Cr continues to fall, now down to 1.2, which is very impressive in setting of 5.5 liter negative balance. Great recovery, some DTs had been showing themselves as expected but that has seemed to resolve in the last 24H. Medically clear to transfer to medicine.
[2019-07-28] MEDS ORDERED: Acetaminophen TAB* 325 MG PO ONE (15:50)
[2019-07-28] MEDS: Benzonatate CAP* 100 MG PO PRN (21:49)
[2019-07-28] MEDS: Melatonin 3 MG TAB PO SCH (21:51)
[2019-07-28] MEDS ORDERED: Furosemide IV* 10 MG/ML 2 ML VIAL (20 MG) IV ONE (22:21)
[2019-07-28] MEDS: traMADol TAB* 50 MG PO PRN (23:06)
[2019-07-28 23:22] LABS: Urine Appearance Cloudy; Urine Bilirubin Negative (Negative); Urine Blood 2+ (Negative); Urine Color Amber; Urine Glucose Negative (Negative); Urine Ketones Negative (Negative); Urine Nitrite Negative (Negative); Urine Protein Negative (Negative); Urine Urobilinogen Positive (Negative)
[2019-07-28 23:24] LABS: Urine Bacteria Absent (Absent); Urine Red Blood Cell 3+(>10/hpf) (Absent); Urine White Blood Cell 1+(6-10/hpf) (Absent)
[2019-07-29] MEDS: traMADol TAB* 50 MG PO PRN ×3 (05:12→21:22)
[2019-07-29] MEDS: ZOSYN 3.375 GM Q8H per EXTENDED INFUSION IVPB SCH ×6 (05:14→22:30)
[2019-07-29 05:32] LABS: Hematocrit 34 % (42-52); Hemoglobin 11.4 g/dL (14.0-18.0); Mean Corpuscular HGB Conc 33 g/dL (31-36); Mean Corpuscular Hemoglobin 30 pg (27-31); Mean Corpuscular Volume 90 fL (80-94); Mean Platelet Volume 8.9 fL (7.4-10.4); Platelet Count 213 10^3/uL (150-450); Red Cell Distribution Width 16 % (10-15); White Blood Count 14.3 10^3/uL (3.5-10.8)
[2019-07-29 05:47] LABS: ALT 400 U/L (7-52); AST 266 U/L (13-39); Albumin 2.6 g/dL (3.2-5.2); Albumin/Globulin Ratio 0.9 (1-3); Alkaline Phosphatase 259 U/L (34-104); Anion Gap 7 mmol/L (2-11); BUN/Creatinine Ratio 23.5 (8-20); Blood Urea Nitrogen 24 mg/dL (6-24); CO2 Carbon Dioxide 29 mmol/L (22-32); Calcium 7.6 mg/dL (8.6-10.3); Chloride 102 mmol/L (101-111); EGFR African American 94.3 (>60); Globulin 2.8 g/dL (2-4); Glucose 103 mg/dL (70-100); Magnesium 1.7 mg/dL (1.9-2.7); Phosphorus 2.2 mg/dL (2.5-5.0); Potassium 3.2 mmol/L (3.5-5.0); Sodium 138 mmol/L (135-145); Total Protein 5.4 g/dL (6.4-8.9)
[2019-07-29] MEDS: Aspirin 81 mg CHEW TAB* 81 MG TAB.CHEW PO SCH (07:59)
[2019-07-29] MEDS: Atorvastatin* 80 MG TAB PO SCH (07:59)
[2019-07-29] MEDS: Pantoprazole TAB * 40 MG TAB PO SCH (07:59)
[2019-07-29] MEDS: Ezetimibe TAB* 10 MG PO SCH (07:59)
[2019-07-29] MEDS: Lidocaine 2% JELLY* 6 ML JELLY TOPICAL SCH ×3 (09:44→21:22)
[2019-07-29] MEDS ORDERED: Magnesium Sulfate IV* 3 GM in NS 0.9% 100 ML* 100 ML IVPB ONE (10:34)
--- NOTE | 2019-07-29 10:42 | PN ---
Subjective Date of Service: 07/29/19 Interval History: Pt straightcathed last night for retention of 800cc. He says he voided both in the ICU and on floor but "not enough". Scrotal swelling which he says was new after the fermin was replaced (after was retaining 300 again and unable to void. Lidocaine 2% jelly is helping with his pain near urethra. Says he had stopped smoking day before hospitalization and drinking a few weeks before hospitalization. Last saw Dr. Bennett in "late winter" but there were issues with his [employer] insurance not allowing him to be seen in future. Mother got sick after he got sick. They live in same house. He did not get a flu shot (she did). Denies chest pain. Only a few hours of sleep last few days. Coughing with some bloody suctioning. Denies blood in BM. Denies abdominal pain prior to admission other than "the usual" - occasional heartburn or pain relieved after eating. Never saw cardiothoracic surgery as outpatient as he was "scared to " and wanted to attempt medical/lifestyle management. Objective Active Medications: Aspirin (Aspirin 81 Mg Chew Tab*) 81 mg PO DAILY [facility] Last Admin: 07/29/19 07:59 Dose: 81 mg Atorvastatin Calcium (Lipitor*) 80 mg PO DAILY [facility] Last Admin: 07/29/19 07:59 Dose: 80 mg Benzonatate (Tessalon Cap*) 100 mg PO TID PRN PRN Reason: COUGH Last Admin: 07/28/19 21:49 Dose: 100 mg Dextrose (D50w Syringe 50 Ml*) 25 gm IV PUSH .FOR FS < 60 - SS PRN PRN Reason: FS < 60 Last Admin: 07/23/19 22:56 Dose: 25 gm Ezetimibe (Zetia Tab*) 10 mg PO DAILY [facility] Last Admin: 07/29/19 07:59 Dose: 10 mg Guaifenesin/Codeine Phosphate (Robitussin Ac 100mg/10mg In 5 Ml) 5 ml PO Q4H PRN PRN Reason: COUGH Last Admin: 07/28/19 15:00 Dose: 5 ml Piperacillin Sod/Tazobactam (Sod 3.375 gm/ Sodium Chloride) 100 mls @ 25 mls/ hr IVPB Q8H [facility] Last Admin: 07/29/19 05:14 Dose: 25 mls/hr Magnesium Sulfate 3 gm/ Sodium (Chloride) 106 mls @ 53 mls/hr IVPB ONCE ONE Stop: 07/29/19 12:33 Lidocaine HCl (Lidocaine 2% Jelly*) 1 applic TOPICAL TID [facility] Last Admin: 07/29/19 09:44 Dose: 1 applic Melatonin (Melatonin) 6 mg PO BEDTIME [facility] Last Admin: 07/28/19 21:51 Dose: 6 mg Pantoprazole Sodium (Protonix Tab*) 40 mg PO DAILY [facility] Last Admin: 07/29/19 07:59 Dose: 40 mg Pharmacy Consult (Zosyn Per Pharmacy*) 1 note FOLLOW UP .ZOSYN PER PHARMACY [facility] Potassium Chloride (Potassium Chloride Liquid) 40 meq PO Q2H [facility] Stop: 07/29/19 13:01 Tramadol HCl (Ultram*) 50 mg PO Q6H PRN PRN Reason: PAIN - MODERATE Last Admin: 07/29/19 05:12 Dose: 50 mg Vital Signs - 8 hr 07/29/19 07/29/19 07/29/19 03:15 05:12 07:15 Temperature 98.5 F 97.3 F Pulse Rate 98 101 Respiratory 20 18 20 Rate Blood Pressure 122/70 129/80 (mmHg) O2 Sat by Pulse 93 95 Oximetry 07/29/19 07/29/19 07/29/19 08:00 08:01 08:02 Temperature Pulse Rate Respiratory 18 18 18 Rate Blood Pressure (mmHg) O2 Sat by Pulse Oximetry Oxygen Devices in Use Now: None Appearance: NAD, chronically ill appearing. Eyes: No Scleral Icterus Ears/Nose/Mouth/Throat: NL Teeth, Lips, Gums Neck: NL Appearance and Movements; NL JVP Respiratory: - - no wheezing or rhonchi, diminished at b/l bases. Cardiovascular: - - 2+ edema up b/l legs, pitting edema extending into anterior abdominal wall. RRR no m/r/g Abdominal: - - soft, distended,nontender, no rivas's Skin: - - blotchy erythema on arms, chest, suprapubic Neurological: Alert and Oriented x 3 Lines/Tubes/Other Access: Clean, Dry and Intact Fermin - hematuria (tea colored) Nutrition: Taking PO's Result Diagrams: 07/29/19 05:21 07/29/19 05:21 Additional Lab and Data: Laboratory Results - last 24 hr 07/28/19 07/29/19 07/29/19 23:13 05:21 05:21 WBC 14.3 H RBC 3.80 L Hgb 11.4 L Hct 34 L MCV 90 MCH 30 MCHC 33 RDW 16 H Plt Count 213 MPV 8.9 Sodium 138 Potassium 3.2 L Chloride 102 Carbon Dioxide 29 Anion Gap 7 BUN 24 Creatinine 1.02 Est GFR ( Amer) 94.3 Est GFR (Non-Af Amer) 78.0 BUN/Creatinine Ratio 23.5 H Glucose 103 H Calcium 7.6 L Phosphorus 2.2 L Magnesium 1.7 L Total Bilirubin 3.00 H AST 266 H ALT 400 H Alkaline Phosphatase 259 H C-Reactive Protein 197.01 H B-Natriuretic Peptide Total Protein 5.4 L Albumin 2.6 L Globulin 2.8 Albumin/Globulin Ratio 0.9 L Urine Color [place] Urine Appearance Cloudy Urine pH 5.0 Ur Specific [place] 1.020 Urine Protein Negative Urine Ketones Negative Urine Blood 2+ A Urine Nitrate Negative Urine Bilirubin Negative Urine Urobilinogen Positive A Ur Leukocyte Esterase Negative Urine WBC (Auto) 1+(6-10/hpf) A Urine RBC (Auto) 3+(>10/hpf) A Urine Bacteria Absent Urine Glucose Negative 07/29/19 05:21 WBC RBC Hgb Hct MCV MCH MCHC RDW Plt Count MPV Sodium Potassium Chloride Carbon Dioxide Anion Gap BUN Creatinine Est GFR ( Amer) Est GFR (Non-Af Amer) BUN/Creatinine Ratio Glucose Calcium Phosphorus Magnesium Total Bilirubin AST ALT Alkaline Phosphatase C-Reactive Protein B-Natriuretic Peptide > 1300 H Total Protein Albumin Globulin Albumin/Globulin Ratio Urine Color Urine Appearance Urine pH Ur Specific [place] Urine Protein Urine Ketones Urine Blood Urine Nitrate Urine Bilirubin Urine Urobilinogen Ur Leukocyte Esterase Urine WBC (Auto) Urine RBC (Auto) Urine Bacteria Urine Glucose Microbiology and Other Data: Microbiology 07/27/19 03:05 Blood Line Aerobic Blood Culture - Preliminary No Growth Day 2 07/27/19 03:05 Blood Line Anaerobic Blood Culture - Preliminary No Growth Day 2 07/23/19 08:46 Blood Venous Aerobic Blood Culture - Final No Growth Day 5 07/23/19 08:46 Blood Venous Anaerobic Blood Culture - Final No Growth Day 5 07/23/19 08:46 Blood Venous Aerobic Blood Culture - Final No Growth Day 5 07/23/19 08:46 Blood Venous Anaerobic Blood Culture - Final No Growth Day 5 07/23/19 23:15 Sputum Trach Gram Stain - Final 07/23/19 23:15 Sputum Trach Sputum Culture - Final YEAST Normal Estephania 07/23/19 13:50 Urine Urine Culture - Final No Growth (<1,000 CFU/mL) 07/23/19 23:18 Gastric Fluid Gastric Occult Blood - Final 07/23/19 16:13 Nasal Nasal Screen MRSA (PCR) - Final Mrsa Not Detected 07/23/19 13:50 Urine Legionella Urinary Antigen - Final Negative Legionella Antigen 07/23/19 13:50 Urine Streptococcus pneumoniae Ag Screen - Final Negative S. pneumo Antigen Assess/Plan/Problems-Billing Assessment: Mr Lema is a 49yo M with PMH of known triple vessel CAD (declined CABG evaluation multiple times), severe ischemic CMP, ETOH and tobacco abuse presented with 2-3 weeks of flu like symptoms. Course complicated by asystole arrest in ED. Cardiogenic shock s/p levophed. c/b ATN and shock liver. EF 10- 15% with moderate MVR. - Patient Problems (1) Acute on chronic systolic CHF (congestive heart failure) Current Visit: Yes Status: Acute Code(s): I50.23 - ACUTE ON CHRONIC SYSTOLIC (CONGESTIVE) HEART FAILURE SNOMED Code(s): 951042320 Comment: ECHO with EF 10-15% with moderate MVR. This was same day of cardiac arrest(asystole). Prior was 08/11/18 and 04/07/18 with EF 25-30%. Had been too scared to get CABG eval. Dr. Coleman was consulted. Will repeat ECHO tomorrow. Still markedly volume overloaded in setting of his resuccitation. Anisarca. BNP >1300 (first ever recorded). Start Lasix 40mg IV BID (got 60mg IV yestrday + 20mg IV last night). Strict i/o. Daily standing scale weights. Up ~20 kgs from baseline. ("220lbs") add back in BB and ACEI cautiously given recent cardiogenic shock requiring pressors. BP 120-120s currently. metoprolol succinate 12.5 now, lisinopril 2.5mg at 1700. (2) Right middle lobe pulmonary infiltrate Current Visit: Yes Status: Acute Code(s): R91.8 - OTHER NONSPECIFIC ABNORMAL FINDING OF LUNG FIELD SNOMED Code(s): 832897154 Comment: by late tonight will have completed 7th day of zosyn. Consider stop vs ID consult tomorrow. F/u labs. Sputum with yeast. leukocytosis slowly improving. BCx negative. small ascites not sampled this admission but denied significant abdominal pain. HIDA with slow emptying, negative Rivas's sign. (3) Shock liver Current Visit: Yes Status: Acute Code(s): K72.00 - ACUTE AND SUBACUTE HEPATIC FAILURE WITHOUT COMA SNOMED Code(s): 644027145 Comment: Trend LFTs daily. Repeat INR in AM. add on ammonia. (4) Cardiogenic shock Current Visit: Yes Status: Acute Code(s): R57.0 - CARDIOGENIC SHOCK SNOMED Code(s): 64413829 Comment: improving, plan as above. (5) Hyperlipidemia Current Visit: Yes Status: Acute Code(s): E78.5 - HYPERLIPIDEMIA, UNSPECIFIED SNOMED Code(s): 82947116 Comment: lipitor 80 daily. I suspect he had been only minimally compliant as an outpatient given LDL of 166 back in 03/01/19 had actually increased compared to prior. Repeat Lipid panel in AM. (6) Coronary artery disease Current Visit: No Status: Acute Code(s): I25.10 - ATHSCL HEART DISEASE OF [place] CORONARY ARTERY W/O ANG PCTRS SNOMED Code(s): 77654113 Comment: 3v CAD with need for CABG evaluation still recommended. Aspirin, statin, adding back BB. add on A1c, no baseline. (7) ETOH abuse Current Visit: No Status: Acute Code(s): F10.10 - ALCOHOL ABUSE, UNCOMPLICATED SNOMED Code(s): 27685879 Comment: - add Thiamine/Folate - last drink few weeks prior to admission he says. Has some tachycardia. (8) Urinary retention Current Visit: Yes Status: Acute Code(s): R33.9 - RETENTION OF URINE, UNSPECIFIED SNOMED Code(s): 678109742 Comment: jeny put back in 2/8 PM lidocaine jelly prn for pain. bladder training trials. diuresis to improve anisarca. (9) PAMELA (acute kidney injury) Current Visit: Yes Status: Acute Code(s): N17.9 - ACUTE KIDNEY FAILURE, UNSPECIFIED SNOMED Code(s): 36166445 Comment: improving, continue diuresis and currently needing fermin given retention. bmp daily. (10) Bloody sputum Current Visit: Yes Status: Acute Code(s): R04.2 - HEMOPTYSIS SNOMED Code(s ): 38716260 Comment: repeat INR. add ESR and if positive would need JOSE G. outpatient vs inpatient GI eval to rule out esophageal varices. Continue ppi. (11) Smoking Current Visit: No Status: Acute Code(s): F17.200 - NICOTINE DEPENDENCE, UNSPECIFIED, UNCOMPLICATED SNOMED Code(s): 00343065 Comment: - start nicotine replacement therapy Status and Disposition: medicine inpatient. Will need diuresis and medical optimization for several more days likely. Would recommend referral back to [facility] on discharge.
[2019-07-29 10:46] LABS: C Reactive Protein 197.01 mg/L (<8.01)
[2019-07-29] MEDS ORDERED: Furosemide IV* 10 MG/ML VIAL (40 MG) IV ONE ×2 (11:07→18:00)
[2019-07-29] MEDS: Potassium Chloride* LIQUID 20 MEQ/15 ML UDC PO SCH ×2 (11:10→12:43)
[2019-07-29] MEDS: Benzonatate CAP* 100 MG PO PRN (11:11)
[2019-07-29] MEDS ORDERED: Metoprolol Succinate XL TAB* 25 MG PO SCH (12:00)
[2019-07-29] MEDS: Folic Acid TAB* 1 MG PO SCH (12:42)
[2019-07-29] MEDS: Thiamine TAB* 100 MG TAB PO SCH (12:43)
[2019-07-29] MEDS: Nicotine PATCH 7 MG/24 HR* PATCH TRANSDERM SCH (12:43)
[2019-07-29] MEDS: guaiFENesin/CODIENE 100mg/10mg 5 ML UDC PO PRN ×2 (14:37→21:22)
[2019-07-29] MEDS ORDERED: Potassium Chloride* LIQUID 20 MEQ/15 ML UDC PO ONE ×2 (14:40→18:00)
[2019-07-29 15:33] LABS: % Iron Saturation 9 % (15-55); Iron 29 ug/dL (50-212); Total Iron Binding Capacity 307 mcg/dL (250-450); Transferrin 219 mg/dL (203-362)
[2019-07-29] MEDS: Spironolactone TAB* 25 MG PO SCH (16:07)
[2019-07-29] MEDS: Nitroglycerin 0.1 mg/Hr PATCH* (2.5 MG) TRANSDERM SCH (16:07)
--- NOTE | 2019-07-29 17:34 | CONS ---
CC: Dr. Bennett; Dr. Crowe * CARDIOLOGY CONSULTATION: DATE OF CONSULT: 07/29/19 REASON FOR EVALUATION: [place], congestive heart failure. HISTORY OF PRESENT ILLNESS: This is a very pleasant 49-year-old gentleman with known ischemic cardiomyopathy, MR, who was advised to have bypass surgery in 2018 for severe three-vessel disease but declined and has opted for medical management. Unfortunately, he has been noncompliant with medical management. He is followed by Dr. Crowe who has been trying to optimize his regimen as an outpatient. He apparently developed respiratory infection, thought to be the flu about 3 weeks prior to admission on 07/22/19. He had aches, cough, shortness of breath. He had no significant improvement. He was scheduled to see Cardiology and have an echocardiogram the week before the admission, but because he was not feeling well and because of worsening shortness of breath, he decided to come to the emergency room. On admission to the emergency room, he was thought to have a right middle lobe consolidation, community-acquired pneumonia, and sepsis and developed arrest. It is recommended that he be treated for pneumonia, then consider coronary artery bypass grafting; however, he has been resistant to that. Dr. Shetty asked me to see him because of persistent heart failure and a review of his overall condition. The patient denies any chest pain. He is a somewhat inconsistent historian. He states that he normally gets around well, he can walk for an hour without stopping, but the last time he did it was a year ago and more recently he just walks a few minutes for unclear reasons. He lives in a ranch house and does not go up and down stairs. He denies orthopnea. He states his weight is normal at about 220 pounds, but since his hospitalization, his weight is up. It is unclear whether the scales are accurate or not, but he was 225 on admission and as of , he was 267. He denies orthopnea. He denies fevers, chills, sweats, diarrhea at this point. He has whole body edema and scrotal edema and is being diuresed. He denies strokes or mini strokes, pulmonary disease. Of note, his ABC Alert record from 07/23/19 at 11:52 revealed initial rhythm of asystole according to the report. He was intubated and CPR had been performed. This may have been related to his respiratory compromise. PAST MEDICAL HISTORY: Includes: 1. Coronary artery disease. He had a cath in February 2018. He had a diffusely diseased RCA with a 50% to 55% proximal lesion and 65% to 70% more distal lesion and 75% to 80% lesion to PDA. Left main was 45% to 50%. LAD 55% . Mid LAD 80% to 85%. Circumflex was a dominant vessel. Trifurcation marginal branch had 75% lesion and a mid 70% lesion. He was advised CABG, which he declined. 2. Peripheral vascular disease. 3. He had high-grade stenosis of his left iliac artery in February 2018. 4. Ischemic cardiomyopathy with EF of 25% to 30% in 2018 with an akinetic apex and global hypokinesis. 5. Wopedktv-tr-qnhtad MR. 6. Hyperlipidemia. 7. Tobacco abuse, smoking a pack per day until this admission. 8. Alcohol abuse, drinking about 6 to 8 beers per day. 9. Tooth abscess, complicated by Hardik's angina in 2005. 10. During the course of this hospitalization, he had elevated LFTs, possibly due to shock liver. 11. Amputated left first toe due to accident, traumatic amputation. 12. Intermittent claudication. 13. Pulmonary disease, lung mass in 2018. PAST SURGICAL HISTORY: Amputation of his toe. MEDICATIONS: As an outpatient include: 1. Vascepa 2 g b.i.d. 2. Ezetimibe 10 mg a day. 3. Metoprolol tartrate 50 mg daily. 4. Rosuvastatin 40 mg daily. 5. Benazepril 5 mg a day. 6. Aspirin 81 mg a day. He has been noncompliant with the medicines because he said he ran out. As an inpatient include: 1. Aspirin 81 mg a day. 2. Atorvastatin 80 mg a day. 3. Zetia 10 mg a day. 4. Folic acid 1 mg a day. 5. Furosemide 40 mg b.i.d. 6. Robitussin/guaifenesin. 7. Lisinopril 2.5 mg a day. 8. Melatonin 6 mg at bedtime. 9. Metoprolol succinate 12.5 mg a day. 10. Nicotine patch transderm 7 mg in 24 hours. 11. Protonix 40 mg a day. 12. Zosyn per pharmacy IV q.8. 13. Thiamine 100 mg daily. 14. Tramadol. ALLERGIES: He denies any drug allergies. SOCIAL HISTORY: He is single. 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 He said that his father had coronary artery disease in his 50s, but is alive at age 90. His mother is alive at age 84. He has a brother who had an [place] and smoked tobacco at age 61, he is now 62. He has 2 sisters, one of them has COPD. He denies recreational drug use, but has used cocaine in the remote past. REVIEW OF SYSTEMS: Review of systems x10 was negative except as above. PHYSICAL EXAM: On physical exam, he is a well-developed, well-nourished, overweight, obese gentleman, appears to be mildly dyspneic with talking. His blood pressure 119/80, pulse of 97, O2 sat is 96% on room air. Weight, as noted , yesterday it was 267 pounds. JVD approximately 14 cm. Carotids 2+ without bruits. No cervical adenopathy or thyromegaly. Extraocular muscles intact. Sclerae anicteric. Atraumatic, normocephalic. Cardiac Exam: S1, S2 with a 2/ 6 holosystolic murmur at the left lower sternal border and apex, possible S3 gallop. Chest: Soft rales at the left base, which partially clear with coughing. There is no CVAT. Abdomen: Obese, distended. Scrotal edema and has actually presacral edema and pitting edema of his lower extremities 2+. Femoral pulses were intact without bruits. Distal pulses not palpable. Motor strength 5/5 bilaterally. Deep tendon reflexes 1/4. Alert and oriented x3. No cervical adenopathy. DIAGNOSTIC STUDIES/LAB DATA: Labs include a white count of 14, down from 20.8 on 07/24/19; hemoglobin 11.4; hematocrit of 34; MCV is 90. Labs include a sodium of 138; potassium of 3.2, down from 3.7 yesterday; BUN at 24; creatinine of 1.02, down from 1.47 on 07/27/19 and 2.06 on 07/24/19. Magnesium is down to 1.7 today. Calcium is low at 7.6. Phosphorus low at 2.2. AST 266, slowly improving; ALT of 400, slowly improving; alk phos up to 259, increasing. CRP elevated at 197. BNP greater than 1300. Albumin low at 2.6. Troponin was 0.75 on admission and peaked at 18.7 on 07/24/19 and is down to 13.64 on . Echocardiogram from 07/23/19 after the arrest revealed an EF of 10% to 15%, diffuse hypokinesis, systolic function is moderately to severely reduced, moderate MR directed posteriorly, [id number] TR. Compared to February 2018, the LV function has decreased. Echo from July 2018 revealed EF of 25% to 30%, mild MR, global hypokinesis of minor variation, inferoposterior wall was akinetic on the parasternal, the anterolateral wall moves fast. ASSESSMENT AND PLAN: My impression is that Mr. Lema has severe ischemic cardiomyopathy as well as mitral regurgitation and right ventricular dysfunction. His prognosis is extremely guarded and he is at high risk for recurrent arrest and and progressive heart failure in the near future. I did advise that he remain for a more definitive evaluation, with the cath and transfer for revascularization and defibrillator placement as indicated; however , the patient has refused surgery in the past and again wants to try medical therapy despite the fact that it may be futile and he is at risk of dying before he can implement his plan to stop smoking and stop alcohol use and improve his health. At this point, he has decompensated congestive heart failure probably related to combination of reduced left ventricular function, MR , the stress of his recent respiratory infection and sepsis and volume overload. He also had an episode of what appeared to be short run of supraventricular tachycardia, atrial tachycardia or atrial flutter, probably atrial tachycardia on 07/29/19 at 2:40. This may be related to not only his left ventricular dysfunction, but his electrolyte abnormalities. For the time being, I recommend the followin. I strongly recommended referral to a surgical center for more definitive evaluation and treatment of his severe cardiomyopathy, which he is declining. He understands his prognosis is extremely guarded. 2. I would replace his magnesium, potassium, and phosphorus as you are doing. 3. I would add Aldactone to his regimen. 4. Given his decompensation, he may or may not tolerate his beta-kourtney. Currently, he is on a low dose of metoprolol and is diuresing with IV Lasix. We would continue to diurese and monitor his daily weights. 5. We would watch his LFTs as they resolve, especially on a statin, which may result in additional liver injury. 6. The patient is at high risk for recurrent cardiac events and I concur with Dr. Shetty's recommendation that he have a LifeVest, which apparently he is declining. 7. I would strongly advise discontinuation of tobacco and alcohol use. [id number]/[facility] #: [id number] addendum: ekg form 07/29 revealed nsr with anterolateral [place], ns t changes. mild interval imrpovement in hr and inferior st elevations and lateral ns st changes. JFM j2.10.20 MTDD
[2019-07-29] MEDS: Melatonin 3 MG TAB PO SCH (21:22)
[2019-07-29] MEDS: Nitro Patch/OINT Remove PATCH OFF SCH (21:27)
[2019-07-30 01:07] LABS: BUN/Creatinine Ratio 18.7 (8-20); Calcium 7.7 mg/dL (8.6-10.3); EGFR African American 89.3 (>60); EGFR Non-African American 73.8 (>60); Magnesium 1.8 mg/dL (1.9-2.7); Potassium 3.1 mmol/L (3.5-5.0)
[2019-07-30] MEDS ORDERED: Potassium Chlor TAB* 20 MEQ TAB.ER PO ONE ×2 (01:30→16:52)
[2019-07-30] MEDS ORDERED: Magnesium Sulfate 2 GM IV* 2 GM/50 ML BAG IVPB ONE (01:30)
[2019-07-30] MEDS: traMADol TAB* 50 MG PO PRN (03:02)
[2019-07-30 05:49] LABS: ABS Basophils 0.1 10^3/ul (0-0.2); ABS Eosinophils 0.2 10^3/ul (0-0.6); ABS Lymphocytes 1.8 10^3/ul (1.0-4.8); ABS Monocytes 1.4 10^3/ul (0-0.8); ABS Neutrophils 13.3 10^3/ul (1.5-7.7); Hematocrit 36 % (42-52); Hemoglobin 11.9 g/dL (14.0-18.0); Mean Corpuscular HGB Conc 33 g/dL (31-36); Mean Corpuscular Hemoglobin 30 pg (27-31); Mean Corpuscular Volume 91 fL (80-94); Mean Platelet Volume 9.2 fL (7.4-10.4); Platelet Count 264 10^3/uL (150-450); Red Cell Distribution Width 17 % (10-15); White Blood Count 16.9 10^3/uL (3.5-10.8)
[2019-07-30] MEDS: ZOSYN 3.375 GM Q8H per EXTENDED INFUSION IVPB SCH ×4 (05:52→15:13)
[2019-07-30 06:05] LABS: Albumin 2.7 g/dL (3.2-5.2); Albumin/Globulin Ratio 0.9 (1-3); BUN/Creatinine Ratio 18.2 (8-20); Calcium 7.7 mg/dL (8.6-10.3); EGFR African American 86.4 (>60); EGFR Non-African American 71.4 (>60); Indirect Bilirubin 1.8 mg/dL (0.3-1.0); Magnesium 2.1 mg/dL (1.9-2.7); Potassium 3.6 mmol/L (3.5-5.0); Total Bilirubin 3.7 mg/dL (0.2-1.0); Total Protein 5.7 g/dL (6.4-8.9)
[2019-07-30 06:36] LABS: INR 1.84 (0.82-1.09)
[2019-07-30] MEDS: Thiamine TAB* 100 MG TAB PO SCH (10:27)
[2019-07-30] MEDS: Folic Acid TAB* 1 MG PO SCH (10:27)
[2019-07-30] MEDS: Ezetimibe TAB* 10 MG PO SCH (10:27)
[2019-07-30] MEDS: Atorvastatin* 80 MG TAB PO SCH (10:27)
[2019-07-30] MEDS: Spironolactone TAB* 25 MG PO SCH (10:27)
[2019-07-30] MEDS: Pantoprazole TAB * 40 MG TAB PO SCH (10:27)
[2019-07-30] MEDS: Aspirin 81 mg CHEW TAB* 81 MG TAB.CHEW PO SCH (10:27)
[2019-07-30] MEDS: Nitroglycerin 0.1 mg/Hr PATCH* (2.5 MG) TRANSDERM SCH (10:30)
[2019-07-30] MEDS: Nicotine PATCH 7 MG/24 HR* PATCH TRANSDERM SCH (10:35)
[2019-07-30] MEDS: Lidocaine 2% JELLY* 6 ML JELLY TOPICAL SCH ×2 (10:39→14:07)
[2019-07-30] MEDS: Furosemide IV* 10 MG/ML VIAL (40 MG) IV SCH ×2 (10:39→15:19)
--- NOTE | 2019-07-30 11:59 | ECHO ---
*[facility]* [place] [address] Fax #: [phone] Transthoracic Echocardiogram Patient: Tres Lema : 1970 Study Date: 07/30/2019 Age: 49 Gender: M HR: 90 bpm Height: 70 in /177.8 cm BSA: 2.5 m^2 Weight: 266.4 lb /121.1 kg BMI: 38.3 kg/m^2 *Small Business Director: Arin Toney [facility] *Referring Physician: * Michael Shetty *Reading Physician: * Miles Carter MD Indications: Congestive Heart Failure. Cardiac Arrest. History: Congestive heart failure. Cardiomegaly. Mitral regurgitation. PMH: Myocardial infarction. Risk factors: ETOH. Current tobacco use. Dyslipidemia. Conclusions Summary: - Left ventricle: Systolic function is severely reduced. The estimated ejection fraction is 10-15%. Diffuse hypokinesis with regional variations. - Right ventricle: Systolic function is moderately to severely reduced. - Mitral valve: There is moderate to severe regurgitation. Possible pulmonary vein systolic flow reversal. The valve area is 2.1 cm^2. The valve area by pressure half-time is 3.7 cm^2. The effective regurgitant orifice (PISA) is 0.39 cm^2. - Aortic valve: There is no evidence of stenosis. There is no significant regurgitation. - Tricuspid valve: There is moderate regurgitation. - Pericardium, extracardiac: There is no significant pericardial effusion. - Pulmonary arteries: Systolic pressure is mildly to moderately increased. - Compared to study of 07/23/2019, the left ventricle function is the same. The degee of mitral regurgitation is worse Study data: Transthoracic echocardiogram. Procedure: Transthoracic echocardiography was performed. Image quality was fair. The study was technically limited due to poor patient compliance. Complete 2D, spectral Doppler, and color flow Doppler. Location: Bedside. Patient status: Inpatient. Patient room number: 446. Rhythm: Normal sinus rhythm. Findings Left ventricle: The cavity size is dilated. Wall thickness is mildly increased. Systolic function is severely reduced. The estimated ejection fraction is 10-15%. Diffuse hypokinesis with regional variations. Doppler parameters are consistent with a reversible restrictive pattern. Right ventricle: The cavity size is mildly dilated. Systolic function is moderately to severely reduced. Left atrium: The atrium is normal in size. Right atrium: The atrium is mildly to moderately dilated. Mitral valve: The leaflets are mildly thickened. The findings are consistent with mild stenosis. There is moderate to severe regurgitation. Possible pulmonary vein systolic flow reversal. Aortic valve: The valve is trileaflet. There is no evidence of stenosis. There is no significant regurgitation. Tricuspid valve: The leaflets are normal thickness. There is no evidence of stenosis. There is moderate regurgitation. Pulmonic valve: The leaflets are normal thickness. There is no evidence of stenosis. There is trace to mild regurgitation. Aorta: The aortic root appears normal. The aortic arch appears normal. Pericardium: There is no significant pericardial effusion. Pulmonary arteries: Systolic pressure is mildly to moderately increased. Systemic veins: Inferior vena cava: The vessel is dilated. Respirophasic changes in dimension are absent. Measurements Left ventricle Value Ref Aortic valve continued Value Ref ANDI, LAX (H) 6.0 cm 4.2 - 5.8 LVOT/AV, VTI ratio 0.67 ----- ESD, LAX (H) 5.2 cm 2.5 - 4.0 TODD, VTI 2.54 cm^2 ----- FS, LAX (L) 13 % 25 - 43 TODD, Vmax 3.05 cm^2 ----- PW, ED, LAX (H) 1.2 cm 0.6 - 1.0 E', lat francia, TDI (L) 8.0 cm/sec >=10.0 Mitral valve Value Ref E/e', lat francia, 12 Peak E 0.94 m/sec --- -- TDI Peak A 0.36 m/sec ----- E', med francia, TDI (L) 3.0 cm/sec >=7.0 VTI leaflet coapt 21.3 cm ----- E/e', med francia, 31 Decel time 110 ms --- -- TDI PHT 60 ms ----- E', avg, TDI 5.5 cm/sec Mean grad, D 1.7 mm Hg --- -- E/e', avg, TDI (H) 17 <=14 Peak grad, D 3.2 mm Hg ----- Peak E/A ratio 2.61 ----- LVOT Value Ref MVA, PHT 3.7 cm^2 ----- Diam, S 2.21 cm MR peak v 4.97 m/sec ----- Peak sky, S 0.8 m/sec ERO, PISA 0.39 cm^2 ----- VTI, S 11.5 cm Peak grad, S 3 mm Hg Pulmonic valve Value Ref Mean grad, S 1 mm Hg Peak v, S 0.5 m/sec ----- Peak grad, S 1.0 mm Hg ----- Ventricular septum Value Ref IVS, ED (H) 1.1 cm 0.6 - 1.0 Tricuspid valve Value Ref Peak grad, D 41.0 mm Hg ----- Right ventricle Value Ref TR peak v (H) 3.2 m/sec <=2.8 ANDI, LAX 2.8 cm ANDI major ax, A4C (L) 4.0 cm 5.9 - 8.3 Aortic root Value Ref Pressure, S 49 mm Hg Root diam 3.5 cm <4.5 Left atrium Value Ref Ascending aorta Value Ref AP dim, ES (H) 4.50 cm 3.00 - AAo AP diam, S 3.3 cm ----- 4.00 AAo AP diam/bsa, S 1.3 cm/m^2 ----- ML dim, A4C 4.4 cm SI dim, A4C 5.6 cm Aortic arch Value Ref Vol/bsa, ES, 2-p 27 ml/m^2 16 - 34 Arch diam 3.0 cm ----- Right atrium Value Ref Decending aorta Value Ref SI dim, ES 5.0 cm 3.4 - 5.3 Gadiel peak sky 0.62 m/sec ----- ML dim, ES, A4C (H) 5.1 cm 2.6 - 4.4 Estimated RAP 8 mm Hg Pulmonary artery Value Ref Pressure, S 48.0 mm Hg ----- Aortic valve Value Ref Francia diam, ED 2.3 cm Inferior vena cava Value Ref Francia diam/bsa, ED 0.9 cm/m^2 Diam 2.4 cm ----- Peak v, S 1 m/sec VTI, S 17.2 cm Mean grad, S 3.0 mm Hg Peak grad, S 4.0 mm Hg Legend: (L) and (H) sadie values outside specified reference range. Prepared and electronically signed by Miles Carter MD 07/30/2019 11:58
[2019-07-30] MEDS: Lisinopril TAB* 5 MG PO SCH (16:33)
--- NOTE | 2019-07-30 16:46 | PN ---
Subjective Date of Service: 07/30/19 Interval History: Pt is feeling well today. He was having significant pain in the urethra secondary to the fermin catheter being in place. He has voided twice in the last 1 hour. He had about 350ml post void after the last void. He continues to decline evaluation for CABG. He states he thinks he needs to get stronger prior to this occurring despite me telling him that the housekeeper cleaning cooking has recommended that the patient be transferred for CABG. He denies any chest pain or SOB. He notes that his legs are still quite swollen. Today he admitted to me that he had used cocaine shortly before his admission and wonders if this may have precipitated his cardiac arrest. Objective Active Medications: Aspirin (Aspirin 81 Mg Chew Tab*) 81 mg PO DAILY [facility] Last Admin: 07/30/19 10:27 Dose: 81 mg Atorvastatin Calcium (Lipitor*) 80 mg PO DAILY [facility] Last Admin: 07/30/19 10:27 Dose: 80 mg Benzonatate (Tessalon Cap*) 100 mg PO TID PRN PRN Reason: COUGH Last Admin: 07/29/19 11:11 Dose: 100 mg Dextrose (D50w Syringe 50 Ml*) 25 gm IV PUSH .FOR FS < 60 - SS PRN PRN Reason: FS < 60 Last Admin: 07/23/19 22:56 Dose: 25 gm Ezetimibe (Zetia Tab*) 10 mg PO DAILY [facility] Last Admin: 07/30/19 10:27 Dose: 10 mg Folic Acid (Folvite Tab*) 1 mg PO DAILY [facility] Last Admin: 07/30/19 10:27 Dose: 1 mg Furosemide (Lasix Iv*) 40 mg IV 0800,1500 [facility] Last Admin: 07/30/19 15:19 Dose: 40 mg Guaifenesin/Codeine Phosphate (Robitussin Ac 100mg/10mg In 5 Ml) 5 ml PO Q4H PRN PRN Reason: COUGH Last Admin: 07/29/19 21:22 Dose: 5 ml Piperacillin Sod/Tazobactam (Sod 3.375 gm/ Sodium Chloride) 100 mls @ 25 mls/ hr IVPB Q8H [facility] Last Admin: 07/30/19 15:13 Dose: 25 mls/hr Lidocaine HCl (Lidocaine 2% Jelly*) 1 applic TOPICAL TID [facility] Last Admin: 07/30/19 14:07 Dose: Not Given Lisinopril (Prinivil Tab*) 2.5 mg PO DAILY [facility] Last Admin: 07/30/19 16:33 Dose: 2.5 mg Melatonin (Melatonin) 6 mg PO BEDTIME [facility] Last Admin: 07/29/19 21:22 Dose: 6 mg Nicotine (Nicotine Patch 7 Mg/24 Hr*) 1 patch TRANSDERM DAILY [facility] Last Admin: 07/30/19 10:35 Dose: 1 patch Nitroglycerin (Nitroglycerin 2.5 Mg Patch*) 1 patch TRANSDERM DAILY@0900 [facility] Last Admin: 07/30/19 10:30 Dose: 1 patch Pantoprazole Sodium (Protonix Tab*) 40 mg PO DAILY [facility] Last Admin: 07/30/19 10:27 Dose: 40 mg Pharmacy Consult (Zosyn Per Pharmacy*) 1 note FOLLOW UP .ZOSYN PER PHARMACY [facility] Pharmacy Profile Note (Nitro Patch/Oint Remove*) 1 note PATCH OFF 2100 [facility] Last Admin: 07/29/19 21:27 Dose: 1 patch Spironolactone (Aldactone Tab*) 25 mg PO DAILY [facility] Last Admin: 07/30/19 10:27 Dose: 25 mg Thiamine HCl (Vitamin B-1 Tab*) 100 mg PO DAILY [facility] Last Admin: 07/30/19 10:27 Dose: 100 mg Tramadol HCl (Ultram*) 50 mg PO Q6H PRN PRN Reason: PAIN - MODERATE Last Admin: 07/30/19 03:02 Dose: 50 mg Vital Signs - 8 hr 07/30/19 07/30/19 07/30/19 11:15 13:48 14:40 Temperature 97.3 F 97.6 F Pulse Rate 90 61 Respiratory 20 18 22 Rate Blood Pressure 105/70 103/86 (mmHg) O2 Sat by Pulse 94 98 Oximetry Oxygen Devices in Use Now: None Appearance: Middle aged male sitting up in the bed, impulsive, NAD Eyes: No Scleral Icterus Ears/Nose/Mouth/Throat: Mucous Membranes Moist Respiratory: Symmetrical Chest Expansion and Respiratory Effort, - - few bibasilar crackles Cardiovascular: NL Sounds; No Murmurs; No JVD, RRR, - - 2+ LE edema Abdominal: NL Sounds; No Tenderness; No Distention Extremities: No Clubbing, Cyanosis Skin: No Nodules or Sclerosis Neurological: - - alert, oriented x 3, impulsive Result Diagrams: 07/30/19 05:38 07/30/19 05:38 Additional Lab and Data: Laboratory Results - last 24 hr 07/28/19 07/29/19 07/29/19 23:13 05:21 05:21 WBC 14.3 H RBC 3.80 L Hgb 11.4 L Hct 34 L MCV 90 MCH 30 MCHC 33 RDW 16 H Plt Count 213 MPV 8.9 Sodium 138 Potassium 3.2 L Chloride 102 Carbon Dioxide 29 Anion Gap 7 BUN 24 Creatinine 1.02 Est GFR ( Amer) 94.3 Est GFR (Non-Af Amer) 78.0 BUN/Creatinine Ratio 23.5 H Glucose 103 H Calcium 7.6 L Phosphorus 2.2 L Magnesium 1.7 L Total Bilirubin 3.00 H AST 266 H ALT 400 H Alkaline Phosphatase 259 H C-Reactive Protein 197.01 H B-Natriuretic Peptide Total Protein 5.4 L Albumin 2.6 L Globulin 2.8 Albumin/Globulin Ratio 0.9 L Urine Color [place] Urine Appearance Cloudy Urine pH 5.0 Ur Specific [place] 1.020 Urine Protein Negative Urine Ketones Negative Urine Blood 2+ A Urine Nitrate Negative Urine Bilirubin Negative Urine Urobilinogen Positive A Ur Leukocyte Esterase Negative Urine WBC (Auto) 1+(6-10/hpf) A Urine RBC (Auto) 3+(>10/hpf) A Urine Bacteria Absent Urine Glucose Negative 07/29/19 05:21 WBC RBC Hgb Hct MCV MCH MCHC RDW Plt Count MPV Sodium Potassium Chloride Carbon Dioxide Anion Gap BUN Creatinine Est GFR ( Amer) Est GFR (Non-Af Amer) BUN/Creatinine Ratio Glucose Calcium Phosphorus Magnesium Total Bilirubin AST ALT Alkaline Phosphatase C-Reactive Protein B-Natriuretic Peptide > 1300 H Total Protein Albumin Globulin Albumin/Globulin Ratio Urine Color Urine Appearance Urine pH Ur Specific [place] Urine Protein Urine Ketones Urine Blood Urine Nitrate Urine Bilirubin Urine Urobilinogen Ur Leukocyte Esterase Urine WBC (Auto) Urine RBC (Auto) Urine Bacteria Urine Glucose Microbiology and Other Data: Microbiology 07/27/19 03:05 Blood Line Aerobic Blood Culture - Preliminary No Growth Day 2 07/27/19 03:05 Blood Line Anaerobic Blood Culture - Preliminary No Growth Day 2 07/23/19 08:46 Blood Venous Aerobic Blood Culture - Final No Growth Day 5 07/23/19 08:46 Blood Venous Anaerobic Blood Culture - Final No Growth Day 5 07/23/19 08:46 Blood Venous Aerobic Blood Culture - Final No Growth Day 5 07/23/19 08:46 Blood Venous Anaerobic Blood Culture - Final No Growth Day 5 07/23/19 23:15 Sputum Trach Gram Stain - Final 07/23/19 23:15 Sputum Trach Sputum Culture - Final YEAST Normal Estephania 07/23/19 13:50 Urine Urine Culture - Final No Growth (<1,000 CFU/mL) 07/23/19 23:18 Gastric Fluid Gastric Occult Blood - Final 07/23/19 16:13 Nasal Nasal Screen MRSA (PCR) - Final Mrsa Not Detected 07/23/19 13:50 Urine Legionella Urinary Antigen - Final Negative Legionella Antigen 07/23/19 13:50 Urine Streptococcus pneumoniae Ag Screen - Final Negative S. pneumo Antigen Assess/Plan/Problems-Billing Mr Lema is a 49yo M with PMH of known triple vessel CAD (declined CABG evaluation multiple times), severe ischemic CMP, ETOH and tobacco abuse presented with 2-3 weeks of flu like symptoms. Course complicated by asystole arrest in ED. Cardiogenic shock s/p levophed with his course complicated by ATN and shock liver. EF 10-15% with moderate MVR. - Patient Problems (1) Cardiac arrest Current Visit: Yes Status: Acute Code(s): I46.9 - CARDIAC ARREST, CAUSE UNSPECIFIED SNOMED Code(s): 691671834 Comment: Unclear what precipitated his arrest but I suspect cocaine use, which he has now admitted to using prior to his admission, in the setting of severe triple vessel CAD may have been the major cause. Additionally there was a question of respiratory compromise as he presented with c/o SOB. (2) Acute on chronic systolic CHF (congestive heart failure) Current Visit: Yes Status: Acute Code(s): I50.23 - ACUTE ON CHRONIC SYSTOLIC (CONGESTIVE) HEART FAILURE SNOMED Code(s): 758060320 Comment: Pt with repeat echo today that shows continued markedly reduced EF of 10-15%. He is markedly fluid overloaded and his weight is dramatically up. Continue lasix 40mg IV BID and spironolactone 25mg daily. Continue lisinopril 2.5mg daily. Pt had one time dose of metoprolol XL, will start this daily with close monitoring of BP. Will accept lower BP given his severe systolic dysfunction. Will need life vest on d/c if he refuses transfer for CABG. (3) Cardiogenic shock Current Visit: Yes Status: Acute Code(s): R57.0 - CARDIOGENIC SHOCK SNOMED Code(s): 33923925 Comment: Generally improving, plan as above. (4) Coronary artery disease Current Visit: Yes Status: Acute Code(s): I25.10 - ATHSCL HEART DISEASE OF [place] CORONARY ARTERY W/O ANG PCTRS SNOMED Code(s): 68956294 Comment: Pt with advanced 3 vessel CAD. He needs evaluation for CABG sooner rather than later. Currently he is refusing transfer for evaluation. Continue ASA, lipitor, metoprolol, lisinopril and nitro patch. (5) Shock liver Current Visit: Yes Status: Acute Code(s): K72.00 - ACUTE AND SUBACUTE HEPATIC FAILURE WITHOUT COMA SNOMED Code(s): 046379795 Comment: LFTs trending down but bilirubin climbing. Will get repeat levels tomorrow. Ammonia mildly elevated. He received lactulose this AM. (6) PAMELA (acute kidney injury) Current Visit: Yes Status: Acute Code(s): N17.9 - ACUTE KIDNEY FAILURE, UNSPECIFIED SNOMED Code(s): 03906682 Comment: Creatinine is back down to normal. He did have urinary retention requiring a fermin. Due to pain and patient agitation related to this, the fermin was removed this afternoon. He appears to be urinating without difficulty at this time. His post void is higher than I would like but he will not have the fermin replaced. Will monitor his post voids throughout the night. (7) Urinary retention Current Visit: Yes Status: Acute Code(s): R33.9 - RETENTION OF URINE, UNSPECIFIED SNOMED Code(s): 579793054 Comment: Fermin out-monitor UOP and post void residuals through tonight. (8) Right middle lobe pulmonary infiltrate Current Visit: Yes Status: Acute Code(s): R91.8 - OTHER NONSPECIFIC ABNORMAL FINDING OF LUNG FIELD SNOMED Code(s): 400177373 Comment: Pt completed 7 days Abx therapy. Stop zosyn. (9) ETOH abuse Current Visit: Yes Status: Acute Code(s): F10.10 - ALCOHOL ABUSE, UNCOMPLICATED SNOMED Code(s): 72327239 Comment: Continue thiamine and folate. It is unclear how long before pt's admission he stopped drinking. I am concerned he may not have been truthful when he stated his last drink was a few weeks prior to this admission. (10) Hyperlipidemia Current Visit: Yes Status: Acute Code(s): E78.5 - HYPERLIPIDEMIA, UNSPECIFIED SNOMED Code(s): 10198804 Comment: Continue lipitor 80mg daily. (11) Smoking Current Visit: Yes Status: Acute Code(s): F17.200 - NICOTINE DEPENDENCE, UNSPECIFIED, UNCOMPLICATED SNOMED Code(s): 65163411 Comment: Continue nicotine replacement therapy. (12) DVT prophylaxis Current Visit: Yes Status: Acute Code(s): QAX9983 - SNOMED Code(s): 385846968 Comment: start lovenox Status and Disposition: .
[2019-07-30] MEDS: Metoprolol Succinate XL TAB* 25 MG PO SCH (17:11)
[2019-07-30] MEDS: Nitro Patch/OINT Remove PATCH OFF SCH (20:34)
[2019-07-30] MEDS: Enoxaparin(*) 40 MG/0.4 ML SYR SUBCUT SCH (21:07)
[2019-07-31 00:08] LABS: BUN/Creatinine Ratio 18.3 (8-20); Calcium 7.9 mg/dL (8.6-10.3); EGFR African American 82.1 (>60); EGFR Non-African American 67.9 (>60); Magnesium 1.7 mg/dL (1.9-2.7); Potassium 3.1 mmol/L (3.5-5.0)
[2019-07-31] MEDS ORDERED: Magnesium Sulfate 2 GM IV* 2 GM/50 ML BAG IVPB ONE (01:28)
[2019-07-31] MEDS: Melatonin 3 MG TAB PO SCH ×2 (01:58→20:27)
[2019-07-31] MEDS: KCL 10 MEQ/50 ML IVPREMIX* 10 MEQ/50 ML BAG IV SCH ×4 (03:14→07:12)
[2019-07-31 06:38] LABS: Hematocrit 35 % (42-52); Hemoglobin 11.7 g/dL (14.0-18.0); Mean Corpuscular HGB Conc 33 g/dL (31-36); Mean Corpuscular Hemoglobin 29 pg (27-31); Mean Corpuscular Volume 89 fL (80-94); Mean Platelet Volume 9.3 fL (7.4-10.4); Platelet Count 329 10^3/uL (150-450); Red Blood Count 3.96 10^6 /uL (4.18-5.48); Red Cell Distribution Width 16 % (10-15)
[2019-07-31 06:54] LABS: BUN/Creatinine Ratio 20.2 (8-20); Calcium 7.8 mg/dL (8.6-10.3); EGFR African American 92.2 (>60); EGFR Non-African American 76.2 (>60); HDL Cholesterol 4.5 mg/dL; Potassium 3.5 mmol/L (3.5-5.0)
[2019-07-31] MEDS: Atorvastatin* 80 MG TAB PO SCH (08:37)
[2019-07-31] MEDS: Pantoprazole TAB * 40 MG TAB PO SCH (08:37)
[2019-07-31] MEDS: Folic Acid TAB* 1 MG PO SCH (08:37)
[2019-07-31] MEDS: Aspirin 81 mg CHEW TAB* 81 MG TAB.CHEW PO SCH (08:37)
[2019-07-31] MEDS: Thiamine TAB* 100 MG TAB PO SCH (08:37)
[2019-07-31] MEDS: Ezetimibe TAB* 10 MG PO SCH (08:37)
[2019-07-31] MEDS: Lisinopril TAB* 5 MG PO SCH (08:38)
[2019-07-31] MEDS: Metoprolol Succinate XL TAB* 25 MG PO SCH (08:38)
[2019-07-31] MEDS: Nicotine PATCH 7 MG/24 HR* PATCH TRANSDERM SCH (08:39)
[2019-07-31] MEDS: Nitroglycerin 0.1 mg/Hr PATCH* (2.5 MG) TRANSDERM SCH (08:39)
[2019-07-31] MEDS: Spironolactone TAB* 25 MG PO SCH (08:39)
[2019-07-31] MEDS: Furosemide IV* 10 MG/ML VIAL (40 MG) IV SCH ×2 (08:39→14:59)
[2019-07-31] MEDS ORDERED: Potassium Chlor TAB* 20 MEQ TAB.ER PO ONE (10:29)
--- NOTE | 2019-07-31 10:41 | PN ---
Subjective Date of Service: 07/31/19 Interval History: Pt is feeling well. He denies any chest pain or SOB. Nursing tells me that he just [place] the [place]. Overnight he was very confused. He still is not willing to consider transfer to a tertiary care center for LHC and evaluation for CABG. He continues to cough up scant amounts of bloody sputum. Objective Active Medications: Aspirin (Aspirin 81 Mg Chew Tab*) 81 mg PO DAILY [facility] Last Admin: 07/31/19 08:37 Dose: 81 mg Atorvastatin Calcium (Lipitor*) 80 mg PO DAILY [facility] Last Admin: 07/31/19 08:37 Dose: 80 mg Benzonatate (Tessalon Cap*) 100 mg PO TID PRN PRN Reason: COUGH Last Admin: 07/29/19 11:11 Dose: 100 mg Dextrose (D50w Syringe 50 Ml*) 25 gm IV PUSH .FOR FS < 60 - SS PRN PRN Reason: FS < 60 Last Admin: 07/23/19 22:56 Dose: 25 gm Ezetimibe (Zetia Tab*) 10 mg PO DAILY [facility] Last Admin: 07/31/19 08:37 Dose: 10 mg Enoxaparin Sodium (Lovenox(*)) 40 mg SUBCUT Q24H [facility] Last Admin: 07/30/19 21:07 Dose: 40 mg Folic Acid (Folvite Tab*) 1 mg PO DAILY [facility] Last Admin: 07/31/19 08:37 Dose: 1 mg Furosemide (Lasix Iv*) 40 mg IV 0800,1500 [facility] Last Admin: 07/31/19 08:39 Dose: 40 mg Guaifenesin/Codeine Phosphate (Robitussin Ac 100mg/10mg In 5 Ml) 5 ml PO Q4H PRN PRN Reason: COUGH Last Admin: 07/29/19 21:22 Dose: 5 ml Lisinopril (Prinivil Tab*) 2.5 mg PO DAILY [facility] Last Admin: 07/31/19 08:38 Dose: 2.5 mg Magnesium Oxide (Magox 400 Tab*) 400 mg PO DAILY [facility] Melatonin (Melatonin) 6 mg PO BEDTIME [facility] Last Admin: 07/31/19 01:58 Dose: Not Given Metoprolol Succinate (Toprol Xl Tab*) 12.5 mg PO DAILY [facility] Last Admin: 07/31/19 08:38 Dose: 12.5 mg Nicotine (Nicotine Patch 7 Mg/24 Hr*) 1 patch TRANSDERM DAILY [facility] Last Admin: 07/31/19 08:39 Dose: 1 patch Nitroglycerin (Nitroglycerin 2.5 Mg Patch*) 1 patch TRANSDERM DAILY@0900 [facility] Last Admin: 07/31/19 08:39 Dose: 1 patch Pantoprazole Sodium (Protonix Tab*) 40 mg PO DAILY [facility] Last Admin: 07/31/19 08:37 Dose: 40 mg Pharmacy Profile Note (Nitro Patch/Oint Remove*) 1 note PATCH OFF 2100 [facility] Last Admin: 07/30/19 20:34 Dose: 1 patch Spironolactone (Aldactone Tab*) 25 mg PO DAILY [facility] Last Admin: 07/31/19 08:39 Dose: 25 mg Thiamine HCl (Vitamin B-1 Tab*) 100 mg PO DAILY [facility] Last Admin: 07/31/19 08:37 Dose: 100 mg Tramadol HCl (Ultram*) 50 mg PO Q6H PRN PRN Reason: PAIN - MODERATE Last Admin: 07/30/19 03:02 Dose: 50 mg Vital Signs - 8 hr 07/31/19 07/31/19 07/31/19 02:50 07:15 07:42 Temperature 98.2 F 97.9 F Pulse Rate 96 94 Respiratory 18 20 20 Rate Blood Pressure 117/87 107/69 (mmHg) O2 Sat by Pulse 98 98 Oximetry Oxygen Devices in Use Now: None Appearance: Middle aged male sitting up in bed, NAD Eyes: No Scleral Icterus Ears/Nose/Mouth/Throat: Mucous Membranes Moist Respiratory: Symmetrical Chest Expansion and Respiratory Effort, Clear to Auscultation - diminished breath sounds in the R base Cardiovascular: NL Sounds; No Murmurs; No JVD, RRR, - - 2+ LE edema (maybe slightly better than yesterday) Abdominal: NL Sounds; No Tenderness; No Distention Extremities: No Clubbing, Cyanosis Skin: No Nodules or Sclerosis Neurological: - - alert, when I ask him to tell me where we are, year, month he gets all of that information correct Result Diagrams: 07/31/19 06:28 07/31/19 06:28 Additional Lab and Data: Laboratory Results - last 24 hr 07/28/19 07/29/19 07/29/19 23:13 05:21 05:21 WBC 14.3 H RBC 3.80 L Hgb 11.4 L Hct 34 L MCV 90 MCH 30 MCHC 33 RDW 16 H Plt Count 213 MPV 8.9 Sodium 138 Potassium 3.2 L Chloride 102 Carbon Dioxide 29 Anion Gap 7 BUN 24 Creatinine 1.02 Est GFR ( Amer) 94.3 Est GFR (Non-Af Amer) 78.0 BUN/Creatinine Ratio 23.5 H Glucose 103 H Calcium 7.6 L Phosphorus 2.2 L Magnesium 1.7 L Total Bilirubin 3.00 H AST 266 H ALT 400 H Alkaline Phosphatase 259 H C-Reactive Protein 197.01 H B-Natriuretic Peptide Total Protein 5.4 L Albumin 2.6 L Globulin 2.8 Albumin/Globulin Ratio 0.9 L Urine Color [place] Urine Appearance Cloudy Urine pH 5.0 Ur Specific [place] 1.020 Urine Protein Negative Urine Ketones Negative Urine Blood 2+ A Urine Nitrate Negative Urine Bilirubin Negative Urine Urobilinogen Positive A Ur Leukocyte Esterase Negative Urine WBC (Auto) 1+(6-10/hpf) A Urine RBC (Auto) 3+(>10/hpf) A Urine Bacteria Absent Urine Glucose Negative 07/29/19 05:21 WBC RBC Hgb Hct MCV MCH MCHC RDW Plt Count MPV Sodium Potassium Chloride Carbon Dioxide Anion Gap BUN Creatinine Est GFR ( Amer) Est GFR (Non-Af Amer) BUN/Creatinine Ratio Glucose Calcium Phosphorus Magnesium Total Bilirubin AST ALT Alkaline Phosphatase C-Reactive Protein B-Natriuretic Peptide > 1300 H Total Protein Albumin Globulin Albumin/Globulin Ratio Urine Color Urine Appearance Urine pH Ur Specific [place] Urine Protein Urine Ketones Urine Blood Urine Nitrate Urine Bilirubin Urine Urobilinogen Ur Leukocyte Esterase Urine WBC (Auto) Urine RBC (Auto) Urine Bacteria Urine Glucose Microbiology and Other Data: Microbiology 07/27/19 03:05 Blood Line Aerobic Blood Culture - Preliminary No Growth Day 2 07/27/19 03:05 Blood Line Anaerobic Blood Culture - Preliminary No Growth Day 2 07/23/19 08:46 Blood Venous Aerobic Blood Culture - Final No Growth Day 5 07/23/19 08:46 Blood Venous Anaerobic Blood Culture - Final No Growth Day 5 07/23/19 08:46 Blood Venous Aerobic Blood Culture - Final No Growth Day 5 07/23/19 08:46 Blood Venous Anaerobic Blood Culture - Final No Growth Day 5 07/23/19 23:15 Sputum Trach Gram Stain - Final 07/23/19 23:15 Sputum Trach Sputum Culture - Final YEAST Normal Estephania 07/23/19 13:50 Urine Urine Culture - Final No Growth (<1,000 CFU/mL) 07/23/19 23:18 Gastric Fluid Gastric Occult Blood - Final 07/23/19 16:13 Nasal Nasal Screen MRSA (PCR) - Final Mrsa Not Detected 07/23/19 13:50 Urine Legionella Urinary Antigen - Final Negative Legionella Antigen 07/23/19 13:50 Urine Streptococcus pneumoniae Ag Screen - Final Negative S. pneumo Antigen Assess/Plan/Problems-Billing Mr Lema is a 49yo M with PMH of known triple vessel CAD (declined CABG evaluation multiple times), severe ischemic CMP, ETOH and tobacco abuse presented with 2-3 weeks of flu like symptoms. Course complicated by asystole arrest in ED. Cardiogenic shock s/p levophed with his course complicated by ATN and shock liver. EF 10-15% with moderate MVR. - Patient Problems (1) Cardiac arrest Current Visit: Yes Status: Acute Code(s): I46.9 - CARDIAC ARREST, CAUSE UNSPECIFIED SNOMED Code(s): 918390456 Comment: Unclear what precipitated his arrest but I suspect cocaine use, which he has now admitted to using prior to his admission, in the setting of severe triple vessel CAD may have been the major cause. Additionally there was a question of respiratory compromise as he presented with c/o SOB. (2) Acute on chronic systolic CHF (congestive heart failure) Current Visit: Yes Status: Acute Code(s): I50.23 - ACUTE ON CHRONIC SYSTOLIC (CONGESTIVE) HEART FAILURE SNOMED Code(s): 156032436 Comment: Pt still with marked LE edema. CXR on 07/27/19 questions infiltrate vs CHF. Continue lasix 40mg IV BID to try to diurese further. Continue metoprolol XL 12.5mg daily, lisinopril 2.5mg daily and spironolactone 25mg daily. If he is discharged home as opposed to being transferred to a tertiary care center, he should be fitted for a life vest. Pt has refused this earlier this admission but will continue to try to encourage the patient to accept it. (3) Cardiogenic shock Current Visit: Yes Status: Acute Code(s): R57.0 - CARDIOGENIC SHOCK SNOMED Code(s): 07805890 Comment: Generally improving, plan as above. (4) Coronary artery disease Current Visit: Yes Status: Acute Code(s): I25.10 - ATHSCL HEART DISEASE OF [place] CORONARY ARTERY W/O ANG PCTRS SNOMED Code(s): 72754829 Comment: Pt with advanced 3 vessel CAD. He needs evaluation for CABG sooner rather than later. Currently he is refusing transfer for evaluation. Continue ASA, lipitor, metoprolol, lisinopril and nitro patch. No c/o chest pain. (5) Shock liver Current Visit: Yes Status: Acute Code(s): K72.00 - ACUTE AND SUBACUTE HEPATIC FAILURE WITHOUT COMA SNOMED Code(s): 422496223 Comment: LFTs have been trending down but bilirubin climbing. Repeat liver panel tomorrow AM (not ordered for today). (6) PAMELA (acute kidney injury) Current Visit: Yes Status: Acute Code(s): N17.9 - ACUTE KIDNEY FAILURE, UNSPECIFIED SNOMED Code(s): 31407034 Comment: Creatinine is back down to normal. He did have urinary retention requiring a fermin. Repeat post void residual today. He states he is urinating well. (7) Urinary retention Current Visit: Yes Status: Acute Code(s): R33.9 - RETENTION OF URINE, UNSPECIFIED SNOMED Code(s): 011006046 Comment: Fermin out-monitor UOP and post void. (8) Right middle lobe pulmonary infiltrate Current Visit: Yes Status: Acute Code(s): R91.8 - OTHER NONSPECIFIC ABNORMAL FINDING OF LUNG FIELD SNOMED Code(s): 430289231 Comment: Pt completed 7 days Abx therapy. Monitor WBC count- it really has not changed much over the last several days. (9) ETOH abuse Current Visit: Yes Status: Acute Code(s): F10.10 - ALCOHOL ABUSE, UNCOMPLICATED SNOMED Code(s): 04412348 Comment: Continue thiamine and folate. It is unclear how long before pt's admission he stopped drinking. I am concerned he may not have been truthful when he stated his last drink was a few weeks prior to this admission. (10) Hyperlipidemia Current Visit: Yes Status: Acute Code(s): E78.5 - HYPERLIPIDEMIA, UNSPECIFIED SNOMED Code(s): 57332910 Comment: Continue lipitor 80mg daily. (11) Smoking Current Visit: Yes Status: Acute Code(s): F17.200 - NICOTINE DEPENDENCE, UNSPECIFIED, UNCOMPLICATED SNOMED Code(s): 73939434 Comment: Continue nicotine replacement therapy. (12) DVT prophylaxis Current Visit: Yes Status: Acute Code(s): JQS9792 - SNOMED Code(s): 283387436 Comment: lovenox Status and Disposition: .
[2019-07-31] MEDS: Enoxaparin(*) 40 MG/0.4 ML SYR SUBCUT SCH (20:27)
[2019-07-31] MEDS: Nitro Patch/OINT Remove PATCH OFF SCH (20:41)
[2019-07-31] MEDS: traMADol TAB* 50 MG PO PRN (21:57)
[2019-07-31] MEDS ORDERED: diPHENhydraMINE IV* 50 MG/ML 1 ml VIAL (BENADRYL) IV ONE (22:22)
[2019-07-31] MEDS ORDERED: LORazepam INJ* 2 MG/ML 1 ML VIAL IV PUSH ONE (22:22)
[2019-07-31] MEDS ORDERED: Lorazepam PYXIS KEY PRN (22:22)
[2019-08-01 05:25] LABS: Hematocrit 36 % (42-52); Hemoglobin 11.7 g/dL (14.0-18.0); Mean Corpuscular HGB Conc 33 g/dL (31-36); Mean Corpuscular Hemoglobin 29 pg (27-31); Mean Corpuscular Volume 89 fL (80-94); Platelet Count 367 10^3/uL (150-450); Red Blood Count 4.02 10^6 /uL (4.18-5.48); Red Cell Distribution Width 17 % (10-15); White Blood Count 14.6 10^3/uL (3.5-10.8)
[2019-08-01 05:43] LABS: Albumin 2.9 g/dL (3.2-5.2); Albumin/Globulin Ratio 0.8 (1-3); BUN/Creatinine Ratio 22.5 (8-20); Calcium 8.3 mg/dL (8.6-10.3); EGFR African American 94.3 (>60); Globulin 3.5 g/dL (2-4); Potassium 3.4 mmol/L (3.5-5.0); Total Bilirubin 3.4 mg/dL (0.2-1.0); Total Protein 6.4 g/dL (6.4-8.9)
[2019-08-01] MEDS: Spironolactone TAB* 25 MG PO SCH (08:47)
[2019-08-01] MEDS: Aspirin 81 mg CHEW TAB* 81 MG TAB.CHEW PO SCH (08:48)
[2019-08-01] MEDS: Thiamine TAB* 100 MG TAB PO SCH (08:49)
[2019-08-01] MEDS: Folic Acid TAB* 1 MG PO SCH (08:51)
[2019-08-01] MEDS: Ezetimibe TAB* 10 MG PO SCH (08:51)
[2019-08-01] MEDS: Pantoprazole TAB * 40 MG TAB PO SCH (08:51)
[2019-08-01] MEDS: Atorvastatin* 80 MG TAB PO SCH (08:52)
[2019-08-01] MEDS: Nicotine PATCH 7 MG/24 HR* PATCH TRANSDERM SCH (08:52)
[2019-08-01] MEDS: Lisinopril TAB* 5 MG PO SCH (08:54)
[2019-08-01] MEDS: Furosemide IV* 10 MG/ML VIAL (40 MG) IV SCH (08:58)
[2019-08-01] MEDS ORDERED: Magnesium Oxide TAB* 400 MG PO SCH (09:00)
[2019-08-01] MEDS: Metoprolol Succinate XL TAB* 25 MG PO SCH (09:07)
[2019-08-01] MEDS ORDERED: Potassium Chlor TAB* 20 MEQ TAB.ER PO SCH (13:00)
[2019-08-01] MEDS: Nitroglycerin 0.1 mg/Hr PATCH* (2.5 MG) TRANSDERM SCH (13:03)
[2019-08-01 13:28] LABS: Magnesium 1.9 mg/dL (1.9-2.7)
--- NOTE | 2019-08-01 13:54 | CONSULT ---
Consult Consult: Consult Reason: For Medical Decision Making Capacity S: Psychiatry is asked to evaluate this 49 year old single male for medical decision making capacity. He lives with his parents at home and is requesting to go home to take care of his parents. He expressed that he will wear a life vest and has done so in the past. He plans to pick pulling machine tender his medications from [facility] when discharged and plans to follow up with a orientation and mobility specialist in [place] this week. He is refusing to be transferred to a tertiary care center at this time. He is admitted to the Hospitalist service following a cardiac arrest. He describe his presenting medical condition as having " heart issues and it is only working at 10%". He acknowledged the possibility of if he refused to go directly to tertiary care center. The patient did not know all the names of his medications but described what they treat. Past Psychiatric history: none O: 49 year old male appears older than stated age , dressed in patient gown, showing increased abdominal girth due to aggregation of fluid with slightly jaundiced sclera. He was sitting in bed calm, cooperative. Euthymic affect. Linear and goal directed thoughts. No delusions or preoccupations. He denied suicidal ideation, intent or plan. He denied homicidal ideation intent or plan. No perceptual disturbances. Insight and judgment poor. He is aware of the name of his current location, month, day and year. He knows the name of the current president. A/P: Capacity: DX: Adjustment Disorder This patient has the capacity to make his own medical decisions. He is able to appreciate the situation, and its consequences. He is able to reasonably rationalize the reasons for refusing care. He is also able to consider alterative treatment options. At this time this patient has the capacity to rationally make his own medical decisions given the following reasons: 1) The patient was able to communicate a choice. 2) The patient is able to understand the meaning of the information communicated to him about his illness and to appreciate his medical condition as well as the outcome and the consequences of accepting or refusing various treatment options. 3) The patient was able to engage in a rational process of considering alternative treatment options. Thank you for the consult. Patient notified 24 hour availability of the ER and or to call 911 in the case of a emergency As capacity is subject to change at any time, feel free to consult Psychiatry again in the event of any changes. Neeraj House M.D.
[2019-08-01 19:55] VITALS: BP 114/81
--- NOTE | 2019-08-01 21:01 | DS ---
CC: Dr. Adkins * DISCHARGE SUMMARY: DATE OF ADMISSION: 07/23/19 DATE OF DISCHARGE: Against medical advice, 08/01/19. PRIMARY CARE PROVIDER: To establish with Dr. Bridgette Adkins. PRINCIPAL DIAGNOSIS: Cardiac arrest in the setting of severe triple vessel disease and possible respiratory compromise secondary to pneumonia and cocaine use shortly prior to admission. SECONDARY DIAGNOSES: 1. Severe triple-vessel coronary artery disease. 2. Peripheral vascular disease. 3. Ischemic cardiomyopathy. 4. [id number] mitral regurgitation. 5. Hyperlipidemia. 6. Tobacco abuse. 7. Alcohol abuse. DISCHARGE MEDICATIONS: 1. Aspirin 81 mg p.o. daily. 2. Amlodipine 2.5 mg p.o. daily (new). 3. Spironolactone 25 mg p.o. daily (new). 4. Crestor 40 mg p.o. daily. 5. Nitroglycerin patch 0.1-mg per hour 1 patch topically daily. 6. Magnesium oxide 400 mg p.o. daily. 7. Lisinopril 2.5 mg p.o. daily (new). 8. Lactulose 30 mL p.o. b.i.d. (new). 9. Folic acid 1 mg p.o. daily (new). 10. Zetia 10 mg p.o. daily. HOSPITAL COURSE: Mr. Lema is a 49-year-old male who has known severe triple- vessel disease, who was supposed to undergo CABG, but subsequently did not follow through, ischemic cardiomyopathy with an EF of 25% to 30%, and alcohol and tobacco abuse, who presented to the emergency room with complaints of "feeling like crap." The patient reported having respiratory illness for approximately 3 weeks. He was due to see Cardiology the week prior to admission ; however, felt unwell and did not follow through. The patient was admitted for severe sepsis secondary to a community-acquired pneumonia. Unfortunately, as the patient was getting ready to be transferred to the floor, he went into cardiac arrest. What was reported from nursing is the patient was trying to have a bowel movement on the bedside commode, when he suddenly decompensated in his respiratory effort. He was placed back in bed and oxygen started. He was unable to find a comfortable position. He was tripoding with labored breath. The patient needed to have a sudden bowel movement again and stood and pivoted to the commode. He was noted to be diaphoretic, pale, and having a feeling of impending doom. Getting the patient back into bed and getting ready to do another EKG, the patient developed cardiac arrest. The patient was admitted to the intensive care unit. He required vasopressor support. He had targeted temperature management. He was extubated on 07/26/19. The patient developed cardiogenic shock. Echocardiogram reveals an EF of 10% to 15%. Additionally, he was felt to have ischemic hepatitis in the setting of probable alcoholic cirrhosis. There was a question of cholecystitis early on during his hospitalization; however, this did not seem to fatima out. The patient was ultimately transferred to the floor on 07/28/19. He was seen the following day by Dr. Coleman from Cardiology. Dr. Coleman recommended that the patient highly consider being transferred to a tertiary care center for further evaluation for bypass surgery as was recommended previously. It was recommended that the patient have a LifeVest on discharge. I took over the care of the patient on . At that time, generally things were improving. He was actively being diuresed as he was fluid overloaded. His vital findings were stable in the setting of being on low-dose lisinopril and metoprolol XL. It was on 07/30/19 that the patient admitted to using cocaine prior to his presentation to the emergency room. It was then felt that the patient likely had cardiac arrest secondary to probable respiratory compromise, but also complicated by cocaine use in the setting of severe triple- vessel disease. The patient was very adamant during my multiple visits over the last few days that he was not going to go to a tertiary care center to be evaluated for CABG. Additionally, he refused LifeVest therapy. The patient, however, was willing initially to stay in the hospital to be managed medically and to be tuned up. On 08/01/19, the patient became increasingly agitated stating that he needed to leave to go take care of his parents. He was intermittently confused. The night prior he was noted to be hallucinating and agitated requiring Zyprexa administration. As the patient was stating that he wanted to leave against medical advice, I did request Psychiatry consultation. Dr. House saw the patient from Psychiatry and felt at the time of his evaluation that the patient had capacity to make medical and discharge decisions. After that conversation with Dr. House occurred, the patient left the floor wearing just his hospital gown. He was found on the second floor lobby. Nursing met him. They gave him some pants to wear. I was then notified that the patient was trying to leave right now. I discussed with the patient numerous times over the course of approximately 15 minutes while downstairs in the ED waiting room that he has incredibly high risk of recurrent cardiac arrest given his tenuous clinical state. He was having runs of ventricular tachycardia earlier in the day. The patient despite me reinforcing all the reasons that he needs to stay in the hospital adamantly stated that he was going to go home to take care of his parents. The patient was deemed to have capacity just prior to this. I am very concerned that the patient will be back to the emergency room shortly in either cardiac arrest or in significant heart failure or hepatic encephalopathy. I asked if I could speak to the patient's sister, which he denied numerous times. The patient ran into 2 friends while he was waiting for his taxi to arrive. They tried to convince him to stay, he would not. The patient was ambulating relatively safely, but somewhat wobbly on his feet. A last attempt was made at trying to get the patient to come back upstairs, which again he refused. The patient went over the AMA paperwork with myself. He understands that he is at risk of cardiac arrest, , SC, or any other number of issues related to his acute medical issues that transpired during this hospitalization. PHYSICAL EXAMINATION: On the day of discharge, the patient was awake, alert, oriented to place and situation, sitting in a chair in the ED waiting room, in no acute distress. Cardiac exam reveals a normal S1, S2 with a regular rate and rhythm. He has 1 to 2+ ankle edema bilaterally. His lower extremity edema has improved over the last 2 days. Lungs are clear to auscultation bilaterally. Abdomen is soft, nontender, and nondistended. The patient moves all 4 extremities symmetrically. Neurologically, the patient does have periods of confusion and agitation, though currently he is alert and oriented to situation. FOLLOWUP CONCERNS: The patient is being discharged home against medical advice. [facility]. ACTIVITY LEVEL: As tolerated. DIET: Heart healthy. CONDITION ON DISCHARGE: Guarded. TIME SPENT: Fifty five minutes was spent on the AMA discharge of this patient. [id number]/[facility] #: [id number] MTDD
== END 2019-08-01 15:15 | disposition left against medical advice (07) | DRG 720 ==
LOC: ED 08:09 → ICU 11:08 → MEDTELE 07-28 18:48
PROVIDERS: ADMIT Internal Medicine; ATTEND Hospitalist
PROC: 5A1945Z Respiratory Ventilation, 24-96 Consecutive Hours (ICD-10-PCS; principal; 2019-07-23)
PROC: 0BH17EZ Insertion of Endotracheal Airway into Trachea, Via Natural or Artificial Opening (ICD-10-PCS; 2019-07-23)
PROC: 05H633Z Insertion of Infusion Device into Left Subclavian Vein, Percutaneous Approach (ICD-10-PCS; 2019-07-23)
PROC: 3E043XZ Introduction of Vasopressor into Central Vein, Percutaneous Approach (ICD-10-PCS; 2019-07-23)
PROC: 06HM33Z Insertion of Infusion Device into Right Femoral Vein, Percutaneous Approach (ICD-10-PCS; 2019-07-24)
PROC: B54BZZA Ultrasonography of Right Lower Extremity Veins, Guidance (ICD-10-PCS; 2019-07-24)
DX: A41.9 Sepsis, unspecified organism (principal); J18.9 Pneumonia, unspecified organism; R65.21 Severe sepsis with septic shock; K72.00 Acute and subacute hepatic failure without coma; I50.23 Acute on chronic systolic (congestive) heart failure; N17.0 Acute kidney failure with tubular necrosis; I46.2 Cardiac arrest due to underlying cardiac condition; I42.8 Other cardiomyopathies; I24.8 Other forms of acute ischemic heart disease; R04.2 Hemoptysis; I47.1 Supraventricular tachycardia; I47.2 Ventricular tachycardia; I25.10 Atherosclerotic heart disease of native coronary artery without angina pectoris; I25.5 Ischemic cardiomyopathy; I73.9 Peripheral vascular disease, unspecified; I34.0 Nonrheumatic mitral (valve) insufficiency; E78.5 Hyperlipidemia, unspecified; F17.210 Nicotine dependence, cigarettes, uncomplicated; R79.89 Other specified abnormal findings of blood chemistry; R74.0 Nonspecific elevation of levels of transaminase and lactic acid dehydrogenase [LDH]; K75.89 Other specified inflammatory liver diseases; F10.20 Alcohol dependence, uncomplicated; R33.9 Retention of urine, unspecified; F43.20 Adjustment disorder, unspecified; K70.30 Alcoholic cirrhosis of liver without ascites; F14.90 Cocaine use, unspecified, uncomplicated; Z53.29 Procedure and treatment not carried out because of patient's decision for other reasons; Z79.82 Long term (current) use of aspirin; Z79.899 Other long term (current) drug therapy; Z89.422 Acquired absence of other left toe(s); Z28.21 Immunization not carried out because of patient refusal
CPT/HCPCS: 36415; 36600; 70450; 71045; 71046; 71275; 76705; 78226; 80048; 80053; 80061; 80076; 81003; 81015; 82140; 82247; 82248; 82271; 82330; 82728; 82803; 83036; 83540; 83550; 83605; 83735; 83880; 84100; 84460; 84484; 85025; 85027; 85049; 85362; 85384; 85610; 85730; 86140; 87040; 87070; 87086; 87205; 87641; 87899; 93005; 93306; 94002; 94003; 99285; A9270-GY; A9537; C8929; J0171; J0456; J0610; J0696; J1200; J1644; J1650; J1940; J2060; J2250; J2543; J2704; J3010; J3475; J3480; J7060; P9045; Q9967

== ENCOUNTER 2019-08-07 15:58 | Inpatient (IN) | payer MEDICAID ==
--- OUTSIDE RECORDS SUMMARY | 2019-08-07 16:09 | XMS REPORT | Continuity of Care Document ---
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 Onset: 02/27/2018 Alcohol abuse, uncomplicated Yodit Moon M.D. Onset: 02/27/2018 Cardiomyopathy, unspecified Yodit Moon M.D. Onset: 02/28/2018 Intermittent claudication due to Yodit Moon M.D. 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 Onset: 03/01/2018 Sepsis, unspecified organism Yodit Moon M.D. Onset: 02/25/2018 Mixed hyperlipidemia Elin Crowe M.D. Onset: 03/02/2019 Social History Type Date Description Comments Sex Unknown ETOH Use Denies alcohol use Recreational Drug Use Never Used Drugs Tobacco Use Start: Unknown Light tobacco smoker (10 3 daily or fewer cigarettes/day) Smoking Status Reviewed: 03/02/19 Light tobacco smoker (10 3 daily or fewer cigarettes/day) Exercise Type/Frequency Exercises regularly 1/2 mile daily Allergies, Adverse Reactions, Alerts Description No Known Drug Allergies Medications Active Medications SIG Qnty Indications Ordering Provider Date Vascepa 2 by mouth 360caps E78.2 Elin Crowe M.D. 03/02/2019 1gm Capsules twice a day Toprol XL 1 by mouth 90tabs I25.5 Elin Crowe M.D. 07/24/2018 50mg Tablets daily ER 24HR Crestor take 1 tab by 90tabs I25.10 Elin Crowe M.D. 07/24/2018 40mg Tablets mouth daily Zetia 1 by mouth 90tabs I25.10 Elin Crowe M.D. 07/24/2018 10mg Tablets every day Benazepril HCL 1 by mouth 90tabs Elin Crowe M.D. 5mg every day Tablets Aspirin Adult Low 1 by mouth 90tabs Rosalind Webb, Dose every day N.P. 81mg Tablets DR Medications Administered in Office Medication SIG Qnty Indications Ordering Provider Date Records Fee Elin Crowe M.D. 01/09/2019 Injection Records Fee Elin Crowe M.D. 11/07/2018 Injection Records Fee Elin Crowe M.D. 10/25/2018 Injection Immunizations Description No Information Available Vital Signs Date Vital Result Comment 03/02/2019 1:15pm Height 73 inches 6'1" Weight 223.00 lb with shoes Heart Rate 80 /min BP Systolic Sitting 126 mmHg Lue BP Diastolic Sitting 80 mmHg Lue BP Systolic Standing 120 mmHg Lue BP Diastolic Standing 70 mmHg Lue BMI (Body Mass Index) 29.4 kg/m2 Ejection Fraction 25-30% Echo 08/11/18 11/28/2018 1:15pm Height 73 inches 6'1" Weight 224.00 lb with shoes Heart Rate 84 /min BP Systolic Sitting 120 mmHg lue reg cuff BP Diastolic Sitting 80 mmHg lue reg cuff BP Systolic Standing 124 mmHg lue reg cuff BP Diastolic Standing 80 mmHg lue reg cuff Respiratory Rate 16 /min BMI (Body Mass Index) 29.6 kg/m2 Ejection Fraction 25-30% echo. 08/11/18 Results Test Acquired Date Facility Test Result H/L Range Note Laboratory test 03/02/2019 [facility] LDL Cholesterol <pending> finding [address] [place] [address] [phone] Laboratory test 03/02/2019 [facility] Ast (Sgot) <pending> finding [address] [place] [address] [phone] Creatine Kinase(CK) <pending> Lipid Panel - 03/01/2019 [facility] Creatine 151 U/L Normal 10 -[address] Kinase(CK) [place] [address] [phone] Comp Metabolic 03/01/2019 [facility] Sodium 139 Normal 135- [address] mmol/[place] [address] [phone] Potassium 4.7 mmol/L Normal 3.5-5.0 Chloride 107 mmol/L Normal 101-111 Co2 Carbon Dioxide 26 mmol/L Normal 22-32 Anion Gap 6 mmol/L Normal 2-11 Glucose 90 mg/dL Normal 70-100 Blood Urea Nitrogen 16 mg/dL Normal 6-24 Creatinine 1.16 mg/dL Normal 0.67-1.17 BUN/Creatinine Ratio 13.8 Normal 8-20 Calcium 10.3 mg/dL Normal 8.6-10.3 Total Protein 7.3 g/dL Normal 6.4-8.9 Albumin 4.5 g/dL Normal 3.2-5.2 Globulin 2.8 g/dL Normal 2-4 Albumin/Globulin Ratio 1.6 Normal 1-3 Total Bilirubin 0.60 mg/dL Normal 0.2-1.0 Alkaline Phosphatase 104 U/L Normal 34-104 Alt 62 U/L High 7-52 Ast 35 U/L Normal 13-39 Egfr Non- 67.2 >60 Egfr 81.3 >60 2 Lipid Profile 03/01/2019 [facility] Triglycerides 350 mg/dL 3 (Trig/Chol/HDL) [address] [place] [address] [phone] Cholesterol 270 mg/dL 4 HDL Cholesterol 33.9 mg/dL 5 LDL Cholesterol 166 mg/dL 6 1 FASTING Copy Result to: ALVARO BENNETT ([id number]) 2 Because ethnic data is not always readily available, this report includes an eGFR for both -Americans and non- Americans. The National Kidney Disease Education Program (NKDEP) does not endorse the use of the MDRD equation for patients that are not between the ages of 18 and 70, are , have extremes of body size, muscle mass, or nutritional status, or are non- or non-. According to the National Kidney Foundation, irrespective of diagnosis, the stage of the disease is based on the level of kidney function: Stage Description GFR(mL/min/1.73 m(2)) 1 Kidney damage with normal or decreased GFR 90 2 Kidney damage with mild decrease in GFR 60-89 3 Moderate decrease in GFR 30-59 4 Severe decrease in GFR 15-29 5 Kidney failure <15 (or dialysis) 3 Desirable: <150 Borderline High: 150-199 High: 200-499 Very High: >500 4 Desirable: <200 Borderline High: 200-239 High: >239 5 Low: <40 Desirable: 40-60 High: >60 6 Desirable: <100 Near Optimal: 100-129 Borderline High: 130-159 High: 160-189 Very High: >189 Procedures Description No Information Available Medical Devices Description No Information Available Encounters Type Date Location Provider Dx Diagnosis Office Visit 03/02/2019 [facility] Elin Crowe, I25.10 Athscl heart 1:30p Of [employer] [place] disease of [place] coronary artery w/o ang pctrs I25.5 Ischemic cardiomyopathy E78.2 Mixed hyperlipidemia I73.9 Peripheral vascular disease, unspecified Z72.0 Tobacco use Assessments Date Code Description Provider 03/02/2019 I25.10 Atherosclerotic heart disease of [place] coronary Elin Crowe M.D. artery without angina pectoris 03/02/2019 I25.5 Ischemic cardiomyopathy Elin Crowe M.D. 03/02/2019 E78.2 Mixed hyperlipidemia Elin Crowe M.D. 03/02/2019 I73.9 Peripheral vascular disease, unspecified Elin Crowe M.D. 03/02/2019 Z72.0 Tobacco use Elin Crowe M.D. Plan of Treatment 03/02/2019 - Elin Crowe M.D.I25.10 Atherosclerotic heart disease of [place] coronary artery without angina pectorisComments:Aware you are afraid of by pass surgery.Follow up:OV 2 months with ECG (after echo and updated labs) .Recommendations:Avoid strenuous activity due to all vessels having blockages. Continue current medications. To prevent further build up of blockages: Keep BP controlled. Weight optimized. Cholesterol controlled. Stay active. Avoid smoking.I25.5 Ischemic cardiomyopathyNew Orders:Echocardiogram, Ordered: E78.2 Mixed hyperlipidemiaNew Medication:Vascepa 1 gm - 2 by mouth twice a dayComments:LDL very high and triglycerides highOf meds x 2 weeks.Recommendations:Healthy fats are nuts, oily fish and more. Avoid excessive fatty meats. For your elevated triglycerides and weight: Minimize foods with refined sugar, flour. Low "white" foods, white flour, sugar, rice, potatoes. NEW: Vascepa (fish oil)I73.9 Peripheral vascular disease, unspecifiedComments:Continue with regular walking.Z72.0 Tobacco useComments:I strongly recommend completely stopping cigarettes. Smoking cessation discussed. Functional Status Description No Information Available Mental Status Description No Information Available Referrals Description No Information Available
--- OUTSIDE RECORDS SUMMARY | 2019-08-07 16:09 | XMS REPORT | Continuity of Care Document ---
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 Onset: 03/01/2018 atherosclerosis of [place] artery of limb Amputated big toe Yodit [...] Result H/L Range Note Laboratory test 03/02/2019 [facility] LDL Cholesterol <pending> finding [address] [place] [address] [phone] Laboratory test 03/02/2019 [facility] Ast (Sgot) <pending> [place] [address] [place] [address] [phone] Creatine Kinase(CK) <pending> Lipid Panel - 03/01/2019 [facility] Creatine 151 U/L Normal 10 -[address] Kinase([place]) [place] [address] [phone] Comp Metabolic 03/01/2019 [facility] Sodium 139 Normal 135- [address] mmol/[place] [address] [phone] Potassium 4.7 mmol/L Normal 3.5-5.0 Chloride 107 [...] Egfr 81.3 >60 2 Lipid Profile 03/01/2019 [facility] Triglycerides 350 mg/dL 3 (Trig/Chol/HDL) [address] [place] [address] [phone] Cholesterol 270 mg/dL 4 HDL Cholesterol 33.9 mg/dL 5 LDL Cholesterol 166 mg/dL 6 1 FASTING Copy Result to: ALVARO BENNETT ([id number]) 2 Because ethnic data is not always [...] Location Provider Dx Diagnosis Office Visit 03/02/2019 [facility] Elin Crowe, I25.10 Athscl heart 1:30p Of [employer] [place] disease of [place] coronary artery w/o ang pctrs I25.5 Ischemic cardiomyopathy E78.2 Mixed hyperlipidemia I73.9 Peripheral vascular disease, unspecified Z72.0 Tobacco use Assessments Date Code Description Provider 03/02/2019 I25.10 Atherosclerotic heart disease of [place] coronary Elin Crowe M.D. artery without angina pectoris 03/02/2019 I25.5 Ischemic cardiomyopathy Elin Crowe M.D. 03/02/2019 E78.2 Mixed hyperlipidemia Elin Crowe M.D. 03/02/2019 I73.9 Peripheral vascular disease, unspecified Elin Crowe M.D. 03/02/2019 Z72.0 Tobacco use Elin Crowe M.D. Plan of Treatment 03/02/2019 - Elin Crowe M.D.I25.10 Atherosclerotic heart disease of [place] coronary artery without angina pectorisComments:Aware you are [...]
[2019-08-07] MEDS ORDERED: NS 0.9% 1000 ML** 1,000 ML IV ONE ×3 (17:39→17:53)
--- NOTE | 2019-08-07 17:49 | ED ---
Influenza-Like Illness - HPI Summary HPI Summary: 49 year old M presenting to [facility] complains of chills, diaphoresis, jaundiced skin, hemoptysis since waking up today 08/07/2019 AM. Hx pneumonia. He states he was recently admitted for pneumonia 1.5 weeks ago. Patient states he had swollen feet when he was discharged from recent admission which has been improving. Patient denies abdominal pain, abdominal bloating, chest pain, shortness of breath. The patient rates the pain 5/10 in severity. Symptoms aggravated by nothing. Symptoms alleviated by nothing. Medications reviewed. On aspirin 81 mg. Last ate today 08/07/2019 PM. Hx [facility]. No hx liver disease. Hx ETOH use. He states he last drank ETOH 1 month ago. He states he was drinking 6-7 beers daily. - History of Current Complaint Chief Complaint: EDFluSymptoms Time Seen by Provider: 08/07/19 17:37 Hx Obtained From: Patient Onset/Duration: Lasting Hours - today 08/07/2019 AM, Still Present Severity: Moderate - 5/10 - Allergy/Home Medications Allergies/Adverse Reactions: Allergies Allergy/AdvReac Type Severity Reaction Status Date / Time No Known Allergies Allergy Verified 02/25/18 10:44 PMH/Surg Hx/FS Hx/Imm Hx Endocrine/Hematology History: Denies: Hx Blood Disorders, Hx Blood Transfusions, Hx Bone Marrow Disease, Hx Diabetes, Hx Thyroid Disease, Hx Anemia, Hx Unexplained Bleeding Cardiovascular History: Reports: Hx Myocardial Infarction Denies: Hx Hypertension Respiratory History: Reports: Hx Pneumonia Denies: Hx Asthma, Hx Chronic Obstructive Pulmonary Disease (COPD), Hx Lung Cancer, Hx Sleep Apnea GI History: Denies: Hx Diverticulosis, Hx Gall Bladder Disease, Hx Gastrointestinal Bleed , Hx Ulcer History: Denies: Hx Acute Renal Failure, Hx Dialysis, Hx Kidney Stones, Hx Renal Disease Musculoskeletal History: Reports: Hx Arthritis - back and shoulder Denies: Hx Congenital Bone Abnormalities, Hx Fibromyalgia, Hx Orthopedic Injury, Hx Scoliosis Sensory History: Reports: Hx Contacts or Glasses Denies: Hx Hearing Aid Opthamlomology History: Reports: Hx Contacts or Glasses Neurological History: Reports: Hx Headaches - past month Denies: Hx Seizures, Hx Transient Ischemic Attacks (TIA), Other Neuro Impairments/Disorders Psychiatric History: Reports: Hx Anxiety Denies: Hx Depression, Hx Post Traumatic Stress Disorder - Surgical History Surgery Procedure, Year, and Place: Left 1st toe Infectious Disease History: No Infectious Disease History: Denies: Hx Hepatitis, Hx Human Immunodeficiency Virus (HIV), Traveled Outside the [place] in Last 30 Days - Family History Known Family History: Positive: Hypertension, Diabetes - Social History Alcohol Use: None Alcohol Amount: not since Jun 2019 Hx Substance Use: Yes Substance Use Type: Reports: Cocaine Substance Use Comment - Amount & Last Used: monthly Hx Tobacco Use: Yes Smoking Status (MU): Heavy Every Day Tobacco Smoker Type: Cigarettes Have You Smoked in the Last Year: Yes Review of Systems Positive: Chills, Skin Diaphoresis Positive: Other - hemoptysis Negative: Chest Pain Negative: Shortness Of Breath Gastrointestinal: Negative - abdominal bloating Negative: Abdominal Pain Positive: Other - jaundice All Other Systems Reviewed And Are Negative: Yes Physical Exam - Summary Physical Exam Summary: Constitutional: Well-developed, Well-nourished, Alert. (-) Distressed Skin: Warm; dry, Faint jaundice noted. HENT: Normocephalic; Atraumatic Eyes: Conjunctiva normal Neck: Musculoskeletal ROM normal neck. (-) JVD, (-) Stridor, (-) Tracheal deviation Cardio: Rhythm regular, rate normal, Heart sounds normal; Intact distal pulses; The pedal pulses are 2+ and symmetric. Radial pulses are 2+ and symmetric. (-) Murmur Pulmonary/Chest wall: Effort normal. Faint bilateral crackles noted. (-) Respiratory distress, (-) Wheezes Abd: Soft, (-) tenderness, slightly distended, (-) Guarding, (-) Rebound Musculoskeletal: Bilateral edema in lower extremities Lymph: (-) Cervical adenopathy Neuro: Alert, Oriented x3 Psych: Mood and affect Normal Triage Information Reviewed: Yes Vital Signs On Initial Exam: Initial Vitals Temp Pulse Resp BP Pulse Ox 97.3 F 89 18 130/94 99 08/07/19 15:59 08/07/19 15:59 08/07/19 15:59 08/07/19 15:59 08/07/19 15:59 Vital Signs Reviewed: Yes Procedures - Sedation Patient Received Moderate/Deep Sedation with Procedure: No Diagnostics - Vital Signs Vital Signs Temp Pulse Resp BP Pulse Ox 08/07/19 16:39 98.2 F 71 18 130/89 100 08/07/19 15:59 97.3 F 89 18 130/94 99 - Laboratory Result Diagrams: 08/07/19 17:42 08/07/19 17:42 Lab Statement: Any lab studies that have been ordered have been reviewed, and results considered in the medical decision making process. - Radiology CXR Radiology Interpretation Completed By: ED Physician - Right lower lobe consolidation Pending official report - CT Chest CT Interpretation Completed By: Radiologist - 1. Interval multifocal pneumonia with findings suggesting the possibility of septic emboli with other etiologies including atypical agents such as fungus and Shreya's granulomatosis. Associated although smaller reactive mediastinal lymph nodes and intervally enlarged right greater than left pleural effusions. 2. Cardiomegaly without overt failure. ED physician has reviewed this report. - EKG 1804 Cardiac Rate: NL - 92 BPM EKG Rhythm: Sinus Rhythm Summary of EKG Findings: No ischemic changes. ED physician has reviewed and interpreted this EKG Flu Symptom Course/Dx - Course Course Of Treatment: 49 y/o M with recent hx pneumonia and hx [facility] presents with chills, diaphoresis, jaundiced skin, hemoptysis since waking up today 08/07/[address] shows 1. Interval multifocal pneumonia with findings suggesting the possibility of septic emboli with other etiologies including atypical agents such as fungus and Shreya's granulomatosis. Associated although smaller reactive mediastinal lymph nodes and intervally enlarged right greater than left pleural effusions. 2. Cardiomegaly without overt failure. - Diagnoses Provider Diagnoses: Pleural effusion, right, Multifocal pneumonia - Physician Notifications Discussed Care Of Patient With: Michael Shetty Time Discussed With Above Provider: 19:48 Instructed by Provider To: Other - Dr. Shetty, hospitalist, agrees to admit patient Discharge ED - Sign-Out/Discharge Documenting (check all that apply): Patient Departure - Discharge Plan Condition: Stable Disposition: ADMITTED TO [facility] Referrals: Elin Crowe MD [Primary Care Provider] - - Billing Disposition and Condition Condition: STABLE Disposition: Admitted to [facility] - Attestation Statements Document Initiated by Scribe: Yes Documenting Scribe: Pratibha Clements Provider For Whom Scribe is Documenting (Include Credential): Samy Chavez DO Scribe Attestation: Pratibha Cho, scribed for Samy Chavez DO on 08/07/19 at 1953. Scribe Documentation Reviewed: Yes Provider Attestation: The documentation as recorded by the scribe, Pratibha Clements accurately reflects the service I personally performed and the decisions made by me, Samy Chavez, DO Status of Scribe Document: Viewed
[2019-08-07 17:52] LABS: ABS Basophils 0.1 10^3/ul (0-0.2); ABS Lymphocytes 2.6 10^3/ul (1.0-4.8); ABS Neutrophils 11.3 10^3/ul (1.5-7.7); ABS Nucleated RBC 0.2 10^3/ul; Eosinophil % 0.1 %; Hematocrit 34 % (42-52); Hemoglobin 11.4 g/dL (14.0-18.0); Lymphocyte % 17.3 %; Mean Corpuscular HGB Conc 33 g/dL (31-36); Mean Corpuscular Hemoglobin 30 pg (27-31); Mean Corpuscular Volume 90 fL (80-94); Mean Platelet Volume 8.6 fL (7.4-10.4); Nucleated Red Blood Cells % 1.1; Platelet Count 500 10^3/uL (150-450); Red Blood Count 3.79 10^6 /uL (4.18-5.48); Red Cell Distribution Width 18 % (10-15); White Blood Count 14.9 10^3/uL (3.5-10.8)
[2019-08-07 18:08] LABS: Albumin 3.3 g/dL (3.2-5.2); Anion Gap 12 mmol/L (2-11); CO2 Carbon Dioxide 27 mmol/L (22-32); Calcium 8.9 mg/dL (8.6-10.3); Chloride 96 mmol/L (101-111); Magnesium 1.8 mg/dL (1.9-2.7); Potassium 3.9 mmol/L (3.5-5.0); Sodium 135 mmol/L (135-145)
[2019-08-07 18:14] LABS: ALT 84 U/L (7-52); AST 68 U/L (13-39); Albumin/Globulin Ratio 0.8 (1-3); Alkaline Phosphatase 330 U/L (34-104); BUN/Creatinine Ratio 24.8 (8-20); Blood Urea Nitrogen 32 mg/dL (6-24); C Reactive Protein 144.22 mg/L (<8.01); EGFR African American 71.9 (>60); EGFR Non-African American 59.4 (>60); Glucose 90 mg/dL (70-100); Total Protein 7.3 g/dL (6.4-8.9)
[2019-08-07 18:19] LABS: Troponin I 0.54 ng/mL (<0.03)
[2019-08-07 18:22] LABS: Alcohol < 10 mg/dL (<10)
[2019-08-07 18:46] LABS: Urine Appearance Clear; Urine Bilirubin Negative (Negative); Urine Blood Negative (Negative); Urine Color Yellow; Urine Glucose Negative (Negative); Urine Ketones Negative (Negative); Urine Nitrite Negative (Negative); Urine Protein Negative (Negative); Urine Specific Gravity 1.016 (1.010-1.030); Urine Urobilinogen Negative (Negative)
[2019-08-07 19:09] LABS: Urine Benzodiazepine Screen None Detected (None Detect); Urine Opiates Screen None Detected (None Detect)
[2019-08-07] MEDS ORDERED: Piperacillin/Tazobac ADVAN(*) 3.375 GM in NS 0.9% 100 ML* 100 ML IVPB ONE ×2 (19:47→19:49)
[2019-08-07] MEDS ORDERED: Magnesium Sulfate 2 GM IV* 2 GM/50 ML BAG IVPB ONE (19:49)
[2019-08-07] MEDS ORDERED: Zosyn per Pharmacy* NOTE FOLLOW UP SCH (20:00)
[2019-08-07] MEDS ORDERED: cefTRIAXone(*) 1 GM in NS 0.9% 50 ML* 50 ML IVPB SCH (20:00)
[2019-08-07 20:27] LABS: INR 2.16 (0.82-1.09)
[2019-08-07] MEDS ORDERED: Metoprolol Tartrate TAB* 25 MG PO SCH (21:00)
[2019-08-07 21:08] LABS: Urine Creatinine Concentration 111.55 mg/dL
--- NOTE | 2019-08-07 23:30 | HP ---
HISTORY AND PHYSICAL: DATE OF ADMISSION: 08/07/19 ADMITTING PROVIDER: Michael Shetty MD PRIMARY CARE PHYSICIAN: [facility] (yet to establish, supposed to see Dr. Adkins on 08/10/19). CHIEF COMPLAINT: Chills, dyspnea on exertion, productive cough. HISTORY OF PRESENT ILLNESS: Tres Lema is a 49-year-old male with past medical history of triple-vessel disease, severe systolic and valvular heart failure with EF of 10% to 15% and [id number] mitral valve regurgitation , tobacco abuse, alcohol abuse, peripheral vascular disease, hyperlipidemia, recent prolonged admission 07/23/19 through 08/01/19 when he a left against medical advice, which was complicated by a cardiac arrest in the emergency room , and also shock liver and was treated with 7 days of Zosyn for potential pneumonia. He had been evaluated by Dr. Coleman at that time and then recommended that he not be discharged, but be referred to a tertiary surgical center for evaluation of his severe ischemic cardiomyopathy with likely need for CABG, this is unchanged advice from the summer prior which he unfortunately was deathly afraid of this and had been saying that he wanted to address via lifestyle changes. He unfortunately had continued drinking and smoking and later admitted that he had also used cocaine prior to that admission. He said that he had to take care of his parents that is why he had to leave the hospital against medical advice. He also had refused the LifeVest at that time. He had been feeling generally weak and having dyspnea on exertion, but with decreased swelling in his belly. He states he has been medically compliant with all of his new medications, which included lactulose, BESSIE inhibitor, spironolactone, nitro patch, nicotine patch, statin, and aspirin. The morning of this admission he woke up with chills, went to urgent care, looking to get some antibiotics. They said he was too sick for their care, referred to [facility] emergency room. Initial workup there has revealed a leukocytosis consistent with prior lactic acidosis of 4.3, troponin is 0.54 much reduced from last of 13.6 on 07/25/19, BNP still too great to measure, CRP of 144, creatinine slightly elevated at 1.29 from 1.02. He was afebrile, heart rate was in the 90s, satting 100% on room air, normotensive. CT of the chest with noncontrast that demonstrated interval multifocal pneumonia with findings suggesting the possibility of septic emboli with other etiologies including atypical agent such as fungus and Shreya's granulomatosis. He had an inadvertently enlarged right greater than left pleural effusion and some smaller reactive mediastinal lymph nodes. He was referred to hospitalist service for admission. He also says he continues to have spitting up of tobacco colored tinged blood. PAST MEDICAL HISTORY: Severe systolic and valvular heart failure with EF of 10 % to 15% and yhexesci-kp-[id number] mitral valve regurgitation, triple-vessel coronary disease (RCA 65% to 70% distally, 75% to 80% in the PDA, the left main 45% to 50%, LAD 80% to 85%, marginal branch with 75%), peripheral vascular disease, status post ABIs in February 2018 with high-grade stenosis at the left iliac arteries suspected. Tobacco abuse, alcohol abuse, hyperlipidemia. MEDICATIONS: Include: 1. Amlodipine 2.5 mg a day. 2. Spironolactone 25 mg p.o. daily. 3. Crestor 40 mg p.o. daily. 4. Nitroglycerin 0.1 mg per hour daily. 5. Magnesium oxide 400 mg p.o. daily. 6. Lisinopril 2.5 mg daily. 7. Lactulose 30 mL p.o. b.i.d. 8. Folic acid 1 mg p.o. daily. 9. Zetia 10 mg p.o. daily. 10. Aspirin 81 mg daily. ALLERGIES: No known drug allergies. FAMILY MEDICAL HISTORY: Father has coronary artery disease in his 50s, alive at age 90. Mother alive at age 84. He takes care of them. Brother had an SD, alive at 62, SD was at 61. Two sisters, 1 of whom has COPD. SOCIAL HISTORY: Single. 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 He is smoking a pack per day until recently and alcohol had been 6 to 8 beers daily, until recently he states he stopped both of those since last admission. He also admitted to cocaine before the last admission. REVIEW OF SYSTEMS: A complete 14-point review of systems negative except as per HPI. He does have loose bowel movements on the lactulose. He denies chest pain. PHYSICAL EXAMINATION GENERAL APPEARANCE: Chronically ill appearing gentleman with distended belly, lower extremity edema and multiple excoriations, it is not excoriations but scabs, seemingly related to prior IV sites. VITAL SIGNS: Temperature 98.2, pulse rate between 70s and 90s mostly in the 90s , respiratory rate 18, satting between 96% and 100% on room air, blood pressure 130/89. HEENT: Normocephalic, atraumatic. Pupils equally round and reactive to light. Extraocular motions intact. No scleral icterus. PULMONARY: Clear to auscultation bilaterally with no wheezing, rales, or rhonchi. CARDIOVASCULAR: Regular rate and rhythm. He has a 3/6 systolic ejection murmur at the left mid axillary line, fourth intercostal space. ABDOMEN: Soft, nontender, distended. No rebound or guarding. EXTREMITIES: Warm, well perfused. There is 2+ pitting edema bilaterally. NEUROLOGIC: Cranial nerves II through XII grossly intact. Moves all extremities. Alert and oriented x3. SKIN: There are multiple eschars on his right hand. There is also some 2 areas of linear scars where he said he had the tape injury from last admission. DIAGNOSTIC STUDIES/LAB DATA: White count 14.9, hemoglobin 11.4, hematocrit 34 , platelets 500. RDW 18, MCV 90. Sodium 135, potassium 3.9, chloride 96, carbon dioxide 27, BUN 32, creatinine 1.29, lactic acid 4.3, magnesium 1.8. Total bili 1.8, AST 68, ALT 84, alk phos 330, ammonia 42. Troponin 0.54. CRP 144. BNP greater than 1300. Albumin 3.3. Lipase 18. Urinalysis normal. Toxicology normal. Serum alcohol less than 10. Imaging CT chest without contrast demonstrates. Impression: Interval multifocal pneumonia with findings suggested the possibility of septic emboli with other etiologies including atypical agent such as fungus and Shreya's granulomatosis. Associated other small reactive mediastinal lymph nodes and inadvertently enlarged right greater than left pleural effusion. Cardiomegaly without overt failure. Chest x-ray formal read pending. He has some infiltrates in the right middle and lower lungs. EKG demonstrates normal sinus rhythm low voltage, normal axis, normal intervals , Q- wave in V4, poor R-wave progression, Q-wave in I and aVL. ASSESSMENT AND PLAN: Tres Lema is a 49-year-old male with multiple severe cardiac morbidities including ischemic cardiomyopathy with EF 10% to 15% with ipkellbl-[id number] mitral valve regurgitation and known triple-vessel disease for which he has been refusing CABG evaluation for at least to May of 2019. He had a recently prolonged course complicated by cardiac arrest, 7 days of Zosyn for community acquired pneumonia, and shock liver. He left against medical advice at that time, but has been taking his medications as prescribed he says. He presents with chills and continued dyspnea on exertion and productive cough and his cough has continued to be blood tinged, which was also present during last admission. His CT scan has been read as multifocal pneumonia but with other etiologies such as granulomatous polyangiitis, which could also explain some of his potential hemoptysis via alveolar hemorrhaging. He did have an elevated ESR of 60 back in February 2018. I am adding on a repeat ESR, PR3, MPO and the rest of the ANCA vasculitis panel, JOSE G, glomerular basement membrane antibody, C3, C4 and cryoglobulins. We will follow up his blood cultures, get a sputum culture, strep pneumonia, urine antigen. He has had chronic leukocytosis and his heart rate was above 90, and he has lactic acidosis likely from his severely compromised cardiac output especially given his mitral valve regurgitation. We will repeat his lactic acid at 10 p.m. He also has slightly elevated acute kidney injury with creatinine 1.29 up from 1.02 likely also associated with his poor cardiac output. I sternly advised the patient that as recommended by Dr. Coleman and the hospitalist during the last admission, he is at severe risk of continued decompensation if he does not seek evaluation of one of the least major root cause of his problems being his severe ischemic cardiomyopathy with known triple-vessel disease and valvular dysfunction. He again insist that he thinks that he is not strong enough and still deathly scared. He says that he wants to be admitted to this hospital and not be transferred to a tertiary care facility at this time and that he would be open to wearing a LifeVest both here and at discharge until he can potentially "get stronger." I am going to continue his lactulose 30 p.o. b.i.d. and his small doses of lisinopril 2.5 daily and spironolactone 25 mg p.o. daily. I will start metoprolol tartrate 12.5 mg p.o. q.12 hours, get BMP daily, CBC daily, check a urine creatinine and urine sodium concentration, calculated FENa, continue his aspirin daily and his for Lipitor and continue Zetia. He desires to be a full code. Medical surrogate is his sister , Amy Tuttle. He can eat a heart healthy diet. [id number]/[facility] #: [id number] MTDD
[2019-08-07] MEDS: ZOSYN 3.375 GM Q8H per EXTENDED INFUSION IVPB SCH ×2 (23:46)
[2019-08-08 05:57] LABS: Hematocrit 34 % (42-52); Hemoglobin 10.8 g/dL (14.0-18.0); Mean Corpuscular HGB Conc 32 g/dL (31-36); Mean Corpuscular Hemoglobin 30 pg (27-31); Mean Corpuscular Volume 92 fL (80-94); Mean Platelet Volume 8.8 fL (7.4-10.4); Platelet Count 481 10^3/uL (150-450); Red Blood Count 3.66 10^6 /uL (4.18-5.48); Red Cell Distribution Width 18 % (10-15); White Blood Count 28.9 10^3/uL (3.5-10.8)
[2019-08-08 06:13] LABS: Anion Gap 17 mmol/L (2-11); BUN/Creatinine Ratio 25.6 (8-20); Blood Urea Nitrogen 34 mg/dL (6-24); CO2 Carbon Dioxide 20 mmol/L (22-32); Calcium 8.3 mg/dL (8.6-10.3); Chloride 96 mmol/L (101-111); EGFR African American 69.4 (>60); EGFR Non-African American 57.4 (>60); Glucose 77 mg/dL (70-100); Potassium 3.9 mmol/L (3.5-5.0); Sodium 133 mmol/L (135-145)
[2019-08-08] MEDS ORDERED: Vancomycin(*) 2,000 MG in NS 0.9% 250 ML* 250 ML IVPB ONE (06:23)
[2019-08-08] MEDS ORDERED: Vancomycin(*) 2,000 MG in NS 0.9% 500 ML* 500 ML IVPB ONE (06:38)
[2019-08-08] MEDS ORDERED: Vancomycin per Pharmacy* NOTE FOLLOW UP SCH (07:00)
[2019-08-08 07:11] LABS: ABS Basophils 0.1 10^3/ul (0-0.2); ABS Lymphocytes 1.8 10^3/ul (1.0-4.8); ABS Monocytes 1.2 10^3/ul (0-0.8); ABS Neutrophils 25.8 10^3/ul (1.5-7.7); ABS Nucleated RBC 0.1 10^3/ul; Lymphocyte % 6.1 %; Nucleated Red Blood Cells % 0.3
[2019-08-08] MEDS: ZOSYN 3.375 GM Q8H per EXTENDED INFUSION IVPB SCH ×4 (07:59→16:52)
[2019-08-08] MEDS ORDERED: Nitroglycerin 0.1 mg/Hr PATCH* (2.5 MG) TRANSDERM SCH (09:00)
[2019-08-08] MEDS ORDERED: Atorvastatin* 80 MG TAB PO SCH (09:00)
[2019-08-08] MEDS ORDERED: Nicotine PATCH 7 MG/24 HR* PATCH TRANSDERM SCH (09:00)
[2019-08-08] MEDS ORDERED: Spironolactone TAB* 25 MG PO SCH (09:00)
[2019-08-08] MEDS ORDERED: Folic Acid TAB* 1 MG PO SCH (09:00)
[2019-08-08] MEDS ORDERED: Lisinopril TAB* 5 MG PO SCH (09:00)
[2019-08-08] MEDS: Ezetimibe TAB* 10 MG PO SCH (09:02)
[2019-08-08] MEDS: Aspirin 81 mg CHEW TAB* 81 MG TAB.CHEW PO SCH (09:02)
[2019-08-08] MEDS: Folic Acid TAB* 1 MG PO SCH (09:02)
[2019-08-08] MEDS: Magnesium Oxide TAB* 400 MG PO SCH (09:02)
[2019-08-08] MEDS: Thiamine INJ* 500 MG in NS 0.9% 250 ML* 250 ML IV SCH ×3 (09:32→20:56)
[2019-08-08] MEDS ORDERED: Vancomycin Trough Check NOTE FOLLOW UP ONE (14:30)
[2019-08-08] MEDS: Vancomycin(*) 1,000 MG in NS 0.9% 250 ML* 250 ML IV SCH ×2 (15:06→22:32)
--- NOTE | 2019-08-08 15:34 | PN ---
Date of Service: 08/08/19 Critical Care Services: 49 y/o male with end-stage ischemic cardiomyopathy (EF - 10-15%), mitral regurgitation, and ETOH liver disease, who was admitted on 08/07 with possible sepsis (CXR consistent with septic emboli), hemoptysis, and lactic acidosis. Placed on vancomycin and PIP/TAZO empirically, and has had an uneventful day.. Vital Signs: Temp Pulse Resp BP SpO2 FiO2 98.4 F 99 43 113/74 98 Physical Exam: Gen:Alert and responds appropriately HEENT: No facial asymmetry Lungs: No adventitious sounds Cardiac: II/ holosystolic murmur across precordium Abdomen:Distended ?Positive fluid wave Extremities: 2-3+ edema Neuro: No asterixis Fluid Balance (Past 24 Hours): 08/08/19 06:59 Intake Total 1465 Output Total 400 Balance 1065 Weight 218 lb Intake: IV Fluids 400 IVPB 265 ABX - PIPERACILLIN 210 magnesium 55 Oral 800 Output: Urine 400 Other: Estimated Void Large # Voids 1 Labs: Laboratory Results - last 24 hr 08/07/19 08/07/19 08/07/19 17:42 17:42 17:42 WBC 14.9 H RBC 3.79 L Hgb 11.4 L Hct 34 L MCV 90 MCH 30 MCHC 33 RDW 18 H Plt Count 500 H D MPV 8.6 Neut % (Auto) 75.5 Lymph % (Auto) 17.3 [place] % (Auto) 6.6 Eos % (Auto) 0.1 Baso % (Auto) 0.5 Absolute Neuts (auto) 11.3 H Absolute Lymphs (auto) 2.6 Absolute Monos (auto) 1.0 H Absolute Eos (auto) 0.0 Absolute Basos (auto) 0.1 Absolute Nucleated RBC 0.2 Nucleated RBC % 1.1 ESR INR (Anticoag Therapy) Sodium 135 Potassium 3.9 Chloride 96 L Carbon Dioxide 27 Anion Gap 12 H BUN 32 H Creatinine 1.29 H Est GFR ( Amer) 71.9 Est GFR (Non-Af Amer) 59.4 BUN/Creatinine Ratio 24.8 H Glucose 90 Lactic Acid 4.3 H* Calcium 8.9 Magnesium 1.8 L Total Bilirubin 1.80 H AST 68 H ALT 84 H Alkaline Phosphatase 330 H Ammonia Troponin I 0.54 H* C-Reactive Protein 144.22 H B-Natriuretic Peptide Total Protein 7.3 Albumin 3.3 Globulin 4.0 Albumin/Globulin Ratio 0.8 L Lipase 18 Urine Color Urine Appearance Urine pH Ur Specific Rogers Urine Protein Urine Ketones Urine Blood Urine Nitrate Urine Bilirubin Urine Urobilinogen Ur Leukocyte Esterase Ur Creatinine Concen U Sodium Concentration Urine Glucose Urine Opiates Screen Ur Barbiturates Screen Ur Phencyclidine Scrn Ur Amphetamines Screen U Benzodiazepines Scrn Urine Cocaine Screen U Cannabinoids Screen Serum Alcohol < 10 08/07/19 08/07/19 08/07/19 17:42 17:42 17:42 WBC RBC Hgb Hct MCV MCH MCHC RDW Plt Count MPV Neut % (Auto) Lymph % (Auto) [place] % (Auto) Eos % (Auto) Baso % (Auto) Absolute Neuts (auto) Absolute Lymphs (auto) Absolute Monos (auto) Absolute Eos (auto) Absolute Basos (auto) Absolute Nucleated RBC Nucleated RBC % ESR INR (Anticoag Therapy) 2.16 H Sodium Potassium Chloride Carbon Dioxide Anion Gap BUN Creatinine Est GFR ( Amer) Est GFR (Non-Af Amer) BUN/Creatinine Ratio Glucose Lactic Acid Calcium Magnesium Total Bilirubin AST ALT Alkaline Phosphatase Ammonia 42 Troponin I C-Reactive Protein B-Natriuretic Peptide > 1300 H Total Protein Albumin Globulin Albumin/Globulin Ratio Lipase Urine Color Urine Appearance Urine pH Ur Specific Rogers Urine Protein Urine Ketones Urine Blood Urine Nitrate Urine Bilirubin Urine Urobilinogen Ur Leukocyte Esterase Ur Creatinine Concen U Sodium Concentration Urine Glucose Urine Opiates Screen Ur Barbiturates Screen Ur Phencyclidine Scrn Ur Amphetamines Screen U Benzodiazepines Scrn Urine Cocaine Screen U Cannabinoids Screen Serum Alcohol 08/07/19 08/07/19 08/07/19 18:26 18:26 18:26 WBC RBC Hgb Hct MCV MCH MCHC RDW Plt Count MPV Neut % (Auto) Lymph % (Auto) [place] % (Auto) Eos % (Auto) Baso % (Auto) Absolute Neuts (auto) Absolute Lymphs (auto) Absolute Monos (auto) Absolute Eos (auto) Absolute Basos (auto) Absolute Nucleated RBC Nucleated RBC % ESR INR (Anticoag Therapy) Sodium Potassium Chloride Carbon Dioxide Anion Gap BUN Creatinine Est GFR ( Amer) Est GFR (Non-Af Amer) BUN/Creatinine Ratio Glucose Lactic Acid Calcium Magnesium Total Bilirubin AST ALT Alkaline Phosphatase Ammonia Troponin I C-Reactive Protein B-Natriuretic Peptide Total Protein Albumin Globulin Albumin/Globulin Ratio Lipase Urine Color Yellow Urine Appearance Clear Urine pH 5.0 Ur Specific Rogers 1.016 Urine Protein Negative Urine Ketones Negative Urine Blood Negative Urine Nitrate Negative Urine Bilirubin Negative Urine Urobilinogen Negative Ur Leukocyte Esterase Negative Ur Creatinine Concen 111.55 U Sodium Concentration 40 Urine Glucose Negative Urine Opiates Screen None detected Ur Barbiturates Screen None detected Ur Phencyclidine Scrn None detected Ur Amphetamines Screen None detected U Benzodiazepines Scrn None detected Urine Cocaine Screen None detected U Cannabinoids Screen None detected Serum Alcohol 08/07/19 08/07/19 08/08/19 21:52 21:52 05:47 WBC 28.9 H RBC 3.66 L Hgb 10.8 L Hct 34 L MCV 92 MCH 30 MCHC 32 RDW 18 H Plt Count 481 H MPV 8.8 Neut % (Auto) 89.4 Lymph % (Auto) 6.1 [place] % (Auto) 4.1 Eos % (Auto) 0.0 Baso % (Auto) 0.4 Absolute Neuts (auto) 25.8 H Absolute Lymphs (auto) 1.8 Absolute Monos (auto) 1.2 H Absolute Eos (auto) 0.0 Absolute Basos (auto) 0.1 Absolute Nucleated RBC 0.1 Nucleated RBC % 0.3 ESR 26 H INR (Anticoag Therapy) Sodium Potassium Chloride Carbon Dioxide Anion Gap BUN Creatinine Est GFR ( Amer) Est GFR (Non-Af Amer) BUN/Creatinine Ratio Glucose Lactic Acid 5.1 H* Calcium Magnesium Total Bilirubin AST ALT Alkaline Phosphatase Ammonia Troponin I C-Reactive Protein B-Natriuretic Peptide Total Protein Albumin Globulin Albumin/Globulin Ratio Lipase Urine Color Urine Appearance Urine pH Ur Specific [place] Urine Protein Urine Ketones Urine Blood Urine Nitrate Urine Bilirubin Urine Urobilinogen Ur Leukocyte Esterase Ur Creatinine Concen U Sodium Concentration Urine Glucose Urine Opiates Screen Ur Barbiturates Screen Ur Phencyclidine Scrn Ur Amphetamines Screen U Benzodiazepines Scrn Urine Cocaine Screen U Cannabinoids Screen Serum Alcohol 08/08/19 08/08/19 08/08/19 05:47 05:47 14:57 WBC RBC Hgb Hct MCV MCH MCHC RDW Plt Count MPV Neut % (Auto) Lymph % (Auto) [place] % (Auto) Eos % (Auto) Baso % (Auto) Absolute Neuts (auto) Absolute Lymphs (auto) Absolute Monos (auto) Absolute Eos (auto) Absolute Basos (auto) Absolute Nucleated RBC Nucleated RBC % ESR INR (Anticoag Therapy) Sodium 133 L Potassium 3.9 Chloride 96 L Carbon Dioxide 20 L Anion Gap 17 H BUN 34 H Creatinine 1.33 H Est GFR ( Amer) 69.4 Est GFR (Non-Af Amer) 57.4 BUN/Creatinine Ratio 25.6 H Glucose 77 Lactic Acid 5.4 H* 4.3 H* Calcium 8.3 L Magnesium Total Bilirubin AST ALT Alkaline Phosphatase Ammonia Troponin I 0.50 H* C-Reactive Protein B-Natriuretic Peptide Total Protein Albumin Globulin Albumin/Globulin Ratio Lipase Urine Color Urine Appearance Urine pH Ur Specific [place] Urine Protein Urine Ketones Urine Blood Urine Nitrate Urine Bilirubin Urine Urobilinogen Ur Leukocyte Esterase Ur Creatinine Concen U Sodium Concentration Urine Glucose Urine Opiates Screen Ur Barbiturates Screen Ur Phencyclidine Scrn Ur Amphetamines Screen U Benzodiazepines Scrn Urine Cocaine Screen U Cannabinoids Screen Serum Alcohol Studies: None today Nutrition: Oral diet Impression: Septic emboli still the most likely source of sepsis in this case, although SBP is also possible if patient has ascites. The hyperlactatemia could be from thiamine deficiency, although the end-stage systolic heart failure is probably the source. The hemoptysis has several possible etiologies, including an airway mass ( because of the history of heavy smoking) or mitral valve disease. Plan: 1. Vancomycin and PIP/TAZO for empiric coverage 2. High-dose thiamine replacement 3. Ultrasound abdomen for ascites - if present, then tap. 4. Consult ID about possible septic emboli and need for JODEE. 5. Monitor lactate Critical Care Time: 45 minutes
[2019-08-08] MEDS: Melatonin 3 MG TAB PO SCH (20:56)
[2019-08-08] MEDS: Benzonatate CAP* 100 MG PO SCH (20:56)
[2019-08-08] MEDS ORDERED: Nicotine Patch Removal NOTE PATCH OFF SCH (21:00)
[2019-08-08] MEDS ORDERED: Nitro Patch/OINT Remove PATCH OFF SCH (21:00)
[2019-08-09] MEDS: ZOSYN 3.375 GM Q8H per EXTENDED INFUSION IVPB SCH ×4 (00:17→08:38)
[2019-08-09 04:53] LABS: ABS Basophils 0.2 10^3/ul (0-0.2); ABS Monocytes 1.1 10^3/ul (0-0.8); ABS Neutrophils 18.1 10^3/ul (1.5-7.7); ABS Nucleated RBC 0.1 10^3/ul; Eosinophil % 0.1 %; Hematocrit 31 % (42-52); Hemoglobin 10.3 g/dL (14.0-18.0); Lymphocyte % 9.3 %; Mean Corpuscular HGB Conc 33 g/dL (31-36); Mean Corpuscular Hemoglobin 30 pg (27-31); Mean Corpuscular Volume 90 fL (80-94); Mean Platelet Volume 8.5 fL (7.4-10.4); Nucleated Red Blood Cells % 0.3; Platelet Count 411 10^3/uL (150-450); Red Blood Count 3.48 10^6 /uL (4.18-5.48); Red Cell Distribution Width 18 % (10-15); White Blood Count 21.6 10^3/uL (3.5-10.8)
[2019-08-09 05:11] LABS: EGFR African American 76.7 (>60); EGFR Non-African American 63.4 (>60); Potassium 3.5 mmol/L (3.5-5.0)
[2019-08-09] MEDS: Vancomycin(*) 1,000 MG in NS 0.9% 250 ML* 250 ML IV SCH ×3 (05:45→22:44)
[2019-08-09] MEDS: Magnesium Oxide TAB* 400 MG PO SCH (09:23)
[2019-08-09] MEDS: Thiamine INJ* 500 MG in NS 0.9% 250 ML* 250 ML IV SCH ×3 (09:23→20:26)
[2019-08-09] MEDS: Ezetimibe TAB* 10 MG PO SCH (09:23)
[2019-08-09] MEDS: Benzonatate CAP* 100 MG PO SCH ×2 (09:24→20:30)
[2019-08-09] MEDS: Folic Acid TAB* 1 MG PO SCH (09:24)
[2019-08-09] MEDS: Aspirin 81 mg CHEW TAB* 81 MG TAB.CHEW PO SCH (09:24)
--- NOTE | 2019-08-09 09:31 | PN ---
Date of Service: 08/09/19 Critical Care Services: Had an uneventful evening and in no distress this AM, but continues to have persistent cough and hemoptysis (not massive). Lactate has normalized, and WBC count down from 28k to 21k. Has been hemodynamically OK Vital Signs: Temp Pulse Resp BP SpO2 FiO2 98.4 F 104 37 109/73 94 Physical Exam: Gen:Alert, oriented HEENT: Healing superficial laceration right forehead Lungs: Clear Cardiac: Reg rhythm. I/ holosystolic murmur across precordium Abdomen: Distended - ?fluid wave Extremities: 2+edema lower extremities Neuro: no asterixis Fluid Balance (Past 24 Hours): 08/08/19 06:59 Intake Total 1465 Output Total 400 Balance 1065 Weight 218 lb Intake: IV Fluids 400 IVPB 265 ABX - PIPERACILLIN 210 magnesium 55 Oral 800 Output: Urine 400 Other: Estimated Void Large Date of Last Bowel Movement Estimated Stool Amount # Voids 1 Labs: 08/08/19 08/09/19 08/09/19 14:57 04:44 04:44 WBC 21.6 H RBC 3.48 L Hgb 10.3 L Hct 31 L MCV 90 MCH 30 MCHC 33 RDW 18 H Plt Count 411 MPV 8.5 Neut % (Auto) 84.2 Lymph % (Auto) 9.3 [place] % (Auto) 5.3 Eos % (Auto) 0.1 Baso % (Auto) 1.1 Absolute Neuts (auto) 18.1 H Absolute Lymphs (auto) 2.0 Absolute Monos (auto) 1.1 H Absolute Eos (auto) 0.0 Absolute Basos (auto) 0.2 Absolute Nucleated RBC 0.1 Nucleated RBC % 0.3 Sodium 130 L Potassium 3.5 Chloride 99 L Carbon Dioxide 23 Anion Gap 8 BUN 33 H Creatinine 1.22 H Est GFR ( Amer) 76.7 Est GFR (Non-Af Amer) 63.4 BUN/Creatinine Ratio 27.0 H Glucose 112 H Lactic Acid 4.3 H* 1.6 Calcium 8.0 L Studies: 1. Blood cultures negative after one day 2. Sputum culture pending (but microscopic exam shows an inadequate specimen) 3. Echo abdomen (for ascites) ordered Nutrition: Oral diet Impression: Working Diagnoses are: 1. End-stage ischemic cardiomyopathy (EF of 10-15%) with mitral insufficiency 2. Sepsis - possible sources are lungs (septic emboli) and abdomen (SBP) 3. Hemoptysis - must r/o endobronchial lesion, although could be due to mitral valve disease. Doubt PE. 4. ETOH-reated liver disease with possible ascites 5. Possible thiamine deficiency (as source of elevated lactate without other signs of circulatory shock) Plasma lactate has normalized, and WBC count has dropped from 28k to 21k, whch are bothe encouraging signs. Plan: 1. Echo abdomen for ascites 2. Consult ID for possible septic emboli 3. Continue empiric antibiotic regimen and high-dose thiamine replacement. 4. Consult pulmonary for bronchoscopy (to w/u hemoptysis) Patient is clinically stable, and can be transferred back to the floor. Critical Care Time: 45 minutes
[2019-08-09] MEDS ORDERED: Vancomycin Trough Check NOTE FOLLOW UP ONE (14:00)
[2019-08-09] MEDS: cefTRIAXone(*) 2 GM in NS 0.9% 100 ML* 100 ML IVPB SCH (17:20)
[2019-08-09 18:07] LABS: Myeloperoxidase Antibody <0.2 U; Proteinase 3 <0.2 U
[2019-08-09] MEDS: Melatonin 3 MG TAB PO SCH (20:30)
[2019-08-09] MEDS: traZODone TAB* 50 MG TAB PO PRN (20:30)
--- NOTE | 2019-08-09 21:32 | CONS ---
CONSULTATION REPORT: DATE OF CONSULT: 08/09/19 PRIMARY CARE PROVIDER: [facility]. PROVIDER REQUESTING CONSULTATION: Dr. Shabbir Guardado. CONSULTING SERVICE: Infectious Disease. PROVIDER: Francie Ballard NP ATTENDING PROVIDER: Dr. Isaias Portillo.* (DICTATED BY FRANCIE BALLARD NP) REASON FOR CONSULT: Possible septic pulmonary emboli. IMPRESSION: 1. Abnormal chest imaging. Chest x-ray with bilateral nodular infiltrates and a small right pleural effusion that are improved from previous. Chest CT showing interval multifocal pneumonia with findings suspicious for septic emboli , fungus versus Shreya's granulomatosis. The patient is noted to have leukocytosis, afebrile, has tachycardic and tachypneic. Differential diagnosis includes septic emboli; pneumonia of viral, fungal, or bacterial cause, non infectious cause such as Shreya's granulomatosis. Reports hemoptysis. Blood cultures with no growth to date, so I have a lower suspicion for this being septic emboli. Has improvement without antifungal, so low suspicion for fungal pneumonia. 2. Ascites. The patient was noted to have liver shock during his previous hospitalization after a cardiac arrest. His LFTs continued to be elevated but are overall improving. The patient seems to be improving on the current treatment. There is a question of whether or not he has spontaneous bacterial peritonitis. 3. Severe systolic heart failure, last ejection fraction 10% to 15%. 4. Coronary artery disease with known 3-vessel disease. RECOMMENDATION AND PLAN: Recommend continuing vancomycin for now. We will discontinue the Zosyn and start ceftriaxone 2 g IV daily. If the patient's white blood cell count does not continue to improve, we can consider getting a paracentesis to evaluate for spontaneous bacterial peritonitis. HISTORY OF PRESENT ILLNESS: Mr. Lema is a 49-year-old male with past medical history significant for severe systolic heart failure with EF of 10% to 15%, [id number] mitral valve regurgitation, tobacco abuse, alcohol abuse, peripheral vascular disease, hyperlipidemia, and known 3-vessel coronary artery disease, who initially presented to the hospital in early July and had a cardiac arrest felt to be secondary to recent cocaine use with liver shock. At that time, he was treated with 7 days of Zosyn for suspected pneumonia. The patient signed himself out against medical advice on 08/01/19 and has been at home he states doing well. The day of presentation, he states that he woke with chills and then was feeling hot. He states that he knows his body well enough and felt that this was a sign of pneumonia and he knew that he needed to have antibiotics, so he presented to urgent care in hopes to get antibiotics. The patient's only other complaint at that time was swollen legs since discharge but felt that it was improving. When he presented to urgent care, urgent care told him that he was too sick and referred him to the emergency room for further evaluation. While in the emergency room, he had a chest x-ray showing bilateral nodular infiltrates and a small right pleural effusion, that appeared improved. Additionally, he had a chest CT showing interval multifocal pneumonia with findings suggestive of possibility of septic emboli with other etiologies including atypical agents such as fungal and Shreya's granulomatosis, smaller reactive mediastinal lymph node, and intervally enlarged right greater than left pleural effusions, cardiomegaly without overt failure. He had labs showing a white blood cell count of 14.9, platelet count of 500, CRP of 21, elevated BUN and creatinine, lactic acid of 4.3, troponin 0.54, elevated LFTs. CRP of 144.22. BNP of greater than 1300. He was afebrile, referred to the hospitalist service for admission. While in the hospital, the patient continued to have lactic acidosis. He was given IV fluids, vancomycin, and Zosyn empirically. It was felt that the septic emboli was the most likely source of sepsis, although SBP was in the differential diagnosis in the setting of possible abdominal ascites. The patient was also noted to have had hemoptysis. The patient had an abdominal ultrasound showing ascites and right pleural effusion. He has remained afebrile. His leukocytosis peaked yesterday at 28.9 and has trended down to 21, 600 today. The patient denies fevers or chills but states that he gets cold easily. He denies any unintentional weight loss. He reports an intermittent cough with mucus production and states that he intermittently has blood in his sputum if he has been coughing a lot and hard. Reports shortness of breath near his recent baseline. Denies chest pain, joint pain, back pain, muscle pain , nausea, vomiting, constipation, abdominal pain, urinary symptoms such as urgency, frequency, dysuria, recent travel or any presence of prosthetic materials in his body. He does state that he had had some diarrhea secondary to lactulose that he had recently been on, but this has resolved since it was stopped. PAST MEDICAL HISTORY: 1. Severe systolic heart failure with last known EF 10 to 15. 2. Valvular heart disease with [id number] mitral valve regurgitation. 3. Tobacco abuse. 4. Alcohol abuse. 5. Peripheral vascular disease. 6. Hyperlipidemia. 7. Coronary artery disease with known 3-vessel disease. PAST SURGICAL HISTORY: 1. Status post subtotal odontectomy, teeth number 17 and 32 with I and D of the right submandibular and sublingual spaces in 2005. 2. Status post debridement and split thickness skin graft of the left great toe in 2004. 3. Status post ostectomy of the distal phalanx and debridement of nonviable tissue in 2004. MEDICATIONS: Home medications: 1. Amlodipine 2.5 mg by mouth daily. 2. Spironolactone 25 mg by mouth daily. 3. Rosuvastatin 40 mg by mouth daily. 4. Nitroglycerin 2.5 mg patch 1 transdermal daily. 5. Magnesium oxide 400 mg by mouth daily. 6. Lisinopril 2.5 mg by mouth daily. 7. Lactulose 30 mL by mouth twice daily. 8. Folic acid 1 mg by mouth daily. 9. Zetia 10 mg by mouth daily. 10. Aspirin 81 mg by mouth daily. Hospital medications: 1. Acetaminophen 81 mg by mouth daily. 2. Tessalon 100 mg by mouth twice daily. 3. Zetia 10 mg by mouth daily. 4. Folic acid 1 mg by mouth daily. 5. Magnesium oxide 400 mg by mouth daily. 6. Melatonin 3 mg by mouth daily at bedtime. 7. Thiamine 500 mg IV t.i.d. 8. Trazodone 50 mg by mouth daily. 9. Vancomycin 1000 mg IV every 8 hours. 10. Zosyn 3.375 g IV q.8 hours. ALLERGIES: No known drug allergies. FAMILY HISTORY: Denies family history of recurrent or resistant infections. Father with a history of COPD, first NV in his 50s and diabetes. He is alive at age 90. Mother is alive at age 84. Sister with a history of COPD. Brother with a history of NV. Denies any family history of cancer. SOCIAL HISTORY: States that he has not drank alcohol since his admission earlier this month. Prior to that, he was drinking 6 to 8 beers daily. The patient was previously a smoker, smoking 1 pack a day until he was hospitalized earlier this month. He states he has not smoked since. The patient also has a history of cocaine use with the last use prior to his last admission. REVIEW OF SYSTEMS: I performed a 10-point review of systems. All the pertinent positives and negatives are mentioned in the history of present illness. The remaining review of systems are negative. PHYSICAL EXAM: Vital Signs: Temperature 98.4, heart rate 108, respiratory rate 28, O2 sat 92% on room air, blood pressure 103/76. General Appearance: He is alert and appears to be in no acute distress. Head: Normocephalic, atraumatic. EENT: Extraocular movements are intact. There is no subconjunctival hemorrhage. There is slight scleral icterus. Moist mucous membranes. Neck: Supple with no lymphadenopathy. Neurological: Alert and oriented. Cranial nerves II through XII are grossly intact. Cardiovascular: Regular rate and rhythm. He has a grade 3/6 systolic murmur heard best at the left sternal border. Respiratory: No accessory muscle use. The lungs are clear to auscultation bilaterally. There is no wheezing, rales, or rhonchi. Abdomen: Bowel sounds present. Abdomen is soft, nontender, nondistended. Extremities: There is 2 to 3+ bilateral lower extremity edema. Musculoskeletal : No clubbing or cyanosis noted. Psychological: Calm and cooperative. Skin: No rashes or abnormalities seen. He is noted to have multiple areas of small dry eschar to his arms and to his forehead, which the patient states are secondary to tape injuries. DIAGNOSTIC STUDIES/LAB DATA: Sodium 136, potassium 3.5, chloride 99, CO2 of 23 , BUN 33, creatinine 1.22, glucose 112. White blood cell count 21.6, hemoglobin 10.3, hematocrit 31, platelet count 411. CRP on admission 144.23 and ESR 26. Urinalysis negative. Sputum with yeast. Blood cultures, no growth to date. Urine negative for S. pneumoniae antigen. Please see impression and recommendations outlined above. Thank you for asking us to see Mr. Lema in consultation. The case has been discussed with my attending, Dr. Isaias Portillo, who agrees with the plan of care. Reviewed by KATHRYN GRAHAM-C 08/11/19 [id number]/[facility] #: [id number] ZAINAB
[2019-08-09 21:38] LABS: Complement C3 151 mg/dL (75 - 175)
[2019-08-09] MEDS ORDERED: Lorazepam PYXIS KEY PRN (22:25)
[2019-08-09] MEDS ORDERED: LORazepam INJ* 2 MG/ML 1 ML VIAL IV PUSH ONE (22:25)
[2019-08-10] MEDS: guaiFENesin/CODIENE 100mg/10mg 5 ML UDC PO PRN ×4 (00:28→22:31)
[2019-08-10 04:54] LABS: ABS Eosinophils 0.2 10^3/ul (0-0.6); ABS Lymphocytes 1.6 10^3/ul (1.0-4.8); ABS Monocytes 0.8 10^3/ul (0-0.8); ABS Neutrophils 13.2 10^3/ul (1.5-7.7); ABS Nucleated RBC 0.1 10^3/ul; Eosinophil % 1.1 %; Hematocrit 32 % (42-52); Hemoglobin 10.5 g/dL (14.0-18.0); Lymphocyte % 10.2 %; Mean Corpuscular HGB Conc 33 g/dL (31-36); Mean Corpuscular Hemoglobin 30 pg (27-31); Mean Corpuscular Volume 91 fL (80-94); Mean Platelet Volume 8.7 fL (7.4-10.4); Nucleated Red Blood Cells % 0.5; Platelet Count 428 10^3/uL (150-450); Red Blood Count 3.53 10^6 /uL (4.18-5.48); Red Cell Distribution Width 18 % (10-15); White Blood Count 15.8 10^3/uL (3.5-10.8)
[2019-08-10 05:09] LABS: BUN/Creatinine Ratio 21.3 (8-20); Calcium 7.9 mg/dL (8.6-10.3); EGFR African American 110.4 (>60); EGFR Non-African American 91.2 (>60); Potassium 3.3 mmol/L (3.5-5.0)
[2019-08-10] MEDS: Vancomycin(*) 1,000 MG in NS 0.9% 250 ML* 250 ML IV SCH ×3 (05:26→22:32)
--- NOTE | 2019-08-10 09:04 | PN ---
Progress Note - Progress Note Date of Service: 08/10/19 SOAP: Subjective: CC: PNA HPI: Mr. Lema is a 49 yo male with PMH significant for CAD, PVD, severe systolic HF, MV regurgitation, tobacco abuse, alcohol abuse, HLD; who presented to the hospital with concern for PNA. Denies fever, chills, ABD pain, nausea, vomiting, or diarrhea. He reports an occasional cough with clear mucous production, no bloody sputum today, and mild shortness of breath at rest. He has not been ambulating much. He feels like his ABD is smaller then usual. Objective: Vital Signs - 8 hr 08/10/19 08/10/19 08/10/19 03:15 07:29 08:00 Temperature 98.5 F 98.2 F Pulse Rate 116 117 Respiratory 34 24 24 Rate Blood Pressure 109/80 104/81 (mmHg) O2 Sat by Pulse 96 96 Oximetry Physical Exam: General: NAD, sitting up in a chair Neurological: Alert and Oriented HEENT: Moist MM Cardiovascular: Heart rate regular, murmur left sternal border. Bilateral LE edema Respiratory: Lung sounds clear Abdominal: Bowel sounds present; ABD soft, non tender and distended. + Fluid wave MSK: LARSEN Skin: No rash. He is noted to have multiple small areas of dry eschar on UEs, chest, and forehead Laboratory Results - last 24 hr 08/07/19 08/09/19 08/10/19 21:52 14:45 04:09 WBC 15.8 H RBC 3.53 L Hgb 10.5 L Hct 32 L MCV 91 MCH 30 MCHC 33 RDW 18 H Plt Count 428 MPV 8.7 Neut % (Auto) 83.3 Lymph % (Auto) 10.2 [place] % (Auto) 5.2 Eos % (Auto) 1.1 Baso % (Auto) 0.2 Absolute Neuts (auto) 13.2 H Absolute Lymphs (auto) 1.6 Absolute Monos (auto) 0.8 Absolute Eos (auto) 0.2 Absolute Basos (auto) 0.0 Absolute Nucleated RBC 0.1 Nucleated RBC % 0.5 Vancomycin Trough 16.8 Anti-Nuclear Antibody 3.7 H Proteinase 3 (PR3) <0.2 Myeloperoxidase Ab <0.2 Glomerular Base Memb Ab <0.2 Complement C3 151 Complement C4 17 08/10/19 08/10/19 04:09 06:09 Sodium 133 L Potassium 3.3 L Chloride 101 Carbon Dioxide 24 Anion Gap 8 BUN 19 Creatinine 0.89 Est GFR ( Amer) 110.4 Est GFR (Non-Af Amer) 91.2 BUN/Creatinine Ratio 21.3 H Glucose 96 Lactic Acid 1.9 Calcium 7.9 L Microbiology 08/07/19 19:59 Aerobic Blood Culture - Preliminary Blood Venous No Growth Day 2 Anaerobic Blood Culture - Preliminary No Growth Day 2 08/07/19 19:16 Aerobic Blood Culture - Preliminary Blood Venous No Growth Day 2 Anaerobic Blood Culture - Preliminary No Growth Day 2 08/08/19 01:04 Gram Stain - Final Sputum Sputum Culture - Preliminary YEAST 08/07/19 18:26 Streptococcus pneumoniae Ag Screen - Final Urine Negative S. pneumo Antigen Assessment: 1. PNA. Differential Dx: Viral vs bacterial vs fungal vs noninfectious cause. Chest CT read as possible septic emboli, blood cultures with no growth so low suspicion for septic emboli. Improving on current treatment (not on antifungal) , low suspicion for fungal PNA in setting of improvement without antifungal. Blood cultures with no growth on day 2. Sputum culture with yeast. Urine antigen for s. pneumo negative. Afebrile, and improving leukocytosis. Pulmonary consult pending. 2. Elevated LFTs. LFTs are improving from previous admission. ABD US with echogenic liver. Suspect secondary to Liver shock but may have underlying liver disease in the setting of hx ETOH use and history of elevated LFTs. 3. Ascities. Denies ABD pain. Concern for SBP, he is improving with current treatment. 4. CAD with severe systolic HF. Recent cardiac arrest. Plan: Continue Vancomycin and Ceftriaxone. If he doesn't continue to improve, could consider a paracentesis to eval for SBP. Agree with Pulmonology consult.
[2019-08-10] MEDS: Benzonatate CAP* 100 MG PO SCH ×2 (09:59→19:53)
[2019-08-10] MEDS: Aspirin 81 mg CHEW TAB* 81 MG TAB.CHEW PO SCH (09:59)
[2019-08-10] MEDS: Ezetimibe TAB* 10 MG PO SCH (09:59)
[2019-08-10] MEDS: Magnesium Oxide TAB* 400 MG PO SCH (10:00)
[2019-08-10] MEDS: Folic Acid TAB* 1 MG PO SCH (10:00)
[2019-08-10] MEDS: Thiamine INJ* 500 MG in NS 0.9% 250 ML* 250 ML IV SCH (10:00)
--- NOTE | 2019-08-10 13:43 | CONSULT ---
Palliative / Hospice Consult Ordering Provider: Sherry Cobian - PCP-Johnny Referal Reason: Goals of care/no bowel meds/no narcotics - Subjective Code Status: Full Code Advance Directives Location: No Advance Directives - History or Present Illness History or Present Illness: 49yo male with severe cardiomyopathy presents with chills and SOB. PMH is significant for CAD triple vessel disease, mod to severe MV regurge, severe systolic and valvular HF EF 10-15%, PAD s/p R iliac stent 02/2018, hyperlipidemia , NSVT and ? liver disease. 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 Studies CXR small R pleural effusion, bilateral nodular infiltrates , EKG-NSR, probable anterolateral infarct, Chest CT-cardiomegaly, multifocal pneumonia, septic emboli fungus vs Shreya's granulomatosis, Abd U/S-ascites, R pleural effusion, H/H 10.3/31, BUN/Cr 33/1.22, egfr 63.4, Ca 8, CRP 144.22, BNP> 1300, alb 3.3, lactic acid 5.1, Ca 8, INR 2.16. Pt was admitted to ICU with sepsis secondary to pneumonia and end stage cardiomyopathy. Pt had previous admission 2-08/01/19 for SOB and cardiac arrest for asystole due to hypoxia. All history is from pt, family and medical records. Lab Values: Abnormal Lab Results 08/07/19 08/07/19 08/09/19 21:52 21:52 14:45 WBC RBC Hgb Hct MCV MCH MCHC RDW Plt Count MPV Neut % (Auto) Lymph % (Auto) Hendricks % (Auto) Eos % (Auto) Baso % (Auto) Absolute Neuts (auto) Absolute Lymphs (auto) Absolute Monos (auto) Absolute Eos (auto) Absolute Basos (auto) Absolute Nucleated RBC Nucleated RBC % Sodium Potassium Chloride Carbon Dioxide Anion Gap BUN Creatinine Est GFR ( Amer) Est GFR (Non-Af Amer) BUN/Creatinine Ratio Glucose Lactic Acid Calcium Vancomycin Trough 16.8 Cryoglobulin Negative Anti-Nuclear Antibody 3.7 H Proteinase 3 (PR3) <0.2 Myeloperoxidase Ab <0.2 Glomerular Base Memb Ab <0.2 Complement C3 151 Complement C4 17 08/10/19 08/10/19 08/10/19 04:09 04:09 06:09 WBC 15.8 H RBC 3.53 L Hgb 10.5 L Hct 32 L MCV 91 MCH 30 MCHC 33 RDW 18 H Plt Count 428 MPV 8.7 Neut % (Auto) 83.3 Lymph % (Auto) 10.2 Hendricks % (Auto) 5.2 Eos % (Auto) 1.1 Baso % (Auto) 0.2 Absolute Neuts (auto) 13.2 H Absolute Lymphs (auto) 1.6 Absolute Monos (auto) 0.8 Absolute Eos (auto) 0.2 Absolute Basos (auto) 0.0 Absolute Nucleated RBC 0.1 Nucleated RBC % 0.5 Sodium 133 L Potassium 3.3 L Chloride 101 Carbon Dioxide 24 Anion Gap 8 BUN 19 Creatinine 0.89 Est GFR ( Amer) 110.4 Est GFR (Non-Af Amer) 91.2 BUN/Creatinine Ratio 21.3 H Glucose 96 Lactic Acid 1.9 Calcium 7.9 L Vancomycin Trough Cryoglobulin Anti-Nuclear Antibody Proteinase 3 (PR3) Myeloperoxidase Ab Glomerular Base Memb Ab Complement C3 Complement C4 Laboratory Last Values WBC 15.8 10^3/uL (3.5-10.8) H 08/10/19 04:09 RBC 3.53 10^6 /uL (4.18-5.48) L 08/10/19 04:09 Hgb 10.5 g/dL (14.0-18.0) L 08/10/19 04:09 Hct 32 % (42-52) L 08/10/19 04:09 MCV 91 fL (80-94) 08/10/19 04:09 MCH 30 pg (27-31) 08/10/19 04:09 MCHC 33 g/dL (31-36) 08/10/19 04:09 RDW 18 % (10-15) H 08/10/19 04:09 Plt Count 428 10^3/uL (150-450) 08/10/19 04:09 MPV 8.7 fL (7.4-10.4) 08/10/19 04:09 Neut % (Auto) 83.3 % 08/10/19 04:09 Lymph % (Auto) 10.2 % 08/10/19 04:09 Hendricks % (Auto) 5.2 % 08/10/19 04:09 Eos % (Auto) 1.1 % 08/10/19 04:09 Baso % (Auto) 0.2 % 08/10/19 04:09 Absolute Neuts (auto) 13.2 10^3/ul (1.5-7.7) H 08/10/19 04:09 Absolute Lymphs (auto) 1.6 10^3/ul (1.0-4.8) 08/10/19 04:09 Absolute Monos (auto) 0.8 10^3/ul (0-0.8) 08/10/19 04:09 Absolute Eos (auto) 0.2 10^3/ul (0-0.6) 08/10/19 04:09 Absolute Basos (auto) 0.0 10^3/ul (0-0.2) 08/10/19 04:09 Absolute Nucleated RBC 0.1 10^3/ul 08/10/19 04:09 Nucleated RBC % 0.5 08/10/19 04:09 ESR 26 mm/Hr (0-14) H 08/07/19 21:52 INR (Anticoag Therapy) 2.16 (0.82-1.09) H 08/07/19 17:42 Sodium 133 mmol/L (135-145) L 08/10/19 04:09 Potassium 3.3 mmol/L (3.5-5.0) L 08/10/19 04:09 Chloride 101 mmol/L (101-111) 08/10/19 04:09 Carbon Dioxide 24 mmol/L (22-32) 08/10/19 04:09 Anion Gap 8 mmol/L (2-11) 08/10/19 04:09 BUN 19 mg/dL (6-24) 08/10/19 04:09 Creatinine 0.89 mg/dL (0.67-1.17) 08/10/19 04:09 Est GFR ( Amer) 110.4 (>60) 08/10/19 04:09 Est GFR (Non-Af Amer) 91.2 (>60) 08/10/19 04:09 BUN/Creatinine Ratio 21.3 (8-20) H 08/10/19 04:09 Glucose 96 mg/dL (70-100) 08/10/19 04:09 Lactic Acid 1.9 mmol/L (0.5-2.0) 08/10/19 06:09 Calcium 7.9 mg/dL (8.6-10.3) L 08/10/19 04:09 Magnesium 1.8 mg/dL (1.9-2.7) L 08/07/19 17:42 Total Bilirubin 1.80 mg/dL (0.2-1.0) H 08/07/19 17:42 AST 68 U/L (13-39) H 08/07/19 17:42 ALT 84 U/L (7-52) H 08/07/19 17:42 Alkaline Phosphatase 330 U/L (34-104) H 08/07/19 17:42 Ammonia 42 mcmol/L (16-53) 08/07/19 17:42 Troponin I 0.50 ng/mL (<0.03) H* 08/08/19 05:47 C-Reactive Protein 144.22 mg/L (<8.01) H 08/07/19 17:42 B-Natriuretic Peptide > 1300 pg/mL (<=100) H 08/07/19 17:42 Total Protein 7.3 g/dL (6.4-8.9) 08/07/19 17:42 Albumin 3.3 g/dL (3.2-5.2) 08/07/19 17:42 Globulin 4.0 g/dL (2-4) 08/07/19 17:42 Albumin/Globulin Ratio 0.8 (1-3) L 08/07/19 17:42 Lipase 18 U/L (11.0-82.0) 08/07/19 17:42 Urine Color Yellow 08/07/19 18:26 Urine Appearance Clear 08/07/19 18:26 Urine pH 5.0 (5-9) 08/07/19 18:26 Ur Specific Victoria 1.016 (1.010-1.030) 08/07/19 18:26 Urine Protein Negative (Negative) 08/07/19 18:26 Urine Ketones Negative (Negative) 08/07/19 18:26 Urine Blood Negative (Negative) 08/07/19 18:26 Urine Nitrate Negative (Negative) 08/07/19 18:26 Urine Bilirubin Negative (Negative) 08/07/19 18:26 Urine Urobilinogen Negative (Negative) 08/07/19 18:26 Ur Leukocyte Esterase Negative (Negative) 08/07/19 18:26 Ur Creatinine Concen 111.55 mg/dL 08/07/19 18: U Sodium Concentration 40 mmol/L 08/07/19 18:26 Urine Glucose Negative (Negative) 08/07/19 18:26 Vancomycin Trough 16.8 mcg/mL 08/09/19 14:45 Urine Opiates Screen None detected (None Detect) 08/07/19 18: Ur Barbiturates Screen None detected (None Detect) 08/07/19 18: Ur Phencyclidine Scrn None detected (None Detect) 08/07/19 18: Ur Amphetamines Screen None detected (None Detect) 08/07/19 18: U Benzodiazepines Scrn None detected (None Detect) 08/07/19 18: Urine Cocaine Screen None detected (None Detect) 08/07/19 18: U Cannabinoids Screen None detected (None Detect) 08/07/19 18: Serum Alcohol < 10 mg/dL (<10) 08/07/19 17:42 Cryoglobulin Negative %ppt (Negative) 08/07/19 21:52 Anti-Nuclear Antibody 3.7 U H 08/07/19 21:52 Proteinase 3 (PR3) <0.2 U 08/07/19 21:52 Myeloperoxidase Ab <0.2 U 08/07/19 21:52 Glomerular Base Memb Ab <0.2 U 08/07/19 21:52 Complement C3 151 mg/dL (75 - 175) 08/07/19 21:52 Complement C4 17 mg/dL (14 - 40) 08/07/19 21:52 - Objective Active Medications: Aspirin (Aspirin 81 Mg Chew Tab*) 81 mg PO DAILY [facility] Last Admin: 08/10/19 09:59 Dose: 81 mg Benzonatate (Tessalon Cap*) 100 mg PO BID [facility] Last Admin: 08/10/19 09:59 Dose: 100 mg Ezetimibe (Zetia Tab*) 10 mg PO DAILY [facility] Last Admin: 08/10/19 09:59 Dose: 10 mg Folic Acid (Folvite Tab*) 1 mg PO DAILY [facility] Last Admin: 08/10/19 10:00 Dose: 1 mg Guaifenesin/Codeine Phosphate (Robitussin Ac 100mg/10mg In 5 Ml) 5 ml PO Q4H PRN PRN Reason: COUGH Last Admin: 08/10/19 05:25 Dose: 5 ml Vancomycin HCl 1,000 mg/ (Sodium Chloride) 250 mls @ 166.667 mls/hr IV Q8H [facility] Last Admin: 08/10/19 05:26 Dose: 166.667 mls/hr Ceftriaxone Sodium 2 gm/ (Sodium Chloride) 100 mls @ 200 mls/hr IVPB Q24H [facility] Last Admin: 08/09/19 17:20 Dose: 200 mls/hr Magnesium Oxide (Magox 400 Tab*) 400 mg PO DAILY [facility] Last Admin: 08/10/19 10:00 Dose: 400 mg Melatonin (Melatonin) 3 mg PO BEDTIME [facility] Last Admin: 08/09/19 20:30 Dose: 3 mg Miscellaneous (Ativan Pyxis Nj) 1 ea N/A .ATIVAN IV [place] PRN PRN Reason: PYXIS [place] Pharmacy Consult (Vancomycin Per Pharmacy*) 1 note FOLLOW UP .VANC PER PHARMACY [facility]; Protocol Pharmacy Profile Note (Vancomycin Trough Check) 1 note FOLLOW UP 0600 ONE Stop: 08/12/19 06:01 Trazodone HCl (Desyrel Tab*) 50 mg PO BEDTIME PRN PRN Reason: SLEEP Last Admin: 08/09/19 20:30 Dose: 50 mg Vital Signs: Vital Signs: Temp Pulse Resp BP Pulse Ox 98.1 F 115 18 147/73 93 08/10/19 10:58 08/10/19 10:58 08/10/19 10:58 08/10/19 10:58 08/10/19 10:58 Patient Weight: Weight 98.6 kg Intake and Output: Intake & Output 08/08/19 08/09/19 08/10/19 08/11/19 06:59 06:59 06:59 06:59 Intake Total 9810 929 5151 360 Output Total 400 325 650 Balance 1065 -150 2183 360 Weight 98.883 kg 98.6 kg Intake: IV Fluids 400 585 NS KVO w meds 60 Thiamine 260 Vanco 265 IVPB 934 679 2808 ABX - PIPERACILLIN 210 175 NS KVO w meds 1608 ceftrioxone 100 magnesium 55 Oral 800 540 360 Output: Urine 400 325 650 Other: Estimated Void Large Large Date of Last Bowel 08/08/2019 Movement Estimated Stool Amount Medium # Voids 1 1 2 ADLs: Meal Record Start: 08/07/19 20: 35 Freq: DAILY@0900,1400,1800 Status: Inactive Protocol: Created 08/07/19 20:35 System (Rec: 08/07/19 20:35 System [id number]) ADLs: Meal Record Start: 08/08/19 08: 01 Freq: 09,13,18 Status: Inactive Protocol: Created 08/08/19 08:01 [id number] (Rec: 08/08/19 08:01 [id number] ICU-C12) Document 08/08/19 09:00 [id number] (Rec: 08/08/19 09:18 [id number] ICU-C12) Document 08/08/19 13:00 [id number] (Rec: 08/08/19 13:15 [id number] ICU-C12) Document 08/08/19 19:22 [id number] (Rec: 08/08/19 19:24 [id number] [facility] [place]-M07) Document 08/09/19 09:00 [id number] (Rec: 08/09/19 13:23 [id number] ICU-C15) Document 08/09/19 13:00 [id number] (Rec: 08/09/19 13:23 [id number] ICU-C15) ADLs: Meal Record Start: 08/10/19 09: 01 Freq: DAILY@0900,1400,1800 Status: Active Protocol: Created 08/10/19 09:01 [id number] (Rec: 08/10/19 09:01 [id number] MED-C11) Document 08/10/19 09:04 [id number] (Rec: 08/10/19 09:05 [id number] MED-C11) Intake and Output Start: 08/07/19 16: 04 Freq: DAILY@0600,1400,2200 Status: Active Protocol: Created 08/07/19 16:04 System (Rec: 08/07/19 16:04 System ED-C24) Document 08/07/19 19:20 [id number] (Rec: 08/07/19 19:29 [id number] ED-C18) Document 08/08/19 17:29 [id number] (Rec: 08/08/19 17:29 [id number] ICU-C12) Document 08/08/19 23:01 [id number] (Rec: 08/08/19 23:01 [id number] ICU-C16) Document 08/09/19 11:00 [id number] (Rec: 08/09/19 16:14 [id number] ICU-M23) Intake and Output Start: 08/07/19 20: 35 Freq: DAILY@0600,1400,2200 Status: Inactive Protocol: Created 08/07/19 20:35 System (Rec: 08/07/19 20:35 System [id number]-M18) Document 08/07/19 22:00 [id number] (Rec: 08/07/19 22:15 [id number] TELE-C03) Document 08/08/19 05:23 [id number] (Rec: 08/08/19 05:25 [id number] TELE-C01) Intake and Output Start: 08/08/19 08: 01 Freq: Q1HR Status: Inactive Protocol: Created 08/08/19 08:01 [id number] (Rec: 08/08/19 08:01 [id number] ICU-C12) Head: Normal Eyes: No Scleral Icterus Ears/Nose/Mouth/Throat: NL Teeth, Lips, Gums Neck: NL Appearance and Movements; NL JVP Respiratory: Symmetrical Chest Expansion and Respiratory Effort Abdominal: NL Sounds; No Tenderness; No Distention Neurological: Alert and Oriented x 3 - Assessment Assessment: 49yo male with CAD triple disease, severe systolic and valvular HF 10-15% admitted with sepsis due to pneumonia - Plan Consult Plan (MU): Palliative Plan: Spoke with pt, sister and girlfriend about goals of care. If pt is declining surgical intervention with EF of 10-15% he will qualify for hospice which shocked pt. He is not interested in hospice currently and is willing to talk with cardiology to see what options exist going forward. They met with and have decided to pursue appt in [place] with heart failure specialist for either CABG/MVR or LVAD. He must wait until his pneumonia has improved. Also discussed MOLST and pt wants to be full code. KPS 60%, PPS 50% - Time On Unit Date of Evaluation: 08/10/19 Hospice Consult Time in: 13:00 Hospice Consult Time Out: 14:00 Hospice Consult Time Total: 60 > 50% of Time Spend In Counseling or Coordinating Care: Yes
[2019-08-10] MEDS ORDERED: Potassium Chloride* LIQUID 20 MEQ/15 ML UDC PO ONE ×2 (14:39→20:00)
--- NOTE | 2019-08-10 14:41 | CONSULT ---
Subjective Date of Service: 08/10/19 Interval History: Admission Date: 07/23/19 Consult date 08/10/2019 PCP: Dr. Bennett Senior Energy Market Coordinator: Dr. Crowe CC: chills, productive cough, worsening dyspnea diagnosed multifocal pneumonia Reason for consult: CAD, MR, CHF HISTORY OF PRESENT ILLNESS: Tres Lema is a 49-year-old man with a history as below. He was admitted with the above symptoms and found with severe multifocal pneumonia and is improving on antiobiotics but remains with symptomatic volume overload. His sister Amy [phone] and girlfriend are at bedside. He last saw his broom handle dipper Dr. Crowe 02/[address] was seen [address] Dr Coleman during recent admission. Since 02/2019 he has felt continuously ill with GI upset and dypsnea. He was admitted earlier this month 07/23-08/01/2019 with pneumonia and cocaine abuse complicated by asystolic arrest that on chart review appears to have been precipitated by hypoxia. He left the hospital against medical advise. PMhx: very severe ischemic cardiomyopathy with secondary MR has declined surgery in the past NSVT Alcoholism ~ 10 beers a day Tobacco use Cocaine abuse PAD s/p L iliac stenting 02/2018 History tooth abscess Probable chronic liver disease Past surgical hx: Toe amputation ALLERGIES: No known drug allergies. FAMILY MEDICAL HISTORY: Father has coronary artery disease in his 50s, alive at age 90. Mother alive at age 84. He takes care of them. Brother had an NV, alive at 62, NV was at 61. Two sisters, 1 of whom has COPD. 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 otherwise as above Medications Active Medications: Aspirin (Aspirin 81 Mg Chew Tab*) 81 mg PO DAILY [facility] Last Admin: 08/10/19 09:59 Dose: 81 mg Benzonatate (Tessalon Cap*) 100 mg PO BID [facility] Last Admin: 08/10/19 09:59 Dose: 100 mg Ezetimibe (Zetia Tab*) 10 mg PO DAILY [facility] Last Admin: 08/10/19 09:59 Dose: 10 mg Folic Acid (Folvite Tab*) 1 mg PO DAILY [facility] Last Admin: 08/10/19 10:00 Dose: 1 mg Guaifenesin/Codeine Phosphate (Robitussin Ac 100mg/10mg In 5 Ml) 5 ml PO Q4H PRN PRN Reason: COUGH Last Admin: 08/10/19 05:25 Dose: 5 ml Vancomycin HCl 1,000 mg/ (Sodium Chloride) 250 mls @ 166.667 mls/hr IV Q8H [facility] Last Admin: 08/10/19 05:26 Dose: 166.667 mls/hr Ceftriaxone Sodium 2 gm/ (Sodium Chloride) 100 mls @ 200 mls/hr IVPB Q24H [facility] Last Admin: 08/09/19 17:20 Dose: 200 mls/hr Lisinopril (Prinivil Tab*) 2.5 mg PO DAILY [facility] Magnesium Oxide (Magox 400 Tab*) 400 mg PO DAILY [facility] Last Admin: 08/10/19 10:00 Dose: 400 mg Melatonin (Melatonin) 3 mg PO BEDTIME [facility] Last Admin: 08/09/19 20:30 Dose: 3 mg Metoprolol Succinate (Toprol Xl Tab*) 12.5 mg PO DAILY [facility] Miscellaneous (Ativan Pyxis Nj) 1 ea N/A .ATIVAN IV [place] PRN PRN Reason: PYXIS [place] Pharmacy Consult (Vancomycin Per Pharmacy*) 1 note FOLLOW UP .VANC PER PHARMACY [facility]; Protocol Pharmacy Profile Note (Vancomycin Trough Check) 1 note FOLLOW UP 0600 ONE Stop: 08/12/19 06:01 Potassium Chloride (Potassium Chloride Liquid) 40 meq PO ONCE ONE Stop: 08/10/19 14:40 Potassium Chloride (Potassium Chloride Liquid) 40 meq PO ONCE ONE Stop: 08/10/19 20:01 Spironolactone (Aldactone Tab*) 25 mg PO DAILY [facility] Torsemide (Demadex*) 20 mg PO DAILY [facility] Trazodone HCl (Desyrel Tab*) 50 mg PO BEDTIME PRN PRN Reason: SLEEP Last Admin: 08/09/19 20:30 Dose: 50 mg Home Medications: Aspirin [Aspirin Childrens 81 MG] 81 mg PO DAILY #30 chw 03/01/18 [Rx Confirmed 08/07/19] Ezetimibe TAB* [Zetia TAB*] 10 mg PO DAILY #30 tab 08/01/19 [Rx Confirmed ] Folic Acid TAB* [Folvite TAB*] 1 mg PO DAILY tab 08/01/19 [Rx Confirmed ] Lactulose* 30 ml PO BID #1000 ml 08/01/19 [Rx Confirmed 08/07/19] Lisinopril TAB* [Prinivil TAB 5 MG*] 2.5 mg PO DAILY #15 tab 08/01/19 [Rx Confirmed 08/07/19] Magnesium Oxide TAB* [MagOx 400 TAB*] 400 mg PO DAILY tab 08/01/19 [Rx Confirmed 08/07/19] Nitroglycerin 0.1 mg/Hr PATCH* [Nitroglycerin 2.5 MG PATCH*] 1 patch TRANSDERM DAILY@0900 #30 patch 08/01/19 [Rx Confirmed 08/07/19] Rosuvastatin (NF) [Crestor (NF)] 40 mg PO DAILY #30 tab 08/01/19 [Rx Confirmed 08/07/19] Spironolactone TAB* [Aldactone TAB 25 MG*] 25 mg PO DAILY #30 tab 08/01/19 [Rx Confirmed 08/07/19] amLODIPine TAB* [Norvasc 5 mg TAB*] 2.5 mg PO DAILY #15 tab 08/01/19 [Rx Confirmed 08/07/19] Review of Systems - Measurements Intake and Output: Intake and Output Last 24 Hours 08/08/19 08/09/19 08/10/19 08/11/19 06:59 06:59 06:59 06:59 Intake Total 7718 252 1403 360 Output Total 400 325 650 Balance 1065 -150 2183 360 Weight 218 lb 217 lb 6.012 oz Intake: IV Fluids 400 585 NS KVO w meds 60 Thiamine 260 Vanco 265 IVPB 250 366 0542 ABX - PIPERACILLIN 210 175 NS KVO w meds 1608 ceftrioxone 100 magnesium 55 Oral 800 540 360 Output: Urine 400 325 650 Other: Estimated Void Large Large Date of Last Bowel 08/08/2019 Movement Estimated Stool Amount Medium # Voids 1 1 2 - Review of Systems Constitutional Symptoms: Positive: Weakness, Fatigue Dermatology: Positive: Skin Lesions, Skin Lumps HEENT: Negative: Change in Hearing, Vertigo Eyes: Negative: Change in Vision, Double Vision Thyroid: Negative: Palpitations, Weight Loss, Weight Gain Pulmonary: Positive: Cough, Shortness of Breath Negative: Sputum, COPD Cardiology: Positive: Shortness of Breath, Swelling of Ankles, Peripheral Vascular Dis, Edema, Orthopnea Negative: Chest Pain, Palpitations, Syncope Gastroenterology: Negative: Blood in Stools, Haematemesis, Melena Genital - Urinary: Negative: Dysuria, Hematuria Musculoskeletal: Negative: Joint Pain, Joint Stiffness Endocrinology: Negative: Polydipsia, Polyuria Hematologic/Lymphatic: Positive: Use of Antiplatelet Drugs Negative: Use of Anticoagulant Neurology: Negative: Hx of Stroke\TIA, Hx Seizures Psychiatry: Negative: Unusual Anxiety, Suicidal Ideation Allergic/Immunologic: Negative: Hx HIV, Immunocompromise Review of Systems Statement: All other review of systems negative, unless stated above. Objective Vital Signs: Temp Pulse Resp BP Pulse Ox 98.1 F 115 18 147/73 93 08/10/19 10:58 08/10/19 10:58 08/10/19 10:58 08/10/19 10:58 08/10/19 10:58 Oxygen Devices in Use Now: None Appearance: chronically ill appearing, not acutely toxic appearing Ears/Nose/Mouth/Throat: Clear Oropharnyx Neck: Trachea Midline, - - uncertain jvp Respiratory: - - mild tachypnea and increased work of breathing, decreased breath sounds right base Cardiovascular: - - tachycardic, regular, prominent PMI, no significant murmur Abdominal: - - soft, mildy distended, non-tender Extremities: - - 3+ edema, warm and well perfused Skin: - - excorations on arms Neurological: Alert and Oriented x 3 Laboratory Results: 08/10/19 04:09 08/10/19 04:09 INR (Anticoag Therapy) 2.16 (0.82-1.09) H 08/07/19 17:42 Total Bilirubin 1.80 mg/dL (0.2-1.0) H 08/07/19 17:42 AST 68 U/L (13-39) H 08/07/19 17:42 ALT 84 U/L (7-52) H 08/07/19 17:42 Alkaline Phosphatase 330 U/L (34-104) H 08/07/19 17:42 B-Natriuretic Peptide > 1300 pg/mL (<=100) H 08/07/19 17:42 Total Protein 7.3 g/dL (6.4-8.9) 08/07/19 17:42 Albumin 3.3 g/dL (3.2-5.2) 08/07/19 17:42 Globulin 4.0 g/dL (2-4) 08/07/19 17:42 Albumin/Globulin Ratio 0.8 (1-3) L 08/07/19 17:42 08/07/19 08/08/19 17:42 05:47 Troponin I 0.54 H* 0.50 H* Diagnostic Imaging: Exam Date: 08/09/19 HISTORY: Looking for ascites IMPRESSION: ASCITES. RIGHT PLEURAL EFFUSION. Coronary artery disease. He had a cath in February 2018. He had a diffusely diseased RCA with a 50% to 55% proximal lesion and 65% to 70% more distal lesion and 75% to 80% lesion to PDA. Left main was 45% to 50%. LAD 55%. Mid LAD 80% to 85%. Circumflex was a dominant vessel. Trifurcation marginal branch had 75% lesion and a mid 70% lesion. He was advised CABG, which he declined. Exam Date: 08/07/19 CT CHEST W/O IMPRESSION: 1. Interval multifocal pneumonia with findings suggesting the possibility of septic emboli with other etiologies including atypical agents such as fungus and Shreya's granulomatosis. Associated although smaller reactive mediastinal lymph nodes and intervally enlarged right greater than left pleural effusions. 2. Cardiomegaly without overt failure. Transthoracic Echocardiogram Study Date: 07/30/2019 - Left ventricle: Systolic function is severely reduced. The estimated ejection fraction is 10%. Diffuse hypokinesis with regional variations. - Right ventricle: Systolic function is moderately to severely reduced. - Mitral valve: There is moderate to severe regurgitation. Possible pulmonary vein systolic flow reversal. The valve area is 2.1 cm^2. The valve area by pressure half-time is 3.7 cm^2. The effective regurgitant orifice (PISA) is 0.39 cm^2. - Aortic valve: There is no evidence of stenosis. There is no significant regurgitation. - Tricuspid valve: There is moderate regurgitation. - Pericardium, extracardiac: There is no significant pericardial effusion. - Pulmonary arteries: Systolic pressure is mildly to moderately increased. - Compared to study of 07/23/2019, the left ventricle function is the same. The degee of mitral regurgitation is worse EKG Data: ekg 03/07/2020 NSR 92 bpm Low limb lead voltage LAE old anterior/anterolateral infarct Assessment/Plan 1. Severe unrevascularized ischemic cardiomyopathy/CHF - Secondary MR - With RV failure 2. Alcohol abuse 3. Tobacco abuse 4. Cocaine abuse 5. Multifocal pneumonia - Main reason for admission 6. Probable chronic liver disease - continue aspirin - continue zetia - recheck lfts once further recovered and restart statin if same or better - restart toprol at 12.5 mg po daily (ordered) and uptitrate once better compensated. Asystole previously appeared to be primarily hypoxic related. - restart lisinopril 2.5 mg po daily (ordered) - continue magnesium, keep at 2.0 or greater to reduced sustained arrhythmia risk - start 20 mg torsemide/25 mg aldactone (ordered) - 80 meq oral K+ total today (ordered) - would check daily BMP, Mg, weights, I/O - Would uptitrate above cardiomyopathy/diuretic medications as appropriate and diurese as tolerated Discussed at length with patient, sister Amy and significant other. Once stable would discharge and allow complete pneumonia recovery. An outpatient [facility] Heart Failure referral has been arranged to evaluate for CABG/MVR vs. LVAD. All in meeting are aware his prognosis is guarded and that his prognosis can be improved by medication adherence, follow up adherence and refraining from alcohol, tobacco and drugs.
[2019-08-10] MEDS: Metoprolol Succinate XL TAB* 25 MG PO SCH (15:16)
[2019-08-10] MEDS: Torsemide TAB* 20 MG PO SCH (15:16)
[2019-08-10] MEDS: Lisinopril TAB* 5 MG PO SCH (15:16)
[2019-08-10] MEDS: Spironolactone TAB* 25 MG PO SCH (15:16)
--- NOTE | 2019-08-10 17:00 | PN ---
Subjective Date of Service: 08/10/19 Interval History: SOb improved. Long discussion with pt.Reports that he was very overwhelmed when he signed out AMA last time and is willing to follow recs and consider CABG and other definitively treatment. Family History: Unchanged from Admission Social History: Unchanged from Admission Past Medical History: Unchanged from Admission Objective Active Medications: Aspirin (Aspirin 81 Mg Chew Tab*) 81 mg PO DAILY [facility] Last Admin: 08/10/19 09:59 Dose: 81 mg Benzonatate (Tessalon Cap*) 100 mg PO BID [facility] Last Admin: 08/10/19 09:59 Dose: 100 mg Ezetimibe (Zetia Tab*) 10 mg PO DAILY [facility] Last Admin: 08/10/19 09:59 Dose: 10 mg Folic Acid (Folvite Tab*) 1 mg PO DAILY [facility] Last Admin: 08/10/19 10:00 Dose: 1 mg Guaifenesin/Codeine Phosphate (Robitussin Ac 100mg/10mg In 5 Ml) 5 ml PO Q4H PRN PRN Reason: COUGH Last Admin: 08/10/19 05:25 Dose: 5 ml Vancomycin HCl 1,000 mg/ (Sodium Chloride) 250 mls @ 166.667 mls/hr IV Q8H [facility] Last Admin: 08/10/19 15:11 Dose: 166.667 mls/hr Ceftriaxone Sodium 2 gm/ (Sodium Chloride) 100 mls @ 200 mls/hr IVPB Q24H [facility] Last Admin: 08/09/19 17:20 Dose: 200 mls/hr Lisinopril (Prinivil Tab*) 2.5 mg PO DAILY [facility] Last Admin: 08/10/19 15:16 Dose: 2.5 mg Magnesium Oxide (Magox 400 Tab*) 400 mg PO DAILY [facility] Last Admin: 08/10/19 10:00 Dose: 400 mg Melatonin (Melatonin) 3 mg PO BEDTIME [facility] Last Admin: 08/09/19 20:30 Dose: 3 mg Metoprolol Succinate (Toprol Xl Tab*) 12.5 mg PO DAILY [facility] Last Admin: 08/10/19 15:16 Dose: 12.5 mg Miscellaneous (Ativan Pyxis [place]) 1 ea N/A .ATIVAN IV [place] PRN PRN Reason: PYXIS [place] Pharmacy Consult (Vancomycin Per Pharmacy*) 1 note FOLLOW UP .VANC PER PHARMACY [facility]; Protocol Pharmacy Profile Note (Vancomycin Trough Check) 1 note FOLLOW UP 0600 ONE Stop: 08/12/19 06:01 Potassium Chloride (Potassium Chloride Liquid) 40 meq PO ONCE ONE Stop: 08/10/19 20:01 Spironolactone (Aldactone Tab*) 25 mg PO DAILY [facility] Last Admin: 08/10/19 15:16 Dose: 25 mg Torsemide (Demadex*) 20 mg PO DAILY [facility] Last Admin: 08/10/19 15:16 Dose: 20 mg Trazodone HCl (Desyrel Tab*) 50 mg PO BEDTIME PRN PRN Reason: SLEEP Last Admin: 08/09/19 20:30 Dose: 50 mg Vital Signs - 8 hr 08/10/19 08/10/19 10:58 15:48 Temperature 98.1 F 97.6 F Pulse Rate 115 113 Respiratory 18 20 Rate Blood Pressure 147/73 106/84 (mmHg) O2 Sat by Pulse 93 98 Oximetry Oxygen Devices in Use Now: None Eyes: No Scleral Icterus Ears/Nose/Mouth/Throat: NL Teeth, Lips, Gums Neck: NL Appearance and Movements; NL JVP Respiratory: Symmetrical Chest Expansion and Respiratory Effort Cardiovascular: NL Sounds; No Murmurs; No JVD Abdominal: NL Sounds; No Tenderness; No Distention, - - ascites no rebound no guarding Extremities: - - edema improving Neurological: Alert and Oriented x 3 Result Diagrams: 08/10/19 04:09 08/10/19 04:09 Microbiology and Other Data: Microbiology 08/08/19 01:04 Gram Stain - Final Sputum Sputum Culture - Final YEAST Normal Estephania 08/07/19 19:59 Aerobic Blood Culture - Preliminary Blood Venous No Growth Day 2 Anaerobic Blood Culture - Preliminary No Growth Day 2 08/07/19 19:16 Aerobic Blood Culture - Preliminary Blood Venous No Growth Day 2 Anaerobic Blood Culture - Preliminary No Growth Day 2 08/07/19 18:26 Streptococcus pneumoniae Ag Screen - Final Urine Negative S. pneumo Antigen Assess/Plan/Problems-Billing Assessment: - Patient Problems (1) Cardiomyopathy Current Visit: Yes Status: Acute Code(s): I42.9 - CARDIOMYOPATHY, UNSPECIFIED SNOMED Code(s): 07870384 Comment: Non revascularized Ischemic Cardiomyopathy Cath 2018 with triple vessel disease Recent cardiac arrest and admission 2 weeks ago ( asystole) EF 10-15% Prev refused CABG Dr Crwoe pt as outpt Now willing to consider further definitive management (2) Pneumonia Current Visit: Yes Status: Acute Code(s): J18.9 - PNEUMONIA, UNSPECIFIED ORGANISM SNOMED Code(s): 756266787 Comment: ?septic emboli Hypoxemic resp failure and asystole likely sec respiratory compromise a couple of weeks ago signed out AMA Came back to the ER Initially in ICU Transferred to floor CT reviewed Id on Case Ceftriaxone, Vancomycin with improvement Septic emboli in consideration but blood culture has been neg Vanessa Granulomatosis, Fungal infection, r/o endobronchial lession also in differential with hemoptysis severe hypoxia ct appearance smoking history. Vanessa anti gbm serology ordered on admission. Pending results Needs further f/u and discussion with Pulmonary on Tuesday.?Need for Bronch Improving with antibiotics (3) Sepsis Current Visit: Yes Status: Acute Comment: pl see above improving (4) Acute on chronic systolic CHF (congestive heart failure) Current Visit: No Status: Acute Code(s): I50.23 - ACUTE ON CHRONIC SYSTOLIC (CONGESTIVE) HEART FAILURE SNOMED Code(s): 682299277 Comment: EF 10-15% Consult with Dr Guardado requested Appreciate cardiology input Torsemide + Aldactone Also started on Toprol, Lisinopril, Zetia Rec HF outpt referal to [facility] for CABG/MVR versus LVAD when stable and discharged (5) Cardiac arrest Current Visit: No Status: Acute Code(s): I46.9 - CARDIAC ARREST, CAUSE UNSPECIFIED SNOMED Code(s): 342001421 Comment: s/p asystole recently in Er Likely resp mediated (6) Lactic acidosis Current Visit: Yes Status: Acute Code(s): E87.2 - ACIDOSIS SNOMED Code(s) : 35939501 Comment: improving (7) PAMELA (acute kidney injury) Current Visit: Yes Status: Acute Code(s): N17.9 - ACUTE KIDNEY FAILURE, UNSPECIFIED SNOMED Code(s): 19244637 Comment: resolved (8) LFT elevation Current Visit: Yes Status: Acute Code(s): R94.5 - ABNORMAL RESULTS OF LIVER FUNCTION STUDIES SNOMED Code(s): 286292861 Comment: shocked liver improving can start statin when improved (9) Non-sustained ventricular tachycardia Current Visit: Yes Status: Acute Code(s): I47.2 - VENTRICULAR TACHYCARDIA SNOMED Code(s): 838133212 Comment: sec ischemia maintain mg around 2 lifevest discussion Referal for CABG/MVR vs LVAD
[2019-08-10] MEDS: Albuterol/Ipratropium NEB.SOL* Albuterol 2.5 MG/Ipratropium 0.5 MG 3 ML INH PRN (17:52)
[2019-08-10] MEDS: cefTRIAXone(*) 2 GM in NS 0.9% 100 ML* 100 ML IVPB SCH (18:13)
[2019-08-10] MEDS: Melatonin 3 MG TAB PO SCH (19:53)
[2019-08-10] MEDS: traZODone TAB* 50 MG TAB PO PRN (22:31)
[2019-08-11 07:05] LABS: ABS Eosinophils 0.2 10^3/ul (0-0.6); ABS Monocytes 0.7 10^3/ul (0-0.8); ABS Neutrophils 9.4 10^3/ul (1.5-7.7); Eosinophil % 1.2 %; Hematocrit 34 % (42-52); Hemoglobin 10.9 g/dL (14.0-18.0); Lymphocyte % 16.2 %; Mean Corpuscular HGB Conc 32 g/dL (31-36); Mean Corpuscular Hemoglobin 29 pg (27-31); Mean Corpuscular Volume 91 fL (80-94); Mean Platelet Volume 8.7 fL (7.4-10.4); Nucleated Red Blood Cells % 0.4; Platelet Count 454 10^3/uL (150-450); Red Blood Count 3.76 10^6 /uL (4.18-5.48); Red Cell Distribution Width 19 % (10-15); White Blood Count 12.3 10^3/uL (3.5-10.8)
[2019-08-11] MEDS: Vancomycin(*) 1,000 MG in NS 0.9% 250 ML* 250 ML IV SCH ×3 (07:09→21:33)
[2019-08-11] MEDS: guaiFENesin/CODIENE 100mg/10mg 5 ML UDC PO PRN ×2 (07:09→12:29)
[2019-08-11 07:17] LABS: BUN/Creatinine Ratio 14.4 (8-20); Calcium 8.1 mg/dL (8.6-10.3); EGFR African American 92.2 (>60); EGFR Non-African American 76.2 (>60)
[2019-08-11] MEDS: Benzonatate CAP* 100 MG PO SCH ×2 (10:30→19:41)
[2019-08-11] MEDS: Spironolactone TAB* 25 MG PO SCH (10:30)
[2019-08-11] MEDS: Magnesium Oxide TAB* 400 MG PO SCH (10:30)
[2019-08-11] MEDS: Metoprolol Succinate XL TAB* 25 MG PO SCH (10:30)
[2019-08-11] MEDS: Ezetimibe TAB* 10 MG PO SCH (10:31)
[2019-08-11] MEDS: Aspirin 81 mg CHEW TAB* 81 MG TAB.CHEW PO SCH (10:31)
[2019-08-11] MEDS: Torsemide TAB* 20 MG PO SCH (10:31)
[2019-08-11] MEDS: Lisinopril TAB* 5 MG PO SCH (10:31)
[2019-08-11] MEDS: Folic Acid TAB* 1 MG PO SCH (10:31)
--- NOTE | 2019-08-11 10:33 | PN ---
Subjective Date of Service: 08/11/19 Interval History: Cough is improving, no longer bloody Trouble sleeping flat, slept in chair overnight due to worsening cough lying flat. This is new for him Profoundly SOB walking back and forth to bathroom Family History: Unchanged from Admission Social History: Unchanged from Admission Past Medical History: Unchanged from Admission Objective Active Medications: Albuterol/Ipratropium (Duoneb (Albuterol 2.5 Mg/Ipratropium 0.5 Mg)) 1 neb INH Q4H PRN PRN Reason: SOB/WHEEZING Last Admin: 08/10/19 17:52 Dose: 1 neb Aspirin (Aspirin 81 Mg Chew Tab*) 81 mg PO DAILY [facility] Last Admin: 08/10/19 09:59 Dose: 81 mg Benzonatate (Tessalon Cap*) 100 mg PO BID [facility] Last Admin: 08/10/19 19:53 Dose: 100 mg Ezetimibe (Zetia Tab*) 10 mg PO DAILY [facility] Last Admin: 08/10/19 09:59 Dose: 10 mg Folic Acid (Folvite Tab*) 1 mg PO DAILY [facility] Last Admin: 08/10/19 10:00 Dose: 1 mg Guaifenesin/Codeine Phosphate (Robitussin Ac 100mg/10mg In 5 Ml) 5 ml PO Q4H PRN PRN Reason: COUGH Last Admin: 08/11/19 07:09 Dose: 5 ml Vancomycin HCl 1,000 mg/ (Sodium Chloride) 250 mls @ 166.667 mls/hr IV Q8H [facility] Last Admin: 08/11/19 07:09 Dose: 166.667 mls/hr Ceftriaxone Sodium 2 gm/ (Sodium Chloride) 100 mls @ 200 mls/hr IVPB Q24H [facility] Last Admin: 08/10/19 18:13 Dose: 200 mls/hr Lisinopril (Prinivil Tab*) 2.5 mg PO DAILY [facility] Last Admin: 08/10/19 15:16 Dose: 2.5 mg Magnesium Oxide (Magox 400 Tab*) 400 mg PO DAILY [facility] Last Admin: 08/10/19 10:00 Dose: 400 mg Melatonin (Melatonin) 3 mg PO BEDTIME [facility] Last Admin: 08/10/19 19:53 Dose: 3 mg Metoprolol Succinate (Toprol Xl Tab*) 12.5 mg PO DAILY [facility] Last Admin: 08/10/19 15:16 Dose: 12.5 mg Miscellaneous (Ativan Pyxis [place]) 1 ea N/A .ATIVAN IV [place] PRN PRN Reason: PYXIS [place] Pharmacy Consult (Vancomycin Per Pharmacy*) 1 note FOLLOW UP .VANC PER PHARMACY [facility]; Protocol Pharmacy Profile Note (Vancomycin Trough Check) 1 note FOLLOW UP 0600 ONE Stop: 08/12/19 06:01 Spironolactone (Aldactone Tab*) 25 mg PO DAILY [facility] Last Admin: 08/10/19 15:16 Dose: 25 mg Torsemide (Demadex*) 20 mg PO DAILY [facility] Last Admin: 08/10/19 15:16 Dose: 20 mg Trazodone HCl (Desyrel Tab*) 50 mg PO BEDTIME PRN PRN Reason: SLEEP Last Admin: 08/10/19 22:31 Dose: 50 mg Vital Signs - 8 hr 08/11/19 08/11/19 03:05 07:49 Temperature 97.7 F 97.6 F Pulse Rate 104 102 Respiratory 16 20 Rate Blood Pressure 90/69 99/71 (mmHg) O2 Sat by Pulse 94 98 Oximetry Oxygen Devices in Use Now: None Appearance: sitting in chair, talks in full sentences, coughing, NAD Eyes: No Scleral Icterus Ears/Nose/Mouth/Throat: Clear Oropharnyx, Mucous Membranes Moist Neck: NL Appearance and Movements; NL JVP, Trachea Midline Respiratory: Symmetrical Chest Expansion and Respiratory Effort, - - scattered rhonchi Cardiovascular: RRR, - - 2/6 MEMO throughout precordium Abdominal: NL Sounds; No Tenderness; No Distention, No Hepatosplenomegaly Extremities: - - tense pitting edema b/l LE Skin: - - scattered ulcerations with mild erythematous base on right hand, left chest, back, left arm, feet Neurological: Alert and Oriented x 3 Result Diagrams: 08/11/19 06:38 08/11/19 06:38 Microbiology and Other Data: Microbiology 08/08/19 01:04 Gram Stain - Final Sputum Sputum Culture - Final YEAST Normal Estephania 08/07/19 19:59 Aerobic Blood Culture - Preliminary Blood Venous No Growth Day 2 Anaerobic Blood Culture - Preliminary No Growth Day 2 08/07/19 19:16 Aerobic Blood Culture - Preliminary Blood Venous No Growth Day 2 Anaerobic Blood Culture - Preliminary No Growth Day 2 08/07/19 18:26 Streptococcus pneumoniae Ag Screen - Final Urine Negative S. pneumo Antigen Assess/Plan/Problems-Billing Assessment: 49 yo M h/o CAD, severe sCHF (EF 10%), MV regurg, 3vCAD (refused CABG in past) , tobacco, alcohol and cocaine abuse recent cardiac arrest 2/ [place] [facility] hypoxic in etiology 2/2 PNA with ROSC/extubation c/b cardiogenic shock (suspected) with improvement however AMA 08/01 however returned with cough/ dyspnea found with multi-focal PNA - Patient Problems (1) Pneumonia Comment: No bacteremia associated, less likely septic Improving on abx less likely fungal Vasculitis v autoimmune etiology possible although improving with abx. Ulcerating lesions noted however pt notes all very new. Will continue to follow. JOSE G elevated in isolation of other evidence of vasculitis/autoimmune etiology Needs further f/u and discussion with Pulmonary on Tuesday. May benefit from Bronch (2) Lactic acidosis Comment: improved then climbed this AM. I am unclear why it was rechecked. Repeat 3 hrs s/p check. Of note multiple new meds started yesterday. If climbing suspect poor forward floor in setting of valvular and pump malfunctions (3) Acute on chronic systolic CHF (congestive heart failure) Comment: EF 10-15% ASA, zetia, toprol (uptitrate when tolerated), lisinopril torsemide/aldactone daily weights/strict I/Os maintain K>4 and Mg>2 Rec HF outpt referal to [facility] for CABG/MVR versus LVAD when stable and discharged (4) Cardiac arrest Comment: On 07/23 in ED Suspect in setting of respiratory distress from PNA (5) Cardiomyopathy Comment: Non revascularized Ischemic Cardiomyopathy Cath 2018 with triple vessel disease Recent cardiac arrest and admission 2 weeks ago ( asystole) EF 10-15% Previously refused CABG, now amendable to evaluation when stable Dr Crowe pt as outpt (6) LFT elevation Current Visit: Yes Status: Acute Code(s): R94.5 - ABNORMAL RESULTS OF LIVER FUNCTION STUDIES SNOMED Code(s): 766921883 Comment: shocked liver on last stay now normalizing (7) Non-sustained ventricular tachycardia Comment: secondary to ischemia maintain mg around 2 lifevest discussion Referal for CABG/MVR vs LVAD (8) Sepsis Comment: pl see above improving (9) DVT (deep venous thrombosis) Comment: heparin
[2019-08-11] MEDS ORDERED: NS 0.9% 500 ML* 500 ML IV SCH (12:00)
[2019-08-11] MEDS: Heparin VIAL(*) 5000 UNITS/ML VIAL (FIVE THOUSAND) SUBCUT SCH ×2 (14:01→21:35)
[2019-08-11] MEDS: Albuterol/Ipratropium NEB.SOL* Albuterol 2.5 MG/Ipratropium 0.5 MG 3 ML INH PRN (14:33)
[2019-08-11] MEDS: cefTRIAXone(*) 2 GM in NS 0.9% 100 ML* 100 ML IVPB SCH (17:18)
[2019-08-11] MEDS: Melatonin 3 MG TAB PO SCH (19:41)
[2019-08-11] MEDS: traZODone TAB* 50 MG TAB PO PRN (23:56)
[2019-08-12] MEDS ORDERED: NS 0.9% 500 ML* 500 ML IV SCH ×2 (01:00→13:00)
[2019-08-12] MEDS ORDERED: Vancomycin Trough Check NOTE FOLLOW UP ONE (06:00)
[2019-08-12] MEDS: Heparin VIAL(*) 5000 UNITS/ML VIAL (FIVE THOUSAND) SUBCUT SCH ×3 (06:28→21:06)
[2019-08-12] MEDS: Vancomycin(*) 1,000 MG in NS 0.9% 250 ML* 250 ML IV SCH ×3 (06:52→23:37)
[2019-08-12] MEDS ORDERED: Magnesium Sulfate 1 GM IV* 1 GM/100 ML BAG IV ONE (08:20)
[2019-08-12] MEDS: Magnesium Oxide TAB* 400 MG PO SCH (09:11)
[2019-08-12] MEDS: Folic Acid TAB* 1 MG PO SCH (09:11)
[2019-08-12] MEDS: Torsemide TAB* 20 MG PO SCH (09:11)
[2019-08-12] MEDS: Metoprolol Succinate XL TAB* 25 MG PO SCH (09:11)
[2019-08-12] MEDS: Lisinopril TAB* 5 MG PO SCH (09:11)
[2019-08-12] MEDS: Benzonatate CAP* 100 MG PO SCH ×2 (09:11→21:01)
[2019-08-12] MEDS: Aspirin 81 mg CHEW TAB* 81 MG TAB.CHEW PO SCH (09:11)
[2019-08-12] MEDS: Spironolactone TAB* 25 MG PO SCH (09:11)
[2019-08-12] MEDS: Ezetimibe TAB* 10 MG PO SCH (09:11)
[2019-08-12] MEDS: guaiFENesin/CODIENE 100mg/10mg 5 ML UDC PO PRN ×3 (09:11→18:39)
--- NOTE | 2019-08-12 16:04 | PN ---
Subjective Date of Service: 08/12/19 Interval History: HD 6 on 08/12 No acute overnight events vitals stable; although slight tachy patient seen and examined at bedside. Patient states he is having bouts of cough ; productive and is blood-tinged. he denies chest pain and fever. he furhter adds that he had to sleep in recliner as he was getting SOB while sleeping in bed. patient states that his feet get blue and white when it is cold and goes back to normal if warmed. Overall, patient is feeling better than yesterday. Objective Active Medications: Albuterol/Ipratropium (Duoneb (Albuterol 2.5 Mg/Ipratropium 0.5 Mg)) 1 neb INH Q4H PRN PRN Reason: SOB/WHEEZING Last Admin: 08/11/19 14:33 Dose: 1 neb Aspirin (Aspirin 81 Mg Chew Tab*) 81 mg PO DAILY [facility] Last Admin: 08/12/19 09:11 Dose: 81 mg Benzonatate (Tessalon Cap*) 100 mg PO BID [facility] Last Admin: 08/12/19 09:11 Dose: 100 mg Ezetimibe (Zetia Tab*) 10 mg PO DAILY [facility] Last Admin: 08/12/19 09:11 Dose: 10 mg Folic Acid (Folvite Tab*) 1 mg PO DAILY [facility] Last Admin: 08/12/19 09:11 Dose: 1 mg Guaifenesin/Codeine Phosphate (Robitussin Ac 100mg/10mg In 5 Ml) 5 ml PO Q4H PRN PRN Reason: COUGH Last Admin: 08/12/19 09:11 Dose: 5 ml Heparin Sodium (Porcine) (Heparin Vial(*)) 5,000 units SUBCUT Q8HR [facility] Last Admin: 08/12/19 12:47 Dose: 5,000 units Ceftriaxone Sodium 2 gm/ (Sodium Chloride) 100 mls @ 200 mls/hr IVPB Q24H [facility] Last Admin: 08/11/19 17:18 Dose: 200 mls/hr Vancomycin HCl 1,000 mg/ (Sodium Chloride) 250 mls @ 166.667 mls/hr IV Q12H [facility] Last Admin: 08/12/19 12:42 Dose: 166.667 mls/hr Sodium Chloride (Ns 0.9% 500 Ml*) 500 mls @ 150 mls/hr IV PER RATE [facility] Stop: 08/12/19 16:19 Last Admin: 08/12/19 12:42 Dose: 150 mls/hr Lisinopril (Prinivil Tab*) 2.5 mg PO DAILY [facility] Last Admin: 08/12/19 09:11 Dose: 2.5 mg Magnesium Oxide (Magox 400 Tab*) 400 mg PO DAILY [facility] Last Admin: 08/12/19 09:11 Dose: 400 mg Melatonin (Melatonin) 3 mg PO BEDTIME [facility] Last Admin: 08/11/19 19:41 Dose: 3 mg Metoprolol Succinate (Toprol Xl Tab*) 12.5 mg PO DAILY [facility] Last Admin: 08/12/19 09:11 Dose: 12.5 mg Miscellaneous (Ativan Pyxis [place]) 1 ea N/A .ATIVAN IV [place] PRN PRN Reason: PYXIS [place] Pharmacy Consult (Vancomycin Per Pharmacy*) 1 note FOLLOW UP .VANC PER PHARMACY [facility]; Protocol Pharmacy Profile Note (Vancomycin Trough Check) 1 note FOLLOW UP 1130 ONE Stop: 08/14/19 11:31 Spironolactone (Aldactone Tab*) 25 mg PO DAILY [facility] Last Admin: 08/12/19 09:11 Dose: 25 mg Torsemide (Demadex*) 20 mg PO DAILY [facility] Last Admin: 08/12/19 09:11 Dose: 20 mg Trazodone HCl (Desyrel Tab*) 50 mg PO BEDTIME PRN PRN Reason: SLEEP Last Admin: 08/11/19 23:56 Dose: 50 mg Vital Signs - 8 hr 08/12/19 12:10 Temperature 96.7 F Pulse Rate 104 Respiratory 20 Rate Blood Pressure 101/66 (mmHg) O2 Sat by Pulse 98 Oximetry Oxygen Devices in Use Now: None Exam: Oxygen Devices in Use Now: None Appearance: sitting in chair, talks in full sentences, coughing, NAD Eyes: No Scleral Icterus Ears/Nose/Mouth/Throat: Clear Oropharnyx, Mucous Membranes Moist Neck: NL Appearance and Movements; NL JVP, Trachea Midline Respiratory: Symmetrical Chest Expansion and Respiratory Effort, clear with no added sounds Cardiovascular: RRR, - - Abdominal: NL Sounds; No Tenderness; No Distention, No Hepatosplenomegaly Extremities: - - tense pitting edema b/l LE Skin: - - scattered ulcerations with mild erythematous base on right hand, left chest, back, left arm, feet Neurological: Alert and Oriented x 3 Result Diagrams: 08/11/19 06:38 08/11/19 06:38 Microbiology and Other Data: Microbiology 08/08/19 01:04 Gram Stain - Final Sputum Sputum Culture - Final YEAST Normal Estephania 08/07/19 19:59 Aerobic Blood Culture - Preliminary Blood Venous No Growth Day 2 Anaerobic Blood Culture - Preliminary No Growth Day 2 08/07/19 19:16 Aerobic Blood Culture - Preliminary Blood Venous No Growth Day 2 Anaerobic Blood Culture - Preliminary No Growth Day 2 08/07/19 18:26 Streptococcus pneumoniae Ag Screen - Final Urine Negative S. pneumo Antigen Assess/Plan/Problems-Billing Assessment: 49 yo M h/o CAD, severe sCHF (EF 10%), MV regurg, 3vCAD (refused CABG in past) , tobacco, alcohol and cocaine abuse recent cardiac arrest 07/23 on presentation to [facility] [place] ED thought hypoxic in etiology 2/2 PNA with ROSC/extubation c/b cardiogenic shock (suspected) with improvement however AMA 08/01 however returned with cough/dyspnea found with multi-focal PNA. - Patient Problems (1) Sepsis Comment: -met SIRS criteria 2/2 pneumonia -Multifocal pneumonia -has elevated lactate-severe sepsis -careful fluid administration as EF is only 10% -On IV abx -Improving (2) Pneumonia Comment: -Multifocal pneumonia -less likely ANCA-no nosebleed and oral ulcers -will need ID consult fo rmultifocal pneumonia -has multiple ulcerations scattered throughout body- may need rheum consult if does not improve in a day or two. -still has blood tinged sputumn which could be from pneumonia- bu tif continues to have so then may need Pulmo input for possible bronchoscopy although high risk from cardiac standpoint. -On iv vanc(08/08) and ceftriaxone(08/09) (3) Lactic acidosis Comment: -increasing lactate but is fluid responsive -can be multifactorial- decreased perfusion 2/2 decreased EF and ppt by infection -will give 500 ml of NS -measure lactate and trend -if keeps increasing then low threshold for ICu transfer (4) Acute on chronic systolic CHF (congestive heart failure) Comment: -EF 10-15% ASA, zetia, toprol (uptitrate when tolerated), lisinopril torsemide/aldactone daily weights/strict I/Os maintain K>4 and Mg>2 Rec HF outpt referal to [facility] for [place]/MVR versus LVAD when stable and discharged -even if he gets stable for discharge will need temporary lifevest before he can be seen in [place] (5) Cardiomyopathy Comment: -Non revascularized Ischemic Cardiomyopathy Cath 2018 with triple vessel disease-denied CABG Recent cardiac arrest and admission 2 weeks ago ( asystole) EF 10-15% Previously refused CABG, now amendable to evaluation when stable Dr Crowe pt as outpt -will need to see cardio for intervention (6) Substance use disorder Current Visit: Yes Status: Acute Code(s): F19.90 - OTHER PSYCHOACTIVE SUBSTANCE USE, UNSPECIFIED, UNCOMPLICATED SNOMED Code(s): 261724115 Comment: -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 Dunbar unless indicated here. 49 yo M severe ischemic cardiomyopathy and MR s/p cardiac arrest/ROSC now multifocal PNA PNA- improving. Pending pulm consult. Possible rheum consult if not improving. CHF - associated with lactic acidosis suspected poor forward flow and possibel volume depletion in setting of infection and diuresis. 500 cc NS slowly today and recheck at 5pm. Attestation: This service has been performed in part by a resident under the direction of a teaching physician.I, Drew Potter, performed the service, or was physically present during the critical, or nj portions of the service, furnished by the resident. I participated in the management of the patient.
[2019-08-12] MEDS: cefTRIAXone(*) 2 GM in NS 0.9% 100 ML* 100 ML IVPB SCH (16:30)
[2019-08-12] MEDS: Melatonin 3 MG TAB PO SCH (21:01)
[2019-08-13 05:41] LABS: ABS Basophils 0.2 10^3/ul (0-0.2); ABS Eosinophils 0.1 10^3/ul (0-0.6); ABS Lymphocytes 2.4 10^3/ul (1.0-4.8); ABS Monocytes 0.8 10^3/ul (0-0.8); ABS Neutrophils 13.2 10^3/ul (1.5-7.7); Eosinophil % 0.6 %; Hematocrit 35 % (42-52); Hemoglobin 11.4 g/dL (14.0-18.0); Lymphocyte % 14.3 %; Mean Corpuscular HGB Conc 33 g/dL (31-36); Mean Corpuscular Hemoglobin 29 pg (27-31); Mean Corpuscular Volume 90 fL (80-94); Nucleated Red Blood Cells % 0.2; Platelet Count 501 10^3/uL (150-450); Red Cell Distribution Width 19 % (10-15); White Blood Count 16.7 10^3/uL (3.5-10.8)
[2019-08-13 06:01] LABS: BUN/Creatinine Ratio 16.4 (8-20); Calcium 8.1 mg/dL (8.6-10.3); EGFR African American 81.3 (>60); EGFR Non-African American 67.2 (>60); Magnesium 1.9 mg/dL (1.9-2.7)
[2019-08-13] MEDS: Heparin VIAL(*) 5000 UNITS/ML VIAL (FIVE THOUSAND) SUBCUT SCH ×2 (06:42→14:09)
[2019-08-13] MEDS: Metoprolol Succinate XL TAB* 25 MG PO SCH (09:22)
[2019-08-13] MEDS: Torsemide TAB* 20 MG PO SCH (09:23)
[2019-08-13] MEDS: Lisinopril TAB* 5 MG PO SCH (09:23)
[2019-08-13] MEDS: Aspirin 81 mg CHEW TAB* 81 MG TAB.CHEW PO SCH (09:23)
[2019-08-13] MEDS: Ezetimibe TAB* 10 MG PO SCH (09:23)
[2019-08-13] MEDS: Magnesium Oxide TAB* 400 MG PO SCH (09:23)
[2019-08-13] MEDS: Folic Acid TAB* 1 MG PO SCH (09:23)
[2019-08-13] MEDS: Benzonatate CAP* 100 MG PO SCH (09:24)
[2019-08-13] MEDS: Spironolactone TAB* 25 MG PO SCH (09:24)
[2019-08-13] MEDS: guaiFENesin/CODIENE 100mg/10mg 5 ML UDC PO PRN (09:25)
--- NOTE | 2019-08-13 10:31 | PN ---
Progress Note - Progress Note Date of Service: 08/13/19 SOAP: Subjective: CC: PNA HPI: Mr. Lema is a 49 yo male with PMH significant for CAD, PVD, severe systolic HF, MV regurgitation, tobacco abuse, alcohol abuse, and HLD; who presented to the hospital with concern for PNA. Denies fever, chills, ABD pain, nausea, vomiting, or diarrhea. He reports an occasional dry cough, no bloody sputum today, and shortness of breath with exertion. He continues to have bilateral LE edema. Objective: Vital Signs - 8 hr 08/13/19 08/13/19 02:48 07:40 Temperature 97.9 F 97.4 F Pulse Rate 101 98 Respiratory 18 28 Rate Blood Pressure 103/75 103/75 (mmHg) O2 Sat by Pulse 95 100 Oximetry Physical Exam: General: NAD, sitting up in a chair Neurological: Alert and Oriented HEENT: Moist MM Cardiovascular: Heart rate regular, murmur left sternal border. Bilateral LE 1-2 + edema Respiratory: Lung sounds clear Abdominal: Bowel sounds present; ABD soft, non tender and distended. + Fluid wave MSK: LARSEN Skin: No rash. He is noted to have multiple small areas of dry eschar on UEs, chest, and forehead Laboratory Results - last 24 hr 08/12/19 08/13/19 08/13/19 16:42 05:35 05:35 WBC 16.7 H RBC 3.90 L Hgb 11.4 L Hct 35 L MCV 90 MCH 29 MCHC 33 RDW 19 H Plt Count 501 H MPV 8.0 Neut % (Auto) 79.1 Lymph % (Auto) 14.3 Elbert % (Auto) 4.8 Eos % (Auto) 0.6 Baso % (Auto) 1.2 Absolute Neuts (auto) 13.2 H Absolute Lymphs (auto) 2.4 Absolute Monos (auto) 0.8 Absolute Eos (auto) 0.1 Absolute Basos (auto) 0.2 Absolute Nucleated RBC 0.0 Nucleated RBC % 0.2 Sodium 132 L Potassium 4.0 Chloride 100 L Carbon Dioxide 23 Anion Gap 9 BUN 19 Creatinine 1.16 Est GFR ( Amer) 81.3 Est GFR (Non-Af Amer) 67.2 BUN/Creatinine Ratio 16.4 Glucose 112 H Lactic Acid 2.6 H* Calcium 8.1 L Magnesium 1.9 Microbiology 08/07/19 19:59 Aerobic Blood Culture - Final Blood Venous No Growth Day 5 Anaerobic Blood Culture - Final No Growth Day 5 08/07/19 19:16 Aerobic Blood Culture - Final Blood Venous No Growth Day 5 Anaerobic Blood Culture - Final No Growth Day 5 08/08/19 01:04 Gram Stain - Final Sputum Sputum Culture - Final YEAST Normal Estephania 08/07/19 18:26 Streptococcus pneumoniae Ag Screen - Final Urine Negative S. pneumo Antigen Assessment: 1. PNA. Differential Dx: Viral vs bacterial vs fungal vs noninfectious cause. Chest CT with bilateral peripheral infiltrates, possible septic emboli. Blood cultures with no growth on day 5, so low suspicion for septic emboli. Improving on current treatment (not on antifungal), low suspicion for fungal PNA in setting of improvement without antifungal. Sputum culture with yeast. Urine antigen for s. pneumo negative. Afebrile, and improving leukocytosis. 2. Elevated LFTs. LFTs are improving from previous admission. ABD US with echogenic liver. Suspect secondary to Liver shock but may have underlying liver disease in the setting of hx ETOH use and history of elevated LFTs. 3. Ascities. Denies ABD pain. + fluid wave, he is improving with current treatment. 4. CAD with severe systolic HF. Recent cardiac arrest. Plan: Continue Vancomycin and Ceftriaxone, day 6/7. Obtain a chest xray today. If still has a large pleural effusion, recommend considering a thoracentesis. Will get urine histo antigen and cryptococcal antigen to eval for possible fungal cause. Floor time: 25 minutes > 50% spent with the patient discussing recommendations.
[2019-08-13] MEDS: Vancomycin(*) 1,000 MG in NS 0.9% 250 ML* 250 ML IV SCH (12:04)
--- NOTE | 2019-08-13 12:09 | PN ---
Subjective Date of Service: 08/13/19 - Severe biVentricular failure, ?PNA Interval History: Patient presented due to productive cough, worsening dyspnea, progressive edema. Diagnosed with multifocal pneumonia. States breathing has improved but has notable conversational dyspnea. States edema is new since recent admit which he left AMA. No c/o chest pain. +SOB, + edema, + abdominal distention. Chills have improved per patient. I reviewed temperatures and he has been afebrile. He reports good urinary output. Medications Active Medications: Albuterol/Ipratropium (Duoneb (Albuterol 2.5 Mg/Ipratropium 0.5 Mg)) 1 neb INH Q4H PRN PRN Reason: SOB/WHEEZING Last Admin: 08/11/19 14:33 Dose: 1 neb Aspirin (Aspirin 81 Mg Chew Tab*) 81 mg PO DAILY [facility] Last Admin: 08/13/19 09:23 Dose: 81 mg Benzonatate (Tessalon Cap*) 100 mg PO BID [facility] Last Admin: 08/13/19 09:24 Dose: 100 mg Ezetimibe (Zetia Tab*) 10 mg PO DAILY [facility] Last Admin: 08/13/19 09:23 Dose: 10 mg Folic Acid (Folvite Tab*) 1 mg PO DAILY [facility] Last Admin: 08/13/19 09:23 Dose: 1 mg Guaifenesin/Codeine Phosphate (Robitussin Ac 100mg/10mg In 5 Ml) 5 ml PO Q4H PRN PRN Reason: COUGH Last Admin: 08/13/19 09:25 Dose: 5 ml Heparin Sodium (Porcine) (Heparin Vial(*)) 5,000 units SUBCUT Q8HR [facility] Last Admin: 08/13/19 06:42 Dose: 5,000 units Ceftriaxone Sodium 2 gm/ (Sodium Chloride) 100 mls @ 200 mls/hr IVPB Q24H [facility] Last Admin: 08/12/19 16:30 Dose: 200 mls/hr Vancomycin HCl 1,000 mg/ (Sodium Chloride) 250 mls @ 166.667 mls/hr IV Q12H [facility] Last Admin: 08/12/19 23:37 Dose: 166.667 mls/hr Lisinopril (Prinivil Tab*) 2.5 mg PO DAILY [facility] Last Admin: 08/13/19 09:23 Dose: 2.5 mg Magnesium Oxide (Magox 400 Tab*) 400 mg PO DAILY [facility] Last Admin: 08/13/19 09:23 Dose: 400 mg Melatonin (Melatonin) 3 mg PO BEDTIME [facility] Last Admin: 08/12/19 21:01 Dose: 3 mg Miscellaneous (Ativan Pyxis Del Angel) 1 ea N/A .ATIVAN IV DEL ANGEL PRN PRN Reason: PYXIS DEL ANGEL Pharmacy Consult (Vancomycin Per Pharmacy*) 1 note FOLLOW UP .VANC PER PHARMACY [facility]; Protocol Pharmacy Profile Note (Vancomycin Trough Check) 1 note FOLLOW UP 1130 ONE Stop: 08/14/19 11:31 Spironolactone (Aldactone Tab*) 25 mg PO DAILY [facility] Last Admin: 08/13/19 09:24 Dose: 25 mg Torsemide (Torsemide) 10 mg PO DAILY [facility] Trazodone HCl (Desyrel Tab*) 50 mg PO BEDTIME PRN PRN Reason: SLEEP Last Admin: 08/11/19 23:56 Dose: 50 mg Objective Vital Signs: Temp Pulse Resp BP Pulse Ox 97.4 F 98 28 103/75 100 08/13/19 07:40 08/13/19 07:40 08/13/19 08:00 08/13/19 07:40 08/13/19 07:40 Oxygen Devices in Use Now: None Appearance: chronically ill appearing, + conversational dyspnea. Sitting in chair. alert and oriented X3 Eyes: No Scleral Icterus, PERRLA Ears/Nose/Mouth/Throat: Clear Oropharnyx Neck: Trachea Midline, - - +jvp Respiratory: - - mild tachypnea and increased work of breathing, decreased breath sounds right base Cardiovascular: - - tachycardic, regular, prominent PMI, no significant murmur Abdominal: - - soft, mildy distended, non-tender Extremities: - - 3+ edema, warm and well perfused Skin: - - excorations on arms Neurological: Alert and Oriented x 3 Lines/Tubes/Other Access: Clean, Dry and Intact Peripheral IV Laboratory Results: 08/13/19 05:35 08/13/19 05:35 INR (Anticoag Therapy) 2.16 (0.82-1.09) H 08/07/19 17:42 Total Bilirubin 1.80 mg/dL (0.2-1.0) H 08/07/19 17:42 AST 68 U/L (13-39) H 08/07/19 17:42 ALT 84 U/L (7-52) H 08/07/19 17:42 Alkaline Phosphatase 330 U/L (34-104) H 08/07/19 17:42 B-Natriuretic Peptide > 1300 pg/mL (<=100) H 08/07/19 17:42 Total Protein 7.3 g/dL (6.4-8.9) 08/07/19 17:42 Albumin 3.3 g/dL (3.2-5.2) 08/07/19 17:42 Globulin 4.0 g/dL (2-4) 08/07/19 17:42 Albumin/Globulin Ratio 0.8 (1-3) L 08/07/19 17:42 08/07/19 08/08/19 17:42 05:47 Troponin I 0.54 H* 0.50 H* Laboratory Results - last 24 hr 08/12/19 08/13/19 08/13/19 16:42 05:35 05:35 WBC 16.7 H RBC 3.90 L Hgb 11.4 L Hct 35 L MCV 90 MCH 29 MCHC 33 RDW 19 H Plt Count 501 H MPV 8.0 Neut % (Auto) 79.1 Lymph % (Auto) 14.3 Hooker % (Auto) 4.8 Eos % (Auto) 0.6 Baso % (Auto) 1.2 Absolute Neuts (auto) 13.2 H Absolute Lymphs (auto) 2.4 Absolute Monos (auto) 0.8 Absolute Eos (auto) 0.1 Absolute Basos (auto) 0.2 Absolute Nucleated RBC 0.0 Nucleated RBC % 0.2 Sodium 132 L Potassium 4.0 Chloride 100 L Carbon Dioxide 23 Anion Gap 9 BUN 19 Creatinine 1.16 Est GFR ( Amer) 81.3 Est GFR (Non-Af Amer) 67.2 BUN/Creatinine Ratio 16.4 Glucose 112 H Lactic Acid 2.6 H* Calcium 8.1 L Magnesium 1.9 08/13/19 05:35 WBC RBC Hgb Hct MCV MCH MCHC RDW Plt Count MPV Neut % (Auto) Lymph % (Auto) Hooker % (Auto) Eos % (Auto) Baso % (Auto) Absolute Neuts (auto) Absolute Lymphs (auto) Absolute Monos (auto) Absolute Eos (auto) Absolute Basos (auto) Absolute Nucleated RBC Nucleated RBC % Sodium Potassium Chloride Carbon Dioxide Anion Gap BUN Creatinine Est GFR ( Amer) Est GFR (Non-Af Amer) BUN/Creatinine Ratio Glucose Lactic Acid 2.1 H* Calcium Magnesium Diagnostic Imaging: Exam Date: 08/09/19 HISTORY: Looking for ascites IMPRESSION: ASCITES. RIGHT PLEURAL EFFUSION. Coronary artery disease. He had a cath in February 2018. He had a diffusely diseased RCA with a 50% to 55% proximal lesion and 65% to 70% more distal lesion and 75% to 80% lesion to PDA. Left main was 45% to 50%. LAD 55%. Mid LAD 80% to 85%. Circumflex was a dominant vessel. Trifurcation marginal branch had 75% lesion and a mid 70% lesion. He was advised CABG, which he declined. Exam Date: 08/07/19 CT CHEST W/O IMPRESSION: 1. Interval multifocal pneumonia with findings suggesting the possibility of septic emboli with other etiologies including atypical agents such as fungus and Shreya's granulomatosis. Associated although smaller reactive mediastinal lymph nodes and intervally enlarged right greater than left pleural effusions. 2. Cardiomegaly without overt failure. Transthoracic Echocardiogram Study Date: 07/30/2019 - Left ventricle: Systolic function is severely reduced. The estimated ejection fraction is 10%. Diffuse hypokinesis with regional variations. - Right ventricle: Systolic function is moderately to severely reduced. - Mitral valve: There is moderate to severe regurgitation. Possible pulmonary vein systolic flow reversal. The valve area is 2.1 cm^2. The valve area by pressure half-time is 3.7 cm^2. The effective regurgitant orifice (PISA) is 0.39 cm^2. - Aortic valve: There is no evidence of stenosis. There is no significant regurgitation. - Tricuspid valve: There is moderate regurgitation. - Pericardium, extracardiac: There is no significant pericardial effusion. - Pulmonary arteries: Systolic pressure is mildly to moderately increased. - Compared to study of 07/23/2019, the left ventricle function is the same. The degee of mitral regurgitation is worse EKG Data: ekg 03/07/2020 NSR 92 bpm Low limb lead voltage LAE old anterior/anterolateral infarct Assessment/Plan 1. Severe unrevascularized ischemic cardiomyopathy with biventricular failure. Appears decompensated with + right sided failure. He has + conversation dyspnea with 3+ lower extremity edema and + ascities. Will d/c Bblocker given h/o recent cocaine use in addition to pursuing compensatory mechanism( HR). Continue Lisinopril He has Hyponatremia which is a poor prognostic indicator. Will differ Fabiola to Dr. Carter given complexity of case. I am actually concerned that he is in the beginning stages of cardiogenic shock. His Albumin is normal. Spoke with patient about being transferred to [facility] to be evaluated by their advanced CHF team. He declined citing the need to " take care of paperwork " He is in guarded condition. Would recommend evaluation for hospice given patient continues to delay care and decline transfer. On Aldactone, Torsemide therapy. #2 ? Multifocal pneumonia; Cultures are negative for growth thus far. ID following. HE remains afebrile. On IV vanco and Rocephin. #3 h/o CAD; s/p cardiac arrest during last admit due to respiratory comprise. He is on ASA therapy, statin was held after recent ischemic liver injury. Given AST/ALT have improved since event would suggest restarting Lipitor. WIll d /c bblocker therapy at this time. He has known unrevascularized CAD. In the past has declined CABG and was non adherent with follow up. #4 . Alcohol abuse; h/o ETOH abuse. HAs + coagulopathy. He had a recent ischemic liver injury. AST/ALT has improved since cardiac arrest. ? underlying liver disease. #5 Condition guarded. Will d/w Dr. Carter. I am concerned that he is in the beginning stages of cardiogenic shock. Will speak with attending about transferring him, please note in the past he has refused transfer and has been non compliant with follow up/medication adherence Attending: Miles Carter
[2019-08-13 13:46] VITALS: BP 108/74
--- NOTE | 2019-08-13 14:49 | TRS ---
CC: Dr. Elin Crowe * DATE OF ADMISSION: 08/07/2019. DATE OF TRANSFER: 08/13/2019. Please note preceding admission at [facility] [place] from 07/23 to 08/01/2019. PRIMARY CARE PHYSICIAN: None. PRODUCTION CONTROL MANAGER: Dr. Elin Crowe. DISPOSITION ON DISCHARGE: Transfer to [facility]. CONDITION ON DISCHARGE: Stable, yet guarded. PRIMARY DIAGNOSIS: Severe ischemic cardiomyopathy, possible early cardiogenic shock. SECONDARY DIAGNOSES: 1. Moderate to severe mitral regurgitation. 2. Multifocal infiltrates suspicious for pneumonia, although other etiologies are currently being considered. 3. Peripheral vascular disease. 4. Tobacco abuse. 5. Alcohol abuse. 6. Polysubstance abuse, including recent cocaine. PERTINENT LABS DURING THIS HOSPITAL STAY: White blood cell count on presentation 29,000, white blood cell count decreased to 12.3 on 08/11/2019 and then increased to 16.7 on the day of transfer; ESR is 26. Lactic acid peaked at 5.4, decreased to 2.1 on the day of discharge, sodium 132, BUN 19, creatinine 1.16, CRP 144. JOSE G is 3.7; negative for cryoglobulin, PR3, myeloperoxidase antibody, glomerular base membrane antibody; C3 is 151 and C4 is 17. PERTINENT IMAGIN. Transthoracic echocardiogram on 07/30/2019: Impression: Systolic function is severely depressed. The estimated LVEF is 10 to 15 percent. Diffuse hypokinesis with regional variations. Right systolic function is moderately to severely reduced. There is moderate to severe mitral regurgitation. Possible pulmonary vein systolic flow reversal. Valve area is 2.1 cm2. Valve area by pressure half- time is 3.7 cm2. Effective regurgitation orifice is 0.39 cm2. Moderate tricuspid regurgitation. Compared to 07/23/2019, left ventricular function is the same, but the degree of mitral regurgitation is worse. 2. CT of the chest: Impression: Multifocal areas of consolidation are seen which are new when compared to the prior study of 07/23/2019, most of which show early internal cavitation or clearing. More confluent consolidation posterior basal segment and medial basal segments right lower lobe. Ground glass opacification and intralobular septal thickening surrounding a large consolidation in the right lower lobe. No bronchiectasis, peribronchial thickening or luminal defects. There is moderate right and tiny left pleural effusions, increased compared to prior. Several enlarged mediastinal lymph nodes including the upper right paratracheal node and precarinal node. Small volume ascites. No hemorrhage or pneumoperitoneum. HISTORY OF PRESENT ILLNESS/HOSPITAL COURSE: This is a 49-year-old man with a past medical history as outlined in the history of present illness on the day of admission, including a history of triple vessel cardiac disease diagnosed in 2018, refused intervention at that time, continued alcohol, tobacco, and polysubstance use, including cocaine, who presented to [facility] [place] on 07/23/2019 with shortness and breath and asystolic cardiac arrest in the emergency room. He underwent six minutes of CPR, including administration of two rounds of Epinephrine, had ROSC then lost pulse again. Received two additional rounds of Epinephrine for a total of four, as well as calcium chloride before ROSC. Total duration was 32 minutes. He was intubated and placed in the ICU with that initial stay complicated by acute kidney injury. Creatinine peaked at 2.1 as well as shock liver with AST peaked at 2,819, ALT 1,420, alk phos 198. Essentially normalized by 08/07/2019. He was being treated for pneumonia with Zosyn. Ultimately AMA'd from the hospital on the because he needed to take care of his parents. Reports he used cocaine in the interval time. Return to Urgent Care on 08/07/2019 with complaints of shortness of breath and transferred to [facility] [place] where he was admitted with worsening multifocal infiltrates concerning for bacterial pneumonia. He was started on Ceftriaxone, broadened to improve, Vancomycin three days prior to transfer. Had improving respiratory function, however continued cough. He is notably extravascularly overloaded. His intravascular volume status has been difficult to ascertain over the last 48 hours. He did have a rise in creatinine, peaked at 3.3 which did respond in two consecutive boluses of 500 cc normal saline in a fashion of increased lactic, received fluid, improved lactic, increased lactic, received fluid, improved lactic to a last check of 2.1 this morning. He was seen in consultation with Cardiology service who felt that he was borderline returning to cardiogenic shock. The patient is standing. He is minimally ambulatory. He talks in full sentences, although is quite short of breath. He is warm and well- perfused. He did have one episode of mottling of his feet two days prior to transfer. The patient will certainly benefit from an advanced heart failure service and ultimately definitively therapy of his underlying cardiac pathology , including coronary artery disease. While he is receiving antibiotics, we have maintained a broad differential for his pulmonary infiltrates. Certainly fungal etiologies are of a differential, represent of cryptococcus as well as histoplasmosis. Antigens today have not yet resulted. He is noted to have scattered ulcerations on his hands, arms, back, chest and abdomen raising the concern for either autoimmune or vasculitic phenomenon. He has not been seen by Rheumatology or Pulmonology at this time. Both were pending at the time of transfer. Thank you for your assistance with the care of this patient. MEDICATIONS AT THE TIME OF TRANSFER: 1. Albuterol Ipratropium nebulizer prn. 2. Aspirin 81 mg. 3. Tessalon 100 mg twice daily. 4. Ceftriaxone 2 gm daily. 5. Zetia 10 mg daily. 6. Folic acid 1 mg daily. 7. Heparin subcu for DVT prophylaxis. 8. Lisinopril 2.5 mg daily. 9. Magnesium Oxide 400 mg daily. 10. Melatonin 3 mg at bedtime. 11. Ativan prn which he has not received. 12. Spironolactone 25 mg daily. 13. Torsemide 20 mg daily. 14. Trazodone 50 mg at bedtime, has not received since the . 15. Vancomycin 1,000 mg q.12 for therapeutic levels. Thank you for your assistance. Please do not hesitate to call with additional questions. TIME SEEN: Greater than 60 minutes were spent on the discharge of this patient , greater than half was spent [id number] with the patient. [id number]/[facility] #: [id number] [facility]
[2019-08-14] MEDS ORDERED: Torsemide TAB 10 MG PO SCH (09:00)
[2019-08-14] MEDS ORDERED: Torsemide TAB* 20 MG PO SCH (09:00)
[2019-08-14] MEDS ORDERED: Vancomycin Trough Check NOTE FOLLOW UP ONE (11:30)
== END 2019-08-13 14:25 | disposition short-term general hospital (02) | DRG 720 ==
LOC: ED 15:58 → MEDTELE 20:00 → ICU 08-08 07:15 → MED 08-09 10:52
PROVIDERS: ADMIT Internal Medicine; ATTEND Internal Medicine
DX: A41.9 Sepsis, unspecified organism (principal); R57.0 Cardiogenic shock; J18.9 Pneumonia, unspecified organism; M31.30 Wegener's granulomatosis without renal involvement; N17.9 Acute kidney failure, unspecified; E87.2 Acidosis; I50.20 Unspecified systolic (congestive) heart failure; R18.8 Other ascites; Z86.74 Personal history of sudden cardiac arrest; I08.1 Rheumatic disorders of both mitral and tricuspid valves; F10.10 Alcohol abuse, uncomplicated; I73.9 Peripheral vascular disease, unspecified; E78.5 Hyperlipidemia, unspecified; I25.5 Ischemic cardiomyopathy; K76.9 Liver disease, unspecified; F14.10 Cocaine abuse, uncomplicated; Y90.0 Blood alcohol level of less than 20 mg/100 ml; F17.210 Nicotine dependence, cigarettes, uncomplicated; I25.10 Atherosclerotic heart disease of native coronary artery without angina pectoris; Z72.89 Other problems related to lifestyle; Z79.82 Long term (current) use of aspirin; Z79.899 Other long term (current) drug therapy; Z82.49 Family history of ischemic heart disease and other diseases of the circulatory system; Z82.5 Family history of asthma and other chronic lower respiratory diseases
CPT/HCPCS: 36415; 71046; 71250; 76705; 80048; 80053; 80202; 80307; 80320; 81003; 82140; 82570; 82595; 83516; 83520; 83605; 83690; 83735; 83880; 84300; 84484; 85025; 85610; 85652; 86038; 86140; 86160; 87040; 87070; 87205; 87385; 87899; 93005; 94640; 99284; A9270-GY; G0480; J0696; J1644; J2060; J2543; J3370; J3411; J3475

== ENCOUNTER 2023-10-27 06:11 | Observation (INO) ==
[2023-10-27] MEDS ORDERED: Albuterol/Ipratropium NEB.SOL (2.5/0.5 MG) 3 ML NEB.SOLN INH ONE (06:26)
[2023-10-27] MEDS: Albuterol/Ipratropium NEB.SOL (2.5/0.5 MG) 3 ML NEB.SOLN INH ONE (06:37)
[2023-10-27 06:45] LABS: Hemoglobin 16.1 g/dL (13.2-16.3); Mean Corpuscular Hgb Conc 33.6 g/dL (31-36); Mean Corpuscular Volume 95.1 fL (80-97); Mean Platelet Volume 8.5 fL (7.5-11.2); Platelet Count 293 10^3/uL (150-450); Red Blood Count 5.04 10^6/uL (4.06-5.63); Red Cell Distribution Width 14.8 % (12-17)
[2023-10-27 07:54] LABS: ABS Basophils 0.2 10^3/uL (0.0-0.1); ABS Eosinophils 0.3 10^3/uL (0.0-0.5); ABS Monocytes 1.6 10^3/uL (0.0-1.1); ABS Nucleated RBC 0.03 10^3/ul; Eosinophil % 1.4 %; Lymphocyte % 11.1 %; Nucleated Red Blood Cells % 0.2 %/100WBC (0.0-0.8); RBC Morphology Normal (Normal)
[2023-10-27] MEDS: Lactated Ringers 1000 ml BAG 1,000 ML IV ONE (08:21)
[2023-10-27 08:25] LABS: Albumin 4.4 g/dL (3.2-5.2); Albumin/Globulin Ratio 1.4 (1-3); Calcium 9.3 mg/dL (8.6-10.3); Creatinine, Serum 1.17 mg/dL (0.67-1.17); Globulin 3.2 g/dL (2-4); Potassium 4.1 mmol/L (3.5-5.0); Total Bilirubin 0.9 mg/dL (0.2-1.0); Total Protein 7.6 g/dL (6.4-8.9)
[2023-10-27 09:22] LABS: High Sensitivity Troponin 1 Hr 29 pg/mL (<20)
[2023-10-27] MEDS: Iodixanol (CONTRAST) 320 MG/ML 100 ML SDV IV ONE (09:34)
[2023-10-27] MEDS: cefTRIAXone 1 gm/50 mL D5W 1 GM/50 ML BAG IV ONE (10:40)
[2023-10-27] MEDS: Azithromycin 500 mg/250 ml NS 500 MG/250 ML BAG IVPB ONE (10:41)
[2023-10-27] MEDS ORDERED: Enoxaparin 40 MG/0.4 ML SYR SUBCUT SCH (15:00)
[2023-10-27] MEDS: Albuterol 2.5mg/3 ml (0.083%) NEB.SOLN INH PRN (16:09)
[2023-10-27] MEDS: SPIRIVA Respimat (tiotropium) 2.5 mcg/inh Inhaler INH SCH (16:27)
[2023-10-27] MEDS: Enoxaparin 40 MG/0.4 ML SYR SUBCUT SCH ×2 (17:24→21:39)
[2023-10-27 21:20] LABS: INR 1.22 (0.83-1.13)
[2023-10-27] MEDS: Benzocaine/Menthol LOZ PO PRN (22:54)
[2023-10-28 06:20] LABS: Hemoglobin 15.4 g/dL (13.2-16.3); Mean Corpuscular Hemoglobin 31.8 pg (27-33); Mean Corpuscular Hgb Conc 33.5 g/dL (31-36); Mean Corpuscular Volume 94.7 fL (80-97); Mean Platelet Volume 8.8 fL (7.5-11.2); Platelet Count 261 10^3/uL (150-450); Red Blood Count 4.86 10^6/uL (4.06-5.63); Red Cell Distribution Width 14.8 % (12-17); White Blood Count 14.7 10^3/uL (3.6-10.2)
[2023-10-28 07:09] LABS: ALT 62 U/L (7-52); Albumin 4.1 g/dL (3.2-5.2); Albumin/Globulin Ratio 1.6 (1-3); Alkaline Phosphatase 91 U/L (35-149); Anion Gap 8 mmol/L (2-16); Blood Urea Nitrogen 21 mg/dL (6-24); CO2 Carbon Dioxide 23 mmol/L (22-32); Calcium 9.1 mg/dL (8.6-10.3); Chloride 106 mmol/L (101-111); Creatinine, Serum 1.07 mg/dL (0.67-1.17); Globulin 2.5 g/dL (2-4); Glucose 121 mg/dL (70-100); Sodium 137 mmol/L (135-145); Total Bilirubin 1.3 mg/dL (0.2-1.0); Total Protein 6.6 g/dL (6.4-8.9); eGFR CKD-EPI 83.5 (>60)
[2023-10-28 08:39] LABS: Phosphorus 3.1 mg/dL (2.5-5.0); Potassium Redraw 4.1 mmol/L (3.5-5.0)
[2023-10-28] MEDS: Calcium (OSCAL) 500 mg TAB PO SCH (09:19)
[2023-10-28] MEDS: Aspirin EC 81 mg TAB.EC (enteric coated) PO SCH (09:20)
[2023-10-28] MEDS: cefTRIAXone 1 gm/50 mL D5W 1 GM/50 ML BAG IV SCH (09:41)
[2023-10-28] MEDS: Azithromycin 500 mg/250 ml NS 500 MG/250 ML BAG IVPB SCH (10:46)
[2023-10-28] MEDS ORDERED: guaiFENesin 100 mg/5 ml LIQ unit dose cup PO PRN (16:43)
[2023-10-28] MEDS: Furosemide 40 mg/4 ml IV VIAL IV SCH (17:53)
[2023-10-28] MEDS: Nicotine GUM 4MG FRUIT FLAVOR PO PRN (20:24)
[2023-10-29 06:31] LABS: ABS Basophils 0.1 10^3/uL (0.0-0.1); ABS Lymphocytes 1.3 10^3/uL (1.0-4.8); ABS Monocytes 0.8 10^3/uL (0.0-1.1); ABS Neutrophils 12.2 10^3/uL (1.5-7.6); ABS Nucleated RBC 0.02 10^3/ul; Eosinophil % 0.2 %; Hematocrit 46.7 % (38-53); Hemoglobin 15.6 g/dL (13.2-16.3); Lymphocyte % 8.7 %; Mean Corpuscular Hemoglobin 31.7 pg (27-33); Mean Corpuscular Hgb Conc 33.5 g/dL (31-36); Mean Corpuscular Volume 94.6 fL (80-97); Mean Platelet Volume 8.7 fL (7.5-11.2); Nucleated Red Blood Cells % 0.1 %/100WBC (0.0-0.8); Platelet Count 281 10^3/uL (150-450); Red Blood Count 4.94 10^6/uL (4.06-5.63); Red Cell Distribution Width 14.6 % (12-17); White Blood Count 14.3 10^3/uL (3.6-10.2)
[2023-10-29 06:58] LABS: Calcium 9.2 mg/dL (8.6-10.3); Creatinine, Serum 1.16 mg/dL (0.67-1.17); Magnesium 2.3 mg/dL (1.9-2.7); Phosphorus 4.2 mg/dL (2.5-5.0); Potassium 4.3 mmol/L (3.5-5.0); eGFR CKD-EPI 75.8 (>60)
[2023-10-29 10:28] VITALS: BP 125/79
== END 2023-10-29 14:00 | disposition home or self-care (01) ==
LOC: ED 06:11 → EDHOLD 06:11 → SUATTDRO 12:00 → MED 14:23
PROVIDERS: ADMIT Internal Medicine; ATTEND Internal Medicine